=== PATIENT | male | born 1990 | race Caucasian/White ===

== ENCOUNTER 2022-04-14 00:48 | Emergency (ER) | payer MEDICAID, SELFPAY ==
--- NOTE | ~2022-04-14 | XR_ITS ---
EXAMINATION: XR CHEST CLINICAL INFORMATION: Chest pain COMPARISON: 04/20/2020 TECHNIQUE: 2 views of the chest were obtained. FINDINGS: Normal symmetric lung volumes. No parenchymal consolidation. No pleural effusion. No pneumothorax. Cardiomediastinal silhouette and pulmonary vascularity are within normal limits. No acute osseous abnormalities. XR/XR chest 2V IMPRESSION: No acute findings
--- NOTE | ~2022-04-14 | CT_ITS ---
EXAMINATION: CT ABDOMEN AND PELVIS WITH CONTRAST CLINICAL INFORMATION: Right upper quadrant and epigastric pain COMPARISON: None TECHNIQUE: Multidetector volumetric images were obtained from the superior aspect of the liver through the pubic symphysis following administration 98 mL of Omnipaque 350 intravenous contrast. Sagittal and coronal reformatted images were obtained on the technologist's workstation. Oral contrast: No This CT examination was performed using dose optimization techniques as appropriate, variously including the following: *Automated exposure control *Adjustment of mA and/or kV according to patient size (this includes techniques or standardized protocols for targeted exams where dose is matched to indication/reason for exam; i.e. extremities or head) *Use of iterative reconstruction technique DLP: 1427 mGy-cm FINDINGS: LUNG BASES: The visualized lung bases are unremarkable. LIVER, GALLBLADDER, AND BILIARY TREE: Liver normal in size, contour and morphology. Diffuse hepatic steatosis. No intra or extrahepatic biliary dilatation. Gallbladder unremarkable. PANCREAS: Unremarkable. SPLEEN: Unremarkable. ADRENAL GLANDS: Unremarkable. KIDNEYS AND URETERS: The kidneys are normal in size, shape, and attenuation. No hydronephrosis, hydroureter, or calculi seen. No perinephric stranding. BLADDER: Unremarkable. GASTROINTESTINAL TRACT: No bowel related abnormalities. Appendectomy. ABDOMINAL WALL: No significant hernia is appreciated. LYMPH NODES: Normal. VASCULAR: Unremarkable. PELVIC VISCERA: Unremarkable. OSSEOUS STRUCTURES: No acute or suspicious osseous abnormalities. CT/CT abdomen pelvis w IV con IMPRESSION: No acute findings. Diffuse hepatic steatosis. Previous appendectomy.
[2022-04-14 00:50] VITALS: BP 150/94; PULSE 100; RESP 18; TEMP 37.2; O2SAT 95; BMI 39.5
--- NOTE | 2022-04-14 00:50 | ECG_ITS ---
Test Reason : CP Blood Pressure : / mmHG Vent. Rate : 102 BPM Atrial Rate : 102 BPM P-R Int : 138 ms QRS Dur : 092 ms QT Int : 356 ms P-R-T Axes : 028 020 -10 degrees QTc Int : 463 ms Sinus tachycardia Cannot rule out Inferior infarct , age undetermined Abnormal ECG When compared with ECG of 19-APR-2020 23:40, QT has lengthened Referred By: Generic ED Physician Electronically Signed By:CATY OLSON
[2022-04-14 01:42] VITALS: PULSE 97
[2022-04-14 01:44] LABS: MANUAL DIFF FLAG NO
[2022-04-14 01:45] VITALS: BP 132/89; PULSE 99; RESP 20; O2SAT 95
[2022-04-14 01:45] LABS: Basophils Absolute Auto 0.1 X10*3/uL (0.0-0.2); Basophils Percent Auto 1.1 % (0-2); Eosinophils Absolute Auto 0.3 X10*3/uL (0.0-0.4); Eosinophils Percent Auto 4.2 % (0-4); Hematocrit 42.5 % (42.0-52.0); Hemoglobin 15.2 g/dl (14.0-18.0); Imm Gran Abs Auto 0.02 X10*3/uL (0.00-0.03); Imm Gran Pct Auto 0.3 % (0.0-0.4); Lymphocytes Absolute Auto 2.7 X10*3/uL (1.2-4.9); Mean Corpuscular HGB Conc 35.8 g/dl (31.0-36.0); Mean Corpuscular Hemoglobin 29.6 pg (27.0-33.0); Mean Corpuscular Volume 82.8 fL (80.0-98.0); Mean Platelet Volume 10.7 fL (9.4-12.4); Monocytes Absolute Auto 0.6 X10*3/uL (0.1-1.2); Monocytes Percent Auto 8.9 % (2-11); Neutrophils Absolute Auto 2.8 x10*3/uL (2.0-8.3); Neutrophils Percent Auto 43.5 % (45-73); Platelet Count 213 X10*3/uL (160-400); Red Blood Count 5.13 X10*6/uL (4.60-5.80); White Blood Count 6.4 X10*3/uL (4.8-10.8)
[2022-04-14 01:53] LABS: D Dimer High Sensitivity < 150 NG/ML
[2022-04-14 02:00] VITALS: PULSE 102; RESP 12; O2SAT 95
[2022-04-14 02:07] LABS: Troponin-I High Sensitivity < 3.5 ng/L (<3.5-35.0)
[2022-04-14 02:08] LABS: Alanine Aminotransferase 116 U/L (0-40); Albumin Level 4.4 g/dL (3.5-5.0); Alkaline Phosphatase 85 U/L (39-117); Anion Gap 18 (12-20); Aspartate Amino Transferase 69 U/L (5-37); Bilirubin Total 0.7 mg/dL (0.0-1.0); Blood Urea Nitrogen 16 mg/dL (9-16); Calcium 9.2 mg/dL (8.4-10.2); Carbon Dioxide 22 mmol/L (22-29); Chloride 101 mmol/L (96-108); Creatinine Clr Calc Pharmacy 154.8; Estimated Glomerular Filt Rate > 60; Glucose Random 230 mg/dL (60-115); Potassium 3.9 mmol/L (3.3-5.1); Sodium 137 mmol/L (135-145); Total Protein 7.8 g/dL (6.5-8.0)
--- NOTE | 2022-04-14 02:16 | ED.CHESTPAIN ---
HPI - Chest Pain General Chief Complaint: Chest Pain Stated Complaint: Chest pain, trouble breathing Time Seen by Provider: 04/14/22 01:18 Source: patient Mode of arrival: ambulatory History of Present Illness HPI narrative: 31-year-old male who presents with 2 weeks of intermittent difficult to describe, squeezing type epigastric discomfort and feeling like he wants to vomit but he can not, lasts for short periods of time while he is at rest. And then has progressively become more frequent until today when it has happened more frequently and for a longer duration. Is not been associated with fever but he states he has chills, nausea but cannot vomit, and also describes that it seems to be ?all over? and he points words his abdomen. Patient states that he was evaluated at [place], and as an aside he continues to describe this as chest pain however he is describing more his epigastric area. He states he has tried Pepto-Bismol. Related Data Previous Rx's Medication Instructions Recorded sertraline 50 mg tablet 75 mg PO DAILY 90 days #135 tabs 10/13/21 buspirone 10 mg tablet 10 mg PO DAILY 90 days #90 tabs 12/31/21 lisinopril 5 mg tablet 5 mg PO DAILY #90 tabs 01/04/22 amlodipine 10 mg tablet 10 mg PO DAILY #90 tabs 04/02/22 Allergies Allergy/AdvReac Type Severity Reaction Status Date / Time melatonin Allergy Unknown chest pain Verified 08/01/16 00:00 No Known Allergies Allergy Unverified 04/26/20 17:15 [No Known Allergies*] Review of Systems Review of Systems: Pertinent positives and negatives as stated in HPI 10 point review of systems is otherwise negative. [facility] Past Medical History Source: nursing notes reviewed Social History Social History Alcohol intake: never Patient Tobacco Use Status: Never used Tobacco Use of substances other than those prescribed or required for medical reasons: No Advance Directives: No Physical Exam Vital Signs: Vital Signs: Last Vital Signs Temp 98.9 F 04/14/22 00:50 Pulse 97 04/14/22 04:12 Resp 17 04/14/22 04:12 BP 140/92 H 04/14/22 04:12 Pulse Ox 95 04/14/22 04:12 O2 Del Method 04/14/22 04:12 BMI result Body Mass Index 39.5 VITAL SIGNS: Reviewed. GENERAL: Well developed, well nourished, in no acute distress. HEAD: Normocephalic/atraumatic EYES: PERRLA, EOMI EARS: Ext canals without abnormality OROPHARYNX: no oral lesions noted, posterior pharynx clear LUNGS: Normal breath sounds. No adventitious sounds or accessory muscle use. SpO2<95> CARDIOVASCULAR: Regular rate and rhythm without noted murmurs ABDOMEN: Soft, right upper quadrant pain on palpation, non-distended with bowel sounds. MUSCULOSKELETAL: No tenderness, deformities, or effusions noted on gross inspection. EXTREMITIES: No cyanosis, clubbing or edema. SKIN: Inspection of the skin reveals no rashes NEUROLOGIC: Alert and oriented x 4. Strength and sensation to light touch were grossly intact x 4. Course Course Course Narrative: 31-year-old male with history and clinical presentation suggestive of possible gastritis, GERD, and lower clinical suspicion for cholecystitis, pancreatitis or cardiopulmonary etiology. On review of all investigations there are no acute findings to better explain patient's presentation. All results were discussed with him bedside and he was discharged home in stable condition with presumptive diagnosis of diabetes with his hyperglycemia. But on review of all documentation he has qualified as diabetic since 2019. MDM - Chest Pain MDM Narrative Medical decision making narrative: 31-year-old male with history and clinical presentation suggestive of possible cholecystitis, pancreatitis and lower clinical suspicion for cardiopulmonary etiology as patient has already been evaluated at [facility] for this symptom. Lab Data Result diagrams: 04/14/22 01:39 04/14/22 01:39 Labs: Lab Results 04/14/22 04/14/22 04/14/22 Range/Units 01:39 01:39 01:40 WBC 6.4 (4.8-10.8) X10*3/uL RBC 5.13 (4.60-5.80) X10*6/uL Hgb 15.2 (14.0-18.0) g/dl Hct 42.5 (42.0-52.0) % MCV 82.8 (80.0-98.0) fL MCH 29.6 (27.0-33.0) pg MCHC 35.8 (31.0-36.0) g/dl RDW 12.0 (11.0-16.0) % Plt Count 213 (160-400) X10*3/uL MPV 10.7 (9.4-12.4) fL Immature Gran % (Auto) 0.3 (0.0-0.4) % Neut % (Auto) 43.5 L (45-73) % Lymph % (Auto) 42.0 H (20-40) % Lawrence % (Auto) 8.9 (2-11) % Eos % (Auto) 4.2 H (0-4) % Baso % (Auto) 1.1 (0-2) % Lymph # (Auto) 2.7 (1.2-4.9) X10*3/uL [place] # (Auto) 0.6 (0.1-1.2) X10*3/uL Eos # (Auto) 0.3 (0.0-0.4) X10*3/uL Baso # (Auto) 0.1 (0.0-0.2) X10*3/uL Abs Immat Gran (auto) 0.02 (0.00-0.03) X10*3/uL Absolute Neuts (auto) 2.8 (2.0-8.3) x10*3/uL Absolute Nucleated RBC 0.000 (0.0-0.012) X10*3/uL Nucleated RBC % (auto) 0.0 (0.0-0.2) /100WBC D-Dimer High Sensitivty NG/ML Sodium 137 (135-145) mmol/L Potassium 3.9 (3.3-5.1) mmol/L Chloride 101 (96-108) mmol/L Carbon Dioxide 22 (22-29) mmol/L Anion Gap 18 (12-20) BUN 16 (9-16) mg/dL Creatinine 1.01 (0.5-1.4) mg/dL Estim Creat Clear Calc 154.8 Estimated GFR > 60 Random Glucose 230 H (60-115) mg/dL Calcium 9.2 (8.4-10.2) mg/dL Total Bilirubin 0.7 (0.0-1.0) mg/dL AST 69 H (5-37) U/L ALT 116 H (0-40) U/L Alkaline Phosphatase 85 (39-117) U/L Troponin I High Sens < 3.5 (<3.5-35.0) ng/L Total Protein 7.8 (6.5-8.0) g/dL Albumin 4.4 (3.5-5.0) g/dL Lipase 35 (8-78) U/L COVID-19 (ARUN) (Negative) COVID-19 Clin Com 04/14/22 04/14/22 Range/Units 01:40 05:00 WBC (4.8-10.8) X10*3/uL RBC (4.60-5.80) X10*6/uL Hgb (14.0-18.0) g/dl Hct (42.0-52.0) % MCV (80.0-98.0) fL MCH (27.0-33.0) pg MCHC (31.0-36.0) g/dl RDW (11.0-16.0) % Plt Count (160-400) X10*3/uL MPV (9.4-12.4) fL Immature Gran % (Auto) (0.0-0.4) % Neut % (Auto) (45-73) % Lymph % (Auto) (20-40) % Lawrence % (Auto) (2-11) % Eos % (Auto) (0-4) % Baso % (Auto) (0-2) % Lymph # (Auto) (1.2-4.9) X10*3/uL Lawrence # (Auto) (0.1-1.2) X10*3/uL Eos # (Auto) (0.0-0.4) X10*3/uL Baso # (Auto) (0.0-0.2) X10*3/uL Abs Immat Gran (auto) (0.00-0.03) X10*3/uL Absolute Neuts (auto) (2.0-8.3) x10*3/uL Absolute Nucleated RBC (0.0-0.012) X10*3/uL Nucleated RBC % (auto) (0.0-0.2) /100WBC D-Dimer High Sensitivty < 150 NG/ML Sodium (135-145) mmol/L Potassium (3.3-5.1) mmol/L Chloride (96-108) mmol/L Carbon Dioxide (22-29) mmol/L Anion Gap (12-20) BUN (9-16) mg/dL Creatinine (0.5-1.4) mg/dL Estim Creat Clear Calc Estimated GFR Random Glucose (60-115) mg/dL Calcium (8.4-10.2) mg/dL Total Bilirubin (0.0-1.0) mg/dL AST (5-37) U/L ALT (0-40) U/L Alkaline Phosphatase (39-117) U/L Troponin I High Sens (<3.5-35.0) ng/L Total Protein (6.5-8.0) g/dL Albumin (3.5-5.0) g/dL Lipase (8-78) U/L COVID-19 (ARUN) Negative (Negative) COVID-19 Clin Com See Note Discharge Plan Discharge Clinical Impression: Hyperglycemia, Atypical chest pain, Nausea Patient Disposition: Home, Self-Care Instructions: Diabetic Hyperglycemia (ED), Chest Pain (ED), Diabetes and Nutrition (ED), Diabetes and Exercise (ED) Additional Instructions: 1. Resume all home medications. 2. Contact your primary care provider on Thursday to set up an appointment for re-evaluation and discussion regarding medication for your diabetes. Return to the ER for worsening symptoms. Prescriptions: No Action sertraline 50 mg tablet 75 mg PO DAILY 90 Days Qty: 135 1RF buspirone 10 mg tablet 10 mg PO DAILY 90 Days Qty: 90 0RF lisinopril 5 mg tablet 5 mg PO DAILY Qty: 90 1RF amlodipine 10 mg tablet 10 mg PO DAILY Qty: 90 0RF Referrals: Louis Avery, REPOSSESSOR- [Primary Care Provider] -
[2022-04-14] MEDS: 0.9 % Sodium Chloride 1,000 ML 999 ML IV (02:22)
[2022-04-14] MEDS: ondansetron HCL 4 MG/2 ML VIAL IVPUSH (02:22)
[2022-04-14 02:31] LABS: Lipase 35 U/L (8-78)
[2022-04-14] MEDS: iohexoL 350 MG/ML 100 ML INFUS..BTL IV (03:18)
[2022-04-14] MEDS: Ketorolac Tromethamine 30 MG/ML VIAL 15 MG IVPUSH (03:41)
[2022-04-14 04:12] VITALS: BP 140/92; PULSE 97; RESP 17; O2SAT 95
[2022-04-14] MEDS: Lidocaine HCl Viscous 2 % 15 ML SOLUTION 10 ML MUCOUS MEM (04:19)
[2022-04-14] MEDS: Magnesium Hydrox/Alum Hydrox 30 ML ORAL.SUSP PO (04:19)
[2022-04-14 05:19] LABS: COVID-19 Test Negative (Negative)
== END 2022-04-14 05:54 | disposition home or self-care (01) ==
PROVIDERS: Emergency Provider Student in an Organized Health Care Education/Training Program; PCP Nurse Practitioner Family
DX: E11.65 Type 2 diabetes mellitus with hyperglycemia (principal); R07.89 Other chest pain; R11.0 Nausea; R10.11 Right upper quadrant pain; Z20.822 Contact with and (suspected) exposure to COVID-19; Z79.899 Other long term (current) drug therapy
CPT/HCPCS: 36415; 71046; 74177; 80053; 83690; 84484; 85025; 85379; 87635; 93005; 96361; 96374; 96375; 99284; 99285; J1885; J2405; Q9967

== ENCOUNTER 2022-04-15 10:10 | Emergency (ER) | payer MEDICAID, SELFPAY ==
--- NOTE | 2022-04-15 10:16 | ED.GENADULT ---
HPI - General Adult General Chief complaint: General Medical Stated complaint: DIABETIC Time Seen by Provider: 04/15/22 10:16 Source: patient and EMS Mode of arrival: EMS Limitations: no limitations History of Present Illness HPI narrative: Patient is a 31 year old male presenting to the emergency department today with concern of ketones in his urine. Patient states that he was diagnosed with diabetes a few days ago and was told that if his ketones get too high, he should come to the ER. So he purchased a ketone ayala for his urine and it read high today, so he came to the ER. Patient denies any dizziness, lightheadedness, abdominal pain, nausea, vomiting, fever, chills, blurry vision, double vision, loss of vision, chest pain, difficulty breathing, shortness of breath, back pain, night sweats, pain with urination, increased urinary frequency, increased urinary urgency, blood in his urine or stool, syncope or a near syncopal episode, recent trauma or falls, bowel incontinence, bladder incontinence, bowel retention, bladder retention, or any other complaints at this time. Severity: mild Severity scale (1-10): 1 Relieving factors: none Exacerbating factors: none Associated symptoms: denies other symptoms Treatments prior to arrival: none Related Data Previous Rx's Medication Instructions Recorded sertraline 50 mg tablet 75 mg PO DAILY 90 days #135 tabs 10/13/21 buspirone 10 mg tablet 10 mg PO DAILY 90 days #90 tabs 12/31/21 lisinopril 5 mg tablet 5 mg PO DAILY #90 tabs 01/04/22 amlodipine 10 mg tablet 10 mg PO DAILY #90 tabs 04/02/22 Allergies Allergy/AdvReac Type Severity Reaction Status Date / Time No Known Allergies Allergy Unverified 04/26/20 17:15 [No Known Allergies*] Review of Systems Constitutional: Constitutional: Reports no additional constitutional complaints, Denies chills, Denies fever(s) and Denies night sweats Eyes: Eyes: Reports no additional eye complaints, Denies blurry vision, Denies change in vision, Denies diplopia, Denies eye discharge, Denies loss of vision and Denies eye pain ENT: Denies dizziness Cardiovascular: Cardiovascular: Reports no additional cardiovascular complaints, Denies chest pain, Denies lightheadedness, Denies Loss of Consciousness and Denies dyspnea Respiratory: Respiratory: Reports no additional respiratory complaints and Denies dyspnea Gastrointestinal: Gastrointestinal: Reports no additional gastrointestinal complaints, Denies abdominal pain, Denies melena, Denies hematochezia, Denies change in bowel habits and Denies change in stool character Genitourinary: Genitourinary: Reports no additional male genitourinary complaints, Denies hematuria, Denies oliguria, Denies difficulty urinating, Denies dysuria, Denies urinary frequency, Denies urinary hesitancy, Denies urinary incontinence and Denies urinary urgency Musculoskeletal: Musculoskeletal: Reports no additional musculoskeletal complaints, Denies numbness and Denies tingling Neurologic: Denies dizziness, Denies loss of vision, Denies numbness and Denies tingling Psychiatric: Psychiatric: Reports no additional psychiatric complaints Endocrine: Endocrine: Reports no additional endocrine complaints Hematologic/Lymphatic: Hematologic/Lymphatic: Reports no additional hematologic/lymphatic complaints Allergic/Immunologic: Allergic/Immunologic: Reports no additional allergic/immunologic complaints PMFSH Past Medical History Attestation statement: The following information was validated with the patient. Source: old records reviewed Social History Social History Alcohol intake: never Patient Tobacco Use Status: Never used Tobacco Use of substances other than those prescribed or required for medical reasons: No Advance Directives: No Advance Directives Information Provided: No Physical Exam ED Vital Signs: Vital Signs - 24 hr 04/15/22 10:24 Temperature 98.2 F Pulse Rate 99 Respiratory Rate 18 Blood Pressure 125/92 H Pulse Oximetry 94 Oxygen Delivery Method Room Air BMI result Body Mass Index 40.6 Const General: cooperative, no acute distress, alert and awake Nutritional Appearance: well nourished Orientation/consciousness: patient oriented x3 Limitations: no limitations [facility] Head: Yes normal to inspection and Yes atraumatic Ears: hearing grossly normal bilaterally and external ears normal General nose exam: Normal external nose present, no nasal discharge noted and no epistaxis Face and sinus: Yes normal facial exam, No abrasion and No laceration Mouth: Normal oral and palatal mucosa present, no drooling and no muffled voice Eyes General: appearance normal, both eyes and all related structures Periorbital: periorbital findings normal Eyelids: Yes eyelids normal Conjunctivae: conjunctivae normal Pupils: Equal, round and reactive pupils present EOM: EOMs intact bilaterally Neck Neck: Yes normal visual inspection, Yes full ROM and Yes no lymphadenopathy Chest Chest palpation & inspection: normal inspection of the chest Resp Effort & Inspection: normal respiratory effort and able to speak in complete sentences Auscultation: clear to auscultation bilaterally Cardio Rate: regular rate Rhythm: regular rhythm GI Inspection: Yes normal to inspection Palpation (GI): Soft to palpation, not firm, nontender and no guarding Neuro General: patient oriented x3 and moves all extremities Cranial nerves: Yes Equal, round and reactive pupils present Cognition (Neuro): normal cognition Motor exam (neuro): 5/5 motor strength present throughout Sensory Exam: Normal double simultaneous stimulation for sensation Coordination: [id number] test normal Extrem General: Yes normal to inspection, Yes full ROM and Yes capillary refill normal Psych Appearance: grossly normal Mental Status: mental status grossly normal Affect: normal affect Attitude: cooperative Thought process: Normal thought process present Thought content: Normal thought content present Insight: Good insight present (Psych) Medical Decision Making MDM Narrative Medical decision making narrative: Patient is a 31 year old male presenting to the emergency department today with concern about the amount of ketones in his urine. Patient's physical exam was unremarkable. Patient's blood work was unremarkable. I explained my physical exam findings as well as all test results to the patient. I answered all questions asked by the patient. I explained to the patient that dibateic ketoacidosis is what he should be concerned about and that involves his sugar being >400. I explained to the patient that the presence of ketones in his urine, in the absence of DKA symptoms, is unreliable in determining an acute diabetic crisis. I advised the patient to get an OTC glucometer and monitor his blood sugars at home to report to his PCP. I stressed the importance of the patient taking his medication as prescribed. I stressed the importance of the patient following up with his primary care provider. I stressed the importance of the patient returning to the emergency department immediately if his symptoms were to worsen or if he were to develop any dizziness, shortness of breath, difficulty breathing, chest pain, blurry vision, loss of vision, nausea, vomiting, abdominal pain, fever, chills, back pain, or any other complaints. Patient verbalized agreement and understanding with this treatment plan and discharge. Medical Records Medical records reviewed: Yes I reviewed the patient's medical records. Lab Data Lab results reviewed: Yes I reviewed the patient's lab results. Result diagrams: 04/15/22 10:47 04/15/22 10:47 Labs: Lab Results 04/15/22 04/15/22 04/15/22 Range/Units 10:47 10:47 10:48 WBC 5.4 (4.8-10.8) X10*3/uL RBC 5.19 (4.60-5.80) X10*6/uL Hgb 14.9 (14.0-18.0) g/dl Hct 43.2 (42.0-52.0) % MCV 83.2 (80.0-98.0) fL MCH 28.7 (27.0-33.0) pg MCHC 34.5 (31.0-36.0) g/dl RDW 12.0 (11.0-16.0) % Plt Count 197 (160-400) X10*3/uL MPV 10.2 (9.4-12.4) fL Immature Gran % (Auto) 0.4 (0.0-0.4) % Neut % (Auto) 52.5 (45-73) % Lymph % (Auto) 33.6 (20-40) % [place] % (Auto) 8.9 (2-11) % Eos % (Auto) 3.9 (0-4) % Baso % (Auto) 0.7 (0-2) % Lymph # (Auto) 1.8 (1.2-4.9) X10*3/uL [place] # (Auto) 0.5 (0.1-1.2) X10*3/uL Eos # (Auto) 0.2 (0.0-0.4) X10*3/uL Baso # (Auto) 0.0 (0.0-0.2) X10*3/uL Abs Immat Gran (auto) 0.02 (0.00-0.03) X10*3/uL Absolute Neuts (auto) 2.8 (2.0-8.3) x10*3/uL Absolute Nucleated RBC 0.000 (0.0-0.012) X10*3/uL Nucleated RBC % (auto) 0.0 (0.0-0.2) /100WBC VBG pH (7.32-7.43) VBG pCO2 mmHg VBG pO2 mmHg VBG HCO3 (22-26) mmol/L VBG O2 Saturation % VBG Base Excess mmol/L Sodium 138 (135-145) mmol/L Potassium 4.2 (3.3-5.1) mmol/L Chloride 104 (96-108) mmol/L Carbon Dioxide 23 (22-29) mmol/L Anion Gap 15 (12-20) BUN 15 (9-16) mg/dL Creatinine 0.91 (0.5-1.4) mg/dL Estim Creat Clear Calc 169.5 Estimated GFR > 60 Random Glucose 190 H (60-115) mg/dL Calcium 9.0 (8.4-10.2) mg/dL Magnesium 1.9 (1.6-2.6) mg/dL Total Bilirubin 0.9 (0.0-1.0) mg/dL AST 100 H (5-37) U/L ALT 128 H (0-40) U/L Alkaline Phosphatase 80 (39-117) U/L Ammonia 35 (13-55) umol/L Total Protein 7.0 (6.5-8.0) g/dL Albumin 4.2 (3.5-5.0) g/dL 04/15/22 Range/Units 10:51 WBC (4.8-10.8) X10*3/uL RBC (4.60-5.80) X10*6/uL Hgb (14.0-18.0) g/dl Hct (42.0-52.0) % MCV (80.0-98.0) fL MCH (27.0-33.0) pg MCHC (31.0-36.0) g/dl RDW (11.0-16.0) % Plt Count (160-400) X10*3/uL MPV (9.4-12.4) fL Immature Gran % (Auto) (0.0-0.4) % Neut % (Auto) (45-73) % Lymph % (Auto) (20-40) % [place] % (Auto) (2-11) % Eos % (Auto) (0-4) % Baso % (Auto) (0-2) % Lymph # (Auto) (1.2-4.9) X10*3/uL [place] # (Auto) (0.1-1.2) X10*3/uL Eos # (Auto) (0.0-0.4) X10*3/uL Baso # (Auto) (0.0-0.2) X10*3/uL Abs Immat Gran (auto) (0.00-0.03) X10*3/uL Absolute Neuts (auto) (2.0-8.3) x10*3/uL Absolute Nucleated RBC (0.0-0.012) X10*3/uL Nucleated RBC % (auto) (0.0-0.2) /100WBC VBG pH 7.39 (7.32-7.43) VBG pCO2 36 mmHg VBG pO2 63 mmHg VBG HCO3 22 (22-26) mmol/L VBG O2 Saturation 89.0 % VBG Base Excess -2.1 mmol/L Sodium (135-145) mmol/L Potassium (3.3-5.1) mmol/L Chloride (96-108) mmol/L Carbon Dioxide (22-29) mmol/L Anion Gap (12-20) BUN (9-16) mg/dL Creatinine (0.5-1.4) mg/dL Estim Creat Clear Calc Estimated GFR Random Glucose (60-115) mg/dL Calcium (8.4-10.2) mg/dL Magnesium (1.6-2.6) mg/dL Total Bilirubin (0.0-1.0) mg/dL AST (5-37) U/L ALT (0-40) U/L Alkaline Phosphatase (39-117) U/L Ammonia (13-55) umol/L Total Protein (6.5-8.0) g/dL Albumin (3.5-5.0) g/dL Discharge Plan Discharge Clinical Impression: Diabetes Patient Disposition: Home, Self-Care Instructions: Basic Carbohydrate Counting (DC), Meal Planning with the Plate Method (DC), Diabetes and Nutrition (ED), Diabetes and Exercise (ED), How to Check your Blood Sugar (ED) Additional Instructions: Follow up with your primary care provider. Return to the emergency department immediately if your symptoms worsen or if you develop any dizziness, shortness of breath, difficulty breathing, chest pain, blurry vision, loss of vision, nausea, vomiting, abdominal pain, fever, chills, back pain, or any other complaints. Prescriptions: No Action sertraline 50 mg tablet 75 mg PO DAILY 90 Days Qty: 135 1RF buspirone 10 mg tablet 10 mg PO DAILY 90 Days Qty: 90 0RF lisinopril 5 mg tablet 5 mg PO DAILY Qty: 90 1RF amlodipine 10 mg tablet 10 mg PO DAILY Qty: 90 0RF Referrals: Louis Avery FNP-BC [Primary Care Provider] - Print Language: [place]
[2022-04-15 10:20] VITALS: BP 152/93; PULSE 102; O2SAT 95
[2022-04-15 10:24] VITALS: BP 125/92; PULSE 99; RESP 18; TEMP 36.8; O2SAT 94; BMI 40.6
[2022-04-15 10:54] LABS: MANUAL DIFF FLAG NO
[2022-04-15 10:56] LABS: VBG Base Excess -2.1 mmol/L; VBG HCO3 22 mmol/L (22-26); VBG pCO2 36 mmHg; VBG pH 7.39 (7.32-7.43); VBG pO2 63 mmHg
[2022-04-15 10:57] LABS: Venous Blood Gas Refer to POC result
[2022-04-15 10:57] LABS: Basophils Percent Auto 0.7 % (0-2); Eosinophils Absolute Auto 0.2 X10*3/uL (0.0-0.4); Eosinophils Percent Auto 3.9 % (0-4); Hematocrit 43.2 % (42.0-52.0); Hemoglobin 14.9 g/dl (14.0-18.0); Imm Gran Abs Auto 0.02 X10*3/uL (0.00-0.03); Imm Gran Pct Auto 0.4 % (0.0-0.4); Lymphocytes Absolute Auto 1.8 X10*3/uL (1.2-4.9); Lymphocytes Percent Auto 33.6 % (20-40); Mean Corpuscular HGB Conc 34.5 g/dl (31.0-36.0); Mean Corpuscular Hemoglobin 28.7 pg (27.0-33.0); Mean Corpuscular Volume 83.2 fL (80.0-98.0); Mean Platelet Volume 10.2 fL (9.4-12.4); Monocytes Absolute Auto 0.5 X10*3/uL (0.1-1.2); Monocytes Percent Auto 8.9 % (2-11); Neutrophils Absolute Auto 2.8 x10*3/uL (2.0-8.3); Neutrophils Percent Auto 52.5 % (45-73); Platelet Count 197 X10*3/uL (160-400); Red Blood Count 5.19 X10*6/uL (4.60-5.80); White Blood Count 5.4 X10*3/uL (4.8-10.8)
[2022-04-15 11:02] LABS: Ammonia 35 umol/L (13-55)
[2022-04-15 11:22] LABS: Alanine Aminotransferase 128 U/L (0-40); Albumin Level 4.2 g/dL (3.5-5.0); Alkaline Phosphatase 80 U/L (39-117); Anion Gap 15 (12-20); Aspartate Amino Transferase 100 U/L (5-37); Bilirubin Total 0.9 mg/dL (0.0-1.0); Blood Urea Nitrogen 15 mg/dL (9-16); Carbon Dioxide 23 mmol/L (22-29); Chloride 104 mmol/L (96-108); Creatinine Clr Calc Pharmacy 169.5; Estimated Glomerular Filt Rate > 60; Glucose Random 190 mg/dL (60-115); Magnesium 1.9 mg/dL (1.6-2.6); Potassium 4.2 mmol/L (3.3-5.1); Sodium 138 mmol/L (135-145)
== END 2022-04-15 11:48 | disposition home or self-care (01) ==
PROVIDERS: Physician Assistant Medical; Emergency Provider Emergency Medicine; PCP Nurse Practitioner Family
DX: E11.10 Type 2 diabetes mellitus with ketoacidosis without coma (principal); Z79.899 Other long term (current) drug therapy
CPT/HCPCS: 36415; 80053; 82140; 82803; 83735; 85025; 99283; 99284

== ENCOUNTER 2022-08-29 14:17 | Outpatient (REF) | payer OTHER, SELFPAY ==
[2022-08-29 15:01] LABS: Influenza A PCR NEGATIVE (Negative); Influenza B PCR NEGATIVE (Negative); Resp Syncy Virus RNA Qual PCR NEGATIVE (Negative); SARS COV2 PCR INHOUSE NEGATIVE (Negative)
== END 2022-08-29 14:18 | disposition home or self-care (01) ==
LOC: HO.LNP 14:17
PROVIDERS: Visit Provider Physician Assistant
DX: Z20.822 Contact with and (suspected) exposure to COVID-19 (principal)
CPT/HCPCS: 0241U

== ENCOUNTER 2022-11-20 06:26 | Emergency (ER) | payer OTHER, SELFPAY ==
--- NOTE | ~2022-11-20 | CT_ITS ---
EXAMINATION: CT ABDOMEN AND PELVIS WITHOUT CONTRAST CLINICAL INFORMATION: Right flank pain COMPARISON: April 14, 2022 TECHNIQUE: Multidetector volumetric imaging was performed from the superior aspect of the liver through the pubic symphysis. Sagittal and coronal reformatted images were obtained on the technologist's workstation. This CT examination was performed using dose optimization techniques as appropriate, variously including the following: *Automated exposure control *Adjustment of mA and/or kV according to patient size (this includes techniques or standardized protocols for targeted exams where dose is matched to indication/reason for exam; i.e. extremities or head) *Use of iterative reconstruction technique DLP: 964 mGy-cm FINDINGS: LUNG BASES: The visualized lung bases are unremarkable. Heart normal size. No pleural or pericardial effusion. LIVER, GALLBLADDER, AND BILIARY TREE: There is hepatomegaly with vertical span of 22 cm. No focal lesion or intrahepatic bile duct dilatation is seen. The gallbladder is unremarkable with no evidence of radiopaque gallstones, gallbladder wall thickening, or obvious pericholecystic inflammatory changes. PANCREAS: Unremarkable. No abnormal mass or peripancreatic inflammatory change. SPLEEN: Enlarged measuring approximately 13 cm in vertical span. ADRENAL GLANDS: Unremarkable. KIDNEYS AND URETERS: The kidneys are normal in size, shape, and attenuation. No hydronephrosis, hydroureter, or right-sided calculi seen. No perinephric stranding. There is a 3 mm nonobstructing calculus within the lower pole of the left kidney. BLADDER: Unremarkable. GASTROINTESTINAL TRACT: No dilated loops of large or small bowel are seen. No free air or free fluid is noted. No pericolonic inflammatory change. Patient appears be status post appendectomy. ABDOMINAL WALL: No significant hernia is appreciated. LYMPH NODES: No lymphadenopathy appreciated. VASCULAR: Unremarkable. PELVIC VISCERA: Unremarkable. OSSEOUS STRUCTURES: No significant abnormality appreciated. CT/CT abdomen pelvis wo IV con IMPRESSION: Mild hepatosplenomegaly. No evidence of obstructive uropathy. 3 mm nonobstructing left lower pole calculus. Fleischner guidelines were followed.
--- NOTE | ~2022-11-20 | US_ITS ---
EXAMINATION: US SCROTUM CLINICAL INFORMATION: Right testicular pain. Rule out torsion.. COMPARISON: None available. TECHNIQUE: A sonogram of the scrotum was performed assessing contreras-scale appearance and color Doppler flow. Spectral Doppler analysis of the arterial and venous flow were performed in the testes bilaterally. FINDINGS: RIGHT: Right testicle measures 5.2 x 2.7 x 4.4 cm, volume 32 mL. No focal testicular parenchymal lesions are visualized. Spectral Doppler analysis of the arterial and venous flow is normal in the right testis. Right epididymal head is normal in size. There are 2 small right inguinal cysts measuring 0.3 x 0.3 x 0.4 cm and 0.2 x 0.2 x 0.3 cm. No right hydrocele or varicocele is seen. Right epididymal Doppler flow is normal. LEFT: Left testicle measures 5.2 x 2.7 x 3.8 cm, volume 28 mL. No focal testicular parenchymal lesions are visualized. Spectral Doppler analysis of the arterial and venous flow is normal in the left testis. Left epididymal head is normal in size. There is a left adrenal cyst measuring 0.3 x 0.2 x 0.4 cm. No left hydrocele or varicocele is seen. Left epididymal Doppler flow is normal. US/US scrotum IMPRESSION: 1. Bilateral epididymal cysts. 2. Both testes are normal with normal vascular flow.
--- NOTE | ~2022-11-20 | US_ITS ---
EXAMINATION: US SCROTUM CLINICAL INFORMATION: Right testicular pain. Rule out torsion.. COMPARISON: None available. TECHNIQUE: A sonogram of the scrotum was performed assessing contreras-scale appearance and color Doppler flow. Spectral Doppler analysis of the arterial and venous flow were performed in the testes bilaterally. FINDINGS: RIGHT: Right testicle measures 5.2 x 2.7 x 4.4 cm, volume 32 mL. No focal testicular parenchymal lesions are visualized. Spectral Doppler analysis of the arterial and venous flow is normal in the right testis. Right epididymal head is normal in size. There are 2 small right inguinal cysts measuring 0.3 x 0.3 x 0.4 cm and 0.2 x 0.2 x 0.3 cm. No right hydrocele or varicocele is seen. Right epididymal Doppler flow is normal. LEFT: Left testicle measures 5.2 x 2.7 x 3.8 cm, volume 28 mL. No focal testicular parenchymal lesions are visualized. Spectral Doppler analysis of the arterial and venous flow is normal in the left testis. Left epididymal head is normal in size. There is a left adrenal cyst measuring 0.3 x 0.2 x 0.4 cm. No left hydrocele or varicocele is seen. Left epididymal Doppler flow is normal. US/US scrotum doppler IMPRESSION: 1. Bilateral epididymal cysts. 2. Both testes are normal with normal vascular flow.
[2022-11-20 06:46] VITALS: BP 117/79; PULSE 76; RESP 14; TEMP 36.8; O2SAT 94; BMI 40.6
[2022-11-20 07:05] LABS: MANUAL DIFF FLAG NO
[2022-11-20 07:07] LABS: Basophils Absolute Auto 0.1 X10*3/uL (0.0-0.2); Eosinophils Absolute Auto 0.2 X10*3/uL (0.0-0.4); Eosinophils Percent Auto 4.1 % (0-4); Hematocrit 42.6 % (42.0-52.0); Imm Gran Abs Auto 0.02 X10*3/uL (0.00-0.03); Imm Gran Pct Auto 0.4 % (0.0-0.4); Lymphocytes Absolute Auto 1.8 X10*3/uL (1.2-4.9); Lymphocytes Percent Auto 37.6 % (20-40); Mean Corpuscular HGB Conc 35.2 g/dl (31.0-36.0); Mean Corpuscular Hemoglobin 29.5 pg (27.0-33.0); Mean Corpuscular Volume 83.7 fL (80.0-98.0); Mean Platelet Volume 10.5 fL (9.4-12.4); Monocytes Absolute Auto 0.5 X10*3/uL (0.1-1.2); Monocytes Percent Auto 10.6 % (2-11); Neutrophils Absolute Auto 2.3 x10*3/uL (2.0-8.3); Neutrophils Percent Auto 46.3 % (45-73); Platelet Count 159 X10*3/uL (160-400); Red Blood Count 5.09 X10*6/uL (4.60-5.80); Red Cell Distribution Width 12.8 % (11.0-16.0); White Blood Count 4.9 X10*3/uL (4.8-10.8)
[2022-11-20 07:14] VITALS: BP 124/66; PULSE 77; RESP 18; O2SAT 97
[2022-11-20 07:23] LABS: Alanine Aminotransferase 40 U/L (0-40); Albumin Level 4.2 g/dL (3.5-5.0); Alkaline Phosphatase 52 U/L (39-117); Anion Gap 12 (12-20); Aspartate Amino Transferase 62 U/L (5-37); Bilirubin Total 0.9 mg/dL (0.0-1.0); Blood Urea Nitrogen 16 mg/dL (9-16); Calcium 9.2 mg/dL (8.4-10.2); Carbon Dioxide 24 mmol/L (22-29); Chloride 109 mmol/L (96-108); Creatinine Clr Calc Pharmacy 198.5; Estimated Glomerular Filt Rate > 60; Glucose Random 114 mg/dL (60-115); Sodium 141 mmol/L (135-145); Total Protein 6.7 g/dL (6.5-8.0)
[2022-11-20 07:45] LABS: Appearance Urine Clear; Color Urine Yellow; Glucose Urine UA Negative (Negative); Leukocyte Esterase Urine Negative (Negative); Nitrite Urine Negative (Negative); PH 6.5 (5.0-9.0); Urine Blood Negative (Negative); Urine Ketones Negative (Negative); Urine Protein Negative (Neg-Trace)
--- NOTE | 2022-11-20 07:49 | ED_ITS ---
HPI - Male Genitourinary General Chief complaint: Urogenital-Male Stated complaint: uro-gen male Time Seen by Provider: 11/20/22 07:16 Source: patient Mode of arrival: ambulatory Limitations: no limitations History of Present Illness HPI Narrative: A 32-year-old male came in for evaluation of her right testicular pain, patient been complaining of intermittent right testicular pain for a year, came in today because the concern of increased intensity of the pain and radiating up to the right groin area and right lower back, no history of kidney stone, no history of blood in the urine. No fever, no chills. Patient never had sexual relationship, with no risk for STDs. Related Data Previous Rx's Medication Instructions Recorded alcohol swabs (Alcohol Pads) See Rx Instructions topical 04/17/22 .COMPLEX #100 ea FreeStyle Lite Meter #1 ea 04/18/22 (blood-glucose meter) lancets 28 gauge (FreeStyle #100 ea 04/18/22 Lancets) lisinopril 5 mg tablet 5 mg PO DAILY #90 tabs 07/29/22 albuterol sulfate 90 mcg/actuation 2 puff inhalation Q6H PRN 08/29/22 aerosol inhaler shortness of breath or wheezing #6.7 grams FreeStyle Lite Strips (blood sugar #100 ea 08/30/22 diagnostic) rosuvastatin 5 mg tablet (Crestor) 5 mg PO DAILY 90 days #90 tabs 09/03/22 amlodipine 10 mg tablet 10 mg PO DAILY #90 tabs 09/18/22 Allergies Allergy/AdvReac Type Severity Reaction Status Date / Time No Known Allergies Allergy Unverified 09/03/22 15:57 [No Known Allergies*] Review of Systems Review of Systems: All other systems are reviewed and are negative Constitutional: Reports as per HPI and Reports no additional constitutional complaints Eyes: Reports as per HPI and Reports no additional eye complaints Reports system reviewed and no additional complaints, except as documented Cardiovascular: Reports as per HPI and Reports no additional cardiovascular complaints Respiratory: Reports as per HPI and Reports no additional respiratory complaints Gastrointestinal: Reports as per HPI and Reports no additional gastrointestinal complaints Genitourinary: Reports no additional female genitourinary complaints Musculoskeletal: Reports no additional musculoskeletal complaints Skin/Breast: Reports system reviewed and no additional complaints, except as docu Psychiatric: Reports no additional psychiatric complaints Endocrine: Reports no additional endocrine complaints Hematologic/Lymphatic: Reports no additional hematologic/lymphatic complaints Allergic/Immunologic: Reports no additional allergic/immunologic complaints Reports system reviewed and no additional complaints, except as documented and Reports Abnormal speech present [facility] Past Medical History Medical History Hypertension Surgical History S/P appendectomy Social History Social History Housing: House Alcohol intake: never Patient Tobacco Use Status: Never used Tobacco Smoked in Last 30 Days: No e-Cigarette/Vaping Use: Never Used Second Hand Smoke Exposure: No Use of substances other than those prescribed or required for medical reasons: No Advance Directives: No Advance Directives Information Provided: No service: No Current occupational status: unemployed Cognitive needs: No Hearing needs: No Vision needs: No Physical Exam Vital Signs: Vital Signs: Last Vital Signs Temp 98.2 F 11/20/22 06:46 Pulse 75 11/20/22 10:17 Resp 14 11/20/22 10:17 BP 118/69 11/20/22 10:17 Pulse Ox 95 11/20/22 10:17 O2 Del Method Room Air 11/20/22 10:17 BMI result Body Mass Index 40.6 Vital signs have been reviewed as appeared to be correct. Blood pressure normal. Heart rate normal. Respiration rate normal. Temperature normal. Oxygen saturation normal. Appearance: Alert. Oriented X3. No acute distress. Head: Normal external exam. Normocephalic. Atraumatic. No Narayan signs noted. No raccoon eyes noted Eyes: PERRLA. EOMI. Conjunctiva and sclera normal. Eyelids normal. ENT: TM's Normal. Pharynx normal. Uvula midline. Moist mucous membranes. No trismus noted. No drooling noted. No muffled voice noted. Neck: Normal inspection. Neck supple. FROM. No adenopathy. Thyroid Normal. No meningeal signs. No neck mass noted. CVS: Normal heart rate and rhythm. Heart sound normal. No murmurs noted. Pulses normal throughout. Respiratory: No respiratory distress. Painless inspiration. Breath sounds normal. No wheezes/rales/rhonchi noted. Chest nontender. No accessory muscle usage noted or decreased air movement noted. Abdomen: Soft and nontender. Bowel sounds normal in all 4 quadrants. No distention noted. No organomegaly noted. No visible injury noted. exam: No testicular swelling or tenderness, cremasteric reflex is intact bilaterally. Back: No CVA tenderness. Full range of motion noted. Skin: Skin warm and dry. Normal skin color. Normal skin turgor. No rashes/lesions/lacerations noted. Extremities: No lower extremity edema. Extremities exhibit normal range of motion. Extremities nontender. Neuro: Oriented X 3. Cranial nerve exam: II-XII are grossly intact No motor deficit. No sensory deficit. Reflexes normal. Course Course Course Narrative: 32-year-old male presented with acute on chronic right scrotal pain, benign physical exam, patient declined risk for STD, CT of the abdomen and pelvis showing no acute pathology in particular no ureteric stone or obstructive uropathy, ultrasound showing low risk for torsion with bilateral small epididymal cysts. Medical Decision Making Differential Diagnosis Differential Diagnoses: The differential diagnosis associated with the presentation includes (UTI, kidney stone, epididymitis.) Admission/Observation Consideration of admission/observation: Escalation of care including admission/observation considered Lab Data MDM Lab Attestation statement: I reviewed the patient's lab results. 11/20/22 07:00 11/20/22 07:00 Labs: Lab Results 11/20/22 11/20/22 11/20/22 Range/Units 07:00 07:00 07:38 WBC 4.9 (4.8-10.8) X10*3/uL RBC 5.09 (4.60-5.80) X10*6/uL Hgb 15.0 (14.0-18.0) g/dl Hct 42.6 (42.0-52.0) % MCV 83.7 (80.0-98.0) fL MCH 29.5 (27.0-33.0) pg MCHC 35.2 (31.0-36.0) g/dl RDW 12.8 (11.0-16.0) % Plt Count 159 L (160-400) X10*3/uL MPV 10.5 (9.4-12.4) fL Immature Gran % (Auto) 0.4 (0.0-0.4) % Neut % (Auto) 46.3 (45-73) % Lymph % (Auto) 37.6 (20-40) % [place] % (Auto) 10.6 (2-11) % Eos % (Auto) 4.1 H (0-4) % Baso % (Auto) 1.0 (0-2) % Lymph # (Auto) 1.8 (1.2-4.9) X10*3/uL [place] # (Auto) 0.5 (0.1-1.2) X10*3/uL Eos # (Auto) 0.2 (0.0-0.4) X10*3/uL Baso # (Auto) 0.1 (0.0-0.2) X10*3/uL Abs Immat Gran (auto) 0.02 (0.00-0.03) X10*3/uL Absolute Neuts (auto) 2.3 (2.0-8.3) x10*3/uL Absolute Nucleated RBC 0.000 (0.0-0.012) X10*3/uL Nucleated RBC % (auto) 0.0 (0.0-0.2) /100WBC Sodium 141 (135-145) mmol/L Potassium 4.0 (3.3-5.1) mmol/L Chloride 109 H (96-108) mmol/L Carbon Dioxide 24 (22-29) mmol/L Anion Gap 12 (12-20) BUN 16 (9-16) mg/dL Creatinine 0.77 (0.5-1.4) mg/dL Estim Creat Clear Calc 198.5 Estimated GFR > 60 Random Glucose 114 (60-115) mg/dL Calcium 9.2 (8.4-10.2) mg/dL Total Bilirubin 0.9 (0.0-1.0) mg/dL AST 62 H (5-37) U/L ALT 40 (0-40) U/L Alkaline Phosphatase 52 (39-117) U/L Total Protein 6.7 (6.5-8.0) g/dL Albumin 4.2 (3.5-5.0) g/dL Urine Color Yellow Urine Appearance Clear Urine pH 6.5 (5.0-9.0) Ur Specific [place] 1.020 (1.005-1.025) Urine Protein Negative (Neg-Trace) mg/dL Urine Glucose (UA) Negative (Negative) mg/dL Urine Ketones Negative (Negative) mg/dL Urine Blood Negative (Negative) Urine Nitrite Negative (Negative) Ur Leukocyte Esterase Negative (Negative) Independent Interpretation I performed an independent interpretation of an: Ultrasound (Scrotal ultrasound: Bilateral epididymal small cysts with no acute pathology.) and CT Scan (Abdomen and pelvis: No acute intra-abdominal pathology.) Radiology Impression Discussion of test interpretation with radiology: I have reviewed the radiologist's reading. Discharge Plan Discharge Clinical Impression: Pain in scrotum Patient Disposition: Home, Self-Care Instructions: Testicle Pain (ED) Prescriptions: No Action alcohol swabs [Alcohol Pads] Pads, Medicated See Rx Instructions topical .COMPLEX Qty: 100 0RF Rx Instructions: use 1 pad to check blood sugar 2 times a day topically; lisinopril 5 mg tablet 5 mg PO DAILY Qty: 90 1RF (DME) FreeStyle Lite Strips Strip See Rx Instructions .Route Qty: 100 2RF Rx Instructions: BID testing amlodipine 10 mg tablet 10 mg PO DAILY Qty: 90 0RF (DME) lancets [FreeStyle Lancets] 28 gauge misc See Rx Instructions .Route Qty: 100 0RF Rx Instructions: BID testing (DME) blood-glucose meter [FreeStyle Lite Meter] Kit See Rx Instructions .Route Qty: 1 0RF Rx Instructions: As directed albuterol sulfate 90 mcg/actuation HFA aerosol inhaler 2 puff inhalation Q6H PRN (Reason: shortness of breath or wheezing) Qty: 6.7 0RF rosuvastatin [Crestor] 5 mg tablet 5 mg PO DAILY 90 Days Qty: 90 0RF Referrals: Toribio Laurent MD [Physician] -
--- NOTE | 2022-11-20 08:10 | PC.NURSE ---
pt to US
--- NOTE | 2022-11-20 09:06 | PC.NURSE ---
patient a&ox3, c/o rt back and groin pain 03/19, pt denies hematuria , ambulates independently-steady gait, pt aware we need a urine, vss, call [place] within reach, will continue to monitor.
[2022-11-20 10:17] VITALS: BP 118/69; PULSE 75; RESP 14; O2SAT 95
== END 2022-11-20 11:35 | disposition home or self-care (01) ==
PROVIDERS: Emergency Provider Emergency Medicine; PCP Nurse Practitioner Family
DX: N50.82 Scrotal pain (principal); R10.2 Pelvic and perineal pain; Z79.899 Other long term (current) drug therapy
CPT/HCPCS: 36415; 74176; 76870; 80053; 81003; 85025; 93975; 99284

== ENCOUNTER 2022-12-11 10:05 | Emergency (ER) | payer OTHER, SELFPAY ==
[2022-12-11 10:15] VITALS: BP 146/80; PULSE 83; RESP 16; TEMP 36.4; O2SAT 95; BMI 40.4
--- NOTE | 2022-12-11 10:18 | ED.MALEGU ---
HPI - Male Genitourinary General Chief complaint: Urogenital-Male Stated complaint: personal issues Time Seen by Provider: 12/11/22 10:17 Source: patient Mode of arrival: ambulatory Limitations: no limitations History of Present Illness HPI Narrative: Patient is a 32 year old assigned male at with a history of HTN, DM, and kidney stones presenting to the emergency department today with penile pain. Patient states that starting this morning he noticed penile pain. Patient states that it is right in the tip of his penis. Patient states that he was recently diagnosed with kidney stones and is concerned that he is feeling it pass. Patient denies any dizziness, lightheadedness, abdominal pain, nausea, vomiting, fever, chills, blurry vision, double vision, loss of vision, chest pain, difficulty breathing, shortness of breath, back pain, night sweats, pain with urination, increased urinary frequency, increased urinary urgency, blood in his urine or stool, syncope or a near syncopal episode, recent trauma or falls, bowel incontinence, bladder incontinence, bowel retention, bladder retention, or any other complaints at this time. Onset (ago): hour(s) Location: penis Severity: mild Severity scale (1-10): 2 Relieving factors: none Exacerbating factors: none Associated symptoms: Reports denies other symptoms Related Data Previous Rx's Medication Instructions Recorded alcohol swabs (Alcohol Pads) See Rx Instructions topical 04/17/22 .COMPLEX #100 ea FreeStyle Lite Meter #1 ea 04/18/22 (blood-glucose meter) lancets 28 gauge (FreeStyle #100 ea 04/18/22 Lancets) lisinopril 5 mg tablet 5 mg PO DAILY #90 tabs 07/29/22 albuterol sulfate 90 mcg/actuation 2 puff inhalation Q6H PRN 08/29/22 aerosol inhaler shortness of breath or wheezing #6.7 grams FreeStyle Lite Strips (blood sugar #100 ea 08/30/22 diagnostic) amlodipine 10 mg tablet 10 mg PO DAILY #90 tabs 09/18/22 rosuvastatin 5 mg tablet (Crestor) 5 mg PO DAILY 90 days #90 tabs 11/25/22 cephalexin 500 mg capsule 500 mg PO Q6H 7 days #28 caps 12/11/22 fluconazole 150 mg tablet 150 mg PO Q3D 2 doses #2 tabs 12/11/22 (Diflucan) tamsulosin 0.4 mg capsule 0.4 mg PO DAILY #7 caps 12/11/22 Allergies Allergy/AdvReac Type Severity Reaction Status Date / Time No Known Allergies Allergy Verified 12/11/22 10:15 [No Known Allergies*] Review of Systems Constitutional: Constitutional: Reports no additional constitutional complaints, Denies chills, Denies fever(s) and Denies night sweats Eyes: Eyes: Reports no additional eye complaints, Denies blurry vision, Denies change in vision, Denies diplopia, Denies eye discharge, Denies loss of vision and Denies eye pain ENT: Denies dizziness Cardiovascular: Cardiovascular: Reports no additional cardiovascular complaints, Denies chest pain, Denies lightheadedness, Denies Loss of Consciousness and Denies dyspnea Respiratory: Respiratory: Reports no additional respiratory complaints and Denies dyspnea Gastrointestinal: Gastrointestinal: Reports no additional gastrointestinal complaints, Denies abdominal pain, Denies melena, Denies hematochezia, Denies change in bowel habits and Denies change in stool character Genitourinary: Genitourinary: Reports no additional male genitourinary complaints, Denies hematuria, Denies oliguria, Denies difficulty urinating, Denies dysuria, Denies urinary frequency, Denies urinary hesitancy, Denies urinary incontinence and Denies urinary urgency Comments: penile pain Musculoskeletal: Musculoskeletal: Reports no additional musculoskeletal complaints, Denies numbness and Denies tingling Neurologic: Denies dizziness, Denies loss of vision, Denies numbness and Denies tingling Psychiatric: Psychiatric: Reports no additional psychiatric complaints Endocrine: Endocrine: Reports no additional endocrine complaints Hematologic/Lymphatic: Hematologic/Lymphatic: Reports no additional hematologic/lymphatic complaints Allergic/Immunologic: Allergic/Immunologic: Reports no additional allergic/immunologic complaints [facility] Past Medical History Attestation statement: The following information was validated with the patient. Source: old records reviewed and nursing notes reviewed Medical History Hypertension Surgical History S/P appendectomy Social History Social History Housing: House Alcohol intake: never Patient Tobacco Use Status: Never used Tobacco e-Cigarette/Vaping Use: Never Used Second Hand Smoke Exposure: No Advance Directives: No service: No Current occupational status: unemployed Cognitive needs: No Hearing needs: No Vision needs: No Physical Exam Vital Signs: Vital Signs: Last Vital Signs Temp 97.5 F 12/11/22 10:15 Pulse 83 12/11/22 10:15 Resp 16 12/11/22 10:15 BP 146/80 H 12/11/22 10:15 Pulse Ox 95 12/11/22 10:15 O2 Del Method Room Air 12/11/22 10:15 BMI result Body Mass Index 40.4 Const: General: cooperative, no acute distress, alert and awake Nutritional Appearance: well nourished Orientation/consciousness: patient oriented x3 Limitations: no limitations HEENT: Head: Yes normal to inspection and Yes atraumatic Ears: hearing grossly normal bilaterally and external ears normal General nose exam: Normal external nose present, no nasal discharge noted and no epistaxis Face and sinus: Yes normal facial exam, No abrasion and No laceration Mouth: Normal oral and palatal mucosa present, no drooling and no muffled voice Eyes: General: appearance normal, both eyes and all related structures Periorbital: periorbital findings normal Eyelids: Yes eyelids normal Conjunctivae: conjunctivae normal Pupils: Equal, round and reactive pupils present EOM: EOMs intact bilaterally Neck: Neck: Yes normal visual inspection, Yes full ROM and Yes no lymphadenopathy Chest: Chest palpation & inspection: normal inspection of the chest Resp: Effort & Inspection: normal respiratory effort and able to speak in complete sentences GI: Inspection: Yes normal to inspection : Male General Exam: Yes normal external exam Neuro: General: patient oriented x3 and moves all extremities Cranial nerves: Yes Equal, round and reactive pupils present Cognition (Neuro): normal cognition Motor exam (neuro): 5/5 motor strength present throughout Sensory Exam: Normal double simultaneous stimulation for sensation Coordination: [id number] test normal Extrem: General: Yes normal to inspection, Yes full ROM and Yes capillary refill normal Psych: Appearance: grossly normal Mental Status: mental status grossly normal Affect: normal affect Attitude: cooperative Thought process: Normal thought process present Thought content: Normal thought content present Insight: Good insight present (Psych) Medical Decision Making Medical Decision Making MDM Narrative: Patient is a 32 year old assigned male at with a history of DM, HTN, and kidney stones presenting to the emergency department today with internal penile pain. Patient's physical exam was unremarkable. No evidence of infection. However, given the patient's history of diabetes and overall clinical presentation, will cover for yeast and UTI. I explained my physical exam findings to the patient. I answered all questions asked by the patient. I stressed the importance of the patient taking his medication as prescribed. I stressed the importance of the patient following up with his primary care provider. I stressed the importance of the patient returning to the emergency department immediately if his symptoms were to worsen or if he were to develop any dizziness, shortness of breath, difficulty breathing, chest pain, blurry vision, loss of vision, nausea, vomiting, abdominal pain, fever, chills, back pain, or any other complaints. Patient verbalized agreement and understanding with this treatment plan and discharge. Differential Diagnosis Differential Diagnoses: The differential diagnosis associated with the presentation includes kidney stone, passing stone, yeast infection, UTI Chronic Conditions Patient?s care impacted by: Diabetes Discharge Plan Discharge Clinical Impression: Kidney stone Patient Disposition: Home, Self-Care Instructions: Kidney Stones (ED) Additional Instructions: Follow up with your primary care provider. Return to the emergency department immediately if your symptoms worsen or if you develop any dizziness, shortness of breath, difficulty breathing, chest pain, blurry vision, loss of vision, nausea, vomiting, abdominal pain, fever, chills, back pain, or any other complaints. Prescriptions: New tamsulosin 0.4 mg capsule 0.4 mg PO DAILY Qty: 7 0RF fluconazole [Diflucan] 150 mg tablet 150 mg PO Q3D Qty: 2 0RF cephalexin 500 mg capsule 500 mg PO Q6H 7 Days Qty: 28 0RF No Action alcohol swabs [Alcohol Pads] Pads, Medicated See Rx Instructions topical .COMPLEX Qty: 100 0RF Rx Instructions: use 1 pad to check blood sugar 2 times a day topically; lisinopril 5 mg tablet 5 mg PO DAILY Qty: 90 1RF (DME) FreeStyle Lite Strips Strip See Rx Instructions .Route Qty: 100 2RF Rx Instructions: BID testing amlodipine 10 mg tablet 10 mg PO DAILY Qty: 90 0RF rosuvastatin [Crestor] 5 mg tablet 5 mg PO DAILY 90 Days Qty: 90 1RF (DME) lancets [FreeStyle Lancets] 28 gauge misc See Rx Instructions .Route Qty: 100 0RF Rx Instructions: BID testing (DME) blood-glucose meter [FreeStyle Lite Meter] Kit See Rx Instructions .Route Qty: 1 0RF Rx Instructions: As directed albuterol sulfate 90 mcg/actuation HFA aerosol inhaler 2 puff inhalation Q6H PRN (Reason: shortness of breath or wheezing) Qty: 6.7 0RF Referrals: Louis Avery, [facility] [Primary Care Provider] - Stand Alone Forms: Work/School Release Interventions: ED Discharge Assessment Last Done: 12/11/22 10:50 Discharge Date/Time: 12/11/22 10:50 Print Language: Vincentian
== END 2022-12-11 10:50 | disposition home or self-care (01) ==
PROVIDERS: Emergency Provider Emergency Medicine; PCP Nurse Practitioner Family
DX: N20.0 Calculus of kidney (principal); I10 Essential (primary) hypertension; E11.9 Type 2 diabetes mellitus without complications; Z79.899 Other long term (current) drug therapy; Z79.02 Long term (current) use of antithrombotics/antiplatelets
CPT/HCPCS: 99282; 99283

== ENCOUNTER 2022-12-23 09:32 | Outpatient (REF) | payer OTHER, SELFPAY ==
[2022-12-23 11:12] LABS: MANUAL DIFF FLAG NO
[2022-12-23 11:26] LABS: Appearance Urine Clear; Color Urine Yellow; Glucose Urine UA Negative (Negative); Leukocyte Esterase Urine Trace (Negative); Nitrite Urine Negative (Negative); PH 7.5 (5.0-9.0); UMIC TRIGGER UACC YES; Urine Blood Negative (Negative); Urine Ketones Negative (Negative); Urine Protein Negative (Neg-Trace)
[2022-12-23 11:34] LABS: Bacteria Urine None Seen (None Seen); Hyaline Casts Urine 0-2 /LPF (0-2); RBC Urine 0-2 /HPF (0-2); Squamous Epithelial Cell Urine 0-2 /HPF (0-2); WBC Urine 0-5 /HPF (0-5)
[2022-12-23 11:38] LABS: Basophils Absolute Auto 0.1 X10*3/uL (0.0-0.2); Basophils Percent Auto 0.9 % (0-2); Eosinophils Absolute Auto 0.4 X10*3/uL (0.0-0.4); Hematocrit 45.2 % (42.0-52.0); Hemoglobin 15.7 g/dl (14.0-18.0); Imm Gran Abs Auto 0.01 X10*3/uL (0.00-0.03); Imm Gran Pct Auto 0.2 % (0.0-0.4); Lymphocytes Absolute Auto 2.2 X10*3/uL (1.2-4.9); Lymphocytes Percent Auto 40.2 % (20-40); Mean Corpuscular HGB Conc 34.7 g/dl (31.0-36.0); Mean Corpuscular Hemoglobin 29.2 pg (27.0-33.0); Mean Corpuscular Volume 84.2 fL (80.0-98.0); Mean Platelet Volume 11.3 fL (9.4-12.4); Monocytes Absolute Auto 0.6 X10*3/uL (0.1-1.2); Neutrophils Absolute Auto 2.3 x10*3/uL (2.0-8.3); Neutrophils Percent Auto 40.7 % (45-73); Platelet Count 185 X10*3/uL (160-400); Red Blood Count 5.37 X10*6/uL (4.60-5.80); Red Cell Distribution Width 12.3 % (11.0-16.0); White Blood Count 5.5 X10*3/uL (4.8-10.8)
[2022-12-23 11:46] LABS: Estimated Average Glucose 105 mg/dL; Hemoglobin A1c % 5.3 %
[2022-12-23 11:50] LABS: Alanine Aminotransferase 27 U/L (0-40); Albumin Level 4.2 g/dL (3.5-5.0); Alkaline Phosphatase 61 U/L (39-117); Anion Gap 10 (12-20); Aspartate Amino Transferase 20 U/L (5-37); Bilirubin Total 1.1 mg/dL (0.0-1.0); Blood Urea Nitrogen 13 mg/dL (9-16); Calcium 9.1 mg/dL (8.4-10.2); Carbon Dioxide 26 mmol/L (22-29); Chloride 106 mmol/L (96-108); Cholesterol 135 mg/dL; Estimated Glomerular Filt Rate > 60; Glucose Fasting 118 mg/dL (60-99); HDL Cholesterol 29 mg/dL; LDL Cholesterol Calculated 61 mg/dl; Potassium 4.2 mmol/L (3.3-5.1); Sodium 138 mmol/L (135-145); Total Protein 6.8 g/dL (6.5-8.0); Triglycerides 227 mg/dL
[2022-12-23 12:13] LABS: TSH reflex Free T4 1.52 uIU/mL (0.32-4.0)
[2022-12-23 12:20] LABS: Creatinine Urine 173.31 mg/dL; Microalbum/Creatinine Ratio Ur 3.4 ug/mg cr
== END 2022-12-23 09:33 | disposition home or self-care (01) ==
LOC: HO.HMGCLDS 09:32
PROVIDERS: PCP Nurse Practitioner Family; Visit Provider Nurse Practitioner Family
DX: Z00.00 Encounter for general adult medical examination without abnormal findings (principal); E11.9 Type 2 diabetes mellitus without complications; N50.3 Cyst of epididymis; N20.0 Calculus of kidney
CPT/HCPCS: 36415; 80053; 80061; 81001; 82043; 83036; 84443; 85025; 99202

== ENCOUNTER 2023-02-16 10:37 | Outpatient (AMB) | payer OTHER, SELFPAY ==
--- NOTE | 2023-02-16 11:40 | MHC.OFFWIV ---
Intake Vital Signs 02/16/23 11:48 BP 122/70 Blood Pressure Location Lt brachial Position Sitting Pulse 82 Pulse Source Pulse Oximeter Pulse Oximetry (%) 98 Oxygen Delivery Method Room Air Intake Visit Reasons: EP ramos on skin? [phone] Intake Note: patient here for ramos on sides of abdomen and back, they have been present for a couple months. Patient Tobacco Use Status: Never used Tobacco Allergies No Known Allergies [No Known Allergies*] Allergy (Verified 02/16/23 11:41) Do you need a note to return to daycare/school/sports/work: No HPI EP ramos on skin? [phone] HPI Details Patient pre exams with multiple lesions on his trunk flanks and stomach as well as his right elbow. Says they are occasionally itchy the 1 on his elbow is been present for years and was told at 1 point it may be psoriasis. Similar lesions have now appeared on his trunk they are red with a scaly cap over the past month. He also notes similar areas behind his ears and on his scalp. [facility] Medical History Hypertension Surgical History S/P appendectomy Social History Housing: House Alcohol intake: never Patient Tobacco Use Status: Never used Tobacco e-Cigarette/Vaping Use: Never Used Second Hand Smoke Exposure: No service: No Current occupational status: unemployed Cognitive needs: No Hearing needs: No Vision needs: No Review of Systems Const Reports as per HPI and Reports no additional complaints Skin/Breast Reports as per HPI and Denies lesions Physical Exam Vital Signs: Last Vital Signs Pulse 82 02/16/23 11:48 BP 122/70 02/16/23 11:48 Pulse Ox 98 02/16/23 11:48 Oxygen Delivery Method Room Air 02/16/23 11:48 Const General: cooperative, comfortable and no acute distress Orientation/consciousness: patient oriented x3 Resp Effort & Inspection: normal respiratory effort Auscultation: clear to auscultation bilaterally Cardio Rate: regular rate Rhythm: regular rhythm Heart sounds: S1 normal heart sound present and S2 normal heart sound present Skin Other: Trunk reveals scattered 1 cm areas of raised red plaque with silvery scale no bleeding or signs of secondary infection Neuro General: patient oriented x3 Extrem Other: Right posterior elbow reveals 4 cm x 2 cm red raised plaque was still very risky ill no bleeding or secondary infection Assessment & Plan Assessment & Plan (1) Psoriasis and similar disorder: Code(s): L40.9 - Psoriasis, unspecified Plan: Differentials include psoriasis nummular eczema her other type of dermatitis. Patient to trial topical betamethasone. Advised to use for up to 10 days if no change can discontinue otherwise if lesions are resolving used until resolved and then can reduce use. Will refer to Dermatology in the meantime. Return to clinic if symptoms worsen if any negative side effects from the cream occur discontinue use. Orders: Referrals Dermatology Referral L40.9 - Psoriasis, unspecified Medications: New betamethasone valerate 0.1% 1 appl topical BID PRN 45 grams 1RF rash Coding Level of Care Code Est Pt Level 3 (90923) Diagnoses Psoriasis and similar disorder L40.9
[2023-02-16 11:48] VITALS: BP 122/70; PULSE 82; O2SAT 98
== END 2023-02-16 12:31 | disposition home or self-care (01) ==
PROVIDERS: PCP Nurse Practitioner Family; Visit Provider Physician Assistant
DX: L40.9 Psoriasis, unspecified (principal)
CPT/HCPCS: 99213

== ENCOUNTER 2023-04-14 10:38 | Outpatient (AMB) | payer OTHER, SELFPAY ==
[2023-04-14 10:59] VITALS: BP 114/76; PULSE 73; O2SAT 96; BMI 41.0
--- NOTE | 2023-04-14 10:59 | MHC.PC.OV ---
Vital Signs 04/14/23 10:59 Height 6 ft Weight 302 lb 8 oz BMI 41.0 BP 114/76 Blood Pressure Location Rt brachial Position Sitting Pulse 73 Pulse Source Pulse Oximeter Pulse Oximetry (%) 96 Oxygen Delivery Method Room Air Intake Visit Reasons: 4 Month follow up Allergies No Known Allergies [No Known Allergies*] Allergy (Verified 04/14/23 11:01) Tobacco use date assessed: 04/14/23 Dental Screening Dental Screen Date: 04/14/23 Did you have a dental visit in the last 12 months?: Yes Did you have a dental problem in the last 6 months where you did not have access to dental care?: No Was dental information given to patient?: Patient has dentist HPI 4 Month follow up HPI Details Pt is a diabetic, on an LOCO and a statin. A1C in office today is 5.4. Microalbumin is up to date. Denies polyuria, polydipsia, and neuropathy. Pt denies any signs and symptoms of hypoglycemia and does know how to correct it. Pt reports that his blood sugar is usually is in the lower 100s. Let pt know he can get his pneumonia vaccine at his pharmacy. Eye exam is scheduled. [facility] Medical History Hypertension Surgical History S/P appendectomy Social History Housing: House Alcohol intake: never Patient Tobacco Use Status: Never used Tobacco e-Cigarette/Vaping Use: Never Used Second Hand Smoke Exposure: No service: No Current occupational status: unemployed Cognitive needs: No Hearing needs: No Vision needs: No Questionnaire Thrive Questionnaire Date Thrive assessed: 09/03/22 JOE-7 AMB Questionnaire JOE-7 Date JOE - 7 assessed: 09/03/22 Source: Developed by Drs. Star Parr, Zeynep Galarza, Yaakov Rai and colleagues, with an educational marii from [employer]. Review of Systems Const Reports as per HPI Physical exam (Primary Care) Vital Signs: Last Vital Signs Pulse 73 04/14/23 10:59 BP 114/76 04/14/23 10:59 Pulse Ox 96 04/14/23 10:59 Oxygen Delivery Method Room Air 04/14/23 10:59 BMI result Body Mass Index 41.0 Tobacco/Smoking Status: Tobacco use Status Tobacco use date assessed 04/14/23 04/14/23 11:02 Patient Tobacco Use Status Never used Tobacco 04/14/23 11:02 e-Cigarette/Vaping Use Never Used 04/14/23 11:02 Thrive Assessment: Date of Thrive Assessment Date Thrive assessed 09/03/22 04/14/23 11:02 Const General: cooperative Nutritional Appearance: obese morbidly obese Orientation/consciousness: patient oriented x3 Resp Effort & Inspection: normal respiratory effort Auscultation: clear to auscultation bilaterally Cardio Rate: regular rate Rhythm: regular rhythm Heart sounds: S1 normal heart sound present, S2 normal heart sound present and no murmurs Neuro General: patient oriented x3 Psych Appearance: grossly normal Mental Status: mental status grossly normal Speech and movement: Normal speech and movement present Affect: normal affect Attitude: cooperative Thought process: Normal thought process present Thought content: Normal thought content present Insight: Good insight present (Psych) Judgement: Good judgement present (Psych) Results AMB Hemoglobin A1c AMB Hemoglobin A1c 5.4 % Last Edit by Cordelia Gomes CMA on 04/14/23 11:34 Results Reviewed Results Reviewed: Laboratory Last Values Hgb A1c (Clinic) 5.4 % (4.0-6.0) 04/14/23 11:31 Assessment and Plan Assessment & Plan (1) Diabetes: Code(s): E11.9 - Type 2 diabetes mellitus without complications Plan The patient agreed to the use of a medical assistant dermatology for this encounter. Scribed for CLAIR Denise by Daphne Charles medical assistant dermatology, on 04/14/2023 at 11:15 EST. Orders: Orders AMB Hemoglobin A1c Today E11.9 - Type 2 diabetes mellitus without complications Coding Level of Care Code Est Pt Level 3 (48629) Diagnoses Diabetes E11.9
== END 2023-04-14 12:12 | disposition home or self-care (01) ==
PROVIDERS: Visit Provider Nurse Practitioner Family
DX: E11.9 Type 2 diabetes mellitus without complications (principal)
CPT/HCPCS: 83036; 99213

== ENCOUNTER 2023-04-24 10:32 | Outpatient (REF) | payer OTHER, SELFPAY ==
[2023-04-24 13:39] LABS: MANUAL DIFF FLAG NO
[2023-04-24 13:48] LABS: Basophils Absolute Auto 0.1 X10*3/uL (0.0-0.2); Basophils Percent Auto 0.9 % (0-2); Eosinophils Absolute Auto 0.2 X10*3/uL (0.0-0.4); Eosinophils Percent Auto 4.2 % (0-4); Hematocrit 46.6 % (42.0-52.0); Hemoglobin 15.7 g/dl (14.0-18.0); Imm Gran Abs Auto 0.01 X10*3/uL (0.00-0.03); Imm Gran Pct Auto 0.2 % (0.0-0.4); Lymphocytes Absolute Auto 2.3 X10*3/uL (1.2-4.9); Lymphocytes Percent Auto 40.8 % (20-40); Mean Corpuscular HGB Conc 33.7 g/dl (31.0-36.0); Mean Corpuscular Hemoglobin 28.8 pg (27.0-33.0); Mean Corpuscular Volume 85.3 fL (80.0-98.0); Mean Platelet Volume 10.9 fL (9.4-12.4); Monocytes Absolute Auto 0.5 X10*3/uL (0.1-1.2); Monocytes Percent Auto 9.3 % (2-11); Neutrophils Absolute Auto 2.6 x10*3/uL (2.0-8.3); Neutrophils Percent Auto 44.6 % (45-73); Platelet Count 182 X10*3/uL (160-400); Red Blood Count 5.46 X10*6/uL (4.60-5.80); Red Cell Distribution Width 12.6 % (11.0-16.0); White Blood Count 5.7 X10*3/uL (4.8-10.8)
[2023-04-24 14:45] LABS: TSH reflex Free T4 1.61 uIU/mL (0.32-4.0)
[2023-04-24 14:53] LABS: Anion Gap 11 (12-20)
[2023-04-24 14:58] LABS: Alanine Aminotransferase 35 U/L (0-40); Albumin Level 4.4 g/dL (3.5-5.0); Alkaline Phosphatase 61 U/L (39-117); Aspartate Amino Transferase 28 U/L (5-37); Bilirubin Total 0.8 mg/dL (0.0-1.0); Blood Urea Nitrogen 13 mg/dL (9-16); Calcium 9.5 mg/dL (8.4-10.2); Carbon Dioxide 26 mmol/L (22-29); Chloride 106 mmol/L (96-108); Cholesterol 133 mg/dL (<200); Estimated Glomerular Filt Rate > 60; Glucose Fasting 105 mg/dL (60-99); HDL Cholesterol 33 mg/dL (>40); LDL Cholesterol Calculated 54 mg/dL (<100); Potassium 4.2 mmol/L (3.3-5.1); Sodium 139 mmol/L (135-145); Total Protein 7.2 g/dL (6.5-8.0); Triglycerides 232 mg/dL (<150)
== END 2023-04-24 10:33 | disposition home or self-care (01) ==
LOC: HO.HMGCLDS 10:32
PROVIDERS: PCP Nurse Practitioner Family; Visit Provider Nurse Practitioner Family
DX: Z00.00 Encounter for general adult medical examination without abnormal findings (principal); E11.9 Type 2 diabetes mellitus without complications
CPT/HCPCS: 36415; 80053; 80061; 84443; 85025

== ENCOUNTER 2023-04-26 07:48 | Emergency (ER) | payer OTHER, SELFPAY ==
--- NOTE | ~2023-04-26 | CT_ITS ---
EXAMINATION: CT ABDOMEN AND PELVIS WITHOUT CONTRAST CLINICAL INFORMATION: Flank pain. History of renal colic. CT 11/20/2022. COMPARISON: None available. TECHNIQUE: Multidetector volumetric imaging was performed from the superior aspect of the liver through the pubic symphysis. Sagittal and coronal reformatted images were obtained on the technologist's workstation. This CT examination was performed using dose optimization techniques as appropriate, variously including the following: *Automated exposure control *Adjustment of mA and/or kV according to patient size (this includes techniques or standardized protocols for targeted exams where dose is matched to indication/reason for exam; i.e. extremities or head) *Use of iterative reconstruction technique DLP: 925 mGy-cm FINDINGS: LUNG BASES: The visualized lung bases are unremarkable. Normal heart size. No pericardial or pleural effusion. LIVER, GALLBLADDER, AND BILIARY TREE: Redemonstrated hepatomegaly, right lobe measuring 21.9 cm. No focal liver lesion seen. No intrahepatic biliary duct dilatation. CBD caliber is within normal limits. The gallbladder is unremarkable with no evidence of radiopaque gallstones, gallbladder wall thickening, or obvious pericholecystic inflammatory changes. PANCREAS: Unremarkable. No acute inflammatory changes. SPLEEN: Enlarged measuring 13.8 cm. ADRENAL GLANDS: Unremarkable. KIDNEYS AND URETERS: The kidneys are normal in size, shape, and attenuation. No hydronephrosis, hydroureter, or calculi seen. The previously seen left lower pole renal calculus is not clearly identified on today's study. No perinephric stranding. BLADDER: Unremarkable. No intraluminal calculi seen. GASTROINTESTINAL TRACT: Stomach is partially distended. No dilated small or large bowel loops seen. No pericolonic inflammatory changes seen. There is a 1.2 cm radiodense focus in the cecal lumen, of uncertain etiology, possibly intraluminal ingested pill. There appears to have been prior appendectomy. No free fluid. No free air. ABDOMINAL WALL: No significant hernia is appreciated. LYMPH NODES: No pathologically enlarged lymph nodes are seen. VASCULAR: Normal caliber aorta. PELVIC VISCERA: Unremarkable. OSSEOUS STRUCTURES: No significant abnormality seen. CT/CT abdomen pelvis wo IV con IMPRESSION: *No evidence of ureteral radiopaque calculi or findings to suggest hydroureteronephrosis. The previously noted nonobstructing left renal lower pole calculus is not clearly visualized on the current study. *Hepatosplenomegaly. *Additional findings and details, as above. Fleischner guidelines were followed.
[2023-04-26 07:52] VITALS: BP 139/77; PULSE 82; RESP 18; TEMP 36.8; O2SAT 95; BMI 40.8
[2023-04-26 08:25] LABS: Appearance Urine Clear; Color Urine Dark Yellow; Glucose Urine UA Negative (Negative); Leukocyte Esterase Urine Negative (Negative); Nitrite Urine Negative (Negative); Specific Gravity - Urine >= 1.030 (1.005-1.025); Urine Blood Negative (Negative); Urine Ketones Trace mg/dL (Negative); Urine Protein Trace mg/dL (Neg-Trace)
[2023-04-26 08:27] LABS: COVID-19 Test Negative (Negative); IDNOW Serial# 08D9AD1C
[2023-04-26 08:30] LABS: IDNOW Serial# BCCEAD1C; Influenza A Negative (Negative); Influenza B2 Negative (Negative)
--- NOTE | 2023-04-26 08:38 | ED.GENADULT ---
HPI - General Adult General Chief complaint: General Medical Stated complaint: nausea, fatigue, lower back pain Time Seen by Provider: 04/26/23 08:08 Source: patient Mode of arrival: ambulatory History of Present Illness HPI narrative: 32-year-old male presents with 1 week of nausea that is continue to worsen and has developed urinary symptoms with associated back pain and has a history of renal colic. Otherwise he denies any body aches/sore throat/cough/fever or chills. Related Data Home Medications Medication Instructions Recorded Confirmed cetirizine 10 mg tablet (Zyrtec) 20 mg PO DAILY PRN 12/23/22 Previous Rx's Medication Instructions Recorded alcohol swabs (Alcohol Pads) See Rx Instructions topical 04/17/22 .COMPLEX #100 ea FreeStyle Lite Meter #1 ea 04/18/22 (blood-glucose meter) lancets 28 gauge (FreeStyle #100 ea 04/18/22 Lancets) albuterol sulfate 90 mcg/actuation 2 puff inhalation Q6H PRN 08/29/22 aerosol inhaler shortness of breath or wheezing #6.7 grams FreeStyle Lite Strips (blood sugar #100 ea 08/30/22 diagnostic) rosuvastatin 5 mg tablet (Crestor) 5 mg PO DAILY 90 days #90 tabs 11/25/22 pyridoxine (vitamin B6) 100 mg 100 mg PO DAILY 90 days #90 tabs 12/23/22 tablet amlodipine 10 mg tablet 10 mg PO DAILY #90 tabs 12/26/22 lisinopril 5 mg tablet 5 mg PO DAILY #90 tabs 01/26/23 betamethasone valerate 0.1 % 1 appl topical BID PRN rash #45 02/16/23 topical cream grams Allergies Allergy/AdvReac Type Severity Reaction Status Date / Time No Known Allergies Allergy Verified 04/14/23 11:01 [No Known Allergies*] Review of Systems Review of Systems: Pertinent positives and negatives as stated in [facility] Past Medical History Source: nursing notes reviewed Medical History Hypertension Surgical History S/P appendectomy Social History Social History Housing: House Alcohol intake: never Patient Tobacco Use Status: Never used Tobacco Smoked in Last 30 Days: No e-Cigarette/Vaping Use: Never Used Second Hand Smoke Exposure: No Use of substances other than those prescribed or required for medical reasons: No Advance Directives: No Advance Directives Information Provided: No service: No Current occupational status: unemployed Cognitive needs: No Hearing needs: No Vision needs: No Physical Exam ED Vital Signs: Vital Signs - 24 hr 04/26/23 07:52 Temperature 98.3 F Pulse Rate 82 Respiratory Rate 18 Blood Pressure 139/77 Pulse Oximetry 95 Oxygen Delivery Method Room Air BMI result Body Mass Index 40.8 VITAL SIGNS: Reviewed. GENERAL: Elevated BMI, Well developed, well nourished, in no acute distress. HEAD: Normocephalic/atraumatic EYES: PERRLA, EOMI i EARS: Ext canals without abnormality, TMs non-bulging and non-erythematous NOSE: Nares patent bilateral OROPHARYNX: no oral lesions noted, posterior pharynx clear and non-erythematous without noted tonsillar enlargement/erythema/exudates NECK: Supple, no adenopathy LUNGS: Normal breath sounds. No adventitious sounds or accessory muscle use. SpO2<95> CARDIOVASCULAR: Regular rate and rhythm without noted murmurs ABDOMEN: Soft, non-tender, non-distended with bowel sounds. MUSCULOSKELETAL: No tenderness, deformities, or effusions noted on gross inspection. EXTREMITIES: No cyanosis, clubbing or edema. SKIN: Inspection of the skin reveals no rashes NEUROLOGIC: Alert and oriented x 4. Strength and sensation to light touch were grossly intact x 4. Medical Decision Making Medical Decision Making [facility] Narrative: 32-year-old male with history and clinical presentation, DDX: Viral syndrome, renal colic, UTI, derangement of glucose level. Reviewed all investigations and viral testing is negative for COVID-19 and influenza, urinalysis is negative for UTI/hematuria. Given patient's history and presenting symptoms will proceed with noncontrast CT scan. CT scan negative for evidence of hydronephrosis or calculus. Suspected the patient has back pain and mild nausea may be due to gastritis. All findings discussed with patient at bedside. Differential Diagnosis Differential Diagnoses: The differential diagnosis associated with the presentation includes Please see the discussion above Admission/Observation Consideration of admission/observation: Escalation of care including admission/observation considered Please see the discussion above Lab Data [facility] Lab Attestation statement: I reviewed the patient's lab results. Please see the discussion above Labs: Lab Results 04/26/23 04/26/23 Range/Units 08:10 08:41 POC Glucose 123 H (60-115) mg/dL Urine Color Dark Yellow Urine Appearance Clear Urine pH 6.0 (5.0-9.0) Ur Specific [place] >= 1.030 H (1.005-1.025) Urine Protein Trace (Neg-Trace) mg/dL Urine Glucose (UA) Negative (Negative) mg/dL Urine Ketones Trace (Negative) mg/dL Urine Blood Negative (Negative) Urine Nitrite Negative (Negative) Ur Leukocyte Esterase Negative (Negative) COVID-19 (ARUN) Negative (Negative) COVID-19 Clin Com See Note Influenza Type A (RAMY) Negative (Negative) Influenza Type B (RAMY) Negative (Negative) Influenza A & B Note See Note Radiology Impression Discussion of test interpretation with radiology: I have reviewed the radiologist's reading. Radiologist Impression: Please see the discussion above External Record Review External record reviewed: Outpatient record, Prior outpatient labs and Prior outpatient radiology Chronic Conditions Patient?s care impacted by: Diabetes Discharge Plan Discharge Clinical Impression: Back pain, Gastritis Patient Disposition: Home, Self-Care Instructions: Gastritis (ED), Diet for Stomach Ulcers and Gastritis (ED), Back Pain (ED) Additional Instructions: 1. Tylenol 1000 mg, orally, every 6 hours as needed for pain control. Do not exceed 4000 mg within 24 hours. 2. Ibuprofen 400 mg, orally with milk or food, every 6 hours as needed for pain control. 3. Lidocaine patch apply to area of maximal tenderness as directed on the outside packaging. Return to the ER for any worsening symptoms. Prescriptions: No Action alcohol swabs [Alcohol Pads] Pads, Medicated See Rx Instructions topical .COMPLEX Qty: 100 0RF Rx Instructions: use 1 pad to check blood sugar 2 times a day topically; (DME) FreeStyle Lite Strips Strip See Rx Instructions .Route Qty: 100 2RF Rx Instructions: BID testing rosuvastatin [Crestor] 5 mg tablet 5 mg PO DAILY 90 Days Qty: 90 1RF amlodipine 10 mg tablet 10 mg PO DAILY Qty: 90 1RF lisinopril 5 mg tablet 5 mg PO DAILY Qty: 90 1RF (DME) lancets [FreeStyle Lancets] 28 gauge misc See Rx Instructions .Route Qty: 100 0RF Rx Instructions: BID testing (DME) blood-glucose meter [FreeStyle Lite Meter] Kit See Rx Instructions .Route Qty: 1 0RF Rx Instructions: As directed albuterol sulfate 90 mcg/actuation HFA aerosol inhaler 2 puff inhalation Q6H PRN (Reason: shortness of breath or wheezing) Qty: 6.7 0RF cetirizine [Zyrtec] 10 mg tablet 20 mg PO DAILY PRN betamethasone valerate 0.1 % cream 1 appl topical BID PRN (Reason: rash) Qty: 45 1RF pyridoxine (vitamin B6) 100 mg tablet 100 mg PO DAILY 90 Days Qty: 90 2RF Referrals: Louis Avery, HOUSING DEVELOPMENT SPECIALIST-BC [Primary Care Provider] -
[2023-04-26 08:45] LABS: Glucose, Whole Blood 123 mg/dL (60-115)
[2023-04-26] MEDS: Ibuprofen 400 MG TABLET PO (12:27)
[2023-04-26] MEDS: Acetaminophen 325 MG TABLET 975 MG PO (12:27)
== END 2023-04-26 12:48 | disposition home or self-care (01) ==
PROVIDERS: Emergency Provider Student in an Organized Health Care Education/Training Program; PCP Nurse Practitioner Family
DX: K29.70 Gastritis, unspecified, without bleeding (principal); R11.2 Nausea with vomiting, unspecified; M54.50 Low back pain, unspecified; Z20.822 Contact with and (suspected) exposure to COVID-19; Z20.828 Contact with and (suspected) exposure to other viral communicable diseases; Z79.899 Other long term (current) drug therapy
CPT/HCPCS: 74176; 81003; 82947; 87502; 87635; 99284

== ENCOUNTER 2023-04-27 09:11 | Outpatient (AMB) | payer OTHER, SELFPAY ==
--- NOTE | 2023-04-27 09:42 | AM.OFFWIN_ITS ---
Intake Vital Signs 04/27/23 09:43 Height 6 ft Weight 300 lb 6 oz BMI 40.7 BP 122/76 Blood Pressure Location Lt brachial Position Sitting Pulse 81 Pulse Source Pulse Oximeter Temp 98.3 F Temp Source Oral Pulse Oximetry (%) 97 Oxygen Delivery Method Room Air Intake Visit Reasons: EST/fatigue and nausea Patient Tobacco Use Status: Never used Tobacco Allergies No Known Allergies [No Known Allergies*] Allergy (Verified 04/27/23 09:42) Medication List - Last Reconciled 04/27/23 by Jenn Chilel PA-C albuterol sulfate 90 mcg/actuation 2 puffs inhalation Q6H PRN alcohol swabs (Alcohol Pads) use 1 pad to check blood sugar 2 times a day topically; amlodipine 10 mg PO DAILY betamethasone valerate 0.1% 1 appl topical BID PRN cetirizine (Zyrtec) 20 mg PO DAILY PRN FreeStyle Lite Meter (blood-glucose meter) As directed NS FreeStyle Lite Strips (blood sugar diagnostic) BID testing NS lancets (FreeStyle Lancets) BID testing lisinopril 5 mg PO DAILY pyridoxine (vitamin B6) 100 mg PO DAILY 90 days rosuvastatin (Crestor) 5 mg PO DAILY 90 days Do you need a note to return to daycare/school/sports/work: No HPI HPI Comments History of Present Illness Details This is a 32 year old male with a past medical history of diet controlled diabetes, hypertension and hyperlipidemia presenting for evalaution of nausea and fatigue that have been intermittent since last April 19. The patient also reports chest pain that he has had one to two times daily that lasts for seconds - last episode was yesterday. The patient also reports burping daily for the past 3-4 days that is new; of note, the patient takes Omeprazole 20mg daily. Patient denies any episodes of hyperglycemia (last blood glucose was 2 days ago and was 97), shortness of breath, abdominal pain, vomiting, diarrhea, dysuria or urinary frequency. Patient was seen in the ED at [facility] last evening and had a normal CT image of the abdomen and pelvis. Patient has been taking Zofran without relief of his nausea. [facility] Medical History Hypertension Surgical History S/P appendectomy Social History Housing: House Alcohol intake: never Patient Tobacco Use Status: Never used Tobacco e-Cigarette/Vaping Use: Never Used Second Hand Smoke Exposure: No service: No Current occupational status: unemployed Cognitive needs: No Hearing needs: No Vision needs: No Review of Systems Const All systems reviewed & are unremarkable except as noted in HPI and below Reports as per HPI, Denies chills, Reports fatigue, Denies fever(s) and Denies malaise ENT Reports no additional complaints Card Reports chest pain, Reports chest pain at rest, Denies rapid heart rate, Denies irregular heart rhythm and Denies dyspnea on exertion Resp Reports as per HPI and Denies dyspnea on exertion GI Denies abdominal pain, Reports belching, Denies dyspepsia, Denies diarrhea, Reports nausea and Denies vomiting Reports no additional complaints, Denies dysuria and Denies urinary frequency Musc Reports no additional complaints Neuro Reports no additional complaints Psych Reports no additional complaints Endo Reports fatigue, Denies polydipsia and Denies polyuria Physical Exam Vital Signs: Last Vital Signs Temp 98.3 F 04/27/23 09:43 Pulse 81 04/27/23 09:43 BP 122/76 04/27/23 09:43 Pulse Ox 97 04/27/23 09:43 Oxygen Delivery Method Room Air 04/27/23 09:43 BMI result Body Mass Index 40.7 Const General: cooperative, healthy appearing, comfortable, no acute distress, well developed, alert and awake Nutritional Appearance: well nourished Orientation/consciousness: patient oriented x3 Limitations: no limitations HEENT Mouth: moist mucous membranes Eyes General: appearance normal, both eyes and all related structures Chest Chest palpation & inspection: normal inspection of the chest Resp Effort & Inspection: normal respiratory effort and able to speak in complete sentences Auscultation: clear to auscultation bilaterally Cardio Rate: regular rate Rhythm: regular rhythm GI Inspection: Yes normal to inspection Palpation (GI): Soft to palpation and Other GI palpation findings present (soft, non.tender, no epigastric or suprapubic tenderness) Auscultation: normal bowel sounds Skin General skin exam: no rashes or lesions noted Neuro General: patient oriented x3 Psych Appearance: grossly normal Mental Status: mental status grossly normal Speech and movement: Normal speech and movement present Affect: normal affect Attitude: cooperative Thought process: Normal thought process present Results Reviewed Results Reviewed: EKG 90 NSR; no ischemic changes Assessment & Plan Assessment & Plan Orders: Orders AMB EKG-In Office 04/27/23 R07.9 - Chest pain, unspecified Patient Instructions: Patient is seen and evaluated; ED visit including imaging from yesterday is also reviewed. EKG in the Walk.In reveals normal sinus rhythm with no ischemic changes. Patient is discharged home and instructed to increase his Omeprazole to 40mg once daily for two weeks and follow-up with his PCP if his symptoms persist. Coding Level of Care Code Est Pt Level 4 (86749) Time Spent (min) 35
[2023-04-27 09:43] VITALS: BP 122/76; PULSE 81; TEMP 36.8; O2SAT 97; BMI 40.7
== END 2023-04-27 10:28 | disposition home or self-care (01) ==
PROVIDERS: PCP Nurse Practitioner Family; Visit Provider Physician Assistant
DX: R11.0 Nausea (principal); R53.83 Other fatigue; R07.9 Chest pain, unspecified
CPT/HCPCS: 93000; 99214

== ENCOUNTER 2023-05-18 08:05 | Outpatient (AMB) | payer OTHER, SELFPAY ==
[2023-05-18 08:14] VITALS: BP 110/80; PULSE 88; O2SAT 97
--- NOTE | 2023-05-18 08:14 | MHC.OFFWIV ---
Intake Vital Signs 05/18/23 08:14 Weight 298 lb BP 110/80 Blood Pressure Location Rt brachial Position Sitting Pulse 88 Pulse Source Pulse Oximeter Pulse Oximetry (%) 97 Oxygen Delivery Method Room Air Intake Visit Reasons: EP Back pain/ nausea Intake Note: Patient here for lower back pain and nausea that has been present for about 1 month and worsening. Patient Tobacco Use Status: Never used Tobacco Allergies No Known Allergies [No Known Allergies*] Allergy (Verified 05/18/23 08:52) Medication List - Last Reconciled 05/18/23 by Akira Ramesh MD albuterol sulfate 90 mcg/actuation 2 puffs inhalation Q6H PRN amlodipine 10 mg PO DAILY cetirizine (Zyrtec) 20 mg PO DAILY PRN lisinopril 5 mg PO DAILY pyridoxine (vitamin B6) 100 mg PO DAILY 90 days rosuvastatin (Crestor) 5 mg PO DAILY 90 days Do you need a note to return to daycare/school/sports/work: No HPI EP Back pain/ nausea HPI Details 32-year-old male presents to the office for a sick visit. Patient has 2 complaints. He was seen here a few weeks ago for abdominal pain and diagnosed as GERD. He was started on omeprazole 40 mg once a day. Patient reports no significant improvement in his symptoms of abdominal pain. No nausea or vomiting. No change in bowel habits. Not eating any spicy foods or drinking carbonated drinks. Is also having lower back pain in the last 3 days. 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 Does not recall any fall or injury. Pain is in the lower park and worsening on bending forward. [facility] Medical History Hypertension Surgical History S/P appendectomy Social History Housing: House Alcohol intake: never Patient Tobacco Use Status: Never used Tobacco e-Cigarette/Vaping Use: Never Used Second Hand Smoke Exposure: No service: No Current occupational status: unemployed Cognitive needs: No Hearing needs: No Vision needs: No Physical Exam Vital Signs: Last Vital Signs Pulse 88 05/18/23 08:14 BP 110/80 05/18/23 08:14 Pulse Ox 97 05/18/23 08:14 Oxygen Delivery Method Room Air 05/18/23 08:14 Const Other: Extremely obese male. General: cooperative and healthy appearing Nutritional Appearance: well nourished Orientation/consciousness: patient oriented x3 Limitations: no limitations HEENT Head: Yes normal to inspection Eyes General: appearance normal, both eyes and all related structures Neck Neck: Yes normal visual inspection Chest Chest palpation & inspection: normal palpation of entire chest wall Resp Effort & Inspection: normal respiratory effort GI Inspection: Yes normal to inspection Palpation (GI): Soft to palpation Back/Spine/Pelvis Other: Lower back: No spinal tenderness or paraspinal spasm. Neuro General: patient oriented x3 Assessment & Plan Assessment & Plan (1) Abdominal pain: Code(s): R10.9 - Unspecified abdominal pain Plan: CT scan of the abdomen done a few weeks ago shows hepatic splenomegaly. Gallbladder was identified without any stones. Blood work is normal. I advised the patient to continue the omeprazole at same dosage. Mylanta to be added to the regimen. Note to the PCP will be sent regarding that the patient will benefit from a GI consult. Lower back pain could be of muscular etiology. Cyclobenzaprine has been added to the regimen. NSAIDs to be avoided. Coding Level of Care Code Est Pt Level 4 (45421) Diagnoses Abdominal pain R10.9
== END 2023-05-18 09:20 | disposition home or self-care (01) ==
PROVIDERS: PCP Nurse Practitioner Family; Visit Provider Internal Medicine
DX: R10.9 Unspecified abdominal pain (principal)
CPT/HCPCS: 99214

== ENCOUNTER 2023-05-21 09:52 | Outpatient (AMB) | payer OTHER, SELFPAY ==
--- NOTE | 2023-05-21 09:55 | AM.OFFWIN_ITS ---
Intake Vital Signs 05/21/23 09:57 Height 6 ft Weight 298 lb BMI 40.4 BP 120/70 Blood Pressure Location Rt brachial Position Sitting Pulse 82 Pulse Source Pulse Oximeter Temp 96.5 F L Temp Source Temporal Artery Scan Pulse Oximetry (%) 97 Oxygen Delivery Method Room Air Intake Visit Reasons: EST/acid reflux issues Intake Note: Pt is here c/o acid reflex. Patient Tobacco Use Status: Never used Tobacco Allergies No Known Allergies [No Known Allergies*] Allergy (Verified 05/21/23 09:55) Do you need a note to return to daycare/school/sports/work: No HPI EST/acid reflux issues HPI Details 32 year old male patient presents today with ongoing GI discomfort. He reports this has been going for many months. He describes daily reflux abdominal bloating, frequent belching. He denies any fever or chills. Denies any vomiting. Reports occasional diarrhea. He has been seen at the walk-in for this a couple of times, actually was seen in the emergency department last month for gastritis. CT scan at that time showed hepatomegaly, and enlarged stomach, however nothing else acute. He has been on Omeprazole daily and was recently switched to Pantoprazole 40mg daily however has not made the switch yet. He has tried Mylanta as well however continues to have symptoms. He reports ongoing mid epigastric discomfort, and this radiates into chest. He at times is fearful it is cardiac related. He denies any relation eating to his pain. He denies eating any spicy, fatty/greasy foods or carbonated beverages. He has referral placed for GI. PENDING SALE TO [facility] Medical History Hypertension Surgical History S/P appendectomy Social History Housing: House Alcohol intake: never Patient Tobacco Use Status: Never used Tobacco e-Cigarette/Vaping Use: Never Used Second Hand Smoke Exposure: No service: No Current occupational status: unemployed Cognitive needs: No Hearing needs: No Vision needs: No Review of Systems Const All systems reviewed & are unremarkable except as noted in HPI and below Physical Exam Vital Signs: Last Vital Signs Temp 96.5 F L 05/21/23 09:57 Pulse 82 05/21/23 09:57 BP 120/70 05/21/23 09:57 Pulse Ox 97 05/21/23 09:57 Oxygen Delivery Method Room Air 05/21/23 09:57 BMI result Body Mass Index 40.4 Const General: cooperative and no acute distress Nutritional Appearance: obese HEENT Head: Yes normal to inspection Neck Neck: Yes normal visual inspection, Yes no lymphadenopathy and Yes supple Resp Effort & Inspection: normal respiratory effort and able to speak in complete sentences Auscultation: clear to auscultation bilaterally Cardio Jugular venous distension: no JVD Palpation: normal PMI Rate: regular rate Rhythm: regular rhythm Heart sounds: S1 normal heart sound present and S2 normal heart sound present GI Other: No tenderness to palpation. No guarding. No rebound tenderness. Inspection: Yes normal to inspection and Yes obesity Palpation (GI): Soft to palpation and No hepatosplenomegaly present Auscultation: normal bowel sounds Skin General skin exam: no rashes or lesions noted Extrem General: Yes capillary refill normal and Yes no clubbing, cyanosis or edema Psych Appearance: grossly normal Mental Status: mental status grossly normal Speech and movement: Normal speech and movement present Office Procedures EKG [id number], Complete Assessment & Plan Assessment & Plan (1) Acid reflux: Code(s): K21.9 - Gastro-esophageal reflux disease without esophagitis Qualifiers: Esophagitis presence: esophagitis presence not specified Qualified Code(s): K21.9 - Gastro-esophageal reflux disease without esophagitis Plan: Patient has GI issues/reflux for many months. I was able to call the GI office, and get him a visit on 06/12 at 1:30. For further evaluation and workup. He has been seen for these issues previously by walk-in clinic and PCP. He was previously switched from omeprazole to pantoprazole, however has not started this new regimen. I encouraged to do this see if he experiences any reduction in symptoms. EKG in the office today showed normal sinus rhythm, 74 bpm. I discussed with patient that given the pressure in his abdomen/chest, cardiac involvement cannot be definitively ruled out with EKG alone. He verbalizes understanding of this, however does not wish to go to the emergency department for any further workup at this point. Patient would like to start new PPI regimen tomorrow, he can continue Mylanta p.r.n., and should try to eat a bland diet and advance this as tolerated. I encouraged him to go to the emergency department if his pain worsens, is unresolved, or if he develops any new symptoms. He verbalizes understanding and agrees to plan. Coding Level of Care Code Est Pt Level 3 (52606) Diagnoses Gastroesophageal reflux disease, unspecified whether esophagitis present K21.9 Esophagitis presence: esophagitis presence not specified CPT Codes EKG - CPT: 04405-[id number], Complete ([id number])
[2023-05-21 09:57] VITALS: BP 120/70; PULSE 82; TEMP 35.8; O2SAT 97; BMI 40.4
== END 2023-05-21 10:56 | disposition home or self-care (01) ==
PROVIDERS: PCP Nurse Practitioner Family; Visit Provider Nurse Practitioner Family
DX: K21.9 Gastro-esophageal reflux disease without esophagitis (principal)
CPT/HCPCS: 93000; 99213

== ENCOUNTER 2023-05-24 21:12 | Emergency (ER) | payer OTHER, SELFPAY ==
--- NOTE | 2023-05-24 07:29 | ECG_ITS ---
Test Reason : CP Blood Pressure : / mmHG Vent. Rate : 101 BPM Atrial Rate : 101 BPM P-R Int : 138 ms QRS Dur : 086 ms QT Int : 326 ms P-R-T Axes : 070 021 018 degrees QTc Int : 422 ms Sinus tachycardia Otherwise normal ECG When compared with ECG of 24-MAY-2023 21:16, No significant change was found Referred By: Herbie Bowen Electronically Signed By:MALICK MANLEY MD
--- NOTE | 2023-05-24 21:15 | ECG_ITS ---
Test Reason : CP Blood Pressure : / mmHG Vent. Rate : 102 BPM Atrial Rate : 102 BPM P-R Int : 132 ms QRS Dur : 088 ms QT Int : 324 ms P-R-T Axes : 054 011 007 degrees QTc Int : 422 ms Poor data quality, interpretation may be adversely affected Sinus tachycardia Otherwise normal ECG When compared with ECG of 14-APR-2022 00:54, T wave amplitude has increased in Anterolateral leads Referred By: Generic ED Physician Electronically Signed By:MALICK MANLEY MD
[2023-05-24 21:27] LABS: MANUAL DIFF FLAG NO
[2023-05-24 21:28] VITALS: BP 131/80; PULSE 109; RESP 20; TEMP 37.3; O2SAT 95; BMI 40.4
[2023-05-24 21:34] LABS: Basophils Absolute Auto 0.1 X10*3/uL (0.0-0.2); Basophils Percent Auto 0.7 % (0-2); Eosinophils Absolute Auto 0.2 X10*3/uL (0.0-0.4); Eosinophils Percent Auto 2.7 % (0-4); Hematocrit 45.7 % (42.0-52.0); Hemoglobin 16.3 g/dl (14.0-18.0); Imm Gran Abs Auto 0.03 X10*3/uL (0.00-0.03); Imm Gran Pct Auto 0.4 % (0.0-0.4); Lymphocytes Absolute Auto 2.9 X10*3/uL (1.2-4.9); Lymphocytes Percent Auto 38.5 % (20-40); Mean Corpuscular HGB Conc 35.7 g/dl (31.0-36.0); Mean Corpuscular Hemoglobin 29.3 pg (27.0-33.0); Mean Platelet Volume 10.4 fL (9.4-12.4); Monocytes Absolute Auto 0.6 X10*3/uL (0.1-1.2); Monocytes Percent Auto 8.6 % (2-11); Neutrophils Absolute Auto 3.6 x10*3/uL (2.0-8.3); Neutrophils Percent Auto 49.1 % (45-73); Platelet Count 207 X10*3/uL (160-400); Red Blood Count 5.57 X10*6/uL (4.60-5.80); Red Cell Distribution Width 12.2 % (11.0-16.0); White Blood Count 7.4 X10*3/uL (4.8-10.8)
[2023-05-24 21:46] LABS: Alanine Aminotransferase 33 U/L (0-40); Albumin Level 4.6 g/dL (3.5-5.0); Alkaline Phosphatase 67 U/L (39-117); Anion Gap 16 (12-20); Aspartate Amino Transferase 24 U/L (5-37); Bilirubin Total 0.6 mg/dL (0.0-1.0); Blood Urea Nitrogen 14 mg/dL (9-16); Calcium 9.7 mg/dL (8.4-10.2); Carbon Dioxide 21 mmol/L (22-29); Chloride 107 mmol/L (96-108); Creatinine Clr Calc Pharmacy 179.2; Estimated Glomerular Filt Rate > 60; Glucose Random 132 mg/dL (60-115); Potassium 4.3 mmol/L (3.3-5.1); Sodium 140 mmol/L (135-145); Total Protein 7.9 g/dL (6.5-8.0)
[2023-05-24 21:55] LABS: Troponin-I High Sensitivity < 2.7 ng/L (<3.5-35.0)
--- NOTE | 2023-05-25 00:32 | ED_ITS ---
HPI - Chest Pain General Chief Complaint: Chest Pain Stated Complaint: Chest pain Time Seen by Provider: 05/25/23 00:32 Source: patient Mode of arrival: ambulatory Limitations: no limitations History of Present Illness HPI narrative: 32-year-old male who presents emergency department for evaluation of chest pain. Patient states he has been experiencing chest pain on off for approximately 1 week. He states that the chest pain seems to come on at random it is not related to exertion. States the pain will last 2-3 minutes and then resolved. The pain is associated with shortness of breath and pain in his left neck. States that occasionally he will get pain in his left arm as well. He states that at 21:00 hours he developed chest pain which she describes as sharp pain located in the center of his chest. It lasted approximately 10-20 minutes. The chest pain was associated with shortness of breath and palpitation. He became concerned about the chest pain so came to the emergency department for evaluation He states that earlier in the day he was able to hike for mild without any chest discomfort. He has not noticed any pain or swelling in his lower extremities. He has not gone on any long trips. The patient states that he does have diabetes mellitus but he has modified his diet and he states that his last hemoglobin A1c was 5.4 and he is no longer taking antihyperglycemic medications. Related Data Home Medications Medication Instructions Recorded Confirmed cetirizine 10 mg tablet (Zyrtec) 20 mg PO DAILY PRN 12/23/22 05/18/23 Previous Rx's Medication Instructions Recorded albuterol sulfate 90 mcg/actuation 2 puff inhalation Q6H PRN 08/29/22 aerosol inhaler shortness of breath or wheezing #6.7 grams pyridoxine (vitamin B6) 100 mg 100 mg PO DAILY 90 days #90 tabs 12/23/22 tablet amlodipine 10 mg tablet 10 mg PO DAILY #90 tabs 12/26/22 lisinopril 5 mg tablet 5 mg PO DAILY #90 tabs 01/26/23 cyclobenzaprine 10 mg tablet 10 mg PO BEDTIME #14 tabs 05/18/23 pantoprazole 40 mg tablet,delayed 40 mg PO DAILY #30 tabs 05/18/23 release rosuvastatin 5 mg tablet (Crestor) 5 mg PO DAILY 90 days #90 tabs 05/20/23 Allergies Allergy/AdvReac Type Severity Reaction Status Date / Time No Known Allergies Allergy Verified 05/21/23 09:55 [No Known Allergies*] Review of Systems 2 Review of Systems: Yes all other systems are reviewed and are negative [facility] Past Medical History [facility] Narrative: Social history: He denies tobacco, alcohol and drug use. Medical History Hypertension Surgical History S/P appendectomy Social History Social History Housing: House Alcohol intake: never Patient Tobacco Use Status: Never used Tobacco Smoked in Last 30 Days: No e-Cigarette/Vaping Use: Never Used Second Hand Smoke Exposure: No Use of substances other than those prescribed or required for medical reasons: No Advance Directives: No Advance Directives Information Provided: Yes service: No Current occupational status: unemployed Cognitive needs: No Hearing needs: No Vision needs: No Physical Exam 2 Vital Signs: Vital Signs: Last Vital Signs Temp 98.1 F 05/25/23 00:34 Pulse 93 05/25/23 00:34 Resp 12 05/25/23 00:34 BP 118/78 05/25/23 00:34 Pulse Ox 96 05/25/23 00:34 O2 Del Method Room Air 05/25/23 00:34 BMI result Body Mass Index 40.4 Vital signs were normal Exam General: Awake, alert in no distress Head: Normocephalic, atraumatic EENT: PERRL, Lids normal, sclera normal, conjunctiva normal, nose normal , ears normal, throat without erythema or exudates Neck: Supple, no adenopathy, trachea midline and nontender Lung: breath sounds symmetric, no wheezing, rales or rhonchi Chest: symmetric movement, nontender Heart: regular rate and rhythm, normal S1, S2 no murmurs or rubs Abdomen: soft, non-tender, nondistended, normal bowel sounds Extremities: no deformities, moves all extremities symmetrically Neuro: Awake, alert, oriented, normal speech Psych: Pleasant, cooperative 32-year-old male with history of hypertension and diabetes who presents emergency department for evaluation of intermittent chest pain x1 week with an episode of chest pain this evening at 21:00 hours which lasted approximately 20 minute. Patient states that the pain is constant to be related to exertion and comes on at random. He is being treated for GERD with pantoprazole. Following evaluation was ordered: CBC, CMP, troponin, EKG 01:00 My interpretation patient's laboratory evaluation as follows: CBC is normal. CMP revealed elevated glucose of 132 otherwise normal. High sensitive troponin I was below detectable limits. Twelve EKG was unremarkable At this time, I think the patient's pain is atypical for coronary artery disease and is more likely related to musculoskeletal pain or gastroesophageal reflux disease and I did discuss this with him. He was advised to continue taking his pantoprazole as prescribed by his doctor and advised him to at extra-strength Gaviscon 10 mL 4 times a day as needed for pain. He was given printed and verbal instructions and discharged home. Medical Decision Making Lab Data 05/24/23 21:23 05/24/23 21:23 Labs: Lab Results 05/24/23 Range/Units 21: WBC 7.4 (4.8-10.8) X10*3/uL RBC 5.57 (4.60-5.80) X10*6/uL Hgb 16.3 (14.0-18.0) g/dl Hct 45.7 (42.0-52.0) % MCV 82.0 (80.0-98.0) fL MCH 29.3 (27.0-33.0) pg MCHC 35.7 (31.0-36.0) g/dl RDW 12.2 (11.0-16.0) % Plt Count 207 (160-400) X10*3/uL MPV 10.4 (9.4-12.4) fL Immature Gran % (Auto) 0.4 (0.0-0.4) % Neut % (Auto) 49.1 (45-73) % Lymph % (Auto) 38.5 (20-40) % [place] % (Auto) 8.6 (2-11) % Eos % (Auto) 2.7 (0-4) % Baso % (Auto) 0.7 (0-2) % Lymph # (Auto) 2.9 (1.2-4.9) X10*3/uL M[place] # (Auto) 0.6 (0.1-1.2) X10*3/uL Eos # (Auto) 0.2 (0.0-0.4) X10*3/uL Baso # (Auto) 0.1 (0.0-0.2) X10*3/uL Abs Immat Gran (auto) 0.03 (0.00-0.03) X10*3/uL Absolute Neuts (auto) 3.6 (2.0-8.3) x10*3/uL Absolute Nucleated RBC 0.000 (0.0-0.012) X10*3/uL Nucleated RBC % (auto) 0.0 (0.0-0.2) /100WBC Sodium 140 (135-145) mmol/L Potassium 4.3 (3.3-5.1) mmol/L Chloride 107 (96-108) mmol/L Carbon Dioxide 21 L (22-29) mmol/L Anion Gap 16 (12-20) BUN 14 (9-16) mg/dL Creatinine 0.85 (0.5-1.4) mg/dL Estim Creat Clear Calc 179.2 Estimated GFR > 60 Random Glucose 132 H (60-115) mg/dL Calcium 9.7 (8.4-10.2) mg/dL Total Bilirubin 0.6 (0.0-1.0) mg/dL AST 24 (5-37) U/L ALT 33 (0-40) U/L Alkaline Phosphatase 67 (39-117) U/L Troponin I High Sens < 2.7 (<3.5-35.0) ng/L Total Protein 7.9 (6.5-8.0) g/dL Albumin 4.6 (3.5-5.0) g/dL Independent Interpretation I performed an independent interpretation of an: EKG Interpretation: My independent interpretation the patient's 12 EKG done at 2116 is as follows: Sinus tachycardia with a rate of 101, normal OR, QRS and QTC interval, no ST segment elevation, no ST segment depression, inverted T-wave in lead 3, no PACs, no PVCs. Discharge Plan Discharge Clinical Impression: Chest pain Patient Disposition: Home, Self-Care Instructions: Chest Pain (ED) Additional Instructions: Your EKG was normal. Your blood work was normal as well pain Your high sensitivity troponin I (marker of heart damage) was below detectable limits. At this time, I do not think that the pain that your experiencing is caused by heart pain and is more likely to be caused by muscle pain or GERD. Continue taking the pantoprazole at prescribed by your doctor. Take extra-strength Gaviscon 10 mL (2 tsp) 4 times a day as needed for chest pain or abdominal pain. Follow-up with your doctor in 2 days. Please return to the emergency department if your symptoms get worse or if you develop any symptoms that are concerning to you. Prescriptions: No Action amlodipine 10 mg tablet 10 mg PO DAILY Qty: 90 1RF lisinopril 5 mg tablet 5 mg PO DAILY Qty: 90 1RF rosuvastatin [Crestor] 5 mg tablet 5 mg PO DAILY 90 Days Qty: 90 1RF albuterol sulfate 90 mcg/actuation HFA aerosol inhaler 2 puff inhalation Q6H PRN (Reason: shortness of breath or wheezing) Qty: 6.7 0RF cetirizine [Zyrtec] 10 mg tablet 20 mg PO DAILY PRN cyclobenzaprine 10 mg tablet 10 mg PO BEDTIME Qty: 14 0RF pantoprazole 40 mg tablet,delayed release (DR/EC) 40 mg PO DAILY Qty: 30 0RF pyridoxine (vitamin B6) 100 mg tablet 100 mg PO DAILY 90 Days Qty: 90 2RF
[2023-05-25 00:34] VITALS: BP 118/78; PULSE 93; RESP 12; TEMP 36.7; O2SAT 96
== END 2023-05-25 01:03 | disposition home or self-care (01) ==
PROVIDERS: Emergency Provider Emergency Medicine Emergency Medical Services; PCP Nurse Practitioner Family
DX: R07.89 Other chest pain (principal); E11.9 Type 2 diabetes mellitus without complications; Z79.899 Other long term (current) drug therapy
CPT/HCPCS: 36415; 80053; 84484; 85025; 93005; 99283; 99285

== ENCOUNTER 2023-06-06 11:34 | Emergency (ER) | payer OTHER, SELFPAY ==
--- NOTE | ~2023-06-06 | XR_ITS ---
EXAMINATION: XR CHEST CLINICAL INFORMATION: Chest pain COMPARISON: None available. TECHNIQUE: 2 views of the chest were obtained. FINDINGS: No significant abnormality is noted involving the heart, lungs, mediastinum, bony thorax or soft tissues. XR/XR chest 2V IMPRESSION: Unremarkable examination.
--- NOTE | 2023-06-06 11:35 | ECG_ITS ---
Test Reason : chest pain Blood Pressure : / mmHG Vent. Rate : 092 BPM Atrial Rate : 092 BPM P-R Int : 108 ms QRS Dur : 092 ms QT Int : 332 ms P-R-T Axes : 037 028 015 degrees QTc Int : 410 ms Sinus rhythm Normal ECG When compared with ECG of 24-MAY-2023 21:17, No significant change was found Referred By: Jessica Alcaraz Electronically Signed By:MALICK MANLEY MD
[2023-06-06 11:52] VITALS: BP 140/84; PULSE 102; RESP 20; TEMP 36.6; O2SAT 95; BMI 41.1
--- NOTE | 2023-06-06 11:54 | ED_ITS ---
HPI - Chest Pain General Chief Complaint: Chest Pain Stated Complaint: chest pain Time Seen by Provider: 06/06/23 12:06 Source: patient Mode of arrival: ambulatory History of Present Illness HPI narrative: 32-year-old male with history of hypertension and GERD presents with complaints of dyspnea on exertion and was recently seen here for chest pain which patient endorses today as well according to the triage note. In triage patient reports left chest pain radiating to left shoulder and left neck with shortness of breath with 2 episodes intermittently. Patient states that he went to go on a hike on this never had shortness of breath before or chest pain and experience this today he denies any associated dizziness/headache/diaphoresis/nausea. Related Data Home Medications Medication Instructions Recorded Confirmed cetirizine 10 mg tablet (Zyrtec) 20 mg PO DAILY PRN 12/23/22 05/18/23 Previous Rx's Medication Instructions Recorded albuterol sulfate 90 mcg/actuation 2 puff inhalation Q6H PRN 08/29/22 aerosol inhaler shortness of breath or wheezing #6.7 grams pyridoxine (vitamin B6) 100 mg 100 mg PO DAILY 90 days #90 tabs 12/23/22 tablet amlodipine 10 mg tablet 10 mg PO DAILY #90 tabs 12/26/22 lisinopril 5 mg tablet 5 mg PO DAILY #90 tabs 01/26/23 cyclobenzaprine 10 mg tablet 10 mg PO BEDTIME #14 tabs 05/18/23 pantoprazole 40 mg tablet,delayed 40 mg PO DAILY #30 tabs 05/18/23 release rosuvastatin 5 mg tablet (Crestor) 5 mg PO DAILY 90 days #90 tabs 05/20/23 Allergies Allergy/AdvReac Type Severity Reaction Status Date / Time No Known Allergies Allergy Verified 05/21/23 09:55 [No Known Allergies*] Review of Systems 2 Review of Systems: Pertinent positives and negatives as stated in HPI PMFSH Past Medical History Source: nursing notes reviewed Medical History Hypertension Surgical History S/P appendectomy Social History Social History Housing: House Alcohol intake: never Patient Tobacco Use Status: Never used Tobacco e-Cigarette/Vaping Use: Never Used Second Hand Smoke Exposure: No Advance Directives: No Advance Directives Information Provided: No service: No Current occupational status: unemployed Cognitive needs: No Hearing needs: No Vision needs: No Physical Exam 2 Vital Signs: Vital Signs: Last Vital Signs Temp 97.9 F 06/06/23 11:52 Pulse 102 H 06/06/23 11:52 Resp 20 06/06/23 11:52 BP 140/84 H 06/06/23 11:52 Pulse Ox 95 06/06/23 11:52 O2 Del Method Room Air 06/06/23 11:52 BMI result Body Mass Index 41.1 VITAL SIGNS: Reviewed. GENERAL: Elevated BMI, Well developed, well nourished, in no acute distress. HEAD: Normocephalic/atraumatic EYES: PERRLA, EOMI EARS: Ext canals without abnormality NOSE: Nares patent bilateral OROPHARYNX: no oral lesions noted, posterior pharynx clear NECK: Supple, no adenopathy LUNGS: Normal breath sounds. No adventitious sounds or accessory muscle use. SpO2<95> CARDIOVASCULAR: Regular rate and rhythm without noted murmurs ABDOMEN: Soft, non-tender, non-distended with bowel sounds. MUSCULOSKELETAL: No tenderness, deformities, or effusions noted on gross inspection. EXTREMITIES: No cyanosis, clubbing or edema. SKIN: Inspection of the skin reveals no rashes NEUROLOGIC: Alert and oriented x 4. Strength and sensation to light touch were grossly intact x 4. Course Course Course Narrative: This is an RME: Additional HPI, ROS, PE not included below will be deferred to primary provider. Patient is a 32 year old male with pmhx of HTN presenting with 2 days of intermittent left anterior chest pain radiating into the shoulder and neck. [place] at rest and while exercising described as tightness and squeezing. Also reports shortness of breath, and at rest experiencing palpitations and tachycardia with HR up to 110's reportedly. Plan: labs, EKG, CXR Medical Decision Making Medical Decision Making MDM Narrative: 32-year-old male with history and clinical presentation, DDX: Viral illness, musculoskeletal, less likely felt to be pneumonia or ACS or PE. There is no traumatic injury history Reviewed all investigations and hematologic indices are chronically stable and grossly within normal limits without leukocytosis or left shift, there is no knee me are thrombocytopenia. Coagulation studies are within normal limits. Chemistry indices are grossly within normal limits is there is no GEORGINA and no electrolyte or liver enzyme derangements and high sensitivity troponin is undetectable and BNP is undetectable. TSH from April is within normal range. Viral testing is negative for COVID-19 and influenza. Chest x-ray does not demonstrate an infiltrate and otherwise my interpretation is in agreement with radiology's impression. EKG without STEMI. D-dimer is undetectable and patient is otherwise discharged with her musculoskeletal pain. Differential Diagnosis Differential Diagnoses: The differential diagnosis associated with the presentation includes Please see the discussion above Admission/Observation Consideration of admission/observation: Escalation of care including admission/observation considered Please see the discussion above Lab Data MDM Lab Attestation statement: I reviewed the patient's lab results. Please see the discussion above 06/06/23 12:22 06/06/23 12:22 Labs: Lab Results 06/06/23 Range/Units 12:22 WBC 5.2 (4.8-10.8) X10*3/uL RBC 5.43 (4.60-5.80) X10*6/uL Hgb 15.7 (14.0-18.0) g/dl Hct 44.4 (42.0-52.0) % MCV 81.8 (80.0-98.0) fL MCH 28.9 (27.0-33.0) pg MCHC 35.4 (31.0-36.0) g/dl RDW 12.4 (11.0-16.0) % Plt Count 177 (160-400) X10*3/uL MPV 10.3 (9.4-12.4) fL Immature Gran % (Auto) 0.4 (0.0-0.4) % Neut % (Auto) 43.0 L (45-73) % Lymph % (Auto) 42.0 H (20-40) % Mayes % (Auto) 10.3 (2-11) % Eos % (Auto) 3.5 (0-4) % Baso % (Auto) 0.8 (0-2) % Lymph # (Auto) 2.2 (1.2-4.9) X10*3/uL Mayes # (Auto) 0.5 (0.1-1.2) X10*3/uL Eos # (Auto) 0.2 (0.0-0.4) X10*3/uL Baso # (Auto) 0.0 (0.0-0.2) X10*3/uL Abs Immat Gran (auto) 0.02 (0.00-0.03) X10*3/uL Absolute Neuts (auto) 2.2 (2.0-8.3) x10*3/uL Absolute Nucleated RBC 0.000 (0.0-0.012) X10*3/uL Nucleated RBC % (auto) 0.0 (0.0-0.2) /100WBC PT 12.2 (11.1-13.3) SEC INR 1.0 (0.9-1.1) D-Dimer High Sensitivty < 150 NG/ML Sodium 140 (135-145) mmol/L Potassium 4.2 (3.3-5.1) mmol/L Chloride 109 H (96-108) mmol/L Carbon Dioxide 22 (22-29) mmol/L Anion Gap 13 (12-20) BUN 12 (9-16) mg/dL Creatinine 0.81 (0.5-1.4) mg/dL Estim Creat Clear Calc 189.8 Estimated GFR > 60 Random Glucose 118 H (60-115) mg/dL Calcium 9.5 (8.4-10.2) mg/dL Total Bilirubin 0.6 (0.0-1.0) mg/dL AST 23 (5-37) U/L ALT 27 (0-40) U/L Alkaline Phosphatase 56 (39-117) U/L Troponin I High Sens < 2.7 (<3.5-35.0) ng/L B-Natriuretic Peptide < 10 (<100) pg/mL Total Protein 7.2 (6.5-8.0) g/dL Albumin 4.4 (3.5-5.0) g/dL COVID-19 (ARUN) Negative (Negative) COVID-19 Clin Com See Note Influenza Type A (RAMY) Negative (Negative) Influenza Type B (RAMY) Negative (Negative) Influenza A & B Note See Note Independent Interpretation I performed an independent interpretation of an: EKG Interpretation: Sinus rhythm, HR-92, no STEMI, MA/QRS/QTC is within normal limits. Radiology Impression Discussion of test interpretation with radiology: I have reviewed the radiologist's reading. Radiologist Impression: Please see the discussion above External Record Review External record reviewed: Outpatient record, Prior outpatient labs and Prior outpatient radiology Chronic Conditions Patient?s care impacted by: Hypertension Discharge Plan Discharge Clinical Impression: Atypical chest pain, Dyspnea, Musculoskeletal pain Patient Disposition: Home, Self-Care Instructions: Dyspnea (ED), Musculoskeletal Pain (ED), Noncardiac Chest Pain (ED) Additional Instructions: 1. Resume all home medications as prescribed. 2. Please follow-up with your primary care doctor for re-evaluation and further outpatient workup and management. Return to the ER for any worsening symptoms. Prescriptions: No Action amlodipine 10 mg tablet 10 mg PO DAILY Qty: 90 1RF lisinopril 5 mg tablet 5 mg PO DAILY Qty: 90 1RF rosuvastatin [Crestor] 5 mg tablet 5 mg PO DAILY 90 Days Qty: 90 1RF albuterol sulfate 90 mcg/actuation HFA aerosol inhaler 2 puff inhalation Q6H PRN (Reason: shortness of breath or wheezing) Qty: 6.7 0RF cetirizine [Zyrtec] 10 mg tablet 20 mg PO DAILY PRN cyclobenzaprine 10 mg tablet 10 mg PO BEDTIME Qty: 14 0RF pantoprazole 40 mg tablet,delayed release (DR/EC) 40 mg PO DAILY Qty: 30 0RF pyridoxine (vitamin B6) 100 mg tablet 100 mg PO DAILY 90 Days Qty: 90 2RF Referrals: Louis Avery, [facility] [Primary Care Provider] -
[2023-06-06 12:28] LABS: MANUAL DIFF FLAG NO
[2023-06-06 12:29] LABS: Basophils Percent Auto 0.8 % (0-2); Eosinophils Absolute Auto 0.2 X10*3/uL (0.0-0.4); Eosinophils Percent Auto 3.5 % (0-4); Hematocrit 44.4 % (42.0-52.0); Hemoglobin 15.7 g/dl (14.0-18.0); Imm Gran Abs Auto 0.02 X10*3/uL (0.00-0.03); Imm Gran Pct Auto 0.4 % (0.0-0.4); Lymphocytes Absolute Auto 2.2 X10*3/uL (1.2-4.9); Mean Corpuscular HGB Conc 35.4 g/dl (31.0-36.0); Mean Corpuscular Hemoglobin 28.9 pg (27.0-33.0); Mean Corpuscular Volume 81.8 fL (80.0-98.0); Mean Platelet Volume 10.3 fL (9.4-12.4); Monocytes Absolute Auto 0.5 X10*3/uL (0.1-1.2); Monocytes Percent Auto 10.3 % (2-11); Neutrophils Absolute Auto 2.2 x10*3/uL (2.0-8.3); Platelet Count 177 X10*3/uL (160-400); Red Blood Count 5.43 X10*6/uL (4.60-5.80); Red Cell Distribution Width 12.4 % (11.0-16.0); White Blood Count 5.2 X10*3/uL (4.8-10.8)
[2023-06-06 12:33] LABS: Prothrombin Time 12.2 SEC (11.1-13.3)
[2023-06-06 12:42] LABS: Alanine Aminotransferase 27 U/L (0-40); Albumin Level 4.4 g/dL (3.5-5.0); Alkaline Phosphatase 56 U/L (39-117); Anion Gap 13 (12-20); Aspartate Amino Transferase 23 U/L (5-37); Bilirubin Total 0.6 mg/dL (0.0-1.0); Blood Urea Nitrogen 12 mg/dL (9-16); Calcium 9.5 mg/dL (8.4-10.2); Carbon Dioxide 22 mmol/L (22-29); Chloride 109 mmol/L (96-108); Creatinine Clr Calc Pharmacy 189.8; Estimated Glomerular Filt Rate > 60; Glucose Random 118 mg/dL (60-115); Potassium 4.2 mmol/L (3.3-5.1); Sodium 140 mmol/L (135-145); Total Protein 7.2 g/dL (6.5-8.0)
[2023-06-06 12:48] LABS: B Type Natriuretic Peptide < 10 pg/mL (<100)
[2023-06-06 12:50] LABS: COVID-19 Test Negative (Negative); IDNOW Serial# 55D5AD1C
[2023-06-06 12:51] LABS: Troponin-I High Sensitivity < 2.7 ng/L (<3.5-35.0)
[2023-06-06 12:54] LABS: IDNOW Serial# 9DB6401D; Influenza A Negative (Negative); Influenza B2 Negative (Negative)
[2023-06-06 14:22] LABS: D Dimer High Sensitivity < 150 NG/ML
[2023-06-06 14:40] VITALS: BP 117/63; PULSE 88; RESP 20; TEMP 37.1; O2SAT 96
--- NOTE | 2023-06-06 14:42 | PC.NURSE ---
continues to rest comfortably in room, states pain comes and goes and now it's around 2/10. awaiting dispo from provider, offering no complaints. call saldivar within reach.
== END 2023-06-06 15:16 | disposition home or self-care (01) ==
PROVIDERS: Nurse Practitioner Family; Emergency Provider Student in an Organized Health Care Education/Training Program; PCP Nurse Practitioner Family
DX: R07.89 Other chest pain (principal); R06.02 Shortness of breath; M79.18 Myalgia, other site; E11.9 Type 2 diabetes mellitus without complications; I10 Essential (primary) hypertension; E66.9 Obesity, unspecified; Z68.41 Body mass index [BMI] 40.0-44.9, adult; Z79.899 Other long term (current) drug therapy; Z11.52 Encounter for screening for COVID-19
CPT/HCPCS: 71046; 80053; 83880; 84484; 85025; 85379; 85610; 87502; 87635; 93005; 99283; 99285

== ENCOUNTER 2023-06-12 13:16 | Outpatient (REF) | payer OTHER, SELFPAY ==
[2023-06-14 07:11] LABS: Campylobacter Not Detected (Not Detect.); E. coli EAEC Not Detected (Not Detect.); E. coli EPEC Not Detected (Not Detect.); E. coli ETEC Not Detected (Not Detect.); E. coli STEC Not Detected (Not Detect.); Plesiomonas shigelloides Not Detected (Not Detect.); Salmonella Not Detected (Not Detect.); Vibrio Not Detected (Not Detect.); Vibrio Cholerae Not Detected (Not Detect.); Yersinia enterocolitica Not Detected (Not Detect.)
[2023-06-14 07:12] LABS: Adenovirus F 40/41 Not Detected (Not Detect.); Astrovirus Not Detected (Not Detect.); Cryptosporidium Not Detected (Not Detect.); Cyclospora cayetanensis Not Detected (Not Detect.); Entamoeba histolytica Not Detected (Not Detect.); Giardia lamblia Not Detected (Not Detect.); Norovirus GI/GII Not Detected (Not Detect.); Rotavirus A Not Detected (Not Detect.); Sapovirus Not Detected (Not Detect.); Shigella sp./EIEC Not Detected (Not Detect.)
[2023-06-17 08:04] LABS: Transglutaminase Ab IgG 8.7 U/mL; Transglutaminase IgA 140.2 U/mL
== END 2023-06-12 13:17 | disposition home or self-care (01) ==
LOC: HO.LAB 13:16
PROVIDERS: PCP Nurse Practitioner Family; Visit Provider Nurse Practitioner
DX: K21.9 Gastro-esophageal reflux disease without esophagitis (principal); R19.7 Diarrhea, unspecified; R11.0 Nausea; R07.9 Chest pain, unspecified
CPT/HCPCS: 36415; 86003; 86364; 87507; 99202

== ENCOUNTER 2023-06-12 13:16 | Outpatient (AMB) | payer OTHER, SELFPAY ==
--- NOTE | 2023-06-12 13:28 | MHC.OFFVIS ---
Intake Vital Signs 06/12/23 13:30 Height 6 ft Weight 300 lb 11.368 oz BMI 40.8 BP 145/66 H Blood Pressure Location Lt brachial Position Sitting Pulse 91 Intake Visit Reasons: Abdominal pain Intake Note: Patient presents to in office visit today as a new patient for abdominal pain. CC: Patient c/o abdominal pain and chest pain with radiation to his arm sometimes. He went to ER and after cardiac work up he was told it was not from his heart. He also c/o abdominal grumbling, feeling cold coming up from his esophagus, lot of burping, a little bit of diarrhea . nausea, shortness of breath, and light headedness . Symptoms onset about a month and a half ago, very sudden per patient. He reports he has been on Omeprazole for GERD but was given pantoprazole and Mylanta when this symptoms started but symptoms did not improved. Patient states he would like a referral to see cardiology as well if possible. Accompanied by: Self / Same As Patient Allergies No Known Allergies [No Known Allergies*] Allergy (Verified 06/12/23 13:35) HPI Abdominal pain HPI Details 32-year-old male here for initial evaluation of abdominal pain. He is referred by Louis Avery of [facility] [place] primary care. PMX Asthma Hypertrophic cardiomyopathy Hypertension Diabetes Epididymal cyst * SURGICAL HISTORY Appendectomy * ALLERGIES: NKDA * [place] LABS: Laboratory Tests 04/24/23 06/06/23 06/06/23 10:37 12:22 12:22 WBC 5.2 Hgb 15.7 Hct 44.4 Plt Count 177 Estimated GFR > 60 Total Bilirubin 0.6 AST 23 ALT 27 Alkaline Phosphata se [address] ABD AND PELVIS 04/26/23 FINDINGS: LUNG BASES: The visualized lung bases are unremarkable. Normal heart size. No pericardial or pleural effusion. LIVER, GALLBLADDER, AND BILIARY TREE: Redemonstrated hepatomegaly, right lobe measuring 21.9 cm. No focal liver lesion seen. No intrahepatic biliary duct dilatation. CBD caliber is within normal limits. The gallbladder is unremarkable with no evidence of radiopaque gallstones, gallbladder wall thickening, or obvious pericholecystic inflammatory changes. PANCREAS: Unremarkable. No acute inflammatory changes. SPLEEN: Enlarged measuring 13.8 cm. ADRENAL GLANDS: Unremarkable. KIDNEYS AND URETERS: The kidneys are normal in size, shape, and attenuation. No hydronephrosis, hydroureter, or calculi seen. The previously seen left lower pole renal calculus is not clearly identified on today's study. No perinephric stranding. BLADDER: Unremarkable. No intraluminal calculi seen. GASTROINTESTINAL TRACT: Stomach is partially distended. No dilated small or large bowel loops seen. No pericolonic inflammatory changes seen. There is a 1.2 cm radiodense focus in the cecal lumen, of uncertain etiology, possibly intraluminal ingested pill. There appears to have been prior appendectomy. No free fluid. No free air. ABDOMINAL WALL: No significant hernia is appreciated. LYMPH NODES: No pathologically enlarged lymph nodes are seen. VASCULAR: Normal caliber aorta. PELVIC VISCERA: Unremarkable. OSSEOUS STRUCTURES: No significant abnormality seen. CT/CT abdomen pelvis wo IV con IMPRESSION: *No evidence of ureteral radiopaque calculi or findings to suggest hydroureteronephrosis. The previously noted nonobstructing left renal lower pole calculus is not clearly visualized on the current study. *Hepatosplenomegaly. *Additional findings and details, as above. TODAY'S VISIT He says he has been having CP, belly pain and shoulder pain. He was seen in the ER for CP and it seems cardiac was ruled out. This started about 6 weeks ago, he was hit with a wave of nausea and fatigue and it has not stopped. He has a lot of burping and acid brash with a bitter taste. He has taken omeprazole which was increased to 40mg then to pantoprazole but no change in the sx. The only new med was fish oil and he started this months prior to the sx. He started 5mg of crestor 5 mos ago. The sx occur every day, at times lasting for many hours at times 1/2 hour, 3-4 times a day. He can not seem to ID foods that trigger it. But at times is occurs w/o eating. He will have pain in the LUQ area to the epigastrum that is a pressure/stabbing pain. At times a big burp will calm it, sometimes not. He has borborygmus. His stools are looser but not severe diarrhea. His mother has GERD, no known GB disease. His mother had some sort of cancer that may have involved the bowels. 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 Is waiting for cardiology referral from PCP. I will try referring him. Apparently he has had some trouble getting in touch with the primary care office. Will get an H pylori stool test, a GI panel to exclude any infection to be thorough, a pancreatic elastase, a HIDA scan since the CT scan did not show any gallstones, a RAST allergen panel because of the diarrhea along with celiac workup, and a barium swallow for now. Will start him on some simethicone and try to get him twice a day pantoprazole, in the meantime will also give him 40 mg of Pepcid just in case we can not get twice a day PPI coverage. Return office visit in 5 weeks [facility] Medical History Hypertension Surgical History S/P appendectomy Family History Mother Cancer Social History Housing: House Alcohol intake: never Patient Tobacco Use Status: Never used Tobacco e-Cigarette/Vaping Use: Never Used Second Hand Smoke Exposure: No service: No Current occupational status: unemployed Cognitive needs: No Hearing needs: No Vision needs: No Review of Systems Const Denies fatigue, Denies fever(s), Denies night sweats, Denies poor appetite and Denies weight loss ENT Reports Normal hearing present, Denies dental pain, Denies dysphagia, Denies hearing loss, Denies mouth pain, Denies odynophagia, Denies throat swelling, Denies tongue swelling and Reports other (Dentition adequate) Card Reports chest pain and Reports dyspnea on exertion Resp Reports dyspnea on exertion GI Reports abdominal pain, Reports belching, Denies melena, Reports bloating, Denies hematochezia, Denies constipation, Denies GI cramping, Denies dysphagia, Denies excessive flatus, Denies early satiety, Reports heartburn, Denies diarrhea, Reports loose stools, Denies nausea, Denies odynophagia, Denies vomiting and Denies hematemesis Skin/Breast Denies pruritus, Denies lesions, Denies rash and Denies jaundice Neuro Reports Normal hearing present and Denies Abnormal speech present Endo Denies fatigue Aller/Immun Denies throat swelling and Denies tongue swelling Physical Exam Vital Signs: Last Vital Signs Pulse 91 06/12/23 13:30 BP 145/66 H 06/12/23 13:30 BMI result Body Mass Index 40.8 Const General: cooperative, no acute distress, well developed and well groomed Nutritional Appearance: well nourished and obese morbidly obese Orientation/consciousness: oriented to person, oriented to place and oriented to time Limitations: No language barrier HEENT Head: Yes normocephalic and Yes atraumatic Eyes General: appearance normal, both eyes and all related structures Pupils: Equal, round and reactive pupils present Neck Neck: Yes normal visual inspection and Yes no lymphadenopathy Thyroid: Thyroid normal Resp Effort & Inspection: normal respiratory effort and able to speak in complete sentences Auscultation: clear to auscultation bilaterally Cardio Rate: regular rate Rhythm: regular rhythm Heart sounds: Normal, physiologic split S2 sound present Peripheral pulses: radial pulses present and posterior tibial pulses present GI Inspection: No distended, Yes Abdominal panniculus present and Yes obesity Palpation (GI): Soft to palpation, nontender, no guarding, not rigid and No hepatosplenomegaly present Percussion: Yes normal to percussion Auscultation: normal bowel sounds Rectal Exam - Male: Yes deferred Skin General skin exam: no rashes or lesions noted, turgor normal, skin not dry, no jaundice, No spider nevi and no striae Rashes: no rashes Nails: normal Neuro General: oriented to person, oriented to place and oriented to time Cranial nerves: Yes Equal, round and reactive pupils present and Yes Normal hearing present Speech: No Abnormal speech present Extrem General: Yes normal to inspection, No clubbing, No cyanosis and No edema Psych Appearance: grossly normal and well kempt Mental Status: mental status grossly normal Speech and movement: Normal speech and movement present Affect: normal affect Attitude: cooperative Thought process: Normal thought process present and not confabulating Thought content: Normal thought content present Insight: Fair insight present (Psych) Judgement: Fair judgement present (Psych) Assessment & Plan Assessment & Plan (1) Gastroesophageal reflux disease: Code(s): K21.9 - Gastro-esophageal reflux disease without esophagitis Plan: He says he has been having CP, belly pain and shoulder pain. He was seen in the ER for CP and it seems cardiac was ruled out. This started about 6 weeks ago, he was hit with a wave of nausea and fatigue and it has not stopped. He has a lot of burping and acid brash with a bitter taste. He has taken omeprazole which was increased to 40mg then to pantoprazole but no change in the sx. The only new med was fish oil and he started this months prior to the sx. He started 5mg of crestor 5 mos ago. The sx occur every day, at times lasting for many hours at times 1/2 hour, 3-4 times a day. He can not seem to ID foods that trigger it. But at times is occurs w/o eating. He will have pain in the LUQ area to the epigastrum that is a pressure/stabbing pain. At times a big burp will calm it, sometimes not. He has borborygmus. His stools are looser but not severe diarrhea. His mother has GERD, no known GB disease. His mother had some sort of cancer that may have involved the bowels. 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 Is waiting for cardiology referral from PCP. I will try referring him. Apparently he has had some trouble getting in touch with the primary care office. Will get an H pylori stool test, a GI panel to exclude any infection to be thorough, a pancreatic elastase, a HIDA scan since the CT scan did not show any gallstones, a RAST allergen panel because of the diarrhea along with celiac workup, and a barium swallow for now. Will start him on some simethicone and try to get him twice a day pantoprazole, in the meantime will also give him 40 mg of Pepcid just in case we can not get twice a day PPI coverage. Return office visit in 5 weeks (2) Diarrhea: Code(s): R19.7 - Diarrhea, unspecified (3) Nausea: Code(s): R11.0 - Nausea (4) Chest pain: Code(s): R07.9 - Chest pain, unspecified Orders: Orders [place] barium swallow Today K21.9 - Gastro-esophageal reflux disease without esophagitis, R11.0 - Nausea, R19.7 - Diarrhea, unspecified GI Panel Today K21.9 - Gastro-esophageal reflux disease without esophagitis, R11.0 - Nausea, R19.7 - Diarrhea, unspecified Pancreatic Elastase-1 Today K21.9 - Gastro-esophageal reflux disease without esophagitis, R11.0 - Nausea, R19.7 - Diarrhea, unspecified NM hepatobiliary w pharm Today K21.9 - Gastro-esophageal reflux disease without esophagitis, R11.0 - Nausea, R19.7 - Diarrhea, unspecified Transglutaminase Ab IgG Today K21.9 - Gastro-esophageal reflux disease without esophagitis, R11.0 - Nausea, R19.7 - Diarrhea, unspecified H pylori Ag Stool Today K21.9 - Gastro-esophageal reflux disease without esophagitis, R11.0 - Nausea, R19.7 - Diarrhea, unspecified Transglutaminase IgA Today K21.9 - Gastro-esophageal reflux disease without esophagitis, R11.0 - Nausea, R19.7 - Diarrhea, unspecified Rast Allergen Today K21.9 - Gastro-esophageal reflux disease without esophagitis, R11.0 - Nausea, R19.7 - Diarrhea, unspecified Referrals Cardiology Referral R07.9 - Chest pain, unspecified Medications: New famotidine (Pepcid) 40 mg PO BEDTIME 30 tabs 6RF K21.9 - Gastro-esophageal reflux disease without esophagitis simethicone after meals 180 mg PO QID 30 days 120 caps 3RF Refilled pantoprazole 40 mg PO DAILY 30 tabs 6RF Coding Level of Care Code New Pt Level 3 (49915) Diagnoses Gastroesophageal reflux disease K21.9 Diarrhea R19.7 Nausea R11.0 Chest pain R07.9
[2023-06-12 13:30] VITALS: BP 145/66; PULSE 91; BMI 40.8
== END 2023-06-12 14:18 | disposition home or self-care (01) ==
PROVIDERS: PCP Nurse Practitioner Family; Visit Provider Nurse Practitioner
DX: K21.9 Gastro-esophageal reflux disease without esophagitis (principal); R19.7 Diarrhea, unspecified; R11.0 Nausea; R07.9 Chest pain, unspecified
CPT/HCPCS: 99203

== ENCOUNTER → 2023-06-26 07:44 | Outpatient (REF) | payer OTHER, SELFPAY ==
--- NOTE | ~2023-06-26 | NM_ITS ---
EXAMINATION: BILIARY TRACT IMAGING STUDY WITH CCK CLINICAL INFORMATION: Diarrhea, unspecified. Nausea. GERD without esophagitis. Abdominal pain. Diabetes.. COMPARISON: CT of the abdomen and pelvis done on 04/26/2023.. TECHNIQUE: Serial gamma scintillation camera images were obtained over the abdomen for a total observation period of 60 minutes following the intravenous administration of 5.0 mCi Tc-99m mebrofenin. FINDINGS: There is good concentration of activity in the liver by 5 minutes post injection. Biliary activity is visualized by 14 minutes. The gallbladder is well visualized by 30 minutes. Small bowel is well visualized by 30 minutes. At 60 minutes post radiopharmaceutical injection, a 30-minute infusion of 2.7 micrograms Sincalide was then begun and an additional 40 minutes of images were obtained. There is good emptying of the gallbladder. By the end of the study there is good clearance of activity from the liver and visualization of diffuse small bowel activity. The calculated gallbladder ejection fraction is 71% (normal gallbladder ejection fraction is greater than 35%). NM/NM hepatobiliary w pharm IMPRESSION: Visualization of the gallbladder is evidence of a patent cystic duct and strong evidence against the diagnosis of acute cholecystitis. The common bile duct is patent. Gallbladder emptying and ejection fraction are normal. Liver function appears normal.
== END ==
LOC: HO.NUCMED 07:44
PROVIDERS: PCP Nurse Practitioner Family; Visit Provider Nurse Practitioner
DX: R19.7 Diarrhea, unspecified (principal); R11.0 Nausea; K21.9 Gastro-esophageal reflux disease without esophagitis
CPT/HCPCS: 78227; A9537; J2805

== ENCOUNTER 2023-07-07 08:36 | Outpatient (AMB) | payer OTHER, SELFPAY ==
[2023-07-07 09:24] VITALS: BP 140/72; PULSE 87; TEMP 36.7; O2SAT 97; BMI 40.7
--- NOTE | 2023-07-07 09:24 | MHC.OFFWIV ---
Intake Vital Signs 07/07/23 09:24 Height 6 ft Weight 300 lb BMI 40.7 BP 140/72 H Blood Pressure Location Rt brachial Position Sitting Pulse 87 Pulse Source Pulse Oximeter Temp 98.0 F Temp Source Temporal Artery Scan Pulse Oximetry (%) 97 Intake Visit Reasons: EP RT Leg pain for a month Intake Note: pt is here for c/o right leg pain over month, denies injury Patient Tobacco Use Status: Never used Tobacco Allergies No Known Allergies [No Known Allergies*] Allergy (Verified 07/08/23 06:59) Medication List - Last Reconciled 07/08/23 by Akira Ramesh MD albuterol sulfate 90 mcg/actuation 2 puffs inhalation Q6H PRN amlodipine 10 mg PO DAILY famotidine (Pepcid) 40 mg PO BEDTIME lisinopril 5 mg PO DAILY multivitamin 1 tab PO DAILY omega-3 fatty acids-fish oil 360-1,200 mg (Fish Oil) 1 cap PO BID pantoprazole 40 mg PO DAILY pyridoxine (vitamin B6) 100 mg PO DAILY 90 days rosuvastatin (Crestor) 5 mg PO DAILY 90 days simethicone 180 mg PO QID 30 days Do you need a note to return to daycare/school/sports/work: Yes HPI EP RT Leg pain for a month HPI Details 32 yr old male presents to the office for a sick visit. Patient is reporting sx of right leg pain. Especially behind the calf. Sx present for the past few days. 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 [facility] Medical History Hypertension Surgical History S/P appendectomy Family History Mother Cancer Social History Housing: House Alcohol intake: never Patient Tobacco Use Status: Never used Tobacco e-Cigarette/Vaping Use: Never Used Second Hand Smoke Exposure: No service: No Current occupational status: unemployed Cognitive needs: No Hearing needs: No Vision needs: No Physical Exam Vital Signs: Last Vital Signs Temp 98.0 F 07/07/23 09:24 Pulse 87 07/07/23 09:24 BP 140/72 H 07/07/23 09:24 Pulse Ox 97 07/07/23 09:24 BMI result Body Mass Index 40.7 Const General: cooperative and healthy appearing Nutritional Appearance: well nourished Orientation/consciousness: patient oriented x3 Limitations: no limitations HEENT Head: Yes normal to inspection Eyes General: appearance normal, both eyes and all related structures Neck Neck: Yes normal visual inspection Chest Chest palpation & inspection: normal palpation of entire chest wall Resp Effort & Inspection: normal respiratory effort Neuro General: patient oriented x3 Extrem Other: Right and left lower ext: No visible swelling or bruising. All pulses are palpable. No edema. Assessment & Plan Assessment & Plan (1) Pain in right leg: Code(s): M79.604 - Pain in right leg Plan: Reassured that a clot is less likely. D dimer ordered. Will call with results Orders: Orders D Dimer High Sensitivity 07/07/23 M79.606 - Pain in leg, unspecified Coding Level of Care Code Est Pt Level 3 (99525) Diagnoses Pain in right leg M79.604
== END 2023-07-07 11:36 | disposition home or self-care (01) ==
PROVIDERS: PCP Nurse Practitioner Family; Visit Provider Internal Medicine
DX: M79.604 Pain in right leg (principal)
CPT/HCPCS: 99213

== ENCOUNTER 2023-07-07 09:58 | Outpatient (REF) | payer OTHER, SELFPAY ==
[2023-07-07 14:10] LABS: D Dimer High Sensitivity < 150 NG/ML
== END 2023-07-07 09:59 | disposition home or self-care (01) ==
LOC: HO.HMGCLDS 09:58
PROVIDERS: Internal Medicine; PCP Nurse Practitioner Family; Visit Provider Nurse Practitioner
DX: M79.606 Pain in leg, unspecified (principal)
CPT/HCPCS: 36415; 85379

== ENCOUNTER 2023-07-10 14:37 | Emergency (ER) | payer OTHER, SELFPAY ==
--- NOTE | ~2023-07-10 | XR_ITS ---
EXAMINATION: XR CHEST CLINICAL INFORMATION: Chest pain and shortness of breath. COMPARISON: Chest radiograph 06/06/2023. TECHNIQUE: 2 views of the chest were obtained. FINDINGS: No significant abnormality is noted involving the heart, lungs, mediastinum, bony thorax or soft tissues. XR/XR chest 2V IMPRESSION: Unremarkable examination.
--- NOTE | ~2023-07-10 | US_ITS ---
EXAMINATION: US VENOUS ULTRASOUND WITH DOPPLER LOWER EXTREMITY, BILATERAL CLINICAL INFORMATION: Calf pain COMPARISON: None available. TECHNIQUE: Ultrasound of the deep veins is performed from the hip to the calf with compression sonography and color and pulse Doppler assessment. Spectral analysis with color-flow imaging is performed. FINDINGS: RIGHT: There is normal venous compression and respiratory variation and augmented flow. The visualized common femoral vein, superficial femoral vein, profunda femoral vein, popliteal vein, and the trifurcation region shows no evidence of deep venous thrombosis. There is no significant popliteal fossa cyst. LEFT: There is normal venous compression and respiratory variation and augmented flow. The visualized common femoral vein, superficial femoral vein, profunda femoral vein, popliteal vein, and the trifurcation region shows no evidence of deep venous thrombosis. There is no significant popliteal fossa cyst. US/US venous duplex LE BI IMPRESSION: No DVT demonstrated in the bilateral lower extremity.
--- NOTE | 2023-07-10 14:46 | ECG_ITS ---
Test Reason : CP Blood Pressure : / mmHG Vent. Rate : 082 BPM Atrial Rate : 082 BPM P-R Int : 144 ms QRS Dur : 088 ms QT Int : 348 ms P-R-T Axes : 049 015 013 degrees QTc Int : 406 ms Normal sinus rhythm Normal ECG When compared with ECG of 06-JUN-2023 11:39, No significant change was found Referred By: Generic ED Physician Electronically Signed By:MANNY CHENG MD
[2023-07-10 14:55] VITALS: BP 137/72; PULSE 76; RESP 16; TEMP 36.5; O2SAT 97; BMI 39.5
--- NOTE | 2023-07-10 14:55 | ED_ITS ---
HPI - General Adult General Chief complaint: Chest Pain Stated complaint: Chest pain, shortness of breath History of Present Illness HPI narrative: Patient is a 32-year-old presents emergency department by referral from urgent care. He report Right calf pain x1 month, left calf pain began couple days ago coupled with shortness of breath and L anterior chest pain that is self resolving after a few moments. Has had similar CP and SOB in the past, but never with calf pain. Denies hx DVT/PE/malignancy. Related Data Home Medications Medication Instructions Recorded Confirmed multivitamin 1 tab PO DAILY 06/12/23 omega-3 fatty acids-fish oil 360 1 cap PO BID 06/12/23 mg-1,200 mg capsule (Fish Oil) Previous Rx's Medication Instructions Recorded albuterol sulfate 90 mcg/actuation 2 puff inhalation Q6H PRN 08/29/22 aerosol inhaler shortness of breath or wheezing #6.7 grams pyridoxine (vitamin B6) 100 mg 100 mg PO DAILY 90 days #90 tabs 12/23/22 tablet lisinopril 5 mg tablet 5 mg PO DAILY #90 tabs 01/26/23 rosuvastatin 5 mg tablet (Crestor) 5 mg PO DAILY 90 days #90 tabs 05/20/23 famotidine 40 mg tablet (Pepcid) 40 mg PO BEDTIME #30 tabs 06/12/23 pantoprazole 40 mg tablet,delayed 40 mg PO DAILY #30 tabs 06/12/23 release simethicone 180 mg capsule 180 mg PO QID 30 days #120 caps 06/12/23 amlodipine 10 mg tablet 10 mg PO DAILY #90 tabs 06/16/23 Allergies Allergy/AdvReac Type Severity Reaction Status Date / Time No Known Allergies Allergy Verified 07/08/23 06:59 [No Known Allergies*] Review of Systems 2 Review of Systems: Yes all other systems are reviewed and are negative [facility] Past Medical History Medical History Hypertension Surgical History S/P appendectomy Family History Family History Mother Cancer Social History Social History (Reviewed 06/12/23 @ 13:38 by PETER Cifuentes Housing: House Alcohol intake: never Patient Tobacco Use Status: Never used Tobacco e-Cigarette/Vaping Use: Never Used Second Hand Smoke Exposure: No Advance Directives: No Advance Directives Information Provided: No service: No Current occupational status: unemployed Cognitive needs: No Hearing needs: No Vision needs: No Physical Exam ED Vital Signs: Vital Signs - 24 hr 07/10/23 14:55 Temperature 97.7 F Pulse Rate 76 Respiratory Rate 16 Blood Pressure 137/72 Pulse Oximetry 97 Oxygen Delivery Method Room Air BMI result Body Mass Index 39.5 Appearance: Alert.?Oriented to person, place and time. No acute distress.?Normal affect. Eyes: Pupils equal, round and reactive to light.? ENT: Pharynx normal.?? Neck: Normal inspection.? Neck supple.?? CVS: Heart sounds normal. Normal heart rate and rhythm.? Pulses normal.?? Respiratory: No respiratory distress.? Lung sounds clear to auscultation bilaterally?? Abdomen: Soft and non-tender. Normoactive bowel sounds. No pulsatile mass.?? Skin: Skin warm and dry.? Normal skin color.? Normal skin turgor.?? Extremities: No lower extremity edema.? Bilateral calf tenderness upon palpation. 2+ DP/PT pulse bilaterally. Neuro: Moves all extremities spontaneously. Sensation intact bilaterally. CN II- XII intact. No focal neuro deficits. Ambulates with normal steady gait. Medical Decision Making Medical Decision Making MDM Narrative: Patient is a 32-year-old male presents emergency department for evaluation of chest pain and shortness of breath, ongoing for the past 2 months. Past 2 days with calf pain as per HPI. At the time examination he is well appearing. Nontoxic. Afebrile. No tachycardia, tachypnea, or hypoxia. Notable lower extremity swelling, erythema, warmth. Well negative, unlikely DVT or PE, out of precaution, duplex US obtained bilaterally which is negative. Chest x-ray is without acute cardiopulmonary process, no evidence of pulmonary congestion or consolidation/infiltrate. EKG revealing a normal sinus rhythm, ventricular rate of 82, QTC 406, no ST elevation, no ST depression, high sensitive troponin nondetectable, unlikely ACS. CBC and CMP are overall unremarkable. At this time feel that he is stable for discharge home outpatient follow-up with PCP. Reviewed worrisome signs and symptoms that would warrant re-evaluation emergency department. All questions answered. Differential Diagnosis Differential Diagnoses: The differential diagnosis associated with the presentation includes (As noted above) Admission/Observation Consideration of admission/observation: Escalation of care including admission/observation considered (See narrative above) Lab Data MDM Lab Attestation statement: I reviewed the patient's lab results. (See narrative above) 07/10/23 15:44 07/10/23 15:44 Labs: Lab Results 07/10/23 Range/Units 15:44 WBC 6.6 (4.8-10.8) X10*3/uL RBC 5.42 (4.60-5.80) X10*6/uL Hgb 15.8 (14.0-18.0) g/dl Hct 45.7 (42.0-52.0) % MCV 84.3 (80.0-98.0) fL MCH 29.2 (27.0-33.0) pg MCHC 34.6 (31.0-36.0) g/dl RDW 12.5 (11.0-16.0) % Plt Count 204 (160-400) X10*3/uL MPV 10.4 (9.4-12.4) fL Immature Gran % (Auto) 0.3 (0.0-0.4) % Neut % (Auto) 52.2 (45-73) % Lymph % (Auto) 34.6 (20-40) % Izard % (Auto) 9.0 (2-11) % Eos % (Auto) 3.0 (0-4) % Baso % (Auto) 0.9 (0-2) % Lymph # (Auto) 2.3 (1.2-4.9) X10*3/uL Izard # (Auto) 0.6 (0.1-1.2) X10*3/uL Eos # (Auto) 0.2 (0.0-0.4) X10*3/uL Baso # (Auto) 0.1 (0.0-0.2) X10*3/uL Abs Immat Gran (auto) 0.02 (0.00-0.03) X10*3/uL Absolute Neuts (auto) 3.5 (2.0-8.3) x10*3/uL Absolute Nucleated RBC 0.000 (0.0-0.012) X10*3/uL Nucleated RBC % (auto) 0.0 (0.0-0.2) /100WBC PT 12.5 (11.1-13.3) SEC INR 1.0 (0.9-1.1) Sodium 140 (135-145) mmol/L Potassium 4.1 (3.3-5.1) mmol/L Chloride 107 (96-108) mmol/L Carbon Dioxide 26 (22-29) mmol/L Anion Gap 11 L (12-20) BUN 16 (9-16) mg/dL Creatinine 0.91 (0.5-1.4) mg/dL Estim Creat Clear Calc 165.2 Estimated GFR > 60 Random Glucose 86 (60-115) mg/dL Calcium 9.6 (8.4-10.2) mg/dL Magnesium 2.2 (1.6-2.6) mg/dL Total Bilirubin 0.8 (0.0-1.0) mg/dL AST 21 (5-37) U/L ALT 26 (0-40) U/L Alkaline Phosphatase 56 (39-117) U/L Troponin I High Sens < 2.7 (<3.5-35.0) ng/L Total Protein 7.6 (6.5-8.0) g/dL Albumin 4.5 (3.5-5.0) g/dL Independent Interpretation I performed an independent interpretation of an: EKG (See narrative above), Plain X-Ray (I personally interpreted chest x-ray and agree with radiologist impression.) and Ultrasound Radiology Impression Discussion of test interpretation with radiology: I have reviewed the radiologist's reading. Radiologist Impression: US/US venous duplex LE BI IMPRESSION: No DVT demonstrated in the bilateral lower extremity XR/XR chest 2V IMPRESSION: Unremarkable examination. External Record Review External record reviewed: Outpatient record Prescription Management I considered prescription management with: Pain Medication (Acetaminophen/ibuprofen) Discharge Plan Discharge Clinical Impression: Chest pain, Myalgia Patient Disposition: Home, Self-Care Instructions: Noncardiac Chest Pain (ED) Additional Instructions: You can take ibuprofen 200 mg, 3 tablets (600mg) every 6-8 hours as needed for pain, in addition to Tylenol 500 mg, 2 tablets (1,000mg) every 4-6 hours as needed for pain, but not to exceed 3 doses daily (3,000mg).? Contact your primary care provider and arrange for a follow-up visit. Return back to emergency department any new or worsening symptoms or concerns. Prescriptions: No Action lisinopril 5 mg tablet 5 mg PO DAILY Qty: 90 1RF rosuvastatin [Crestor] 5 mg tablet 5 mg PO DAILY 90 Days Qty: 90 1RF amlodipine 10 mg tablet 10 mg PO DAILY Qty: 90 1RF albuterol sulfate 90 mcg/actuation HFA aerosol inhaler 2 puff inhalation Q6H PRN (Reason: shortness of breath or wheezing) Qty: 6.7 0RF pyridoxine (vitamin B6) 100 mg tablet 100 mg PO DAILY 90 Days Qty: 90 2RF multivitamin Tablet 1 tab PO DAILY omega-3 fatty acids-fish oil [Fish Oil] 360-1,200 mg capsule 1 cap PO BID simethicone 180 mg capsule 180 mg PO QID 30 Days Qty: 120 3RF Rx Instructions: after meals famotidine [Pepcid] 40 mg tablet 40 mg PO BEDTIME Qty: 30 6RF pantoprazole 40 mg tablet,delayed release (DR/EC) 40 mg PO DAILY Qty: 30 6RF Referrals: Louis Avery, RATE QUOTING OPERATOR-BC [Primary Care Provider] -
[2023-07-10 16:08] LABS: MANUAL DIFF FLAG NO
[2023-07-10 16:09] LABS: Basophils Absolute Auto 0.1 X10*3/uL (0.0-0.2); Basophils Percent Auto 0.9 % (0-2); Eosinophils Absolute Auto 0.2 X10*3/uL (0.0-0.4); Hematocrit 45.7 % (42.0-52.0); Hemoglobin 15.8 g/dl (14.0-18.0); Imm Gran Abs Auto 0.02 X10*3/uL (0.00-0.03); Imm Gran Pct Auto 0.3 % (0.0-0.4); Lymphocytes Absolute Auto 2.3 X10*3/uL (1.2-4.9); Lymphocytes Percent Auto 34.6 % (20-40); Mean Corpuscular HGB Conc 34.6 g/dl (31.0-36.0); Mean Corpuscular Hemoglobin 29.2 pg (27.0-33.0); Mean Corpuscular Volume 84.3 fL (80.0-98.0); Mean Platelet Volume 10.4 fL (9.4-12.4); Monocytes Absolute Auto 0.6 X10*3/uL (0.1-1.2); Neutrophils Absolute Auto 3.5 x10*3/uL (2.0-8.3); Neutrophils Percent Auto 52.2 % (45-73); Platelet Count 204 X10*3/uL (160-400); Red Blood Count 5.42 X10*6/uL (4.60-5.80); Red Cell Distribution Width 12.5 % (11.0-16.0); White Blood Count 6.6 X10*3/uL (4.8-10.8)
[2023-07-10 16:19] LABS: Prothrombin Time 12.5 SEC (11.1-13.3)
[2023-07-10 16:31] LABS: Alanine Aminotransferase 26 U/L (0-40); Albumin Level 4.5 g/dL (3.5-5.0); Alkaline Phosphatase 56 U/L (39-117); Anion Gap 11 (12-20); Aspartate Amino Transferase 21 U/L (5-37); Bilirubin Total 0.8 mg/dL (0.0-1.0); Blood Urea Nitrogen 16 mg/dL (9-16); Calcium 9.6 mg/dL (8.4-10.2); Carbon Dioxide 26 mmol/L (22-29); Chloride 107 mmol/L (96-108); Creatinine Clr Calc Pharmacy 165.2; Estimated Glomerular Filt Rate > 60; Glucose Random 86 mg/dL (60-115); Magnesium 2.2 mg/dL (1.6-2.6); Potassium 4.1 mmol/L (3.3-5.1); Sodium 140 mmol/L (135-145); Total Protein 7.6 g/dL (6.5-8.0); Troponin-I High Sensitivity < 2.7 ng/L (<3.5-35.0)
--- NOTE | 2023-07-10 20:41 | PC.NURSE ---
ANNELIESE Alvarado, reassess pt and discussed labs and result, reviewed discharge instruction with pt. pt verbalized understanding. no sign of distress at this time.
[2023-07-10 20:45] VITALS: BP 115/84; PULSE 79; RESP 20; TEMP 36.4; O2SAT 98
== END 2023-07-10 20:47 | disposition home or self-care (01) ==
PROVIDERS: Nurse Practitioner Family; Emergency Provider Emergency Medicine; PCP Nurse Practitioner Family
DX: R07.89 Other chest pain (principal); R06.02 Shortness of breath; M79.10 Myalgia, unspecified site; R60.0 Localized edema; Z79.899 Other long term (current) drug therapy
CPT/HCPCS: 36415; 71046; 80053; 83735; 84484; 85025; 85610; 93005; 93970; 99284; 99285

== ENCOUNTER → 2023-07-10 14:46 | Outpatient (BNV) | payer OTHER, SELFPAY | PROVIDERS: PCP Nurse Practitioner Family; Visit Provider Internal Medicine Cardiovascular Disease | DX: R07.9 Chest pain, unspecified (principal) | CPT/HCPCS: 93010 ==

== ENCOUNTER 2023-07-14 08:40 | Outpatient (AMB) | payer OTHER, SELFPAY ==
--- NOTE | 2023-07-14 08:43 | MHC.PC.OV ---
Vital Signs 07/14/23 08:46 Height 6 ft Weight 292 lb BMI 39.6 BP 120/90 H Blood Pressure Location Lt brachial Position Sitting Pulse 67 Pulse Source Pulse Oximeter Pulse Oximetry (%) 97 Oxygen Delivery Method Room Air Intake Visit Reasons: bilateral leg pain Allergies No Known Allergies [No Known Allergies*] Allergy (Verified 07/14/23 08:46) Tobacco use date assessed: 04/14/23 HPI bilateral leg pain HPI Details Pt was seen in the ER on 07/10 c/o bilat calf pain, shortness of breath, and left anterior chest pain. Bilat US was negative for DVT. Chest xr showed no acute cardiopulmonary process, no evidence of pulmonary congestion or consolidation/infiltrate. EKG showed NST, ventricular rate of 82, QTC 406, no St elevation or depression. High sensitivity troponin negstive. Pt reports ongoing pain to his bilat legs. He reports some soreness and some lightning flashes. He reports intermittent numbness as well. Will order labs. Will also order lumbar XR. Denies chest pain, shortness of breath, lower back pain and dizziness. [facility] Medical History Hypertension Surgical History S/P appendectomy Family History Mother Cancer Social History Housing: House Alcohol intake: never Patient Tobacco Use Status: Never used Tobacco e-Cigarette/Vaping Use: Never Used Second Hand Smoke Exposure: No service: No Current occupational status: unemployed Cognitive needs: No Hearing needs: No Vision needs: No Questionnaire Thrive Questionnaire Date Thrive assessed: 09/03/22 JOE-7 AMB Questionnaire JOE-7 Date JOE - 7 assessed: 09/03/22 Source: Developed by Drs. Star Parr, Zeynep Galarza, Yaakov Rai and colleagues, with an educational marii from [employer]. Review of Systems Const Reports as per HPI Physical exam (Primary Care) Vital Signs: Last Vital Signs Pulse 67 07/14/23 08:46 BP 120/90 H 07/14/23 08:46 Pulse Ox 97 07/14/23 08:46 Oxygen Delivery Method Room Air 07/14/23 08:46 BMI result Body Mass Index 39.6 Tobacco/Smoking Status: Tobacco use Status Tobacco use date assessed 04/14/23 07/14/23 08:44 Patient Tobacco Use Status Never used Tobacco 07/14/23 08:44 e-Cigarette/Vaping Use Never Used 07/14/23 08:44 Thrive Assessment: Date of Thrive Assessment Date Thrive assessed 09/03/22 07/14/23 08:44 Const General: cooperative Nutritional Appearance: obese Orientation/consciousness: patient oriented x3 Back/Spine/Pelvis Other: able to heel and toe walk, no pain to lower back with bilat knee to chest raises and BLE raises Neuro Other: + patellar reflexes bilat General: patient oriented x3 Cranial nerves: Yes CN's II-XII intact bilaterally Gait exam (Neuro): Normal gait present Motor exam (neuro): 5/5 motor strength present throughout Extrem Other: no pain with palpation of BLE. no ecchymosis/erythema noted Right lower extremity: no edema Left lower extremity: no edema Psych Appearance: grossly normal Mental Status: mental status grossly normal Speech and movement: Normal speech and movement present Affect: normal affect Attitude: cooperative Thought process: Normal thought process present Thought content: Normal thought content present Insight: Good insight present (Psych) Judgement: Good judgement present (Psych) Assessment and Plan Assessment & Plan (1) Bilateral leg pain: Code(s): M79.604 - Pain in right leg; M79.605 - Pain in left leg Plan: Labs and XR ordered Plan The patient agreed to the use of a medical operations supervisor for this encounter. Scribed for CLAIR Denise by Daphne Charles medical operations supervisor, on 07/14/2023 at 08:55 EST. Orders: Orders Comprehensive Met. Panel Today M79.604 - Pain in right leg, M79.605 - Pain in left leg TSH reflex Free T4 Today M79.604 - Pain in right leg, M79.605 - Pain in left leg Creatine Kinase Total Today M79.604 - Pain in right leg, M79.605 - Pain in left leg Erythrocyte Sedimentation Rate Today M79.604 - Pain in right leg, M79.605 - Pain in left leg Vitamin B12 and Folate Today M79.604 - Pain in right leg, M79.605 - Pain in left leg Complete Blood Count Auto Diff Today M79.604 - Pain in right leg, M79.605 - Pain in left leg C Reactive Protein Today M79.604 - Pain in right leg, M79.605 - Pain in left leg Vitamin B6 Today M79.604 - Pain in right leg, M79.605 - Pain in left leg Tick-borne Disease Molecular Today M79.604 - Pain in right leg, M79.605 - Pain in left leg XR lumbar spine 2-3V Today M79.604 - Pain in right leg, M79.605 - Pain in left leg Coding Level of Care Code Est Pt Level 3 (81596) Diagnoses Bilateral leg pain M79.604; M79.605
[2023-07-14 08:46] VITALS: BP 120/90; PULSE 67; O2SAT 97; BMI 39.6
== END 2023-07-14 09:09 | disposition home or self-care (01) ==
PROVIDERS: PCP Nurse Practitioner Family; Visit Provider Nurse Practitioner Family
DX: M79.604 Pain in right leg (principal); M79.605 Pain in left leg
CPT/HCPCS: 99213

== ENCOUNTER 2023-07-14 09:01 | Outpatient (REF) | payer OTHER, SELFPAY ==
--- NOTE | ~2023-07-14 | XR_ITS ---
EXAMINATION: XR LUMBOSACRAL SPINE CLINICAL INFORMATION: Right leg pain. COMPARISON: CT abdomen pelvis 04/26/2023. TECHNIQUE: 3 views of the lumbosacral spine. FINDINGS: There is a minimal scoliosis convex to the left. Some slight narrowing is present at L2-L3, similar to the prior CT scan. The vertebral bodies and posterior elements are normal. The disc spaces are otherwise preserved and the vertebral alignment is normal. Vertebral body heights are normal. The paraspinal soft tissues are normal. XR/XR lumbar spine 2-3V IMPRESSION: Minimal degenerative changes at L2-L3. No acute finding.
[2023-07-14 10:29] LABS: MANUAL DIFF FLAG NO
[2023-07-14 10:51] LABS: Eosinophils Absolute Auto 0.2 X10*3/uL (0.0-0.4); Eosinophils Percent Auto 5.7 % (0-4); Hematocrit 43.9 % (42.0-52.0); Hemoglobin 15.1 g/dl (14.0-18.0); Imm Gran Abs Auto 0.01 X10*3/uL (0.00-0.03); Imm Gran Pct Auto 0.2 % (0.0-0.4); Lymphocytes Absolute Auto 1.9 X10*3/uL (1.2-4.9); Lymphocytes Percent Auto 44.4 % (20-40); Mean Corpuscular HGB Conc 34.4 g/dl (31.0-36.0); Mean Corpuscular Hemoglobin 29.2 pg (27.0-33.0); Mean Corpuscular Volume 84.9 fL (80.0-98.0); Mean Platelet Volume 11.3 fL (9.4-12.4); Monocytes Absolute Auto 0.4 X10*3/uL (0.1-1.2); Monocytes Percent Auto 9.1 % (2-11); Neutrophils Absolute Auto 1.7 x10*3/uL (2.0-8.3); Neutrophils Percent Auto 39.6 % (45-73); Platelet Count 162 X10*3/uL (160-400); Red Blood Count 5.17 X10*6/uL (4.60-5.80); Red Cell Distribution Width 12.4 % (11.0-16.0); White Blood Count 4.2 X10*3/uL (4.8-10.8)
[2023-07-14 11:31] LABS: Alanine Aminotransferase 22 U/L (0-40); Albumin Level 4.3 g/dL (3.5-5.0); Alkaline Phosphatase 59 U/L (39-117); Anion Gap 10 (12-20); Aspartate Amino Transferase 20 U/L (5-37); Bilirubin Total 0.5 mg/dL (0.0-1.0); Blood Urea Nitrogen 13 mg/dL (9-16); C Reactive Protein < 0.10 mg/dL (< or = 0.50); Calcium 9.3 mg/dL (8.4-10.2); Carbon Dioxide 24 mmol/L (22-29); Chloride 109 mmol/L (96-108); Erythrocyte Sedimentation Rate 2 MM/HR (0-15); Estimated Glomerular Filt Rate > 60; Glucose Random 109 mg/dL (60-115); Potassium 4.1 mmol/L (3.3-5.1); Sodium 139 mmol/L (135-145); Total Protein 7.1 g/dL (6.5-8.0)
[2023-07-14 11:35] LABS: Folate 13.3 ng/mL (> or = 4.0); Vitamin B12 371 pg/mL (200-900)
[2023-07-16 23:13] LABS: A. Phagocytphilium DNA,RT-PCR NOT DETECTED (NOT DETECTED); Babesia Microti DNA, RT-PCR NOT DETECTED (NOT DETECTED); Borrelia Miyamotoi,DNA RT-PCR NOT DETECTED (NOT DETECTED); E.Chaffeensis DNA RT-PCR NOT DETECTED (NOT DETECTED); Lyme(Borrelia ssp)DNA RT-PCR NOT DETECTED (NOT DETECTED)
[2023-07-17 14:47] LABS: Vitamin B6 88.7 ng/mL (2.1-21.7)
== END 2023-07-14 09:02 | disposition home or self-care (01) ==
LOC: HO.HMGCX 09:01
PROVIDERS: PCP Nurse Practitioner Family; Visit Provider Nurse Practitioner Family
DX: M79.604 Pain in right leg (principal); M79.605 Pain in left leg
CPT/HCPCS: 36415; 72100; 80053; 82550; 82607; 82746; 84207; 84443; 85025; 85652; 86140; 87468; 87469; 87478; 87484; 87798

== ENCOUNTER 2023-07-14 10:44 | Outpatient (REF) | payer OTHER, SELFPAY ==
[2023-07-21 21:59] LABS: Pancreatic Elastase-1 >500 mcg/g
== END 2023-07-14 10:45 | disposition home or self-care (01) ==
LOC: HO.LNP 10:44
PROVIDERS: Visit Provider Nurse Practitioner
DX: R19.7 Diarrhea, unspecified (principal); K21.9 Gastro-esophageal reflux disease without esophagitis; R11.0 Nausea
CPT/HCPCS: 82656; 87338

== ENCOUNTER 2023-07-17 13:33 | Outpatient (AMB) | payer OTHER, SELFPAY ==
--- NOTE | 2023-07-17 13:46 | MHC.OFFVIS ---
Intake Vital Signs 07/17/23 13:47 Height 6 ft Weight 289 lb 10.998 oz BMI 39.3 BP 122/76 Blood Pressure Location Lt brachial Position Sitting Pulse 81 Intake Visit Reasons: 5 week follow up Intake Note: Patient presents to in office visit today in follow up of labs and Hepatobiliary scan. CC: Patient reports he started a gluten free diet a month ago after been told he had celiac disease but has not seen much improvement. Patient continues to c/o chest pain, SOB, and arm pain. He also continues to have abd pain, epigastric pain, gas, and nausea sometimes. Patient Support Associate Required: No Accompanied by: Self / Same As Patient Allergies No Known Allergies [No Known Allergies*] Allergy (Verified 07/17/23 13:51) HPI 5 week follow up HPI Details Assessment & Plan (1) Gastroesophageal reflux disease: Code(s): K21.9 - Gastro-esophageal reflux disease without esophagitis Plan: He says he has been having CP, belly pain and shoulder pain. He was seen in the ER for CP and it seems cardiac was ruled out. This started about 6 weeks ago, he was hit with a wave of nausea and fatigue and it has not stopped. He has a lot of burping and acid brash with a bitter taste. He has taken omeprazole which was increased to 40mg then to pantoprazole but no change in the sx. The only new med was fish oil and he started this months prior to the sx. He started 5mg of crestor 5 mos ago. The sx occur every day, at times lasting for many hours at times 1/2 hour, 3-4 times a day. He can not seem to ID foods that trigger it. But at times is occurs w/o eating. He will have pain in the LUQ area to the epigastrum that is a pressure/stabbing pain. At times a big burp will calm it, sometimes not. He has borborygmus. His stools are looser but not severe diarrhea. His mother has GERD, no known GB disease. His mother had some sort of cancer that may have involved the bowels. He is usually very active in [employer] but has not been able to do this as he has been more fatigued and with the pain. Is waiting for cardiology referral from PCP. I will try referring him. Apparently he has had some trouble getting in touch with the primary care office. Will get an H pylori stool test, a GI panel to exclude any infection to be thorough, a pancreatic elastase, a HIDA scan since the CT scan did not show any gallstones, a RAST allergen panel because of the diarrhea along with celiac workup, and a barium swallow for now. Will start him on some simethicone and try to get him twice a day pantoprazole, in the meantime will also give him 40 mg of Pepcid just in case we can not get twice a day PPI coverage. Return office visit in 5 weeks (2) Diarrhea: Code(s): R19.7 - Diarrhea, unspecified (3) Nausea: Code(s): R11.0 - Nausea (4) Chest pain: Code(s): R07.9 - Chest pain, unspecified Orders: Orders [place] barium swallow Today K21.9 - Gastro-eso phageal reflux dis ease without esoph agitis, R11.0 - Na usea, R19.7 - Diar lalito, unspecified GI Panel Today K21.9 - Gastro-eso phageal reflux dis ease without esoph agitis, R11.0 - Na usea, R19.7 - Diar lalito, unspecified Pancreatic Elastas e-1 Today K21.9 - Gastro-eso phageal reflux dis ease without esoph agitis, R11.0 - Na usea, R19.7 - Diar lalito, unspecified NM hepatobiliary w pharm Today K21.9 - Gastro-eso phageal reflux dis ease without esoph agitis, R11.0 - Na usea, R19.7 - Diar lalito, unspecified Transglutaminase A b IgG Today K21.9 - Gastro-eso phageal reflux dis ease without esoph agitis, R11.0 - Na usea, R19.7 - Diar lalito, unspecified H pylori Ag Stool Today K21.9 - Gastro-eso phageal reflux dis ease without esoph agitis, R11.0 - Na usea, R19.7 - Diar lalito, unspecified Transglutaminase I gA Today K21.9 - Gastro-eso phageal reflux dis ease without esoph agitis, R11.0 - Na usea, R19.7 - Diar lalito, unspecified Rast Allergen Today K21.9 - Gastro-eso phageal reflux dis ease without esoph agitis, R11.0 - Na usea, R19.7 - Diar lalito, unspecified Referrals Cardiology Referra l R07.9 - Chest pain , unspecified Medications: New famotidine (Pepcid ) 40 mg PO BEDTIME 30 tabs 6RF K21.9 - Gastro-eso phageal reflux dis ease without esoph agitis simethicone aft er meals 180 mg PO QID 30 days 120 caps 3RF Refilled pantoprazole 40 mg PO DAILY 30 tabs 6RF LALaboratory Tests 06/12/23 07/14/23 14:50 09:04 C-Reactive Protein < 0.10 TSH 1.80 Tiss Transglutamin IgG 8.7 Tiss Transglutamin IgA 140.2 H 06/13/23-[address]: Louis Amin [facility]- ORDERED: GI Panel Test Result Flag Refere nce Si te Campylobacter No t Detected Not Det ect. P. shigelloides Not Detected Not Detec t. S almonella Not De tected Not Detect. Vib cassandra Not Dete cted Not Detect. Vibri o Cholerae Not Detect ed Not Detect. Y. ente rocolit. Not Detected Not Detect. E. coli E AEC Not Detected N ot Detect. E. coli EPE C Not Detected Not Detect. E. coli ETEC Not Detected Not D etect. E. coli STEC No t Detected Not Det ect. E. coli O157 Not a pplicable Not Detec t. E. coli contai mireille the O157 anti gen are a subset o f Shiga-lik e toxin-producing E. coli (STEC). Shigella/EIEC Not D etected Not Detect . Cr yptosporidium Not Det ected Not Detect. Cycl ospora Not Detec vin Not Detect. E. his tolytica Not Detecte d Not Detect. Giardia lamblia Not Detected Not Detect. Adenovirus Not Detected No t Detect. Astrovirus Not Detected Not Detect. Norovirus N ot Detected Not De tect. Rotavirus A Not Detected Not Dete ct. Sapovirus Not D etected Not Detect . PANCREATIC ELASTASE IS PENDING BARIUM SWALLOW HIDA SCAN 06/26/23 IMPRESSION: Visualization of the gallbladder is evidence of a patent cystic duct and strong evidence against the diagnosis of acute cholecystitis. The common bile duct is patent. Gallbladder emptying and ejection fraction are normal. Liver function appears normal. CORRESPONDENCE On 06/17/23 @ 08:15 Roya Alva Wrote To Roya Alva Call patient informed him that he has celiac disease so that he can start avoiding gluten to feel better sooner. Briefly discussed what it meant but advised him to Google for better research. I think he should keep the rest of his appointments for now because sometimes again and more than 1 thing going on. He is agreeable to this. TODAY'S VISIT He has been avoiding gluten since I notified him 06/17 and his diarrhea has lessened but still has intermittent CP (not cardiac) despite famotidine and protonix. Nausea is a little bit better. So, we miriam wait and watch and the plan is to bring him back in 6 weeks and see how he is doing. It is possible we have more than 1 problem going on and the pancreatic a last taste is still pending. He also still has quite a lot of bloating in the upper stomach. The barium swallow is still pending and the HIDA scan was negative. Were going to order an EGD but that of course probably will not happen until October or so. This will just be to see if there is any damage from celiac disease. In 6 weeks We can consider a trial of digestive enzymes depending on how he is feeling after we give all of the inflammation a chance to calm down. He is quite agreeable to this. Return office visit 6 weekd [facility] Medical History Hypertension Surgical History S/P appendectomy Family History Mother Cancer Social History Housing: House Alcohol intake: never Patient Tobacco Use Status: Never used Tobacco e-Cigarette/Vaping Use: Never Used Second Hand Smoke Exposure: No service: No Current occupational status: unemployed Cognitive needs: No Hearing needs: No Vision needs: No Review of Systems Const Denies fatigue, Denies fever(s), Denies night sweats, Denies poor appetite and Denies weight loss ENT Reports Normal hearing present, Denies dental pain, Denies dysphagia, Denies hearing loss, Denies mouth pain, Denies odynophagia, Denies throat swelling, Denies tongue swelling and Reports other (Dentition adequate) Card Reports no additional complaints Resp Reports no additional complaints GI Reports abdominal pain, Denies melena, Reports bloating, Denies hematochezia, Denies constipation, Denies GI cramping, Denies dysphagia, Denies excessive flatus, Denies early satiety, Reports heartburn, Reports diarrhea, Denies nausea, Denies odynophagia, Denies vomiting and Denies hematemesis Skin/Breast Denies pruritus, Denies lesions, Denies rash and Denies jaundice Neuro Reports Normal hearing present and Denies Abnormal speech present Endo Denies fatigue Aller/Immun Denies throat swelling and Denies tongue swelling Physical Exam Vital Signs: Last Vital Signs Pulse 81 07/17/23 13:47 BP 122/76 07/17/23 13:47 BMI result Body Mass Index 39.3 Const General: cooperative, no acute distress, well developed and well groomed Nutritional Appearance: well nourished and obese Orientation/consciousness: oriented to person, oriented to place and oriented to time Limitations: No language barrier HEENT Head: Yes normocephalic and Yes atraumatic Eyes General: appearance normal, both eyes and all related structures Pupils: Equal, round and reactive pupils present Neck Neck: Yes normal visual inspection and Yes no lymphadenopathy Thyroid: Thyroid normal Resp Effort & Inspection: normal respiratory effort and able to speak in complete sentences Auscultation: clear to auscultation bilaterally Cardio Rate: regular rate Rhythm: regular rhythm Heart sounds: Normal, physiologic split S2 sound present Peripheral pulses: radial pulses present and posterior tibial pulses present GI Inspection: No distended, No Abdominal panniculus present and Yes obesity Palpation (GI): Soft to palpation, nontender, no guarding, not rigid and No hepatosplenomegaly present Percussion: Yes normal to percussion Auscultation: normal bowel sounds Rectal Exam - Male: Yes deferred Skin General skin exam: no rashes or lesions noted, turgor normal, skin not dry, no jaundice, No spider nevi and no striae Rashes: no rashes Nails: normal Neuro General: oriented to person, oriented to place and oriented to time Cranial nerves: Yes Equal, round and reactive pupils present and Yes Normal hearing present Speech: No Abnormal speech present Extrem General: Yes normal to inspection, No clubbing, No cyanosis and No edema Psych Appearance: grossly normal and well kempt Mental Status: mental status grossly normal Speech and movement: Normal speech and movement present Affect: normal affect Attitude: cooperative Thought process: Normal thought process present and not confabulating Thought content: Normal thought content present Insight: Limited insight present (Psych) Judgement: Limited judgement present (Psych) Assessment & Plan Assessment & Plan (1) Celiac disease: Code(s): K90.0 - Celiac disease (2) Gastroesophageal reflux disease: Code(s): K21.9 - Gastro-esophageal reflux disease without esophagitis (3) Diarrhea: Code(s): R19.7 - Diarrhea, unspecified (4) Abdominal pain: Code(s): R10.9 - Unspecified abdominal pain Plan He has been avoiding gluten since I notified him 06/17 and his diarrhea has lessened but still has intermittent CP (not cardiac) despite famotidine and protonix. Nausea is a little bit better. So, we miriam wait and watch and the plan is to bring him back in 6 weeks and see how he is doing. It is possible we have more than 1 problem going on and the pancreatic a last taste is still pending. He also still has quite a lot of bloating in the upper stomach. The barium swallow is still pending and the HIDA scan was negative. Were going to order an EGD but that of course probably will not happen until October or so. This will just be to see if there is any damage from celiac disease. In 6 weeks We can consider a trial of digestive enzymes depending on how he is feeling after we give all of the inflammation a chance to calm down. He is quite agreeable to this. Return office visit 6 weekd Orders: Orders Colonoscopy - GI Use Only Today K90.0 - Celiac disease, R10.9 - Unspecified abdominal pain, R19.7 - Diarrhea, unspecified Coding Level of Care Code Est Pt Level 3 (34425) Diagnoses Celiac disease K90.0 Gastroesophageal reflux disease K21.9 Diarrhea R19.7 Abdominal pain R10.9
[2023-07-17 13:47] VITALS: BP 122/76; PULSE 81; BMI 39.3
== END 2023-07-17 14:37 | disposition home or self-care (01) ==
PROVIDERS: PCP Nurse Practitioner Family; Visit Provider Nurse Practitioner
DX: K90.0 Celiac disease (principal); K21.9 Gastro-esophageal reflux disease without esophagitis; R19.7 Diarrhea, unspecified; R10.9 Unspecified abdominal pain
CPT/HCPCS: 99213

== ENCOUNTER → 2023-07-17 13:33 | Outpatient (BNVA) | payer OTHER, SELFPAY | PROVIDERS: PCP Nurse Practitioner Family; Visit Provider Nurse Practitioner | DX: K90.0 Celiac disease (principal); K21.9 Gastro-esophageal reflux disease without esophagitis; R19.7 Diarrhea, unspecified; R10.9 Unspecified abdominal pain | CPT/HCPCS: 99212 ==

== ENCOUNTER 2023-08-04 11:04 | Emergency (ER) | payer OTHER, SELFPAY ==
--- NOTE | ~2023-08-04 | XR_ITS ---
EXAMINATION: XR CHEST CLINICAL INFORMATION: Coughing, chest pain and SOB. COMPARISON: Chest 07/10/2023 TECHNIQUE: 2 views of the chest were obtained. FINDINGS: No significant abnormality is noted involving the heart, lungs, mediastinum, bony thorax or soft tissues. XR/XR chest 2V IMPRESSION: Unremarkable chest examination.
--- NOTE | 2023-08-04 11:06 | ECG_ITS ---
Test Reason : cp Blood Pressure : / mmHG Vent. Rate : 075 BPM Atrial Rate : 075 BPM P-R Int : 142 ms QRS Dur : 092 ms QT Int : 358 ms P-R-T Axes : 003 024 011 degrees QTc Int : 399 ms Normal sinus rhythm Normal ECG When compared with ECG of 10-JUL-2023 14:49, No significant change was found Referred By: Generic ED Physician Electronically Signed By:MAGDA SHEEHAN
[2023-08-04 11:16] VITALS: BP 121/76; PULSE 85; RESP 18; TEMP 36.8; O2SAT 97; BMI 39.4
--- NOTE | 2023-08-04 11:17 | ED_ITS ---
HPI - General Adult General Chief complaint: Dyspnea Stated complaint: chest pain Time Seen by Provider: 08/04/23 16:32 Source: patient Mode of arrival: ambulatory Limitations: no limitations History of Present Illness HPI narrative: Patient is a 32-year-old male who presents emergency department for evaluation of persistent chest pain and shortness of breath. He states he has been experiencing the symptoms for the past 3 months. Chest pain is predominantly to the left anterior chest, typically lasting a few minutes before self-resolving in associated shortness of breath during episodes of pain. He does endorse that he has been experiencing an a productive cough lately, cough and deep breathing to worsen his chest pain. He does report a history of asthma, symptoms have been unrelieved with albuterol inhaler. He states that he has contacted his primary care doctor regarding this as he has had multiple ED visits for the same, and he has an appointment scheduled with cardiology at the end of August. He reports over the past week or to his symptoms have been occurring more frequently, previously experiencing this 1-2 times a week now he is experiencing it multiple times throughout the day. He has a new job that he is starting and he states he is very anxious about feeling this way while at work. He denies dizziness, lightheadedness, headache vision changes, neck pain, abdominal pain, numbness or tingling of the extremities, lower extremity edema. Denies personal history of DVT/PE/malignancy. Related Data Home Medications Medication Instructions Recorded Confirmed multivitamin 1 tab PO DAILY 06/12/23 omega-3 fatty acids-fish oil 360 1 cap PO BID 06/12/23 mg-1,200 mg capsule (Fish Oil) Previous Rx's Medication Instructions Recorded albuterol sulfate 90 mcg/actuation 2 puff inhalation Q6H PRN 08/29/22 aerosol inhaler shortness of breath or wheezing #6.7 grams pyridoxine (vitamin B6) 100 mg 100 mg PO DAILY 90 days #90 tabs 12/23/22 tablet rosuvastatin 5 mg tablet (Crestor) 5 mg PO DAILY 90 days #90 tabs 05/20/23 famotidine 40 mg tablet (Pepcid) 40 mg PO BEDTIME #30 tabs 06/12/23 pantoprazole 40 mg tablet,delayed 40 mg PO DAILY #30 tabs 06/12/23 release simethicone 180 mg capsule 180 mg PO QID 30 days #120 caps 06/12/23 amlodipine 10 mg tablet 10 mg PO DAILY #90 tabs 06/16/23 lisinopril 5 mg tablet 5 mg PO DAILY #90 tabs 07/14/23 Allergies Allergy/AdvReac Type Severity Reaction Status Date / Time No Known Allergies Allergy Verified 08/04/23 11:16 [No Known Allergies*] Review of Systems 2 Review of Systems: Yes all other systems are reviewed and are negative [facility] Past Medical History Attestation statement: The following information was validated with the patient. Source: old records reviewed Medical History Hypertension Surgical History S/P appendectomy Family History Family History Mother Cancer Social History Social History Housing: House Alcohol intake: never Patient Tobacco Use Status: Never used Tobacco Smoked in Last 30 Days: No e-Cigarette/Vaping Use: Never Used Second Hand Smoke Exposure: No Use of substances other than those prescribed or required for medical reasons: No Advance Directives: No Advance Directives Information Provided: No service: No Current occupational status: unemployed Cognitive needs: No Hearing needs: No Vision needs: No Physical Exam ED Vital Signs: Vital Signs - 24 hr 08/04/23 11:16 08/04/23 16:34 Temperature 98.3 F Pulse Rate 85 72 Respiratory Rate 18 16 Blood Pressure 121/76 133/86 Pulse Oximetry 97 99 Oxygen Delivery Method Room Air Room Air BMI result Body Mass Index 39.4 Appearance: Alert.?Oriented to person, place and time. No acute distress.?Normal affect. Eyes: Pupils equal, round and reactive to light.? ENT: Pharynx normal.?? Neck: Normal inspection.? Neck supple.?? CVS: Heart sounds normal. Normal heart rate and rhythm.? Pulses normal.?? Respiratory: No respiratory distress.? Lung sounds clear to auscultation bilaterally?? Abdomen: Soft and non-tender. Normoactive bowel sounds. No pulsatile mass.?? Skin: Skin warm and dry.? Normal skin color.? .?? Extremities: No lower extremity edema.? No calf ttp? Neuro: Moves all extremities spontaneously. Sensation intact bilaterally. No focal neuro deficits. Ambulates with normal steady gait. Course Course Course Narrative: RME:?32 yo male w/ hx of asthma presents w/ sob x months, worsening x2 wks. assoc dry cough, chest pain on L side worse with deep breathing. no recent travel or long car rides. 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 no fever/chills, n/v Plan: labs, ekg, trop, cxr Full HPI, ROS and PE to be performed by the primary ED provider. Medical Decision Making Medical Decision Making [facility] Narrative: Patient is a 32-year-old male past medical history of hypertension, GERD, asthma presenting to emergency department for evaluation of increasing frequency of persistent chest pain and shortness of breath as per HPI. At the time my examination he is overall well-appearing, nontoxic, afebrile. Speaking clear full sentences. No tachypnea hypoxia or tachycardia. No evidence of DVT upon examination. No risk factors for DVT/ Pe, PERC negative, unlikely PE and D- dimer is normal. High sensitive troponin is negative, EKG revealing normal sinus rhythm with ventricular rate of 75, no ST elevation, no ST depression, no T-wave inversion, not consistent with ischemia, unlikely ACS given duration of symptoms and negative troponin. Viral testing is negative. Chest x-ray is without acute pathology. Pain is reproducible to cough and deep inspiration, most consistent with pleuritic/musculoskeletal type pain. Advised outpatient follow-up with Cardiology as scheduled, in addition advised he may follow up with his primary care provider, and they may consider additional testing in the interim, he inquired about Holter monitoring, I did advise him that he could speak with his primary care provider to determine whether they will order a Holter monitor before he sees Cardiology. We discussed worrisome signs and symptoms that would warrant re-evaluation in the emergency department. All questions answered. Stable for discharge. Differential Diagnosis Differential Diagnoses: The differential diagnosis associated with the presentation includes (Costochondritis, musculoskeletal pain, viral illness, pneumonia, ACS, PE) Admission/Observation Consideration of admission/observation: Escalation of care including admission/observation considered ( see narrative above) Lab Data [facility] Lab Attestation statement: I reviewed the patient's lab results. CBC is overall unremarkable. CMP overall unremarkable. High sensitive troponin negative. D-dimer within normal limits. Viral testing negative. 08/04/23 11:38 08/04/23 11:38 Labs: Lab Results 08/04/23 Range/Units 11:38 WBC 5.2 (4.8-10.8) X10*3/uL RBC 5.22 (4.60-5.80) X10*6/uL Hgb 15.2 (14.0-18.0) g/dl Hct 43.0 (42.0-52.0) % MCV 82.4 (80.0-98.0) fL MCH 29.1 (27.0-33.0) pg MCHC 35.3 (31.0-36.0) g/dl RDW 12.5 (11.0-16.0) % Plt Count 173 (160-400) X10*3/uL MPV 10.7 (9.4-12.4) fL Immature Gran % (Auto) 0.2 (0.0-0.4) % Neut % (Auto) 49.3 (45-73) % Lymph % (Auto) 35.8 (20-40) % [place] % (Auto) 9.3 (2-11) % Eos % (Auto) 4.6 H (0-4) % Baso % (Auto) 0.8 (0-2) % Lymph # (Auto) 1.9 (1.2-4.9) X10*3/uL [place] # (Auto) 0.5 (0.1-1.2) X10*3/uL Eos # (Auto) 0.2 (0.0-0.4) X10*3/uL Baso # (Auto) 0.0 (0.0-0.2) X10*3/uL Abs Immat Gran (auto) 0.01 (0.00-0.03) X10*3/uL Absolute Neuts (auto) 2.6 (2.0-8.3) x10*3/uL Absolute Nucleated RBC 0.000 (0.0-0.012) X10*3/uL Nucleated RBC % (auto) 0.0 (0.0-0.2) /100WBC PT 13.0 (11.1-13.3) SEC INR 1.1 (0.9-1.1) D-Dimer High Sensitivty < 150 NG/ML Sodium 140 (135-145) mmol/L Potassium 4.0 (3.3-5.1) mmol/L Chloride 108 (96-108) mmol/L Carbon Dioxide 23 (22-29) mmol/L Anion Gap 13 (12-20) BUN 17 H (9-16) mg/dL Creatinine 0.83 (0.5-1.4) mg/dL Estim Creat Clear Calc 181.0 Estimated GFR > 60 Random Glucose 108 (60-115) mg/dL Calcium 9.4 (8.4-10.2) mg/dL Magnesium 2.1 (1.6-2.6) mg/dL Troponin I High Sens < 2.7 (<3.5-35.0) ng/L Lipase 28 (8-78) U/L Influenza Type A (PCR) NEGATIVE (Negative) Influenza Type B (PCR) NEGATIVE (Negative) RSV RNA Qual (PCR) NEGATIVE (Negative) SARS-CoV-2 RNA (RT-PCR) NEGATIVE (Negative) Independent Interpretation I performed an independent interpretation of an: EKG (See narrative above) and Plain X-Ray (I personally interpreted chest x-ray and agree with radiologist impression.) Radiology Impression Discussion of test interpretation with radiology: I have reviewed the radiologist's reading. Radiologist Impression: XR/XR chest 2V IMPRESSION: Unremarkable chest examination External Record Review External record reviewed: Outpatient record Prescription Management I considered prescription management with: Pain Medication (Acetaminophen/ibuprofen) Discharge Plan Discharge Clinical Impression: Chest pain Instructions: Noncardiac Chest Pain (ED), Chest Wall Pain (ED) Additional Instructions: Continue taking all of your medications as prescribed. Follow-up with your primary care provider/Cardiology for re-evaluation and further outpatient workup/management. You may return back to the emergency department with any new or worsening symptoms or concerns. Prescriptions: No Action rosuvastatin [Crestor] 5 mg tablet 5 mg PO DAILY 90 Days Qty: 90 1RF amlodipine 10 mg tablet 10 mg PO DAILY Qty: 90 1RF lisinopril 5 mg tablet 5 mg PO DAILY Qty: 90 1RF albuterol sulfate 90 mcg/actuation HFA aerosol inhaler 2 puff inhalation Q6H PRN (Reason: shortness of breath or wheezing) Qty: 6.7 0RF pyridoxine (vitamin B6) 100 mg tablet 100 mg PO DAILY 90 Days Qty: 90 2RF multivitamin Tablet 1 tab PO DAILY omega-3 fatty acids-fish oil [Fish Oil] 360-1,200 mg capsule 1 cap PO BID simethicone 180 mg capsule 180 mg PO QID 30 Days Qty: 120 3RF Rx Instructions: after meals famotidine [Pepcid] 40 mg tablet 40 mg PO BEDTIME Qty: 30 6RF pantoprazole 40 mg tablet,delayed release (DR/EC) 40 mg PO DAILY Qty: 30 6RF Referrals: Louis Avery, WEB DESIGN INSTRUCTOR-BC [Primary Care Provider] -
[2023-08-04 11:43] LABS: MANUAL DIFF FLAG NO
[2023-08-04 11:44] LABS: Basophils Percent Auto 0.8 % (0-2); Eosinophils Absolute Auto 0.2 X10*3/uL (0.0-0.4); Eosinophils Percent Auto 4.6 % (0-4); Hemoglobin 15.2 g/dl (14.0-18.0); Imm Gran Abs Auto 0.01 X10*3/uL (0.00-0.03); Imm Gran Pct Auto 0.2 % (0.0-0.4); Lymphocytes Absolute Auto 1.9 X10*3/uL (1.2-4.9); Lymphocytes Percent Auto 35.8 % (20-40); Mean Corpuscular HGB Conc 35.3 g/dl (31.0-36.0); Mean Corpuscular Hemoglobin 29.1 pg (27.0-33.0); Mean Corpuscular Volume 82.4 fL (80.0-98.0); Mean Platelet Volume 10.7 fL (9.4-12.4); Monocytes Absolute Auto 0.5 X10*3/uL (0.1-1.2); Monocytes Percent Auto 9.3 % (2-11); Neutrophils Absolute Auto 2.6 x10*3/uL (2.0-8.3); Neutrophils Percent Auto 49.3 % (45-73); Platelet Count 173 X10*3/uL (160-400); Red Blood Count 5.22 X10*6/uL (4.60-5.80); Red Cell Distribution Width 12.5 % (11.0-16.0); White Blood Count 5.2 X10*3/uL (4.8-10.8)
[2023-08-04 11:51] LABS: INTERNATIONAL NORM RATIO 1.1 (0.9-1.1)
[2023-08-04 11:59] LABS: Anion Gap 13 (12-20); Blood Urea Nitrogen 17 mg/dL (9-16); Calcium 9.4 mg/dL (8.4-10.2); Carbon Dioxide 23 mmol/L (22-29); Chloride 108 mmol/L (96-108); Estimated Glomerular Filt Rate > 60; Glucose Random 108 mg/dL (60-115); Lipase 28 U/L (8-78); Magnesium 2.1 mg/dL (1.6-2.6); Sodium 140 mmol/L (135-145)
[2023-08-04 12:16] LABS: Troponin-I High Sensitivity < 2.7 ng/L (<3.5-35.0)
[2023-08-04 12:50] LABS: Influenza A PCR NEGATIVE (Negative); Influenza B PCR NEGATIVE (Negative); Resp Syncy Virus RNA Qual PCR NEGATIVE (Negative); SARS COV2 PCR INHOUSE NEGATIVE (Negative)
[2023-08-04 16:34] VITALS: BP 133/86; PULSE 72; RESP 16; O2SAT 99
[2023-08-04 17:15] LABS: D Dimer High Sensitivity < 150 NG/ML
== END 2023-08-04 17:56 | disposition home or self-care (01) ==
PROVIDERS: Nurse Practitioner Family; Physician Assistant Medical; Emergency Provider Emergency Medicine; PCP Nurse Practitioner Family
DX: R07.89 Other chest pain (principal); R06.02 Shortness of breath; Z20.822 Contact with and (suspected) exposure to COVID-19; Z20.828 Contact with and (suspected) exposure to other viral communicable diseases; Z79.899 Other long term (current) drug therapy
CPT/HCPCS: 0241U; 36415; 71046; 80048; 83690; 83735; 84484; 85025; 85379; 85610; 93005; 99283; 99284

== ENCOUNTER → 2023-08-04 11:06 | Outpatient (BNV) | payer OTHER, SELFPAY | PROVIDERS: Emergency Provider Emergency Medicine; PCP Nurse Practitioner Family; Visit Provider Internal Medicine | DX: R07.9 Chest pain, unspecified (principal) | CPT/HCPCS: 93010 ==

== ENCOUNTER 2023-08-05 10:19 | Outpatient (REF) | payer OTHER, SELFPAY ==
--- NOTE | ~2023-08-05 | US_ITS ---
EXAMINATION: US RETROPERITONEAL LIMITED (RENAL ONLY) CLINICAL INFORMATION: Calculus of kidney. COMPARISON: CT abdomen and pelvis without contrast 04/26/2023. Ultrasound abdomen complete 06/28/2013. TECHNIQUE: Real-time imaging of the kidneys. Limited visualization due to bowel gas. FINDINGS: RIGHT KIDNEY: 12.2 x 6.3 x 6.8 cm (SAG x AP x TRV). No hydronephrosis. No renal calculi. Renal cortical thickness is normal. Limited visualization. LEFT KIDNEY: 11.6 x 5.9 x 6.0 cm (SAG x AP x TRV). No hydronephrosis. No renal calculi. Renal cortical thickness is normal. Limited visualization. US/US renal BI IMPRESSION: No hydronephrosis. No renal calculi. Limited visualization. CT scan should be considered for better visualization based on the clinical assessment.
== END 2023-08-05 10:20 | disposition home or self-care (01) ==
LOC: HO.HMGCX 10:19
PROVIDERS: PCP Nurse Practitioner Family; Visit Provider Nurse Practitioner Family
DX: N20.0 Calculus of kidney (principal)
CPT/HCPCS: 76775

== ENCOUNTER 2023-08-05 10:34 | Outpatient (AMB) | payer OTHER, SELFPAY ==
--- NOTE | 2023-08-05 11:45 | MHC.OFFWIV ---
Intake Vital Signs 08/05/23 12:05 Height 6 ft Weight 289 lb BMI 39.2 BP 118/68 Blood Pressure Location Lt brachial Position Sitting Pulse 66 Pulse Source Pulse Oximeter Temp 97.5 F Temp Source Temporal Artery Scan Pulse Oximetry (%) 98 Oxygen Delivery Method Room Air Intake Visit Reasons: EP shortness breath congestion [id number] Intake Note: pt is here today for shortness breath congestion started 2 weeks ago Patient Tobacco Use Status: Never used Tobacco Allergies No Known Allergies [No Known Allergies*] Allergy (Verified 08/05/23 12:25) Medication List - Last Reconciled 08/05/23 by Merly Bar, CIGARETTE INSPECTOR- albuterol sulfate 90 mcg/actuation 2 puffs inhalation Q6H PRN amlodipine 10 mg PO DAILY famotidine (Pepcid) 40 mg PO BEDTIME lisinopril 5 mg PO DAILY multivitamin 1 tab PO DAILY omega-3 fatty acids-fish oil 360-1,200 mg (Fish Oil) 1 cap PO BID pantoprazole 40 mg PO DAILY pyridoxine (vitamin B6) 100 mg PO DAILY 90 days rosuvastatin (Crestor) 5 mg PO DAILY 90 days simethicone 180 mg PO QID 30 days Do you need a note to return to daycare/school/sports/work: No HPI HPI Comments History of Present Illness Details here today w chronic complaints of intermittent breathlessness and left rib cage pain that has been present for > 1 year he has been using his rescue inhaler w/o relief and has started to use his dad's advair also w/o relief sx can last for 30min up to 5-6 hours and can occur at rest and with exertion he has no bloody sputum, does not smoke/vape no second hand smoke exposure reports work up done extensive chart review he went to 2 different EDs on 08/04/23 for the same complaints. this was reviewed and negative workup he has had > 10 EKG in the last year all WNL and several ED eval and tx since 2021 for this. When i asked him about this he admits to seeking care for this issue and is aware it is something chronic that needs w/u with his PCP [facility] Medical History Hypertension Surgical History S/P appendectomy Family History Mother Cancer Social History Housing: House Alcohol intake: never Patient Tobacco Use Status: Never used Tobacco e-Cigarette/Vaping Use: Never Used Second Hand Smoke Exposure: No service: No Current occupational status: unemployed Cognitive needs: No Hearing needs: No Vision needs: No Review of Systems Const All systems reviewed & are unremarkable except as noted in HPI and below Physical Exam Vital Signs: Last Vital Signs Temp 97.5 F 08/05/23 12:05 Pulse 66 08/05/23 12:05 BP 118/68 08/05/23 12:05 Pulse Ox 98 08/05/23 12:05 Oxygen Delivery Method Room Air 08/05/23 12:05 BMI result Body Mass Index 39.2 Const Other: awake alert NAD LS CTAB, occassional dry cough noted during exam. No tachypnea, no retractions or use of accessory muscles + costochondral pain w palp, left anterior ribs under left breast - reproducible pain RRR Skin PWD Assessment & Plan Assessment & Plan (1) Asthma: Code(s): J45.909 - Unspecified asthma, uncomplicated Qualifiers: Asthma severity: mild Asthma persistence: intermittent Asthma complication type: uncomplicated Qualified Code(s): J45.20 - Mild intermittent asthma, uncomplicated Plan: . (2) Costochondral chest pain: Code(s): R07.89 - Other chest pain Plan: . Patient Instructions: chart reviewed pcp consulted- he is seeing him 08/13/23 and will fu with him - he was made aware of this there is no new treatments needed at this time he can and should cont his inhaler as directed and no more Coding Level of Care Code Est Pt Level 4 (77357) Diagnoses Mild intermittent asthma without complication J45.20 Asthma severity: mild Asthma persistence: intermittent Asthma complication type: uncomplicated Costochondral chest pain R07.89 Time Spent (min) 40
[2023-08-05 12:05] VITALS: BP 118/68; PULSE 66; TEMP 36.4; O2SAT 98; BMI 39.2
== END 2023-08-05 13:46 | disposition home or self-care (01) ==
PROVIDERS: PCP Nurse Practitioner Family; Visit Provider Nurse Practitioner Family
DX: J45.20 Mild intermittent asthma, uncomplicated (principal); R07.89 Other chest pain
CPT/HCPCS: 99214

== ENCOUNTER 2023-08-13 10:04 | Outpatient (AMB) | payer OTHER, SELFPAY ==
--- NOTE | 2023-08-13 10:31 | MHC.PC.OV ---
Vital Signs 08/13/23 10:33 Height 6 ft Weight 289 lb BMI 39.2 BP 120/84 Blood Pressure Location Lt brachial Position Sitting Pulse 73 Pulse Source Pulse Oximeter Pulse Oximetry (%) 98 Oxygen Delivery Method Room Air Intake Visit Reasons: 4 month follow up Intake Note: Patient here for diabetes follow up. Allergies No Known Allergies [No Known Allergies*] Allergy (Verified 08/13/23 10:34) Medication List - Last Reconciled 08/13/23 by DOMINIQUE Acosta- albuterol sulfate 90 mcg/actuation 2 puffs inhalation Q6H PRN amlodipine 10 mg PO DAILY lisinopril 5 mg PO DAILY multivitamin 1 tab PO DAILY omega-3 fatty acids-fish oil 360-1,200 mg (Fish Oil) 1 cap PO BID pantoprazole 40 mg PO DAILY rosuvastatin (Crestor) 5 mg PO DAILY 90 days simethicone 180 mg PO QID 30 days Tobacco use date assessed: 08/13/23 Dental Screening Dental Screen Date: 08/13/23 Did you have a dental visit in the last 12 months?: Yes Did you have a dental problem in the last 6 months where you did not have access to dental care?: No Was dental information given to patient?: Patient has dentist HPI 4 month follow up HPI Details Pt was seen in the ER on 08/04 c/o chest pain and shortness of breath. D-dimer was negative. Troponin was negative. EKG showed normal sinus rhythm with ventricular rate of 75, no ST elevation, no ST depression, no T-wave inversion. Viral testing was negative. Chest XR was negative. Pt reports ongoing chest pain and shortness of breath. He will be following up with cardiology on 08/28. ? anxiety component, though pt reports that his anxiety is a result of his symptoms. He does appear anxious. He has tried buspirone and sertraline in the past. Will send short duration of lorazepam. Educated pt on risk of addiction, this is not a long-term med. Pt understands that they can not drive while taking this med, share this med, and to only take as prescribed. He will call me with how he is feeling next week. Pt is a diabetic, on an LOCO and a statin. A1C in office today is 5.5. Microalbumin is up to date. Denies polyuria, polydipsia, and neuropathy. Pt denies any signs and symptoms of hypoglycemia and does know how to correct it. [facility] Medical History Hypertension Surgical History S/P appendectomy Family History Mother Cancer Social History Housing: House Alcohol intake: never Patient Tobacco Use Status: Never used Tobacco e-Cigarette/Vaping Use: Never Used Second Hand Smoke Exposure: No service: No Current occupational status: unemployed Cognitive needs: No Hearing needs: No Vision needs: No Questionnaire PHQ-9 Over the last 2 weeks, how often have you been bothered by any of the following problems? 82156 - PHQ-9 Billing: Patient declined-do not bill Source: Developed by Drs. Star Parr, Zeynep Galarza, Yaakov Rai and colleagues, with an educational marii from [employer]. Thrive Questionnaire Date Thrive assessed: 09/03/22 AUDIT C Alcohol Use Questionnaire (AUDIT-C) 1. How often do you have a drink containing alcohol?: Never 3. How often do you have six or more drinks on one occasion?: Never Total Score: 0 Score Reviewed/Action Taken: No JOE-7 AMB Questionnaire JOE-7 Date JOE - 7 assessed: 08/13/23 Source: Developed by Drs. Star Parr, Zeynep Galarza, Yaakov Rai and colleagues, with an educational marii from [employer]. JOE-7 Assessment Billing JOE-7 Assessment Tool: pt declined-do not bill Review of Systems Const Reports as per HPI, Denies chills and Denies fever(s) Physical exam (Primary Care) Vital Signs: Last Vital Signs Pulse 73 08/13/23 10:33 BP 120/84 08/13/23 10:33 Pulse Ox 98 08/13/23 10:33 Oxygen Delivery Method Room Air 08/13/23 10:33 BMI result Body Mass Index 39.2 Tobacco/Smoking Status: Tobacco use Status Tobacco use date assessed 08/13/23 08/13/23 10:36 Patient Tobacco Use Status Never used Tobacco 08/13/23 10:33 e-Cigarette/Vaping Use Never Used 08/13/23 10:33 Thrive Assessment: Date of Thrive Assessment Date Thrive assessed 09/03/22 08/13/23 10:33 Const General: cooperative Nutritional Appearance: obese Orientation/consciousness: patient oriented x3 Resp Effort & Inspection: normal respiratory effort Auscultation: rhonchi Cardio Rate: regular rate Rhythm: regular rhythm Heart sounds: S1 normal heart sound present and S2 normal heart sound present Neuro General: patient oriented x3 Psych Appearance: grossly normal Mental Status: mental status grossly normal Speech and movement: Normal speech and movement present Affect: Anxious affect present Attitude: cooperative Thought process: Normal thought process present Thought content: Normal thought content present Insight: Good insight present (Psych) Judgement: Good judgement present (Psych) Results AMB Hemoglobin A1c AMB Hemoglobin A1c 5.5 % Last Edit by HIRAM Jimenez on 08/13/23 10:51 Results Reviewed Results Reviewed: Laboratory Last Values Hgb A1c (Clinic) 5.5 % (4.0-6.0) 08/13/23 10:50 Assessment and Plan Assessment & Plan (1) SOB (shortness of breath): Code(s): R06.02 - Shortness of breath (2) Anxiety: Code(s): F41.9 - Anxiety disorder, unspecified Plan: starting anxiety medication, he will contact me next week with how medication is working Plan The patient agreed to the use of a regional medical director for this encounter. Scribed for CLAIR Denise by Daphne Charles regional medical director, on 08/13/2023 at 10:45 EST. Orders: Orders AMB Hemoglobin A1c Today E11.9 - Type 2 diabetes mellitus without complications Medications: New lorazepam 0.5 mg PO BID 7 days PRN 14 tabs 0RF anxiety Coding Level of Care Code Est Pt Level 3 (60298) Diagnoses SOB (shortness of breath) R06.02 Anxiety F41.9
[2023-08-13 10:33] VITALS: BP 120/84; PULSE 73; O2SAT 98; BMI 39.2
== END 2023-08-13 11:59 | disposition home or self-care (01) ==
PROVIDERS: PCP Nurse Practitioner Family; Visit Provider Nurse Practitioner Family
DX: E11.9 Type 2 diabetes mellitus without complications (principal); R06.02 Shortness of breath; F41.9 Anxiety disorder, unspecified
CPT/HCPCS: 83036; 99213

== ENCOUNTER 2023-08-17 13:36 | Outpatient (AMB) | payer OTHER, SELFPAY ==
--- NOTE | 2023-08-17 13:41 | MHC.OFFVIS ---
Intake Intake Visit Reasons: discuss US results Intake Note: Patient is present for initial visit ER follow up bi epididymal cysts Urology Medications: none Blood Thinner: none Supervisor Transferring And Boxing Required: No Accompanied by: Self / Same As Patient Allergies No Known Allergies [No Known Allergies*] Allergy (Verified 08/17/23 14:25) Medication List - Last Reconciled 08/17/23 by CLAIR Esquivel albuterol sulfate 90 mcg/actuation 2 puffs inhalation Q6H PRN amlodipine 10 mg PO DAILY lisinopril 5 mg PO DAILY lorazepam 0.5 mg PO BID PRN 7 days multivitamin 1 tab PO DAILY omega-3 fatty acids-fish oil 360-1,200 mg (Fish Oil) 1 cap PO BID pantoprazole 40 mg PO DAILY rosuvastatin (Crestor) 5 mg PO DAILY 90 days simethicone 180 mg PO QID 30 days HPI HPI Comments History of Present Illness Details Jarrod is a pleasant 32-year-old male patient of Dr. Garner. He has a PMH of HTN and diabetes. He presents to the office today for follow-up of his nephrolithiasis and history of intermittent right testicular pain. Recent renal imaging results reviewed with the patient today. No hydronephrosis or renal calculi noted bilaterally. When asked he reports to be doing and feeling well. He reports having followed-up with his PCP approximately a month ago for bilateral leg pain he had been experiencing at which time labs were drawn and he was noted to have elevated B6 levels at which time his vitamin B6 was discontinued. He otherwise denies any bothersome urinary issues or concerns. He denies urinary urgency, urinary frequency, incontinence, nocturia, hematuria, dysuria, foul smelling urine, changes to urinary stream, flank pain, fever, and or chills. He is happy with his current voiding parameters. In office urinalysis results reviewed with the patient today. Discussed at length potential causes of nephrolithiasis. When asked patient reports to be drinking plenty of water daily. [facility] Medical History (Updated 08/17/23 @ 14:23 by CLAIR Esquivel) Kidney stone Hypertension Surgical History S/P appendectomy Family History Mother Cancer Social History Housing: House Alcohol intake: never Patient Tobacco Use Status: Never used Tobacco e-Cigarette/Vaping Use: Never Used Second Hand Smoke Exposure: No service: No Current occupational status: unemployed Cognitive needs: No Hearing needs: No Vision needs: No Review of Systems Const Reports as per HPI Eyes Reports no additional complaints ENT Reports no additional complaints Card Reports as per HPI Resp Reports no additional complaints GI Reports no additional complaints Reports as per HPI Musc Reports no additional complaints Neuro Reports no additional complaints Psych Reports no additional complaints Endo Reports as per HPI Physical Exam Const General: cooperative, healthy appearing, comfortable, no acute distress, well developed, alert and awake Nutritional Appearance: average body habitus and overweight Orientation/consciousness: patient oriented x3 Limitations: no limitations HEENT Head: Yes normal to inspection, Yes normocephalic and Yes atraumatic Ears: hearing grossly normal bilaterally Eyes General: appearance normal, both eyes and all related structures Neck Neck: Yes normal visual inspection and Yes trachea midline Chest Chest palpation & inspection: normal inspection of the chest Resp Effort & Inspection: normal respiratory effort and able to speak in complete sentences Cardio Rate: regular rate GI Inspection: Yes normal to inspection General: Yes no CVA tenderness Back/Spine/Pelvis Back: no CVA tenderness Skin General skin exam: no rashes or lesions noted Neuro General: patient oriented x3 Extrem General: Yes normal to inspection Psych Appearance: grossly normal and well kempt Mental Status: mental status grossly normal Speech and movement: Normal speech and movement present and Clear speech present Affect: normal affect Attitude: cooperative Thought process: Normal thought process present Thought content: Normal thought content present Insight: Good insight present (Psych) Judgement: Good judgement present (Psych) Results AMB Urinalysis, Automated UA Leukoctes 0 Gregg/uL Last Edit by Lupe Guevara on 08/17/23 13:57 UA Nitrite Negative Last Edit by Lupe Guevara on 08/17/23 13:57 UA Urobilinogen 0.2 mg/dL Last Edit by Lupe Guevara on 08/17/23 13:57 UA Protein 0 mg/dL Last Edit by Lupe Guevara on 08/17/23 13:57 UA pH 7.0 Last Edit by Lupe Guevara on 08/17/23 13:57 UA Blood 0 Bassem/uL Last Edit by Lupe Guevara on 08/17/23 13:57 UA Specific Geddes 1.015 Last Edit by Lupe Guevara on 08/17/23 13:57 UA Ketone Negative Last Edit by Lupe Guevara on 08/17/23 13:57 UA Bilirubin 0 mg/dL Last Edit by Lupe Guevara on 08/17/23 13:57 UA Glucose 0 mg/dL Last Edit by Lupe Guevara on 08/17/23 13:57 Results Reviewed Results Reviewed: Laboratory Last Values Urine pH (Auto) 7.0 08/17/23 13:55 Specific Geddes (Auto) 1.015 08/17/23 13:55 Urine Protein (Auto) 0 mg/dL 08/17/23 13:55 Glucose (UA)(Auto) 0 mg/dL 08/17/23 13:55 Urine Ketones (Auto) Negative 08/17/23 13:55 Urine Blood (Auto) 0 Bassem/uL 08/17/23 13:55 Urine Nitrite (Auto) Negative 08/17/23 13:55 Urine Bilirubin (Auto) 0 mg/dL 08/17/23 13:55 Urine Urobilinogen (Auto) 0.2 mg/dL 08/17/23 13:55 Leukocyte Esterase (Auto) 0 Gregg/uL 08/17/23 13:55 Date of Service: 08/05/23 EXAMINATION: US RETROPERITONEAL LIMITED (RENAL ONLY) FINDINGS: RIGHT KIDNEY: 12.2 x 6.3 x 6.8 cm (SAG x AP x TRV). No hydronephrosis. No renal calculi. Renal cortical thickness is normal. Limited visualization. LEFT KIDNEY: 11.6 x 5.9 x 6.0 cm (SAG x AP x TRV). No hydronephrosis. No renal calculi. Renal cortical thickness is normal. Limited visualization. IMPRESSION: No hydronephrosis. No renal calculi. Limited visualization. CT scan should be considered for better visualization based on the clinical assessment. Assessment & Plan Assessment & Plan (1) Kidney stone: Code(s): N20.0 - Calculus of kidney Plan In office urinalysis results reviewed with the patient today; as noted above. Recent renal imaging results reviewed with the patient today; as noted above. Patient has since stopped vitamin B6 due to increased vitamin B6 lab values Educated, encouraged, and stressed the importance of drinking plenty of water daily. Discussed at length potential causes of nephrolithiasis. Patient denies any bothersome urinary issues. Patient reports be happy with current voiding parameters. Will obtain renal ultrasound in 1 year. Follow-up in 1 year with imaging to be completed prior; or sooner with any issues, concerns, and or questions Orders: Orders US renal BI 364 Days N20.0 - Calculus of kidney AMB Urinalysis Automated Today Z13.9 - Encounter for screening, unspecified Patient Instructions: The patient had an opportunity to ask questions regarding the treatment plan. All questions were answered. Physical exam, labs, and imaging were discussed and reviewed in detail. As well as risks, benefits, and discussion of treatment choices. No major barriers to understanding were identified. The patient expressed understanding and agreement with the above treatment plan. The patient was made aware they should contact our office by phone for worsening of their current condition, the appearance of new symptoms, or with any questions or concerns. Compliance is encouraged with any medications and follow up testing that is ordered. It is a privilege to be allowed the opportunity to participate in? your urological care.? Again, if you have any questions or concerns If you have any questions or concerns please do not hesitate to contact me. The office is [phone]. This note is constructed using voice recognition software. While every effort has been made to ensure accuracy template clerk errors may have been included. Yours sincerely, CLAIR Esquivel Coding Level of Care Code Est Pt Level 3 (96040) Diagnoses Kidney stone N20.0
== END 2023-08-17 14:23 | disposition home or self-care (01) ==
PROVIDERS: PCP Nurse Practitioner Family; Visit Provider Nurse Practitioner Family
DX: N20.0 Calculus of kidney (principal); Z13.9 Encounter for screening, unspecified
CPT/HCPCS: 99213

== ENCOUNTER → 2023-08-17 13:36 | Outpatient (BNVA) | payer OTHER, SELFPAY | PROVIDERS: PCP Nurse Practitioner Family; Visit Provider Nurse Practitioner Family | DX: N20.0 Calculus of kidney (principal) | CPT/HCPCS: 81003; 99212 ==

== ENCOUNTER 2023-08-26 13:15 | Outpatient (AMB) | payer OTHER, SELFPAY ==
[2023-08-26 13:27] VITALS: BP 110/54; PULSE 84; BMI 39.6
--- NOTE | 2023-08-26 13:27 | MHC.OFFVIS ---
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 Parking Lot Signaler Required: No Accompanied by: Self / Same As Patient Allergies No Known Allergies [No Known Allergies*] Allergy (Verified 08/17/23 14:25) Medication List - Last Reconciled 08/26/23 by Wiliam Holliday MD albuterol sulfate 90 mcg/actuation 2 puffs inhalation Q6H PRN amlodipine 10 mg PO DAILY lisinopril 5 mg PO DAILY lorazepam 0.5 mg PO BID PRN 7 days multivitamin 1 tab PO DAILY omega-3 fatty acids-fish oil 360-1,200 mg (Fish Oil) 1 cap PO BID pantoprazole 40 mg PO DAILY rosuvastatin (Crestor) 5 mg PO DAILY 90 days simethicone 180 mg PO QID 30 days HPI HPI Comments History of Present Illness Details [age] gentleman here for chest discomfort shortness of breath. Has background history of hypertension has been hypertensive for last 10 years. He has been on medication with good blood pressure control. He was also told at that time that he may have hypertrophic cardiomyopathy but has not followed up with anyone. He also had diabetes which was managed with the exercise and weight loss and last hemoglobin A1c was 5.4. He is on Crestor and fish oil currently for elevated cholesterol. He has been experiencing shortness of breath and chest tightness for 2 months. He said he was doing 8 miles hikes before that and did not have any issues. Now he is getting out of breath with activities he went inside his house. He has some anxiety and also has been on as-needed lorazepam. No history of asthma reported by him although he has an albuterol inhaler as needed in his med list. He is saying that he gets left-sided chest tightness and sometimes sharp sensation in the chest going into the left arm. He also gets out of breath when he gets these symptoms. [facility] Medical History (Updated 08/17/23 @ 14:23 by CLAIR Esquivel) Kidney stone Hypertension Surgical History S/P appendectomy Family History Mother Cancer Social History Housing: House Alcohol intake: never Patient Tobacco Use Status: Never used Tobacco e-Cigarette/Vaping Use: Never Used Second Hand Smoke Exposure: No service: No Current occupational status: unemployed Cognitive needs: No Hearing needs: No Vision needs: No Review of Systems Const Reports chills, Reports fatigue, Reports fever(s), Reports frequent falls, Reports weakness, Reports weight gain and Reports weight loss ENT Reports dizziness Card Reports chest pain, Reports leg edema, Reports lightheadedness, Reports palpitations, Reports dyspnea, Reports dyspnea on exertion and Reports orthopnea Resp Reports cough, Reports dyspnea and Reports dyspnea on exertion GI Reports bloating and Reports change in bowel habits Musc Reports muscle weakness, Reports numbness and Reports tingling Neuro Reports dizziness, Reports frequent falls, Reports numbness, Reports tingling and Reports weakness Endo Reports fatigue and Reports palpitations Physical Exam Vital Signs: Last Vital Signs Pulse 84 08/26/23 13:27 BP 110/54 L 08/26/23 13:27 BMI result Body Mass Index 39.6 GENERAL APPEARANCE: in no acute distress, pleasant. NECK: no carotid bruit, no jugular venous distention. SKIN: no suspicious lesions, warm and dry. HEART: no murmurs, regular rate and rhythm. LUNGS: clear to auscultation bilaterally. ABDOMEN: soft, nontender. EXTREMITIES: no edema. PERIPHERAL PULSES: equal. NEUROLOGIC: No gross deficits, AAO X 3 Office Procedures EKG Details: Sinus rhythm 84 beats per minute, normal ECG, QTC 397 milliseconds. [id number], Complete Assessment & Plan Assessment & Plan (1) SOB (shortness of breath): Code(s): R06.02 - Shortness of breath (2) Chest pain: Code(s): R07.9 - Chest pain, unspecified (3) Hypertension: Code(s): I10 - Essential (primary) hypertension Plan Pleasant 32 year gentleman who is here for 1st office visit. He has been experiencing chest discomfort shortness of breath. He also has hypertension for approximately 10 years and he has been taking amlodipine and lisinopril. Blood pressure control appears to be good. I will arrange an echocardiogram to reassess the left ventricular hypertrophy as he was previously labeled as potential hypertrophic cardiomyopathy. I will arrange an exercise stress test for him. His EKG is normal and I do not see any left ventricular hypertrophy or any changes of hypertrophic cardiomyopathy on the EKG. We will check a fasting lipid panel. Follow-up in 3 months. Thank you for allowing me to participate in the care of your patient. Please feel free to contact me if you have any questions. Orders: Orders CA stress test Today R07.9 - Chest pain, unspecified Lipid Panel Today E11.9 - Type 2 diabetes mellitus without complications CA echo transthoracic complete Today R06.02 - Shortness of breath Coding Level of Care Code New Pt Level 4 (27606) Diagnoses SOB (shortness of breath) R06.02 Chest pain R07.9 Hypertension I10 CPT Codes EKG - CPT: 71924-[id number], Complete ([id number])
== END 2023-08-26 13:57 | disposition home or self-care (01) ==
PROVIDERS: PCP Nurse Practitioner Family; Visit Provider Internal Medicine Cardiovascular Disease
DX: R06.02 Shortness of breath (principal); R07.9 Chest pain, unspecified; I10 Essential (primary) hypertension
CPT/HCPCS: 93010; 99204

== ENCOUNTER → 2023-08-26 13:15 | Outpatient (BNVA) | payer OTHER, SELFPAY | PROVIDERS: PCP Nurse Practitioner Family; Visit Provider Internal Medicine Cardiovascular Disease | DX: R06.02 Shortness of breath (principal); R07.9 Chest pain, unspecified; I10 Essential (primary) hypertension | CPT/HCPCS: 93005; 99202 ==

== ENCOUNTER 2023-08-28 12:47 | Outpatient (AMB) | payer OTHER, SELFPAY ==
--- NOTE | 2023-08-28 12:53 | A.OFFVIS_ITS ---
Intake Vital Signs 08/28/23 12:55 Height 6 ft Weight 292 lb BMI 39.6 BP 134/75 Blood Pressure Location Lt brachial Position Sitting Pulse 84 Intake Visit Reasons: 6 week follow up Intake Note: Jarrod presents in the office as a 6 week follow up. CC: He states that he is a little better but still a little bloated and some burps but not too bad. Allergies No Known Allergies [No Known Allergies*] Allergy (Verified 08/28/23 12:55) HPI 6 week follow up HPI Details Assessment & Plan (1) Celiac disease: Code(s): K90.0 - Celiac disease (2) Gastroesophageal reflux disease: Code(s): K21.9 - Gastro-esophageal reflux disease without esophagitis (3) Diarrhea: Code(s): R19.7 - Diarrhea, unspecified (4) Abdominal pain: Code(s): R10.9 - Unspecified abdominal pain Plan He has been avoiding gluten since I notified him 06/17 and his diarrhea has lessened but still has intermittent CP (not cardiac) despite famotidine and protonix. Nausea is a little bit better. So, we miriam wait and watch and the plan is to bring him back in 6 weeks and see how he is doing. It is possible we have more than 1 problem going on and the pancreatic a last taste is still pending. He also still has quite a lot of bloating in the upper stomach. The barium swallow is still pending and the HIDA scan was negative. Were going to order an EGD but that of course probably will not happen until October or so. This will just be to see if there is any damage from celiac disease. In 6 weeks We can consider a trial of digestive enzymes depending on how he is feeling after we give all of the inflammation a chance to calm down. He is quite agreeable to this. Return office visit 6 weekd Orders: Orders Colonoscopy - GI U se Only Today K90.0 - Celiac dis ease, R10.9 - Unsp ecified abdominal pain, R19.7 - Diar lalito, unspecified LABS: Laboratory Tests 06/12/23 14:50 Tiss Transglutamin IgG 8.7 Tiss Transglutamin IgA 140.2 H BARIUM SWALLOW SCHEDULED FOR 09/03/2023 COLONOSCOPY Not yet scheduled BIOPSY TODAY'S VISIT No more diarrhea, gas and bloating improved but not gone. Had one diet indescretion with a cookie no immediate problems. Had been gluten free. Although he was resistant to this idea at 1st he is now understanding that it is very important to his overall health and to controlling his symptoms. Having stress test and echocardiogram early this month, severe heart disease not suspected per cardiology. Still I think it will be best to wait until after these results to get back together and discuss whether we want to go forward with the upper endoscopy. He understands and is agreeable to this. I had accidentally put this in his a colonoscopy when in fact it needs to be an upper endoscopy to biopsy for long-term celiac damage. Initially I think I was thinking it would be diagnostic for diarrhea but since this has ceased by avoiding gluten and we have had confirmatory blood studies I do not think this is important at this time. ROV after 09/17 then will know cardiac status, and I sent scheduling note for EGD today. [facility] Medical History Kidney stone Hypertension Surgical History S/P appendectomy Family History Mother Cancer Social History Housing: House Alcohol intake: never Patient Tobacco Use Status: Never used Tobacco e-Cigarette/Vaping Use: Never Used Second Hand Smoke Exposure: No service: No Current occupational status: unemployed Cognitive needs: No Hearing needs: No Vision needs: No Review of Systems Const Denies fatigue, Denies fever(s), Denies night sweats, Denies poor appetite and Denies weight loss ENT Reports Normal hearing present, Denies dental pain, Denies dysphagia, Denies hearing loss, Denies mouth pain, Denies odynophagia, Denies throat swelling, Denies tongue swelling and Reports other (Dentition adequate) Card Reports no additional complaints Resp Reports no additional complaints GI Denies abdominal pain, Denies melena, Reports bloating, Denies hematochezia, Denies constipation, Denies GI cramping, Denies dysphagia, Denies excessive flatus, Denies early satiety, Denies heartburn, Denies diarrhea, Denies nausea, Denies odynophagia, Denies vomiting and Denies hematemesis Skin/Breast Denies pruritus, Denies lesions, Denies rash and Denies jaundice Neuro Reports Normal hearing present and Denies Abnormal speech present Endo Denies fatigue Aller/Immun Denies throat swelling and Denies tongue swelling Physical Exam Vital Signs: Last Vital Signs Pulse 84 08/28/23 12:55 BP 134/75 08/28/23 12:55 BMI result Body Mass Index 39.6 Const General: cooperative, no acute distress, well developed and well groomed Nutritional Appearance: well nourished and obese Orientation/consciousness: oriented to person, oriented to place and oriented to time Limitations: No language barrier HEENT Head: Yes normocephalic and Yes atraumatic Eyes General: appearance normal, both eyes and all related structures Pupils: Equal, round and reactive pupils present Neck Neck: Yes normal visual inspection and Yes no lymphadenopathy Thyroid: Thyroid normal Resp Effort & Inspection: normal respiratory effort and able to speak in complete sentences Auscultation: clear to auscultation bilaterally Cardio Rate: regular rate Rhythm: regular rhythm Heart sounds: Normal, physiologic split S2 sound present Peripheral pulses: radial pulses present and posterior tibial pulses present GI Inspection: No distended, Yes Abdominal panniculus present and Yes obesity Palpation (GI): Soft to palpation, nontender, no guarding, not rigid and No hepatosplenomegaly present Percussion: Yes normal to percussion Auscultation: normal bowel sounds Rectal Exam - Male: Yes deferred Skin General skin exam: no rashes or lesions noted, turgor normal, skin not dry, no jaundice, No spider nevi and no striae Rashes: no rashes Nails: normal Neuro General: oriented to person, oriented to place and oriented to time Cranial nerves: Yes Equal, round and reactive pupils present and Yes Normal hearing present Speech: No Abnormal speech present Extrem General: Yes normal to inspection, No clubbing, No cyanosis and No edema Psych Appearance: grossly normal and well kempt Mental Status: mental status grossly normal Speech and movement: Normal speech and movement present Affect: normal affect Attitude: cooperative Thought process: Normal thought process present and not confabulating Thought content: Normal thought content present Insight: Fair insight present (Psych) Judgement: Fair judgement present (Psych) Assessment & Plan Assessment & Plan (1) Gastroesophageal reflux disease: Code(s): K21.9 - Gastro-esophageal reflux disease without esophagitis (2) Celiac disease: Code(s): K90.0 - Celiac disease (3) Abdominal pain: Code(s): R10.9 - Unspecified abdominal pain Plan BARIUM SWALLOW SCHEDULED FOR 09/03/2023 COLONOSCOPY Not yet scheduled BIOPSY TODAY'S VISIT No more diarrhea, gas and bloating improved but not gone. Had one diet indescretion with a cookie no immediate problems. Had been gluten free. Although he was resistant to this idea at 1st he is now understanding that it is very important to his overall health and to controlling his symptoms. Having stress test and echocardiogram early this month, severe heart disease not suspected per cardiology. Still I think it will be best to wait until after these results to get back together and discuss whether we want to go forward with the upper endoscopy. He understands and is agreeable to this. I had accidentally put this in his a colonoscopy when in fact it needs to be an upper endoscopy to biopsy for long-term celiac damage. Initially I think I was thinking it would be diagnostic for diarrhea but since this has ceased by avoiding gluten and we have had confirmatory blood studies I do not think this is important at this time. ROV after 09/17 then will know cardiac status, and I sent scheduling note for EGD today. Orders: Orders EGD with Forrest - GI Use Only Today K21.9 - Gastro-esophageal reflux disease without esophagitis, K90.0 - Celiac disease, R10.9 - Unspecified abdominal pain Coding Level of Care Code Est Pt Level 3 (97851) Diagnoses Gastroesophageal reflux disease K21.9 Celiac disease K90.0 Abdominal pain R10.9
[2023-08-28 12:55] VITALS: BP 134/75; PULSE 84; BMI 39.6
== END 2023-08-28 13:32 | disposition home or self-care (01) ==
PROVIDERS: PCP Nurse Practitioner Family; Visit Provider Nurse Practitioner
DX: K21.9 Gastro-esophageal reflux disease without esophagitis (principal); K90.0 Celiac disease; R10.9 Unspecified abdominal pain
CPT/HCPCS: 99213

== ENCOUNTER → 2023-08-28 12:47 | Outpatient (BNVA) | payer OTHER, SELFPAY | PROVIDERS: PCP Nurse Practitioner Family; Visit Provider Nurse Practitioner | DX: K21.9 Gastro-esophageal reflux disease without esophagitis (principal); K90.0 Celiac disease; R10.9 Unspecified abdominal pain | CPT/HCPCS: 99212 ==

== ENCOUNTER 2023-09-08 07:03 | Outpatient (AMB) | payer OTHER, SELFPAY ==
--- NOTE | 2023-09-08 07:07 | A.OFFPC_ITS ---
Intake Visit Reasons: Followup anxiety Allergies No Known Allergies [No Known Allergies*] Allergy (Verified 08/28/23 12:55) Medication List - [facility] albuter[facility] sulfate 90 mcg/actuation 2 puffs inhalation Q6H PRN amlodipine 10 mg PO DAILY citalopram 20 mg PO DAILY clonazepam 1 mg PO DAILY PRN 30 days lisinopril 5 mg PO DAILY multivitamin 1 tab PO DAILY omega-3 fatty acids-fish oil 360-1,200 mg (Fish Oil) 1 cap PO BID pantoprazole 40 mg PO DAILY rosuvastatin (Crestor) 5 mg PO DAILY 90 days simethicone 180 mg PO QID 30 days Tobacco use date assessed: 08/13/23 HPI Followup anxiety HPI Details Anxiety: Pt reports a recent episode of racing thoughts, chest pressure, and arm numbness. He has an upcoming holter and stress test, though most related to anxiety. Pt reports that lorazepam has not been helping. Will stop this and start clonazepam for acute attacks. Pt has tried sertraline in the past as well which eventually stopped working. Will start citalopram 20mg. Denies any SI and HI. He will keep me posted with his current condition and symptoms via portal [facility] Medical History Kidney stone Hypertension Surgical History S/P appendectomy Family History Mother Cancer Social History Housing: House Alcohol intake: never Patient Tobacco Use Status: Never used Tobacco e-Cigarette/Vaping Use: Never Used Second Hand Smoke Exposure: No service: No Current occupational status: unemployed Cognitive needs: No Hearing needs: No Vision needs: No Questionnaire Thrive Questionnaire Date Thrive assessed: 09/03/22 JOE-7 AMB Questionnaire JOE-7 Date JOE - 7 assessed: 08/13/23 Source: Developed by Drs. Star Parr, Zeynep Galarza, Yaakov Rai and colleagues, with an educational marii from [employer]. Review of Systems Const Reports as per HPI Physical exam (Primary Care) Tobacco/Smoking Status: Tobacco use Status Tobacco use date assessed 08/13/23 09/08/23 07:09 Patient Tobacco Use Status Never used Tobacco 09/08/23 07:09 e-Cigarette/Vaping Use Never Used 09/08/23 07:09 Thrive Assessment: Date of Thrive Assessment Date Thrive assessed 09/03/22 09/08/23 07:09 Const General: cooperative Orientation/consciousness: patient oriented x3 Neuro General: patient oriented x3 Psych Appearance: grossly normal Mental Status: mental status grossly normal Speech and movement: Clear speech present Affect: normal affect Attitude: cooperative Thought process: Normal thought process present Thought content: Normal thought content present Insight: Good insight present (Psych) Judgement: Good judgement present (Psych) Telehealth Telehealth Location of provider rendering services: practice address Location of patient: address on file Patient Identification confirmed using: Name, : Yes Telehealth method: video Patient verbally consented to treatment: Yes Patient verbally consented to billing insurance company: Yes Patient informed of any privacy concerns related to visit: Yes Minutes spent on Phone/Video with Pt.: 10 Assessment and Plan Assessment & Plan (1) Anxiety: Code(s): F41.9 - Anxiety disorder, unspecified Plan: stop lorazepam, try clonazepam. Will start citalopram 20mg tabs today (2) Palpitations: Code(s): R00.2 - Palpitations Plan: cardiac work up being performed Plan The patient agreed to the use of a medical receptionist assistant for this encounter. Scribed for CLAIR Denise by jo Cade scribe, on 09/08/2023 at 07:10 EST. Medications: New clonazepam 1 mg PO DAILY PRN 30 tabs 0RF anxiety attacks 30 days citalopram 20 mg PO DAILY 90 tabs 0RF Discontinued lorazepam Discontinued Reason: Doctor's Order 0.5 mg PO BID 7 days PRN 14 tabs 0RF anxiety Coding Level of Care Code Tele Est Pt Level 3 (58635) Diagnoses Anxiety F41.9 Palpitations R00.2
== END 2023-09-08 07:40 | disposition home or self-care (01) ==
LOC: HO.HMGC 07:04
PROVIDERS: PCP Nurse Practitioner Family; Visit Provider Nurse Practitioner Family
DX: F41.9 Anxiety disorder, unspecified (principal); R00.2 Palpitations
CPT/HCPCS: 99213

== ENCOUNTER 2023-09-15 16:11 | Outpatient (REF) | payer OTHER, SELFPAY ==
[2023-09-15 16:21] LABS: MANUAL DIFF FLAG NO
[2023-09-15 17:09] LABS: Basophils Percent Auto 0.6 % (0-2); Eosinophils Absolute Auto 0.1 X10*3/uL (0.0-0.4); Eosinophils Percent Auto 1.8 % (0-4); Hemoglobin 15.4 g/dl (14.0-18.0); Imm Gran Abs Auto 0.02 X10*3/uL (0.00-0.03); Imm Gran Pct Auto 0.3 % (0.0-0.4); Lymphocytes Absolute Auto 2.5 X10*3/uL (1.2-4.9); Lymphocytes Percent Auto 36.7 % (20-40); Mean Corpuscular Hemoglobin 28.7 pg (27.0-33.0); Mean Corpuscular Volume 82.1 fL (80.0-98.0); Mean Platelet Volume 10.7 fL (9.4-12.4); Monocytes Absolute Auto 0.6 X10*3/uL (0.1-1.2); Monocytes Percent Auto 8.5 % (2-11); Neutrophils Absolute Auto 3.5 x10*3/uL (2.0-8.3); Neutrophils Percent Auto 52.1 % (45-73); Platelet Count 219 X10*3/uL (160-400); Red Blood Count 5.36 X10*6/uL (4.60-5.80); Red Cell Distribution Width 12.1 % (11.0-16.0); White Blood Count 6.7 X10*3/uL (4.8-10.8)
[2023-09-15 17:36] LABS: Alanine Aminotransferase 20 U/L (0-40); Albumin Level 4.5 g/dL (3.5-5.0); Alkaline Phosphatase 59 U/L (39-117); Anion Gap 14 (12-20); Aspartate Amino Transferase 22 U/L (5-37); Bilirubin Total 0.6 mg/dL (0.0-1.0); Blood Urea Nitrogen 14 mg/dL (9-16); Calcium 9.4 mg/dL (8.4-10.2); Carbon Dioxide 27 mmol/L (22-29); Chloride 104 mmol/L (96-108); Estimated Glomerular Filt Rate > 60; Glucose Random 87 mg/dL (60-115); Sodium 141 mmol/L (135-145); Total Protein 7.4 g/dL (6.5-8.0)
[2023-09-15 17:54] LABS: TSH reflex Free T4 2.47 uIU/mL (0.32-4.0)
== END 2023-09-15 16:12 | disposition home or self-care (01) ==
LOC: HO.LAB 16:11
PROVIDERS: Nurse Practitioner; PCP Nurse Practitioner Family; Visit Provider Internal Medicine Cardiovascular Disease
DX: R53.83 Other fatigue (principal)
CPT/HCPCS: 36415; 80053; 84443; 85025

== ENCOUNTER → 2023-09-17 08:47 | Outpatient (REF) | payer OTHER, SELFPAY ==
--- NOTE | 2023-09-17 08:52 | HM_ITS ---
Conclusion: 1. Patient was monitored for total period of 2 days and 21 hours 2. Baseline was normal sinus rhythm with average heart of 81 beats per minute 3. No significant arrhythmias or pauses noted 4. No patient reported symptoms MTDD
--- NOTE | 2023-09-17 08:52 | CA_ITS ---
Transthoracic Echocardiogram Patient (Last, First, Middle): Jarrod Albert D Gender: Male Date of : 1990 Age: 32 Procedure Date: 09/17/2023 Procedure Type: Transthoracic Echocardiogram Location: OP Height: 182.88 cm Weight: 131.09 kg BSA: 2.49 m2 Heart Rate: 70 bpm BP: 118 / 62 mmHg Assembler Equipment: SB Referring MD: Wiliam Holliday MD Store Receiving Specialist: Wiliam Holliday MD Symptoms: R06.02 - Shortness of breath Study Quality: Adequate w contrast ECG Rhythm: Sinus Conclusions: - The left ventricular systolic function is normal. The calculated ejection fraction is 62% by biplane method. - No obvious valvular pathology seen on this study. Findings Procedure Information Contrast agent, definity, is being given per protocol without apparent complications. The quality of the study was technically difficult. The study quality is limited by patients body habitus. Left Ventricle Normal left ventricular cavity size. There is normal left ventricular wall thickness. The left ventricular systolic function is normal. The calculated ejection fraction is 62% by biplane method. There is no evidence of regional wall motion abnormalities. Diastolic function is normal for age. Right Ventricle Normal right ventricular cavity size and systolic function. Atria Both atria are normal in size. Aortic Valve The aortic valve structure and function is likely normal. There is no aortic valve stenosis. There is no aortic valve regurgitation. Mitral Valve The mitral valve appears normal. There is no mitral valve regurgitation. There is no mitral valve stenosis. Pulmonic Valve The pulmonic valve is likely normal. Tricuspid Valve There is no tricuspid valve regurgitation. Tricuspid regurgitation envelope is inadequate for calculation of right ventricular systolic pressure. Great Vessels The asc aorta is normal in size. Venous The inferior vena cava is normal in size and collapses greater than 50% with inspiration. Pericardium/Pleural There is no evidence of pericardial effusion. Prior Study Comparison No significant change compared to prior study dated: 01/07/2018. Recommendations, Care & Conclusions No obvious valvular pathology seen on this study. Measurements 2D Linear Measurements IVSd: 0.92 0.6-0.9/0.6-1.0 cm LVIDd: 5.41 3.9-5.3/4.2-5.9 cm LVIDd Index: 2.17 2.4-3.2/2.2-3.1 cm/m2 LVIDs: 3.83 2.0-3.6 cm LA Diam: 4.10 2.7-3.8/3.0-4.0 cm LAIDs Index: 1.65 1.5-2.3 cm/m2 LVOT Diam: 2.40 3.0+(-)1.3 cm 2D Systolic Function EF 4C: 63.00 >55% EF 2C: 60.20 >55% EF BiP: 61.90 >55% Mitral Valve MV Pk E: 0.94 MV PK A: 0.61 MV Decel Time: 153.00 E/A: 1.50 E'Lateral: 11.60 E'Medial: 7.83 E/E' Med: 12.00 E/E' Lat: 8.10 PHT: 45.00 MVA PHT: 4.89 Decel [place]: 6.14 Aortic Valve AoV Pk [place]: 1.09 AoV Pk Grad: 5.00 LISA: 4.23 LVOT LVOT Pk [place]: 1.04 LVOT Mn [place]: 0.71 LVOT VTI: 0.19 LVOT Pk Grad: 4.00 LVOT Mn Grad: 2.00 LVOT Diam: 2.40 LVOT Area: 4.52 Diastolic Function MV Pk E: 0.94 MV Pk A: 0.61 E/A: 1.50 E'Medial: 7.83 E/E' Med: 12.00 E' Laterial: 11.60 E/E' Lat: 8.10 Right Ventricle TAPSE (mm): 19.30 TVS' Zion: 13.20 Tricuspid Valve RA Press: 3.00 Great Vessels Aorta Sinus of Valsalva: 3.50 2.0-3.5 cm Ao Asc: 3.30 2.1-3.4 cm Pulmonary Valve PV Pk Zion: 0.78 Peak PV Grad: 2.00 Updated in Other Vendor System with Status of Final Lc Haas MD electronically signed on 09/19/2023 10:36:15 AM with status of Final
--- NOTE | 2023-09-17 08:52 | CA_ITS ---
Acquisition Time: 2023-09-17 09:36:53 Total Exercise Time: 00:08:49 Test Indications: cp, sob Medications: see h Protocol: NAVI Max HR: 169 BPM 89% of Pred: 189 BPM Max BP: 200/058 mmHG Max Work Load: 10.1 METS Exercise stress test exercise 8 min 49 sec of Navi protocol achieving 89%, with mild to moderate SOB, no chest discomfort, without arrhythmias, Max BP 200/58, without EKG chnages. Test reviewed with Dr. Haas, Referred By: Wiliam Holliday Overread By: Elena Whitaker
== END ==
LOC: HO.CARD 08:47
PROVIDERS: PCP Nurse Practitioner Family; Visit Provider Nurse Practitioner Family
DX: R07.9 Chest pain, unspecified (principal); R00.2 Palpitations; R06.02 Shortness of breath
CPT/HCPCS: 93017; 93242; 93306; Q9957

== ENCOUNTER → 2023-09-17 08:52 | Outpatient (BNV) | payer OTHER, SELFPAY | PROVIDERS: PCP Nurse Practitioner Family; Visit Provider Nurse Practitioner | DX: R00.2 Palpitations (principal) | CPT/HCPCS: 93016; 93018; 93244; 93306 ==

== ENCOUNTER 2023-09-26 08:04 | Outpatient (REF) | payer OTHER, SELFPAY ==
[2023-09-26 09:32] LABS: Cholesterol 120 mg/dL (<200); HDL Cholesterol 29 mg/dL (>40); LDL Cholesterol Calculated 63 mg/dL (<100); Triglycerides 141 mg/dL (<150)
== END 2023-09-26 08:05 | disposition home or self-care (01) ==
LOC: HO.LAB 08:04
PROVIDERS: PCP Nurse Practitioner Family; Visit Provider Internal Medicine Cardiovascular Disease
DX: E11.9 Type 2 diabetes mellitus without complications (principal)
CPT/HCPCS: 36415; 80061

== ENCOUNTER 2023-10-12 06:08 | Emergency (ER) | payer OTHER, SELFPAY ==
--- NOTE | ~2023-10-12 | CT_ITS ---
EXAMINATION: CT ABDOMEN AND PELVIS WITH CONTRAST CLINICAL INFORMATION: Left upper quadrant pain. Diarrhea. COMPARISON: 04/26/2023 TECHNIQUE: Multidetector volumetric images were obtained from the superior aspect of the liver through the pubic symphysis following administration 85 mL of Omnipaque 350 intravenous contrast. Sagittal and coronal reformatted images were obtained on the technologist's workstation. Oral contrast: No This CT examination was performed using dose optimization techniques as appropriate, variously including the following: *Automated exposure control *Adjustment of mA and/or kV according to patient size (this includes techniques or standardized protocols for targeted exams where dose is matched to indication/reason for exam; i.e. extremities or head) *Use of iterative reconstruction technique DLP: 807 mGy-cm FINDINGS: LUNG BASES: The visualized lung bases are unremarkable. LIVER, GALLBLADDER, AND BILIARY TREE: The liver is enlarged. No focal hepatic lesion or biliary ductal dilatation is present. The gallbladder is unremarkable with no evidence of radiopaque gallstones, gallbladder wall thickening, or obvious pericholecystic inflammatory changes. PANCREAS: No ductal dilatation. SPLEEN: Mild splenic enlargement. ADRENAL GLANDS: No adrenal mass. KIDNEYS AND URETERS: The kidneys are symmetric in size and enhancement. No hydronephrosis or perinephric stranding. BLADDER: Unremarkable. GASTROINTESTINAL TRACT: Small and large bowel loops are of normal caliber. The appendix is surgically absent. No small bowel obstruction. ABDOMINAL WALL: No significant hernia is appreciated. LYMPH NODES: No bulky lymphadenopathy. VASCULAR: Normal caliber abdominal aorta. PELVIC VISCERA: Unremarkable. OSSEOUS STRUCTURES: No destructive bone lesions. CT/CT abdomen pelvis w IV con IMPRESSION: No acute abnormality in the abdomen or pelvis. Stable hepatosplenomegaly.
[2023-10-12 06:12] VITALS: BP 105/75; PULSE 119; RESP 20; TEMP 36.6; BMI 39.2
[2023-10-12 07:32] LABS: Hematocrit 42.8 % (42.0-52.0); Hemoglobin 14.9 g/dl (14.0-18.0); Mean Corpuscular HGB Conc 34.8 g/dl (31.0-36.0); Mean Corpuscular Hemoglobin 29.3 pg (27.0-33.0); Mean Corpuscular Volume 84.3 fL (80.0-98.0); Mean Platelet Volume 10.5 fL (9.4-12.4); Platelet Count 156 X10*3/uL (160-400); Red Blood Count 5.08 X10*6/uL (4.60-5.80); Red Cell Distribution Width 12.3 % (11.0-16.0); White Blood Count 4.8 X10*3/uL (4.8-10.8)
[2023-10-12 07:45] LABS: Anion Gap 10 (12-20); Blood Urea Nitrogen 16 mg/dL (9-16); Calcium 9.1 mg/dL (8.4-10.2); Carbon Dioxide 26 mmol/L (22-29); Chloride 109 mmol/L (96-108); Creatinine Clr Calc Pharmacy 178.8; Estimated Glomerular Filt Rate > 60; Glucose Random 112 mg/dL (60-115); Lipase 29 U/L (8-78); Potassium 4.2 mmol/L (3.3-5.1); Sodium 141 mmol/L (135-145)
--- NOTE | 2023-10-12 07:53 | ED.ABDPAIN ---
HPI - Abdominal Pain General Chief Complaint: Abdominal Pain Stated Complaint: abdominal pain Time Seen by Provider: 10/12/23 07:39 Source: patient and old records reviewed Mode of arrival: ambulatory Limitations: no limitations History of Present Illness HPI narrative: 33 yo male with PMH of celiac disease compliant with diet, GERD on pepcid and pantoprazole, prior appendectomy here with c/o LUQ and L flank pain with nausea and diarrhea starting Thursday. He denies food exposures. He has never had pain like this before. He has not been on antibiotics. He does not drink ETOH. MD elicited complaint: abdominal pain and flank pain Onset (ago): day(s) (started this Thursday) Pain Consistency: constant Location: LUQ and L flank Severity: moderate Quality: stabbing Radiation: epigastric Migration to: LUQ, RUQ and epigastric Exacerbating factors: eating and movement Relieving factors: nothing Associated symptoms: nausea and diarrhea Related Data Home Medications Medication Instructions Recorded Confirmed multivitamin 1 tab PO DAILY 06/12/23 09/08/23 omega-3 fatty acids-fish oil 360 1 cap PO BID 06/12/23 09/08/23 mg-1,200 mg capsule (Fish Oil) Previous Rx's Medication Instructions Recorded albuterol sulfate 90 mcg/actuation 2 puff inhalation Q6H PRN 08/29/22 aerosol inhaler shortness of breath or wheezing #6.7 grams rosuvastatin 5 mg tablet (Crestor) 5 mg PO DAILY 90 days #90 tabs 05/20/23 pantoprazole 40 mg tablet,delayed 40 mg PO DAILY #30 tabs 06/12/23 release simethicone 180 mg capsule 180 mg PO QID 30 days #120 caps 06/12/23 amlodipine 10 mg tablet 10 mg PO DAILY #90 tabs 06/16/23 lisinopril 5 mg tablet 5 mg PO DAILY #90 tabs 07/14/23 citalopram 20 mg tablet 20 mg PO DAILY #90 tabs 09/08/23 clonazepam 1 mg tablet 1 mg PO DAILY PRN anxiety attacks 09/08/23 30 days #30 tabs morphine 15 mg immediate release 15 mg PO Q6H PRN pain #10 tabs 10/12/23 tablet ondansetron 4 mg disintegrating 4 mg PO Q8H PRN nausea and 10/12/23 tablet vomiting #20 tabs Allergies Allergy/AdvReac Type Severity Reaction Status Date / Time No Known Allergies Allergy Verified 10/12/23 06:12 [No Known Allergies*] Review of Systems Review of Systems Constitutional : No Weight loss, No Fever, No Chills ENT/Mouth : No sore throat, No Rhinorrhea Eyes: No Swelling, No Redness Cardiovascular : No Chest Pain, No SOB, NoEdema Respiratory : No Cough, No Sputum, No Wheezing Gastrointestinal : Positive Nausea, no Vomiting, positive Diarrhea, positive abdominal Pain, No Hematochezia, No Melena Genitourinary : No Dysuria, No Urinary Frequency, No Hematuria, No Urgency Musculoskeletal : No joint pain, No Myalgias, No Joint Swelling Skin : No Skin Lesions, No rash Neuro : No Weakness, No Numbness, No Dizziness, No Headache Psych : No Anxiety/Panic, No Depression Heme/Lymph: No Bruising, No Lymphadenopathy Endocrine : No Polyuria, No Polydipsia All other systems reviewed and are negative. [facility] Past Medical History Attestation statement: The following information was validated with the patient. Source: old records reviewed Medical History Kidney stone Hypertension Surgical History S/P appendectomy Family History Family History Mother Cancer Social History Social History Housing: House Alcohol intake: never Patient Tobacco Use Status: Never used Tobacco Smoked in Last 30 Days: No e-Cigarette/Vaping Use: Never Used Second Hand Smoke Exposure: No Use of substances other than those prescribed or required for medical reasons: No Advance Directives: No Advance Directives Information Provided: No service: No Current occupational status: unemployed Cognitive needs: No Hearing needs: No Vision needs: No Physical Exam ED Vital Signs: Vital Signs - 24 hr 10/12/23 06:12 Temperature 97.8 F Pulse Rate 119 H Respiratory Rate 20 Blood Pressure 105/75 Oxygen Delivery Method Room Air BMI result Body Mass Index 39.2 Appearance: Alert. Oriented X3. No acute distress. Eyes: Pupils equal, round and reactive to light. ENT: Pharynx normal. Neck: Normal inspection. Neck supple. CVS: Normal heart rate and rhythm. Pulses normal. Respiratory: No respiratory distress. Breath sounds normal. Abdomen: Soft and moderate ttp in epigastric and LUQ area no rebound Skin: Skin warm and dry. Normal skin color. Normal skin turgor. Extremities: No lower extremity edema. No calf ttp Neuro: Oriented X 3. No motor deficit. No sensory deficit. Course Course Course Narrative: feels better with IV morphine able to tolerate PO Medical Decision Making Medical Decision Making [facility] Narrative: 33 yo male with PMH of celiac disease diet compliant, prior appendectomy here with c/o LUQ and L flank pain now radiating across abdomen with nausea and diarrhea starting Thursday at this time will need labs, IV morphine for pain, CT scan for pancreatitis, diverticulitis, renal colic, colitis. Differential Diagnosis Differential Diagnoses: The differential diagnosis associated with the presentation includes gastritis, pancreatitis, renal colic, colitis, diverticulitis Admission/Observation Consideration of admission/observation: Escalation of care including admission/observation considered 4 days of symptoms without sig lab derangement and no acute findings on CT scan stable for DC Lab Data [facility] Lab Attestation statement: I reviewed the patient's lab results. 10/12/23 07:23 10/12/23 07:23 Labs: Lab Results 10/12/23 10/12/23 Range/Units 07:23 08:56 WBC 4.8 (4.8-10.8) X10*3/uL RBC 5.08 (4.60-5.80) X10*6/uL Hgb 14.9 (14.0-18.0) g/dl Hct 42.8 (42.0-52.0) % MCV 84.3 (80.0-98.0) fL MCH 29.3 (27.0-33.0) pg MCHC 34.8 (31.0-36.0) g/dl RDW 12.3 (11.0-16.0) % Plt Count 156 L D (160-400) X10*3/uL MPV 10.5 (9.4-12.4) fL Absolute Nucleated RBC 0.000 (0.0-0.012) X10*3/uL Nucleated RBC % (auto) 0.0 (0.0-0.2) /100WBC Sodium 141 (135-145) mmol/L Potassium 4.2 (3.3-5.1) mmol/L Chloride 109 H (96-108) mmol/L Carbon Dioxide 26 (22-29) mmol/L Anion Gap 10 L (12-20) BUN 16 (9-16) mg/dL Creatinine 0.83 (0.5-1.4) mg/dL Estim Creat Clear Calc 178.8 Estimated GFR > 60 Random Glucose 112 (60-115) mg/dL Calcium 9.1 (8.4-10.2) mg/dL Total Bilirubin 0.6 (0.0-1.0) mg/dL Direct Bilirubin 0.2 (0.0-0.5) mg/dL AST 18 (5-37) U/L ALT 22 (0-40) U/L Alkaline Phosphatase 56 (39-117) U/L Total Protein 6.8 (6.5-8.0) g/dL Albumin 4.2 (3.5-5.0) g/dL Lipase 29 (8-78) U/L Urine Color Yellow Urine Appearance Clear Urine pH 7.5 (5.0-9.0) Ur Specific [place] >= 1.030 H (1.005-1.025) Urine Protein Negative (Neg-Trace) mg/dL Urine Glucose (UA) Negative (Negative) mg/dL Urine Ketones Negative (Negative) mg/dL Urine Blood Negative (Negative) Urine Nitrite Negative (Negative) Ur Leukocyte Esterase Negative (Negative) COVID-19 (ARUN) Negative (Negative) COVID-19 Clin Com See Note Independent Interpretation I performed an independent interpretation of an: CT Scan (no acute findings) Radiology Impression Discussion of test interpretation with radiology: I have reviewed the radiologist's reading. External Record Review External record reviewed: Inpatient record Prescription Management I considered prescription management with: Other Medications Administered Discontinued Medications Generic Name Dose Route Start Last Admin Trade Name Freq PRN Reason Stop Dose Admin Famotidine 20 mg 10/12/23 07:42 10/12/23 08:13 Famotidine/Pf 20 Mg/2 Ml Vial IVPUSH 10/12/23 07:43 20 mg ONCE ONE Administration Sodium Chloride 1,000 mls @ 999 mls/hr 10/12/23 07:45 10/12/23 08:33 Ns IV 10/12/23 08:45 999 mls/hr .Q1H1M MARY BETH Infusion Iohexol 100 ml 10/12/23 08:31 10/12/23 08:32 Iohexol 350 Mg/Ml 100 Ml Infus..Btl IV 10/12/23 08:32 85 ml ONCE ONE Administration Morphine Sulfate 4 mg 10/12/23 07:42 10/12/23 08:16 Morphine Sulfate 4 Mg/Ml Cartridge IVPUSH 10/12/23 07:43 4 mg ONCE ONE Administration Protocol Ondansetron HCl 4 mg 10/12/23 07:42 10/12/23 08:12 Ondansetron Hcl 4 Mg/2 Ml Vial IVPUSH 10/12/23 07:43 4 mg ONCE ONE Administration Critical Care Time Critical Care Time Critical Care Time: Yes Total Critical Care Time: 35 Attestation: IV morphine given with improvement in pain I attest to this time spent taking care of the patient Discharge Plan Discharge Clinical Impression: Gastritis Qualifiers: Gastritis type: unspecified gastritis Chronicity: acute Gastritis bleeding: without bleeding Qualified Code(s): K29.00 - Acute gastritis without bleeding Patient Disposition: Home, Self-Care Instructions: Gastritis (ED) Additional Instructions: your labs for your kidney liver pancreas were normal your platelets were slightly low but this has happened before your doctor can monitor this in a week your CT scan shows no acute findings - chronic enlarged liver at this time continue your pantoprazole and famotidine eat a clear liquid diet and advance diet slowly over 24 hours return for worsening pain, fevers, inability to eat or drink, black or blood stools or any other concerns. Prescriptions: New morphine 15 mg tablet 15 mg PO Q6H PRN (Reason: pain) Qty: 10 0RF Rx Instructions: partial fill okay; Partial Fill upon patient request. ondansetron 4 mg tablet,disintegrating 4 mg PO Q8H PRN (Reason: nausea and vomiting) Qty: 20 0RF No Action rosuvastatin [Crestor] 5 mg tablet 5 mg PO DAILY 90 Days Qty: 90 1RF amlodipine 10 mg tablet 10 mg PO DAILY Qty: 90 1RF lisinopril 5 mg tablet 5 mg PO DAILY Qty: 90 1RF albuterol sulfate 90 mcg/actuation HFA aerosol inhaler 2 puff inhalation Q6H PRN (Reason: shortness of breath or wheezing) Qty: 6.7 0RF clonazepam 1 mg tablet 1 mg PO DAILY PRN (Reason: anxiety attacks) 30 Days Qty: 30 0RF citalopram 20 mg tablet 20 mg PO DAILY Qty: 90 0RF multivitamin Tablet 1 tab PO DAILY omega-3 fatty acids-fish oil [Fish Oil] 360-1,200 mg capsule 1 cap PO BID simethicone 180 mg capsule 180 mg PO QID 30 Days Qty: 120 3RF Rx Instructions: after meals pantoprazole 40 mg tablet,delayed release (DR/EC) 40 mg PO DAILY Qty: 30 6RF Stand Alone Forms: Work/School Release
[2023-10-12 07:54] LABS: COVID-19 Test Negative (Negative); IDNOW Serial# 08D9AD1C
[2023-10-12] MEDS: 0.9 % Sodium Chloride 1,000 ML 999 ML IV (08:08)
[2023-10-12 08:10] LABS: Alanine Aminotransferase 22 U/L (0-40); Albumin Level 4.2 g/dL (3.5-5.0); Alkaline Phosphatase 56 U/L (39-117); Aspartate Amino Transferase 18 U/L (5-37); Bilirubin Direct 0.2 mg/dL (0.0-0.5); Bilirubin Total 0.6 mg/dL (0.0-1.0); Total Protein 6.8 g/dL (6.5-8.0)
[2023-10-12] MEDS: ondansetron HCL 4 MG/2 ML VIAL IVPUSH (08:12)
[2023-10-12] MEDS: Famotidine/PF 20 MG/2 ML VIAL IVPUSH (08:13)
[2023-10-12] MEDS: Morphine Sulfate 4 MG/ML CARTRIDGE IVPUSH (08:16)
[2023-10-12] MEDS: iohexoL 350 MG/ML 100 ML INFUS..BTL IV (08:32)
--- NOTE | 2023-10-12 09:07 | PC.NURSE ---
20G IV placed to LAC fluids hung and pt medicated per oct. pt to CT scan. pt a&o x4, calm, and cooperative. plan of care ongoing.
[2023-10-12 09:11] LABS: Appearance Urine Clear; Color Urine Yellow; Glucose Urine UA Negative (Negative); Leukocyte Esterase Urine Negative (Negative); Nitrite Urine Negative (Negative); PH 7.5 (5.0-9.0); Specific Gravity - Urine >= 1.030 (1.005-1.025); Urine Blood Negative (Negative); Urine Ketones Negative (Negative); Urine Protein Negative (Neg-Trace)
[2023-10-12] MEDS: Magnesium Hydrox/Alum Hydrox 30 ML ORAL.SUSP 15 ML PO (09:56)
[2023-10-12] MEDS: Lidocaine HCl Viscous 2 % 15 ML SOLUTION MUCOUS MEM (09:56)
[2023-10-12 09:58] VITALS: BP 118/74; PULSE 67; RESP 16; O2SAT 99
== END 2023-10-12 10:08 | disposition home or self-care (01) ==
PROVIDERS: Emergency Provider Emergency Medicine
DX: K29.00 Acute gastritis without bleeding (principal); K90.0 Celiac disease; K21.9 Gastro-esophageal reflux disease without esophagitis; I10 Essential (primary) hypertension; Z79.899 Other long term (current) drug therapy; Z11.52 Encounter for screening for COVID-19
CPT/HCPCS: 36415; 74177; 80048; 80076; 81003; 83690; 85027; 87635; 96361; 96374; 96375; 99284; J2270; J2405; Q9967

== ENCOUNTER 2023-10-13 08:27 | Outpatient (AMB) | payer OTHER, SELFPAY ==
[2023-10-13 09:28] VITALS: BP 120/90; PULSE 85; TEMP 36.3; O2SAT 97; BMI 38.5
--- NOTE | 2023-10-13 09:28 | AM.OFFWIN_ITS ---
Intake Vital Signs 10/13/23 09:28 Height 6 ft Weight 284 lb BMI 38.5 BP 120/90 H Blood Pressure Location Lt brachial Position Sitting Pulse 85 Pulse Source Pulse Oximeter Temp 97.3 F Temp Source Temporal Artery Scan Pulse Oximetry (%) 97 Oxygen Delivery Method Room Air Intake Visit Reasons: EP cough body rash Intake Note: pt is here today for cough body rash started 2 months Patient Tobacco Use Status: Never used Tobacco Allergies No Known Allergies [No Known Allergies*] Allergy (Verified 10/13/23 10:05) Medication List - Last Reconciled 10/13/23 by Akira Ramesh MD albuterol sulfate 90 mcg/actuation 2 puffs inhalation Q6H PRN amlodipine 10 mg PO DAILY citalopram 20 mg PO DAILY clobetasol 0.05% 1 appl topical BID 2 weeks lisinopril 5 mg PO DAILY morphine 15 mg PO Q6H PRN multivitamin 1 tab PO DAILY omega-3 fatty acids-fish oil 360-1,200 mg (Fish Oil) 1 cap PO BID ondansetron 4 mg PO Q8H PRN pantoprazole 40 mg PO DAILY rosuvastatin (Crestor) 5 mg PO DAILY 90 days Do you need a note to return to daycare/school/sports/work: No HPI EP cough body rash HPI Details 33-year-old male presents to the office for a sick visit. Patient has a diagnosis of psoriasis and recently the number of plaques on his body have been increasing. He is also having a lesion on the scalp which is very itchy. The itchy scalp is the reason why he is here. He is requesting temporary treatment till he sees the overlocker. [facility] Medical History Kidney stone Hypertension Surgical History S/P appendectomy Family History Mother Cancer Social History Housing: House Alcohol intake: never Patient Tobacco Use Status: Never used Tobacco e-Cigarette/Vaping Use: Never Used Second Hand Smoke Exposure: No service: No Current occupational status: unemployed Cognitive needs: No Hearing needs: No Vision needs: No Physical Exam Vital Signs: Last Vital Signs Temp 97.3 F 10/13/23 09:28 Pulse 85 10/13/23 09:28 BP 120/90 H 10/13/23 09:28 Pulse Ox 97 10/13/23 09:28 Oxygen Delivery Method Room Air 10/13/23 09:28 BMI result Body Mass Index 38.5 Skin Other: Extensive psoriatic lesions over his trunk, abdominal wall and elbow. Each lesion is discrete with thickened skin and scales. Scalp: Patches of thickened rash with overlying scales. Assessment & Plan Assessment & Plan (1) Psoriasis: Code(s): L40.9 - Psoriasis, unspecified Plan: Clobetasol shampoo ordered. Patient would definitely benefit with systemic therapy for psoriasis. He would need a dermatology appointment. A note to his primary care provider will be sent. Medications: New clobetasol 0.05% 1 appl topical BID 2 weeks 50 mL 0RF Coding Level of Care Code Est Pt Level 3 (10527) Diagnoses Psoriasis L40.9
== END 2023-10-13 11:45 | disposition home or self-care (01) ==
PROVIDERS: Visit Provider Internal Medicine
DX: L40.9 Psoriasis, unspecified (principal)
CPT/HCPCS: 99213

== ENCOUNTER 2023-10-27 14:33 | Outpatient (REF) | payer OTHER, SELFPAY ==
--- NOTE | ~2023-10-27 | XR_ITS ---
EXAMINATION: XR CHEST CLINICAL INFORMATION: Shortness of breath. COMPARISON: 08/04/2023. TECHNIQUE: 2 views of the chest were obtained. FINDINGS: There is no gross pneumothorax. Heart size is normal. No pleural effusion. No new focal consolidation to suggest pneumonia. Mild degenerative changes in the thoracic spine. XR/XR chest 2V IMPRESSION: No evidence of pneumonia.
== END 2023-10-27 14:34 | disposition home or self-care (01) ==
LOC: HO.XRAY 14:33
PROVIDERS: PCP Nurse Practitioner Family; Visit Provider Nurse Practitioner
DX: R06.02 Shortness of breath (principal)
CPT/HCPCS: 71046; 99212

== ENCOUNTER 2023-10-27 14:33 | Outpatient (AMB) | payer OTHER, SELFPAY ==
--- NOTE | 2023-10-27 14:35 | MHC.OFFVIS ---
Intake Vital Signs 10/27/23 14:41 10/27/23 14:50 Height 6 ft Weight 286 lb 9.615 oz 176 lb 12.972 oz BMI 38.9 BP 126/69 Blood Pressure Location Rt brachial Position Sitting Pulse 94 Intake Visit Reasons: 1 month follow up Intake Note: Jarrod presents in the office today in 1 month follow up of abdominal pain. CC: He states that he was seen in the ER on 10/11 with c/o LUQ and L flank pain with nausea and diarrhea for about 3 days. He was told that it was gastritis. Patient states that he was consuming gluten inadvertently and believes this caused his symptoms. He is now doing better but continues having bilateral upper abdominal pain, mild nausea and gas. He was constipated last week but states he is now having normal BMs. 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 Had one diet indescretion with a cookie no immediate problems. Had been gluten free. Although he was resistant to this idea at 1st he is now understanding that it is very important to his overall health and to controlling his symptoms. Having stress test and echocardiogram early this month, severe heart disease not suspected per cardiology. Still I think it will be best to wait until after these results to get back together and discuss whether we want to go forward with the upper endoscopy. He understands and is agreeable to this. I had accidentally put this in his a colonoscopy when in fact it needs to be an upper endoscopy to biopsy for long-term celiac damage. Initially I think I was thinking it would be diagnostic for diarrhea but since this has ceased by avoiding gluten and we have had confirmatory blood studies I do not think this is important at this time. ROV after 09/17 then will know cardiac status, and I sent scheduling note for EGD today. Orders: Orders EGD with Forrest - G I Use Only Today K21.9 - Gastro-eso phageal reflux dis ease without esoph agitis, K90.0 - Ce liac disease, R10. 9 - Unspecified ab dominal pain : BARIUM SWALLOW SCHEDULED FOR 08/28/2023 COLONOSCOPY Scheduled for 11/25/2023 BIOPSY CORRESPONDENCE On 10/13/23 @ 14:34 NidaNovember Wrote To Nida I will send sucralfate thats about all that can be done for gastritis. On 10/13/23 @ 11:46 Jo Ann Dick Wrote To Nida patient seen in our ED yest. patients notes in chart. patient called and left message informing us ED visit and that he was dx with Gastritis. patient states what he was given for pain is not touching it and he doesn't know what to do. TODAY'S VISIT He was in [place] with the family and he started loomis ving pain in the LUQ and he presented to the ER and was told he had gastritis. BUT he accidentally ingested some gluten a few times and this is the likely reason. He has been having more shortness of breath and when he lays flat at night he has a gurgling sensation in his chest. At times he will cough up some phlegm. Has an albuterol inhaler which helps but he was fearful to use it every day because ?steroids are not good. ? I educate him that albuterol is not a steroid inhaler so he can use it without that concern. However it has a little bit worrying that he has an inhaler without an official diagnosis so I think referring him to pulmonology would be prudent. I will also get a chest x-ray just to see if there is any subclinical pneumonia etc.. The endoscopy scheduled in November he already has an appointment set up with me on December 10. I will send him out to get time for that appointment and to see about getting the barium swallow rescheduled which he was unaware had been set up in August. [facility] Medical History Kidney stone Hypertension Surgical History S/P appendectomy Family History Mother Cancer Social History Housing: House Alcohol intake: never Patient Tobacco Use Status: Never used Tobacco e-Cigarette/Vaping Use: Never Used Second Hand Smoke Exposure: No service: No Current occupational status: unemployed Cognitive needs: No Hearing needs: No Vision needs: No Review of Systems Const Denies fatigue, Denies fever(s), Denies night sweats, Denies poor appetite and Denies weight loss ENT Reports Normal hearing present, Denies dental pain, Denies dysphagia, Denies hearing loss, Denies mouth pain, Denies odynophagia, Denies throat swelling, Denies tongue swelling and Reports other (Dentition adequate) Card Reports no additional complaints and Reports dyspnea on exertion Resp Reports cough and Reports dyspnea on exertion GI Details: Reports abdominal pain, Denies melena, Denies bloating, Denies hematochezia, Denies constipation, Denies GI cramping, Denies dysphagia, Denies excessive flatus, Denies early satiety, Denies heartburn, Denies diarrhea, Denies nausea, Denies odynophagia, Denies vomiting and Denies hematemesis Skin/Breast Denies pruritus, Denies lesions, Denies rash and Denies jaundice Neuro Reports Normal hearing present and Denies Abnormal speech present Endo Denies fatigue Aller/Immun Denies throat swelling and Denies tongue swelling Physical Exam Vital Signs: Last Vital Signs Pulse 94 10/27/23 14:41 BP 126/69 10/27/23 14:41 BMI result Body Mass Index 38.9 Const General: cooperative, no acute distress, well developed and well groomed Nutritional Appearance: well nourished and obese Orientation/consciousness: oriented to person, oriented to place and oriented to time Limitations: No language barrier HEENT Head: Yes normocephalic and Yes atraumatic Eyes General: appearance normal, both eyes and all related structures Pupils: Equal, round and reactive pupils present Neck Neck: Yes normal visual inspection and Yes no lymphadenopathy Thyroid: Thyroid normal Resp Effort & Inspection: normal respiratory effort and able to speak in complete sentences Auscultation: clear to auscultation bilaterally Cardio Rate: regular rate Rhythm: regular rhythm Heart sounds: Normal, physiologic split S2 sound present Peripheral pulses: radial pulses present and posterior tibial pulses present GI Inspection: No distended, No Abdominal panniculus present and Yes obesity Palpation (GI): Soft to palpation, nontender, no guarding, not rigid and No hepatosplenomegaly present Percussion: Yes normal to percussion Auscultation: normal bowel sounds Rectal Exam - Male: Yes deferred Skin General skin exam: no rashes or lesions noted, turgor normal, skin not dry, no jaundice, No spider nevi and no striae Rashes: no rashes Nails: normal Neuro General: oriented to person, oriented to place and oriented to time Cranial nerves: Yes Equal, round and reactive pupils present and Yes Normal hearing present Speech: No Abnormal speech present Extrem General: Yes normal to inspection, No clubbing, No cyanosis and No edema Psych Appearance: grossly normal and well kempt Mental Status: mental status grossly normal Speech and movement: Normal speech and movement present Affect: normal affect Attitude: cooperative Thought process: Normal thought process present and not confabulating Thought content: Normal thought content present Insight: Fair insight present (Psych) Judgement: Fair judgement present (Psych) Assessment & Plan Assessment & Plan (1) Gastroesophageal reflux disease: Code(s): K21.9 - Gastro-esophageal reflux disease without esophagitis (2) Celiac disease: Code(s): K90.0 - Celiac disease (3) Asthma: Comment: ? he has increased congestion and SOB and uses and albuterol inhaler with no official dx Code(s): J45.909 - Unspecified asthma, uncomplicated Qualifiers: Asthma complication type: uncomplicated Asthma persistence: intermittent Asthma severity: mild Qualified Code(s): J45.20 - Mild intermittent asthma, uncomplicated (4) SOB (shortness of breath): Code(s): R06.02 - Shortness of breath Plan He was in [place] with the family and he started loomis ving pain in the LUQ and he presented to the ER and was told he had gastritis. BUT he accidentally ingested some gluten a few times and this is the likely reason. HE DID FIND THE CARAFATE SOOTHING AND HELPFUL IN HIS RECOVERY. He has been having more shortness of breath and when he lays flat at night he has a gurgling sensation in his chest. At times he will cough up some phlegm. Has an albuterol inhaler which helps but he was fearful to use it every day because ?steroids are not good. ? I educate him that albuterol is not a steroid inhaler so he can use it without that concern. However it has a little bit worrying that he has an inhaler without an official diagnosis so I think referring him to pulmonology would be prudent. I will also get a chest x-ray just to see if there is any subclinical pneumonia etc.. The endoscopy scheduled in November he already has an appointment set up with me on December 10. I will send him out to get time for that appointment and to see about getting the barium swallow rescheduled which he was unaware had been set up in August. Orders: Orders XR chest 2V Today R06.02 - Shortness of breath Referrals Pulmonary Medicine Referral J45.909 - Unspecified asthma, uncomplicated, R06.02 - Shortness of breath Medications: Refilled pantoprazole 40 mg PO DAILY 30 tabs 6RF sucralfate (Carafate) 10 mL PO BID 400 mL 1RF Coding Level of Care Code Est Pt Level 4 (49990) Diagnoses Gastroesophageal reflux disease K21.9 Celiac disease K90.0 Mild intermittent asthma without complication J45.20 Asthma complication type: uncomplicated Asthma persistence: intermittent Asthma severity: mild SOB (shortness of breath) R06.02
[2023-10-27 14:41] VITALS: BP 126/69; PULSE 94; BMI 38.9
== END 2023-10-27 16:19 | disposition home or self-care (01) ==
PROVIDERS: PCP Nurse Practitioner Family; Visit Provider Nurse Practitioner
DX: K21.9 Gastro-esophageal reflux disease without esophagitis (principal); K90.0 Celiac disease; J45.20 Mild intermittent asthma, uncomplicated; R06.02 Shortness of breath
CPT/HCPCS: 99214

== ENCOUNTER 2023-11-18 13:24 | Outpatient (REF) | payer OTHER, SELFPAY ==
[2023-11-18 14:12] LABS: MANUAL DIFF FLAG NO
[2023-11-18 14:31] LABS: Basophils Percent Auto 0.5 % (0-2); Eosinophils Absolute Auto 0.1 X10*3/uL (0.0-0.4); Eosinophils Percent Auto 2.4 % (0-4); Hematocrit 42.1 % (42.0-52.0); Imm Gran Abs Auto 0.01 X10*3/uL (0.00-0.03); Imm Gran Pct Auto 0.2 % (0.0-0.4); Lymphocytes Absolute Auto 2.2 X10*3/uL (1.2-4.9); Lymphocytes Percent Auto 37.8 % (20-40); Mean Corpuscular HGB Conc 35.6 g/dl (31.0-36.0); Mean Corpuscular Hemoglobin 29.6 pg (27.0-33.0); Mean Corpuscular Volume 83.2 fL (80.0-98.0); Mean Platelet Volume 10.3 fL (9.4-12.4); Monocytes Absolute Auto 0.5 X10*3/uL (0.1-1.2); Monocytes Percent Auto 7.9 % (2-11); Neutrophils Percent Auto 51.2 % (45-73); Platelet Count 179 X10*3/uL (160-400); Red Blood Count 5.06 X10*6/uL (4.60-5.80); Red Cell Distribution Width 12.3 % (11.0-16.0); White Blood Count 5.9 X10*3/uL (4.8-10.8)
[2023-11-19 13:48] LABS: Class Alternaria alternata 0; Class Aspergillus fumigatus 0; Class Bermuda Grass 2; Class Birch 4; Class Cat Dander 4; Class Cladosporium herbarum 0; Class Cockroach 1; Class Common Ragweed 3; Class Cottonwood 2; Class Derm. pterony 4; Class Dermatophagoides farinae 4; Class Dog Dander 3; Class Elm 2; Class Maple Box Elder 2; Class Mountain Cedar 1; Class Mouse Urine Protein 1; Class Mugwort 1; Class Oak 3; Class Penicillium crysogenum 0; Class Rough Pigweed 1; Class Sheep Sorrel 1; Class Sycamore 1; Class Timothy Grass 2; Class Walnut Tree 2; Class White Ash 2; Class White Mulberry 0/1; E072-IgE Mouse Urine 0.49 kU/L; G002 IgE Bermuda Grass 0.92 kU/L; G006 - IgE Timothy Grass 1.66 kU/L; Immunoglobulin E 362 kU/L (<OR=114); M001 IgE Penicillium chrysogen <0.10 kU/L; M002 - IgE Cladosporium herbar <0.10 kU/L; M003 - IgE Aspergillus fumigat <0.10 kU/L; M006 - IgE Alternaria alternat <0.10 kU/L; T001 IgE Maple/Box Elder 2.43 kU/L; T006 - IgE Cedar, Mountain 0.45 kU/L; T007 - IgE Oak, White 8.77 kU/L; T008 IgE Elm, American 1.13 kU/L; T010 - IgE Walnut 1.44 kU/L; T011 - IgE Maple Leaf Sycamore 0.67 kU/L; T014 - IgE Cottonwood 1.24 kU/L; T015 - IgE Ash, White 0.82 kU/L; T070 - IgE White Mulberry 0.23 kU/L; W006 - IgE Mugwort 0.58 kU/L; W014 IgE Pigweed, Common 0.37 kU/L
[2023-11-19 14:37] LABS: IgA 435 mg/dL (47-310); IgG 771 mg/dL (600-1640); IgM 35 mg/dL (50-300)
[2023-11-23 14:43] LABS: Immunoglobulin G Subclass 1 332 mg/dL (382-929); Immunoglobulin G Subclass 2 322 mg/dL (241-700); Immunoglobulin G Subclass 3 39 mg/dL (22-178); Immunoglobulin G Subclass 4 20.5 mg/dL (4-86); Immunoglobulin G Total 675 mg/dL (600-1640)
== END 2023-11-18 13:25 | disposition home or self-care (01) ==
LOC: HO.LAB 13:24
PROVIDERS: PCP Nurse Practitioner Family; Visit Provider Internal Medicine Pulmonary Disease
DX: R06.02 Shortness of breath (principal); J45.20 Mild intermittent asthma, uncomplicated; Z91.09 Other allergy status, other than to drugs and biological substances
CPT/HCPCS: 36415; 82784; 82785; 85025; 86003; 99202

== ENCOUNTER 2023-11-18 13:24 | Outpatient (AMB) | payer OTHER, SELFPAY ==
[2023-11-18 13:36] VITALS: BP 104/62; PULSE 84; O2SAT 97; BMI 39.0
--- NOTE | 2023-11-18 13:36 | MHC.OFFVIS ---
Intake Vital Signs 11/18/23 13:36 Height 6 ft Weight 287 lb 11.252 oz BMI 39.0 BP 104/62 Blood Pressure Location Rt brachial Position Sitting Pulse 84 Pulse Source Doppler Pulse Oximetry (%) 97 Oxygen Delivery Method Room Air Intake Visit Reasons: Shortness of breath Allergies No Known Allergies [No Known Allergies*] Allergy (Verified 11/18/23 13:39) HPI Shortness of breath HPI Details 33-year-old gentleman, nonsmoker, with underlying history of psoriasis, celiac disease, diabetes mellitus now referred for evaluation of episodes of dyspnea on exertion, nonproductive cough, and chest tightness at night. Patient has been tried on empiric albuterol MDI with no significant response. He does also complain of multiple environmental allergies. Patient states that he has been checked for sleep apnea several years prior and now sleep apnea was noted. Patient also had recent normal cardiac workup. Patient denies family history of lung disease. [facility] Medical History Kidney stone Hypertension Surgical History S/P appendectomy Family History Mother Cancer Social History Housing: House Alcohol intake: never Patient Tobacco Use Status: Never used Tobacco e-Cigarette/Vaping Use: Never Used Second Hand Smoke Exposure: No service: No Current occupational status: unemployed Cognitive needs: No Hearing needs: No Vision needs: No Review of Systems Const Denies daytime sleepiness, Denies excessive sweating, Denies fatigue, Denies fever(s), Denies lethargy, Denies malaise, Denies night sweats, Denies snoring and Denies weight loss Eyes Denies blurry vision and Denies itchy eyes ENT Denies nasal congestion, Denies post nasal drip, Denies sinus pain, Denies sinus pressure and Denies other ( Thrush) Card Denies chest pain, Denies pedal edema, Denies dyspnea, Reports dyspnea on exertion, Denies orthopnea and Denies paroxysmal nocturnal dyspnea Resp Denies cough, Denies hemoptysis, Denies excessive phlegm production, Denies dyspnea, Reports dyspnea on exertion, Denies snoring and Denies wheezing GI Denies abdominal pain and Denies heartburn Musc Denies myalgias, Denies arthralgias and Denies joint swelling Skin/Breast Reports rash (Psoriatic plaques) Neuro Denies memory loss and Denies seizure-like activity Psych Denies abnormal sleep pattern, Denies anxiety and Denies memory loss Endo Denies excessive sweating, Denies fatigue and Denies heat intolerance Pedro Luis/Lymph Denies easy bruising Aller/Immun Denies itchy eyes, Denies seasonal rhinorrhea and Denies wheezing Physical Exam Vital Signs: Last Vital Signs Pulse 84 11/18/23 13:36 BP 104/62 11/18/23 13:36 Pulse Ox 97 11/18/23 13:36 Oxygen Delivery Method Room Air 11/18/23 13:36 BMI result Body Mass Index 39.0 Const General: no acute distress and alert Nutritional Appearance: obese Orientation/consciousness: Other orientation findings ( oriented) HEENT Head: Yes atraumatic Eyes General: appearance normal, both eyes and all related structures Sclerae: sclerae normal EOM: EOMs intact bilaterally Neck Neck: Yes supple Lymphatic: no lymphadenopathy noted Resp Effort & Inspection: normal respiratory effort and no use of accessory muscles Auscultation: clear to auscultation bilaterally Cardio Rate: regular rate Rhythm: regular rhythm Heart sounds: no gallops, no murmurs and no rubs Skin General skin exam: other ( warm, psoriatic plaques) Extrem General: No clubbing, No cyanosis and No edema Assessment & Plan Assessment & Plan (1) SOB (shortness of breath): Code(s): R06.02 - Shortness of breath Plan: Unclear etiology, likely multifactorial. Will obtain pulmonary function test for further evaluation. (2) Environmental allergies: Code(s): Z91.09 - Other allergy status, other than to drugs and biological substances Plan: Will obtain myoglobin levels, RAST, and CBC for further evaluation. (3) Asthma: Code(s): J45.909 - Unspecified asthma, uncomplicated Qualifiers: Asthma severity: mild Asthma persistence: intermittent Asthma complication type: uncomplicated Qualified Code(s): J45.20 - Mild intermittent asthma, uncomplicated Plan: Will start on empiric Breo and await results of pulmonary function testing. Orders: Orders PFT pulmonary function test Today J45.20 - Mild intermittent asthma, uncomplicated Resp Allergy Profile Region I Today J45.20 - Mild intermittent asthma, uncomplicated Complete Blood Count Auto Diff Today J45.20 - Mild intermittent asthma, uncomplicated Immunoglobulins,IgG IgA IgM Today J45.20 - Mild intermittent asthma, uncomplicated Immunoglobulin G Subclasses Today J45.20 - Mild intermittent asthma, uncomplicated Medications: New fluticasone furoate-vilanterol 200-25 mcg/dose (Breo Ellipta) 1 inh inhalation DAILY 1 ea 6RF 30 days J45.20 - Mild intermittent asthma, uncomplicated Coding Level of Care Code New Pt Level 4 (93999) Diagnoses SOB (shortness of breath) R06.02 Environmental allergies Z91.09 Mild intermittent asthma without complication J45.20 Asthma severity: mild Asthma persistence: intermittent Asthma complication type: uncomplicated
== END 2023-11-18 13:58 | disposition home or self-care (01) ==
PROVIDERS: PCP Nurse Practitioner Family; Visit Provider Internal Medicine Pulmonary Disease
DX: R06.02 Shortness of breath (principal); Z91.09 Other allergy status, other than to drugs and biological substances; J45.20 Mild intermittent asthma, uncomplicated
CPT/HCPCS: 99204

== ENCOUNTER 2023-12-02 08:36 | Outpatient (REF) | payer OTHER, SELFPAY ==
[2023-12-02 10:25] LABS: MANUAL DIFF FLAG NO
[2023-12-02 10:38] LABS: Basophils Percent Auto 0.6 % (0-2); Eosinophils Absolute Auto 0.1 X10*3/uL (0.0-0.4); Eosinophils Percent Auto 2.1 % (0-4); Hemoglobin 14.7 g/dl (14.0-18.0); Imm Gran Abs Auto 0.01 X10*3/uL (0.00-0.03); Imm Gran Pct Auto 0.2 % (0.0-0.4); Lymphocytes Absolute Auto 1.6 X10*3/uL (1.2-4.9); Lymphocytes Percent Auto 33.9 % (20-40); Mean Corpuscular Hemoglobin 29.6 pg (27.0-33.0); Mean Corpuscular Volume 84.5 fL (80.0-98.0); Mean Platelet Volume 10.7 fL (9.4-12.4); Monocytes Absolute Auto 0.4 X10*3/uL (0.1-1.2); Neutrophils Absolute Auto 2.6 x10*3/uL (2.0-8.3); Neutrophils Percent Auto 54.2 % (45-73); Platelet Count 177 X10*3/uL (160-400); Red Blood Count 4.97 X10*6/uL (4.60-5.80); Red Cell Distribution Width 12.5 % (11.0-16.0); White Blood Count 4.8 X10*3/uL (4.8-10.8)
[2023-12-02 10:59] LABS: Alanine Aminotransferase 18 U/L (0-40); Albumin Level 4.3 g/dL (3.5-5.0); Alkaline Phosphatase 55 U/L (39-117); Anion Gap 11 (12-20); Aspartate Amino Transferase 19 U/L (5-37); Bilirubin Direct 0.3 mg/dL (0.0-0.5); Bilirubin Total 0.9 mg/dL (0.0-1.0); Blood Urea Nitrogen 15 mg/dL (9-16); Calcium 9.3 mg/dL (8.4-10.2); Carbon Dioxide 23 mmol/L (22-29); Chloride 107 mmol/L (96-108); Estimated Glomerular Filt Rate > 60; Glucose Random 98 mg/dL (60-115); Potassium 3.9 mmol/L (3.3-5.1); Sodium 137 mmol/L (135-145); Total Protein 7.2 g/dL (6.5-8.0)
[2023-12-02 11:17] LABS: HBS Num1 16.74 mIU/mL (0-7.99); HBc Num1 0.13 S/CO (0.00-0.79); HBsAGNum1 0.36 S/CO (0.00-0.99); Hepatitis B Core Antibody Nonreactive (Nonreactive); Hepatitis B Surface Antigen Negative (Negative); ~Hepatitis B Surface Antibody REACTIVE (Nonreactive); ~Hepatitis C Antibody Nonreactive (Nonreactive)
[2023-12-05 09:59] LABS: TS Negative Control Passed; TS Panel A 0; TS Panel B 0; TS Positive Control Passed; TSpotTB Negative (Negative)
== END 2023-12-02 08:37 | disposition home or self-care (01) ==
LOC: HO.HMGCLDS 08:36
PROVIDERS: PCP Nurse Practitioner Family; Visit Provider Physician Assistant Medical
DX: Z11.1 Encounter for screening for respiratory tuberculosis (principal); L40.0 Psoriasis vulgaris
CPT/HCPCS: 36415; 80048; 80076; 85025; 86481; 86704; 86706; 86803; 87340

== ENCOUNTER 2023-12-02 10:01 | Outpatient (AMB) | payer OTHER, SELFPAY ==
[2023-12-02 10:09] VITALS: BP 140/80; PULSE 73; BMI 37.9
--- NOTE | 2023-12-02 10:09 | MHC.OFFVIS ---
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 Accompanied by: Self / Same As Patient Allergies No Known Allergies [No Known Allergies*] Allergy (Verified 11/18/23 13:39) Medication List - Last Reconciled 12/02/23 by Wiliam Holliday MD albuterol sulfate 90 mcg/actuation 2 puffs inhalation Q6H PRN amlodipine 10 mg PO DAILY clobetasol 0.05% 1 appl topical BID 2 weeks famotidine 40 mg PO DAILY fluticasone furoate-vilanterol 200-25 mcg/dose (Breo Ellipta) 1 inh inhalation DAILY 30 days lisinopril 5 mg PO DAILY lorazepam 0.5 mg PO BID PRN morphine 15 mg PO Q6H PRN multivitamin 1 tab PO DAILY omega-3 fatty acids-fish oil 360-1,200 mg (Fish Oil) 1 cap PO BID ondansetron 4 mg PO Q8H PRN pantoprazole 40 mg PO DAILY rosuvastatin (Crestor) 5 mg PO DAILY 90 days sucralfate (Carafate) 10 mL PO BID HPI Comments Details: 33-year-old gentleman here for chest discomfort and shortness of breath. Has background history of hypertension has been hypertensive for last 10 years. He has been on medication with good blood pressure control. He was also told at that time that he may have hypertrophic cardiomyopathy but has not followed up with anyone. He also had diabetes which was managed with the exercise and weight loss and last hemoglobin A1c was 5.4. He is on Crestor and fish oil currently for elevated cholesterol. He has been experiencing shortness of breath and chest tightness for 2 months. He said he was doing 8 miles hikes before that and did not have any issues. Now he is getting out of breath with activities he went inside his house. He has some anxiety and also has been on as-needed lorazepam. No history of asthma reported by him although he has an albuterol inhaler as needed in his med list. He is saying that he gets left-sided chest tightness and sometimes sharp sensation in the chest going into the left arm. He also gets out of breath when he gets these symptoms. 12/02/2023: He returns for follow-up. He had echocardiography done which was essentially normal. He was able to exercise to 10.1 metabolic equivalents and had maximum blood pressure of 200/58. No chest discomfort but had [id number] dyspnea. No ischemic EKG changes were noted. On follow-up he is complaining of chest pains off and on which is a pressure-like feeling on the left side of the chest along with some indigestion like feeling. He does have known history of reflux and has been using pantoprazole and famotidine and follows with GI. His blood pressure is elevated. He also has mild asthma diagnosed and has been following with pulmonology. He is saying he snores at night sometimes and has daytime sleepiness/fatigue. He had a sleep study many years ago. He is denying history of anxiety. [facility] Medical History (Updated 11/20/23 @ 13:51 by Luciana Charlton RN) Palpitations Diabetes Asthma Anxiety Kidney stone Hypertension Surgical History S/P appendectomy Family History Mother Cancer Social History Housing: House Alcohol intake: never Patient Tobacco Use Status: Never used Tobacco e-Cigarette/Vaping Use: Never Used Second Hand Smoke Exposure: No service: No Current occupational status: unemployed Cognitive needs: No Hearing needs: No Vision needs: No Review of Systems Const Denies chills, Reports fatigue, Denies fever(s), Denies frequent falls, Denies weakness, Denies weight gain and Denies weight loss ENT Denies dizziness Card Reports chest pain, Denies leg edema, Reports lightheadedness, Reports palpitations, Reports dyspnea and Reports dyspnea on exertion Resp Denies cough, Reports dyspnea and Reports dyspnea on exertion GI Denies hematochezia Musc Denies abnormal gait, Denies muscle weakness, Denies numbness, Denies radiating pain into limb and Denies tingling Neuro Denies abnormal gait, Denies dizziness, Denies frequent falls, Denies numbness, Denies tingling and Denies weakness Endo Reports fatigue and Reports palpitations Physical Exam Vital Signs: Last Vital Signs Pulse 73 12/02/23 10:09 BP 140/80 H 12/02/23 10:09 BMI result Body Mass Index 37.9 GENERAL APPEARANCE: in no acute distress, pleasant. NECK: no carotid bruit, no jugular venous distention. SKIN: no suspicious lesions, warm and dry. HEART: no murmurs, regular rate and rhythm. LUNGS: clear to auscultation bilaterally. ABDOMEN: soft, nontender. EXTREMITIES: no edema. PERIPHERAL PULSES: equal. NEUROLOGIC: No gross deficits, AAO X 3 Office Procedures EKG Details: Sinus rhythm 73 beats per minute, normal axis, nonspecific T-wave changes, QTC 396 milliseconds. [id number], Complete Assessment & Plan Assessment & Plan (1) SOB (shortness of breath): Code(s): R06.02 - Shortness of breath Category: Medical (2) Chest pain: Code(s): R07.9 - Chest pain, unspecified Category: Medical (3) Hypertension: Code(s): I10 - Essential (primary) hypertension Category: Medical Plan [age] year gentleman who is here for follow-up. He has few complaints on follow-up. Chest pain is noncardiac in origin. Stress test did not show any ischemic EKG changes and he did not develop any chest discomfort. He did have hypertensive response to exercise. I have advised him to increase the lisinopril to 10 mg daily. Will continue the amlodipine 10 mg as before. I think his chest discomfort is likely due to underlying acid reflux. He is following with GI. Other possibility can be exercise induced asthma and he is seeing pulmonology. Currently have reassured him that there is alternative explanation for his symptoms. We will see him back in couple of months to follow-up on the blood pressure. I have advised him that he should get a sleep study. He will discuss this with this with his PCP. Thank you for allowing me to participate in the care of your patient. Please feel free to contact me if you have any questions. Medications: New miscellaneous medical supply (Blood Pressure Cuff) As directed 1 ea 0RF I10 - Essential (primary) hypertension lisinopril 10 mg PO DAILY 90 tabs 3RF I10 - Essential (primary) hypertension Discontinued lisinopril Discontinued Reason: None 5 mg PO DAILY 90 tabs 1RF I10 - Essential (primary) hypertension Coding Level of Care Code Est Pt Level 5 (54270) Diagnoses SOB (shortness of breath) R06.02 Chest pain R07.9 Hypertension I10 CPT Codes EKG - CPT: 30789-[id number], Complete ([id number])
== END 2023-12-02 10:51 | disposition home or self-care (01) ==
PROVIDERS: PCP Nurse Practitioner Family; Visit Provider Internal Medicine Cardiovascular Disease
DX: R06.02 Shortness of breath (principal); R07.9 Chest pain, unspecified; I10 Essential (primary) hypertension
CPT/HCPCS: 93010; 99214

== ENCOUNTER 2023-12-02 13:48 | Outpatient (REF) | payer OTHER, SELFPAY ==
--- NOTE | 2023-12-02 14:00 | PFT_ITS ---
Indication: Dyspnea Spirometry [FEV1 to FVC 82%; FEV1 4.89 L; FVC 5.98 L. no significant response to the bronchodilators noted. Maximum voluntary ventilation 87% predicted] Lung Volumes [Total lung capacity 96% predicted] Diffusion Capacity [DLCO 109% predicted] Comparisons [None] Interpretation [No obstructive nor restrictive ventilatory defects identified. No significant response to bronchodilators noted. Normal maximum voluntary ventilation. Lung volumes are normal. Diffusing capacity also within normal limits. Clinical correlation warranted.] MTDD
[2023-12-04 09:07] VITALS: PULSE 86; RESP 16; O2SAT 98
== END 2023-12-02 13:49 | disposition home or self-care (01) ==
LOC: HO.RESP 13:48
PROVIDERS: PCP Nurse Practitioner Family; Visit Provider Internal Medicine Pulmonary Disease
DX: J45.20 Mild intermittent asthma, uncomplicated (principal); R20.0 Anesthesia of skin; M79.604 Pain in right leg; M79.605 Pain in left leg
CPT/HCPCS: 93005; 94010; 94640; 94727; 94729; 95886; 95910; 99212

== ENCOUNTER → 2023-12-02 15:00 | Outpatient (BNV) | payer OTHER, SELFPAY | PROVIDERS: PCP Nurse Practitioner Family; Visit Provider Physical Medicine & Rehabilitation | DX: M79.604 Pain in right leg (principal); M79.605 Pain in left leg; G57.91 Unspecified mononeuropathy of right lower limb | CPT/HCPCS: 95886; 95910 ==

== ENCOUNTER 2023-12-16 13:25 | Outpatient (AMB) | payer OTHER, SELFPAY ==
[2023-12-16 13:31] VITALS: BP 130/72; PULSE 78; O2SAT 96; BMI 36.2
--- NOTE | 2023-12-16 13:31 | MHC.OFFVIS ---
Vital Signs 12/16/23 13:31 Height 6 ft Weight 266 lb 12.149 oz BMI 36.2 BP 130/72 Blood Pressure Location Rt brachial Position Sitting Pulse 78 Pulse Source Doppler Pulse Oximetry (%) 96 Oxygen Delivery Method Room Air Intake Visit Reasons: Shortness of breath Allergies No Known Allergies [No Known Allergies*] Allergy (Verified 11/18/23 13:39) HPI HPI Shortness of breath: Details: 33-year-old gentleman, nonsmoker, with underlying history of psoriasis, celiac disease, diabetes mellitus now referred for evaluation of episodes of dyspnea on exertion, nonproductive cough, and chest tightness at night. Patient has been tried on empiric albuterol MDI with no significant response. He does also complain of multiple environmental allergies. Patient states that he has been checked for sleep apnea several years prior and no sleep apnea was noted. Patient also had recent normal cardiac workup. Patient denies family history of lung disease. After the last office visit patient was tried on Breo with some, but insufficient appointment to his symptoms. He has completed his pulmonary function test and immunologic testing. He denies any recent exacerbations. [facility] Medical History (Updated 12/16/23 @ 14:23 by Curly Zamora MD) Palpitations Diabetes Asthma Anxiety Kidney stone Hypertension Surgical History S/P appendectomy Family History Mother Cancer Social History Housing: House Alcohol intake: never Patient Tobacco Use Status: Never used Tobacco e-Cigarette/Vaping Use: Never Used Second Hand Smoke Exposure: No service: No Current occupational status: unemployed Cognitive needs: No Hearing needs: No Vision needs: No Review of Systems Const Denies daytime sleepiness, Denies excessive sweating, Denies fatigue, Denies fever(s), Denies lethargy, Denies malaise, Denies night sweats, Denies snoring and Denies weight loss Eyes Denies blurry vision and Denies itchy eyes ENT Denies nasal congestion, Denies post nasal drip, Denies sinus pain, Denies sinus pressure and Denies other ( Thrush) Card Denies chest pain, Denies pedal edema, Reports dyspnea, Reports orthopnea and Denies paroxysmal nocturnal dyspnea Resp Denies cough, Denies hemoptysis, Denies excessive phlegm production, Reports dyspnea, Denies snoring and Denies wheezing GI Denies abdominal pain and Denies heartburn Musc Denies myalgias, Denies arthralgias and Denies joint swelling Skin/Breast Denies rash Neuro Denies memory loss and Denies seizure-like activity Psych Denies abnormal sleep pattern, Denies anxiety and Denies memory loss Endo Denies excessive sweating, Denies fatigue and Denies heat intolerance Pedro Luis/Lymph Denies easy bruising Aller/Immun Denies itchy eyes, Denies seasonal rhinorrhea and Denies wheezing Physical Exam Vital Signs: Last Vital Signs Pulse 78 12/16/23 13:31 BP 130/72 12/16/23 13:31 Pulse Ox 96 12/16/23 13:31 Oxygen Delivery Method Room Air 12/16/23 13:31 BMI result Body Mass Index 36.2 Const General: no acute distress and alert Nutritional Appearance: obese Orientation/consciousness: Other orientation findings ( oriented) HEENT Head: Yes atraumatic Eyes General: appearance normal, both eyes and all related structures Sclerae: sclerae normal EOM: EOMs intact bilaterally Neck Neck: Yes supple Lymphatic: no lymphadenopathy noted Resp Effort & Inspection: normal respiratory effort and no use of accessory muscles Auscultation: clear to auscultation bilaterally Cardio Rate: regular rate Rhythm: regular rhythm Heart sounds: no gallops, no murmurs and no rubs Skin General skin exam: other ( warm) Extrem General: No clubbing, No cyanosis and No edema Assessment & Plan Assessment & Plan (1) Severe persistent asthma: Code(s): J45.50 - Severe persistent asthma, uncomplicated Category: Medical Plan: Suboptimally controlled on Breo and albuterol MDI. Expect to improve on Xolair. (2) Environmental allergies: Code(s): Z91.09 - Other allergy status, other than to drugs and biological substances Category: Medical Plan: Results for immunologic testing reviewed, has significant allergic component. Expect to improve on Xolair. Coding Level of Care Code Est Pt Level 4 (96295) Diagnoses Severe persistent asthma J45.50 Environmental allergies Z91.09
== END 2023-12-16 13:50 | disposition home or self-care (01) ==
PROVIDERS: PCP Nurse Practitioner Family; Visit Provider Internal Medicine Pulmonary Disease
DX: J45.50 Severe persistent asthma, uncomplicated (principal); Z91.09 Other allergy status, other than to drugs and biological substances
CPT/HCPCS: 99214

== ENCOUNTER → 2023-12-16 13:25 | Outpatient (BNVA) | payer OTHER, SELFPAY | PROVIDERS: PCP Nurse Practitioner Family; Visit Provider Internal Medicine Pulmonary Disease | DX: J45.50 Severe persistent asthma, uncomplicated (principal); Z91.09 Other allergy status, other than to drugs and biological substances | CPT/HCPCS: 99212 ==

== ENCOUNTER 2023-12-21 12:35 | Outpatient (AMB) | payer OTHER, SELFPAY ==
--- NOTE | 2023-12-21 13:13 | A.OFFPC_ITS ---
Vital Signs 12/21/23 13:18 BP 122/80 Blood Pressure Location Rt brachial Position Sitting Pulse 76 Pulse Source Pulse Oximeter Pulse Oximetry (%) 98 Oxygen Delivery Method Room Air Intake Visit Reasons: 4 Month follow up Intake Note: Patient here for anxiety f/u Allergies No Known Allergies [No Known Allergies*] Allergy (Verified 12/21/23 14:47) Medication List - Last Reconciled 12/21/23 by CLAIR Acosta albuterol sulfate 90 mcg/actuation 2 puffs inhalation Q6H PRN amlodipine 10 mg PO DAILY cetirizine 20 mg PO DAILY PRN clobetasol 0.05% 1 appl topical BID 2 weeks famotidine 40 mg PO BEDTIME fluticasone furoate-vilanterol 200-25 mcg/dose (Breo Ellipta) 1 inh inhalation DAILY 30 days lisinopril 10 mg PO DAILY lorazepam 0.5 mg PO BID PRN miscellaneous medical supply (Blood Pressure Cuff) As directed multivitamin 1 tab PO DAILY omega-3 fatty acids-fish oil 360-1,200 mg (Fish Oil) 1 cap PO BID omeprazole 40 mg PO DAILY ondansetron 4 mg PO Q8H PRN rosuvastatin (Crestor) 5 mg PO DAILY 90 days sucralfate (Carafate) 10 mL PO BID Tobacco use date assessed: 08/13/23 Dental Screening Dental Screen Date: 08/13/23 HPI 4 Month follow up HPI Details Pt is a diabetic, on an LOCO and a statin. A1C in office today is 5.0. Due for microalbumin. Denies polyuria, polydipsia, and neuropathy. Pt denies any signs and symptoms of hypoglycemia and does know how to correct it. Pt reports that his blood sugar has been in the 70s-90s. Pt recently started a carnivore diet. Pt will schedule his own eye exam. [facility] Medical History Palpitations Diabetes Asthma Anxiety Kidney stone Hypertension Surgical History S/P appendectomy Family History Mother Cancer Social History Housing: House Alcohol intake: never Patient Tobacco Use Status: Never used Tobacco e-Cigarette/Vaping Use: Never Used Second Hand Smoke Exposure: No service: No Current occupational status: unemployed Cognitive needs: No Hearing needs: No Vision needs: No Questionnaire Thrive Questionnaire Date Thrive assessed: 09/03/22 JOE-7 AMB Questionnaire JOE-7 Date JOE - 7 assessed: 08/13/23 Source: Developed by Drs. Star Parr, Zeynep Galarza, Yaakov Rai and colleagues, with an educational marii from [employer]. Review of Systems Const Reports as per HPI Physical exam (Primary Care) Vital Signs: Last Vital Signs Pulse 76 12/21/23 13:18 BP 122/80 12/21/23 13:18 Pulse Ox 98 12/21/23 13:18 Oxygen Delivery Method Room Air 12/21/23 13:18 Tobacco/Smoking Status: Tobacco use Status Tobacco use date assessed 08/13/23 12/21/23 13:14 Patient Tobacco Use Status Never used Tobacco 12/21/23 13:14 e-Cigarette/Vaping Use Never Used 12/21/23 13:14 Thrive Assessment: Date of Thrive Assessment Date Thrive assessed 09/03/22 12/21/23 13:14 Const General: cooperative Orientation/consciousness: patient oriented x3 Resp Effort & Inspection: normal respiratory effort Auscultation: clear to auscultation bilaterally Cardio Rate: regular rate Rhythm: regular rhythm Heart sounds: S1 normal heart sound present and S2 normal heart sound present Neuro General: patient oriented x3 Extrem Other: bilat feet: + sensation with use of monofilament, feet intact Psych Appearance: grossly normal Mental Status: mental status grossly normal Speech and movement: Normal speech and movement present Affect: normal affect Attitude: cooperative Thought process: Normal thought process present Thought content: Normal thought content present Insight: Good insight present (Psych) Judgement: Good judgement present (Psych) Results AMB Hemoglobin A1c AMB Hemoglobin A1c 5.0 % Last Edit by HIRAM Jimenez on 12/21/23 13 :39 Results Reviewed Results Reviewed: Laboratory Last Values Hgb A1c (Clinic) 5.0 % (4.0-6.0) 12/21/23 13:37 Assessment and Plan Assessment & Plan (1) Diabetes: Code(s): E11.9 - Type 2 diabetes mellitus without complications Plan The patient agreed to the use of a caregivers non medical for this encounter. Scribed for CLAIR Denise by Daphne Charles caregivers non medical, on 12/21/2023 at 13:40 EST. Orders: Orders Comprehensive [place]. Panel Fast Today E11.9 - Type 2 diabetes mellitus without complications Microalbumin, Random (w Creat) Today E11.9 - Type 2 diabetes mellitus without complications AMB Hemoglobin A1c Today Z13.9 - Encounter for screening, unspecified Complete Blood Count Auto Diff Today E11.9 - Type 2 diabetes mellitus without complications TSH reflex Free T4 Today E11.9 - Type 2 diabetes mellitus without complications UA CC w/rflx Micro + Cult Today E11.9 - Type 2 diabetes mellitus without complications Lipid Panel Today E11.9 - Type 2 diabetes mellitus without complications Coding Level of Care Code Est Pt Level 3 (55345) Diagnoses Diabetes E11.9
[2023-12-21 13:18] VITALS: BP 122/80; PULSE 76; O2SAT 98
== END 2023-12-21 13:48 | disposition home or self-care (01) ==
PROVIDERS: PCP Nurse Practitioner Family; Visit Provider Nurse Practitioner Family
DX: E11.9 Type 2 diabetes mellitus without complications (principal)
CPT/HCPCS: 83036; 99213

== ENCOUNTER 2024-01-11 07:39 | Outpatient (REF) | payer OTHER, SELFPAY ==
[2024-01-11 07:49] LABS: MANUAL DIFF FLAG NO
[2024-01-11 08:39] LABS: Basophils Percent Auto 0.8 % (0-2); Eosinophils Absolute Auto 0.2 X10*3/uL (0.0-0.4); Eosinophils Percent Auto 4.9 % (0-4); Hematocrit 43.6 % (42.0-52.0); Hemoglobin 14.8 g/dl (14.0-18.0); Imm Gran Abs Auto 0.01 X10*3/uL (0.00-0.03); Imm Gran Pct Auto 0.2 % (0.0-0.4); Lymphocytes Absolute Auto 1.6 X10*3/uL (1.2-4.9); Lymphocytes Percent Auto 33.3 % (20-40); Mean Corpuscular HGB Conc 33.9 g/dl (31.0-36.0); Mean Corpuscular Hemoglobin 29.1 pg (27.0-33.0); Mean Corpuscular Volume 85.8 fL (80.0-98.0); Mean Platelet Volume 11.1 fL (9.4-12.4); Monocytes Absolute Auto 0.6 X10*3/uL (0.1-1.2); Monocytes Percent Auto 11.8 % (2-11); Neutrophils Absolute Auto 2.3 x10*3/uL (2.0-8.3); Platelet Count 160 X10*3/uL (160-400); Red Blood Count 5.08 X10*6/uL (4.60-5.80); Red Cell Distribution Width 12.7 % (11.0-16.0); White Blood Count 4.7 X10*3/uL (4.8-10.8)
[2024-01-11 08:43] LABS: Appearance Urine Clear; Color Urine Yellow; Glucose Urine UA Negative (Negative); Leukocyte Esterase Urine Negative (Negative); Nitrite Urine Negative (Negative); PH 6.5 (5.0-9.0); Specific Gravity - Urine 1.025 (1.005-1.025); Urine Blood Negative (Negative); Urine Ketones Trace mg/dL (Negative); Urine Protein Negative (Neg-Trace)
[2024-01-11 09:38] LABS: Alanine Aminotransferase 19 U/L (0-40); Albumin Level 4.3 g/dL (3.5-5.0); Alkaline Phosphatase 65 U/L (39-117); Anion Gap 15 (12-20); Aspartate Amino Transferase 17 U/L (5-37); Bilirubin Total 0.6 mg/dL (0.0-1.0); Blood Urea Nitrogen 18 mg/dL (9-16); Calcium 9.4 mg/dL (8.4-10.2); Carbon Dioxide 23 mmol/L (22-29); Chloride 108 mmol/L (96-108); Cholesterol 121 mg/dL (<200); Estimated Glomerular Filt Rate > 60; Glucose Fasting 102 mg/dL (60-99); HDL Cholesterol 30 mg/dL (>40); LDL Cholesterol Calculated 73 mg/dL (<100); Potassium 3.9 mmol/L (3.3-5.1); Sodium 142 mmol/L (135-145); Total Protein 6.8 g/dL (6.5-8.0); Triglycerides 93 mg/dL (<150)
[2024-01-11 09:45] LABS: Creatinine Urine 204.39 mg/dL; Microalbum/Creatinine Ratio Ur 5.3 ug/mg cr (<30)
[2024-01-11 09:56] LABS: TSH reflex Free T4 1.79 uIU/mL (0.32-4.0)
== END 2024-01-11 07:40 | disposition home or self-care (01) ==
LOC: HO.LAB 07:39
PROVIDERS: PCP Nurse Practitioner Family; Visit Provider Nurse Practitioner Family
DX: E11.9 Type 2 diabetes mellitus without complications (principal)
CPT/HCPCS: 36415; 80053; 80061; 81003; 82043; 82570; 84443; 85025

== ENCOUNTER 2024-01-13 06:39 | Emergency (ER) | payer OTHER, SELFPAY ==
[2024-01-13 06:59] VITALS: BP 107/64; BP 150/90; PULSE 79; PULSE 80; RESP 18; TEMP 36.9; O2SAT 94; O2SAT 96; BMI 35.0
--- NOTE | 2024-01-13 07:03 | ED_ITS ---
HPI - Abdominal Pain General Chief Complaint: Abdominal Pain Stated Complaint: ABD PAIN PER EMS Time Seen by Provider: 01/13/24 07:02 Source: patient, EMS, RN notes reviewed and old records reviewed Mode of arrival: EMS Limitations: no limitations History of Present Illness ED Provider: Gaye Morejon PA-C HPI narrative: 33 yo male with PMH of celiac disease compliant with diet, GERD on pepcid and pantoprazole, prior appendectomy here with c/o intermittent severe upper abdominal pain that has been happening on/off for the last 6 months. Patient states he had severe bouts dull and sharp pain in his left upper quadrant that radiates to his right flank. The pain makes him dizzy and double over in pain. He reports intermittent nausea with this. He also has chronic intermittent diarrhea. He states over the last 2 months he has lost about 45 lb. He is now on the carnivore diet. He has not eaten any gluten. He follows with GI here and was also get an endoscopy in November however it was rescheduled. Reports difficulty scheduling appointments due to his work demands. MD elicited complaint: abdominal pain Pertinent past history: other (Celiac) Onset (ago): month(s) Pain Consistency: intermittent Quality: aching Radiation: LUQ Migration to: RUQ Exacerbating factors: nothing Relieving factors: nothing Context: history of similar episodes Associated symptoms: nausea Related Data Home Medications ?Medication ?Instructions ?Recorded ?Confirmed multivitamin 1 tab PO DAILY 06/12/23 12/21/23 omega-3 fatty acids-fish oil 360 1 cap PO BID 06/12/23 12/21/23 mg-1,200 mg capsule (Fish Oil) lorazepam 0.5 mg tablet 0.5 mg PO BID PRN anxiety 11/20/23 12/21/23 cetirizine 10 mg capsule 20 mg PO DAILY PRN 12/21/23 12/21/23 omeprazole 40 mg capsule,delayed 40 mg PO DAILY 12/21/23 12/21/23 release Previous Rx's ?Medication ?Instructions ?Recorded albuterol sulfate 90 mcg/actuation 2 puff inhalation Q6H PRN 08/29/22 aerosol inhaler shortness of breath or wheezing #6.7 grams ondansetron 4 mg disintegrating 4 mg PO Q8H PRN nausea and 10/12/23 tablet vomiting #20 tabs clobetasol 0.05 % scalp solution 1 appl topical BID 2 weeks #50 mL 10/13/23 sucralfate 100 mg/mL oral 10 ml PO BID #400 mL 10/27/23 suspension (Carafate) fluticasone furoate 200 1 inh inhalation DAILY 30 days #1 11/18/23 mcg-vilanterol 25 mcg/dose ea inhalation powder (Breo Ellipta) rosuvastatin 5 mg tablet (Crestor) 5 mg PO DAILY 90 days #90 tabs 11/19/23 amlodipine 10 mg tablet 10 mg PO DAILY #90 tabs 11/29/23 lisinopril 10 mg tablet 10 mg PO DAILY #90 tabs 12/02/23 miscellaneous medical supply #1 ea 12/02/23 (Blood Pressure Cuff) famotidine 40 mg tablet 40 mg PO BEDTIME #90 tabs 12/07/23 dicyclomine 10 mg capsule 10 mg PO TID PRN abdominal pain 01/13/24 #20 caps Allergies Allergy/AdvReac Type Severity Reaction Status Date / Time No Known Allergies Allergy Verified 01/13/24 07:05 [No Known Allergies*] Review of Systems Review of Systems Yes all other systems are reviewed and are negative [facility] Past Medical History Attestation statement: The following information was validated with the patient. Source: old records reviewed Medical History Palpitations Diabetes Asthma Anxiety Kidney stone Hypertension Surgical History S/P appendectomy Family History Family History Mother Cancer Social History Social History Housing: House Alcohol intake: never Patient Tobacco Use Status: Never used Tobacco e-Cigarette/Vaping Use: Never Used Second Hand Smoke Exposure: No service: No Current occupational status: unemployed Cognitive needs: No Hearing needs: No Vision needs: No Physical Exam ED Vital Signs: Vital Signs - 24 hr 01/13/24 06:59 01/13/24 08:08 01/13/24 10:03 Temperature 98.5 F 98.6 F 98.6 F Pulse Rate 80 78 68 Respiratory Rate 18 16 19 Blood Pressure 107/64 112/63 117/77 Pulse Oximetry 96 97 97 Oxygen Delivery Method Room Air Room Air Room Air BMI result Body Mass Index 35.0 Appearance: Alert. Oriented X3. No acute distress. Head: normocephalic, atraumatic. Eyes: Pupils equal, round and reactive to light. ENT: Pharynx normal. No tonsillar swelling or exudate. Neck: Normal inspection. Neck supple. CVS: Normal heart rate and rhythm. Pulses normal. Respiratory: No respiratory distress. Breath sounds normal. Abdomen: Obese, Soft w/ LUQ tenderness, no guarding, no rebound, normal active +BS x4 Skin: Skin warm and dry. Normal skin color. Normal skin turgor. No rashes. Extremities: No lower extremity edema. No joint swelling. Neuro/psych: Oriented X 3. No motor deficit. No sensory deficit. CN II-XII intact. Normal speech and cognition. Medical Decision Making Medical Decision Making [facility] Narrative: 33 yo male with PMH of celiac disease compliant with diet, GERD on pepcid and pantoprazole, prior appendectomy here with c/o intermittent LUQ abd pains for the last several months, worse today. Patient's pain is a 4/10 currently. He has a soft abdomen with mild left upper quadrant tenderness without any rebound or guarding. His bowel sounds are normal. Low clinical suspicion for any sort of obstruction or perforation. His symptoms are chronic in nature. He just had a CT scan done in October that was unremarkable. He was supposed to have an endoscopy and barium swallow but there were scheduling conflicts. While in the ER patient given GI cocktail and bentyl. his pain was waxing and waning but not severe. No indication for repeat CT scan now given chronicity and reassuing abd exam Stable for d/c home with GI follow up Differential Diagnosis Differential Diagnoses: The differential diagnosis associated with the presentation includes gastritis, Celiac disease, GERD, malabsorption, inflammatory bowel disease, irritable bowel disease Lab Data [facility] Lab Attestation statement: I reviewed the patient's lab results. Normal LFTs, normal electrolytes, mild thrombocytopenia and neutropenia 01/13/24 08:03 01/13/24 08:03 Labs: Lab Results 01/13/24 01/13/24 Range/Units 07:48 08:03 WBC 4.5 L (4.8-10.8) X10*3/uL RBC 5.11 (4.60-5.80) X10*6/uL Hgb 15.0 (14.0-18.0) g/dl Hct 43.3 (42.0-52.0) % MCV 84.7 (80.0-98.0) fL MCH 29.4 (27.0-33.0) pg MCHC 34.6 (31.0-36.0) g/dl RDW 12.8 (11.0-16.0) % Plt Count 149 L (160-400) X10*3/uL MPV 10.4 (9.4-12.4) fL Immature Gran % (Auto) 0.2 (0.0-0.4) % Neut % (Auto) 55.2 (45-73) % Lymph % (Auto) 31.3 (20-40) % Allen % (Auto) 10.2 (2-11) % Eos % (Auto) 2.7 (0-4) % Baso % (Auto) 0.4 (0-2) % Lymph # (Auto) 1.4 (1.2-4.9) X10*3/uL Allen # (Auto) 0.5 (0.1-1.2) X10*3/uL Eos # (Auto) 0.1 (0.0-0.4) X10*3/uL Baso # (Auto) 0.0 (0.0-0.2) X10*3/uL Abs Immat Gran (auto) 0.01 (0.00-0.03) X10*3/uL Absolute Neuts (auto) 2.5 (2.0-8.3) x10*3/uL Absolute Nucleated RBC 0.000 (0.0-0.012) X10*3/uL Nucleated RBC % (auto) 0.0 (0.0-0.2) /100WBC Sodium 141 (135-145) mmol/L Potassium 3.9 (3.3-5.1) mmol/L Chloride 109 H (96-108) mmol/L Carbon Dioxide 24 (22-29) mmol/L Anion Gap 12 (12-20) BUN 20 H (9-16) mg/dL Creatinine 0.82 (0.5-1.4) mg/dL Estim Creat Clear Calc 170.9 Estimated GFR > 60 Random Glucose 99 (60-115) mg/dL Calcium 9.4 (8.4-10.2) mg/dL Magnesium 1.9 (1.6-2.6) mg/dL Total Bilirubin 0.7 (0.0-1.0) mg/dL Direct Bilirubin 0.2 (0.0-0.5) mg/dL AST 17 (5-37) U/L ALT 17 (0-40) U/L Alkaline Phosphatase 65 (39-117) U/L Total Protein 7.0 (6.5-8.0) g/dL Albumin 4.2 (3.5-5.0) g/dL Lipase 32 (8-78) U/L Urine Color Yellow Urine Appearance Clear Urine pH 6.0 (5.0-9.0) Ur Specific [place] >= 1.030 H (1.005-1.025) Urine Protein Negative (Neg-Trace) mg/dL Urine Glucose (UA) Negative (Negative) mg/dL Urine Ketones 80 (Negative) mg/dL Urine Blood Negative (Negative) Urine Nitrite Negative (Negative) Ur Leukocyte Esterase Negative (Negative) Independent Historian Clinical information obtained from an independent historian. History obtained from or confirmed by: EMS External Record Review External record reviewed: Outpatient record, Prior outpatient labs and Prior outpatient radiology Tests considered The following testing was considered but not selected: CT scan of the abdomen was considered however recent CT was reviewed and no clinical indication today Prescription Management I considered prescription management with: Pain Medication Chronic Conditions Patient?s care impacted by: Other (Celiac disease) Social Determinants Patient?s care significantly limited by Social Determinants of Health including: Other Social Determinant of Health (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 work 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) Medications Administered Discontinued Medications Generic Name Dose Route Start Last Admin Trade Name Freq PRN Reason Stop Dose Admin Al Hydroxide/Mg Hydroxide 30 ml 01/13/24 07:34 01/13/24 07:50 Magnesium Hydrox/Alum Hydrox 30 Ml Oral.Susp PO 01/13/24 07:35 30 ml ONCE ONE Administration Belladonna Alkaloids/Phenobarbital 10 ml 01/13/24 07:34 01/13/24 07:50 Phenobarb/Hyoscy/Atropine/Scop 10 Ml Elixir PO 01/13/24 07:35 10 ml ONCE ONE Administration Dicyclomine HCl 10 mg 01/13/24 09:25 01/13/24 09:36 Dicyclomine Hcl 10 Mg Capsule PO 01/13/24 09:26 10 mg ONCE ONE Administration Lidocaine HCl 15 ml 01/13/24 07:34 01/13/24 07:50 Lidocaine Hcl Viscous 2 % 15 Ml Solution MUCOUS MEM 01/13/24 07:35 15 ml ONCE ONE Administration Critical Care Time Critical Care Time Critical Care Time: No Discharge Plan Discharge Clinical Impression: Chronic abdominal pain Patient Disposition: Home, Self-Care Instructions: Chronic Abdominal Pain (ED) Additional Instructions: Your lab workup today was unremarkable. Your urine test did not show any evidence of infection. Take the prescribed medication as directed as needed for abdominal pain. 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 Recommend keeping a food diary to see if there any food association with your bouts of pain. If you develop new or worsening symptoms call 911 or come back to the ER for further evaluation. Prescriptions: New dicyclomine 10 mg capsule 10 mg PO TID PRN (Reason: abdominal pain) Qty: 20 0RF No Action rosuvastatin [Crestor] 5 mg tablet 5 mg PO DAILY 90 Days Qty: 90 1RF amlodipine 10 mg tablet 10 mg PO DAILY Qty: 90 1RF famotidine 40 mg tablet 40 mg PO BEDTIME Qty: 90 2RF lorazepam 0.5 mg tablet 0.5 mg PO BID PRN (Reason: anxiety) ondansetron 4 mg tablet,disintegrating 4 mg PO Q8H PRN (Reason: nausea and vomiting) Qty: 20 0RF albuterol sulfate 90 mcg/actuation HFA aerosol inhaler 2 puff inhalation Q6H PRN (Reason: shortness of breath or wheezing) Qty: 6.7 0RF clobetasol 0.05 % solution 1 appl topical BID 14 Days Qty: 50 0RF omeprazole 40 mg capsule,delayed release(DR/EC) 40 mg PO DAILY cetirizine 10 mg capsule 20 mg PO DAILY PRN Rx Instructions: 1 tab am, 1 tab pm sucralfate [Carafate] 100 mg/mL suspension 10 ml PO BID Qty: 400 1RF multivitamin Tablet 1 tab PO DAILY omega-3 fatty acids-fish oil [Fish Oil] 360-1,200 mg capsule 1 cap PO BID lisinopril 10 mg tablet 10 mg PO DAILY Qty: 90 3RF (DME) Blood Pressure Cuff Misc See Rx Instructions .Route Qty: 1 0RF Rx Instructions: As directed fluticasone furoate-vilanterol [Breo Ellipta] 200-25 mcg/dose blister with device 1 inh inhalation DAILY 30 Days Qty: 1 6RF Referrals: [facility] [place] Gastroenterology Services [Provider Group] Stand Alone Forms: Work/School Release Interventions: ED Discharge Assessment Last Done: 01/13/24 10:03 Discharge Date/Time: 01/13/24 10:04 Print Language: Welsh
[2024-01-13] MEDS: Magnesium Hydrox/Alum Hydrox 30 ML ORAL.SUSP PO (07:50)
[2024-01-13] MEDS: PHENobarb/Hyoscy/Atropine/Scop 10 ML ELIXIR PO (07:50)
[2024-01-13] MEDS: Lidocaine HCl Viscous 2 % 15 ML SOLUTION MUCOUS MEM (07:50)
[2024-01-13 07:57] LABS: Appearance Urine Clear; Color Urine Yellow; Glucose Urine UA Negative (Negative); Leukocyte Esterase Urine Negative (Negative); Nitrite Urine Negative (Negative); Specific Gravity - Urine >= 1.030 (1.005-1.025); Urine Blood Negative (Negative); Urine Ketones 80 mg/dL (Negative); Urine Protein Negative (Neg-Trace)
[2024-01-13 08:08] VITALS: BP 112/63; PULSE 78; RESP 16; TEMP 37; O2SAT 97
[2024-01-13 08:08] LABS: MANUAL DIFF FLAG NO
[2024-01-13 08:11] LABS: Basophils Percent Auto 0.4 % (0-2); Eosinophils Absolute Auto 0.1 X10*3/uL (0.0-0.4); Eosinophils Percent Auto 2.7 % (0-4); Hematocrit 43.3 % (42.0-52.0); Imm Gran Abs Auto 0.01 X10*3/uL (0.00-0.03); Imm Gran Pct Auto 0.2 % (0.0-0.4); Lymphocytes Absolute Auto 1.4 X10*3/uL (1.2-4.9); Lymphocytes Percent Auto 31.3 % (20-40); Mean Corpuscular HGB Conc 34.6 g/dl (31.0-36.0); Mean Corpuscular Hemoglobin 29.4 pg (27.0-33.0); Mean Corpuscular Volume 84.7 fL (80.0-98.0); Mean Platelet Volume 10.4 fL (9.4-12.4); Monocytes Absolute Auto 0.5 X10*3/uL (0.1-1.2); Monocytes Percent Auto 10.2 % (2-11); Neutrophils Absolute Auto 2.5 x10*3/uL (2.0-8.3); Neutrophils Percent Auto 55.2 % (45-73); Platelet Count 149 X10*3/uL (160-400); Red Blood Count 5.11 X10*6/uL (4.60-5.80); Red Cell Distribution Width 12.8 % (11.0-16.0); White Blood Count 4.5 X10*3/uL (4.8-10.8)
[2024-01-13 08:28] LABS: Alanine Aminotransferase 17 U/L (0-40); Albumin Level 4.2 g/dL (3.5-5.0); Alkaline Phosphatase 65 U/L (39-117); Anion Gap 12 (12-20); Aspartate Amino Transferase 17 U/L (5-37); Bilirubin Direct 0.2 mg/dL (0.0-0.5); Bilirubin Total 0.7 mg/dL (0.0-1.0); Blood Urea Nitrogen 20 mg/dL (9-16); Calcium 9.4 mg/dL (8.4-10.2); Carbon Dioxide 24 mmol/L (22-29); Chloride 109 mmol/L (96-108); Creatinine Clr Calc Pharmacy 170.9; Estimated Glomerular Filt Rate > 60; Glucose Random 99 mg/dL (60-115); Lipase 32 U/L (8-78); Magnesium 1.9 mg/dL (1.6-2.6); Potassium 3.9 mmol/L (3.3-5.1); Sodium 141 mmol/L (135-145)
[2024-01-13] MEDS: Dicyclomine HCl 10 MG CAPSULE PO (09:36)
[2024-01-13 10:03] VITALS: BP 117/77; PULSE 68; RESP 19; TEMP 37; O2SAT 97
== END 2024-01-13 10:04 | disposition home or self-care (01) ==
PROVIDERS: Physician Assistant; Emergency Provider Emergency Medicine; PCP Nurse Practitioner Family
DX: G89.29 Other chronic pain (principal); R10.12 Left upper quadrant pain; E11.9 Type 2 diabetes mellitus without complications; I10 Essential (primary) hypertension; Z79.899 Other long term (current) drug therapy
CPT/HCPCS: 36415; 80048; 80076; 81003; 83690; 83735; 85025; 99284

== ENCOUNTER 2024-01-15 09:06 | Day surgery (SDC) | payer OTHER, SELFPAY ==
[2023-11-20 13:42] VITALS: BMI 39.1
--- NOTE | 2024-01-13 14:58 | P.CONAN_ITS ---
Documented by User: Aurora Perales NP 01/13/24 15:03 HPI - Anesthesia Eval Consult details Narrative: 33yo M for Upper Endoscopy [facility] 01/13/24 with abdominal pain. No acute findings. Follows with [facility] cardiology for chest pain. W/U complete and non-cardiac origin. Rec'd to f/u with GI, pulmo, and sleep study [facility] Active Problems Active Problems: All Active Problems Chronic abdominal pain (Acute) Severe persistent asthma (Acute) Environmental allergies (Acute) Psoriasis (Acute) Fatigue (Acute) Palpitations (Acute) Anxiety (Acute) SOB (shortness of breath) (Acute) Costochondral chest pain (Acute) Celiac disease (Acute) Bilateral leg numbness (Acute) Bilateral leg pain (Acute) Gastroesophageal reflux disease (Acute) Diarrhea (Acute) Hypertrophic cardiomyopathy (Acute) Asthma (Acute) Abdominal pain (Acute) Chest pain (Acute) Epididymal cyst (Acute) Physical exam (Acute) Diabetes (Acute) Hypertension (Acute) Past Medical History Medical History Palpitations Diabetes Asthma Anxiety Kidney stone Hypertension Family History Family History Mother Cancer Surgical History Surgical History S/P appendectomy Social History Social History Housing: House Alcohol intake: never Patient Tobacco Use Status: Never used Tobacco e-Cigarette/Vaping Use: Never Used Second Hand Smoke Exposure: No Are you DNR?: No Advance Directives: No Advance Directives Information Provided: Yes Nutrition Risks: No Nutritional Risk service: No Current occupational status: unemployed Cognitive needs: No Hearing needs: No Vision needs: No Meds Allergies Allergy/AdvReac Type Severity Reaction Status Date / Time No Known Allergies Allergy Verified 01/15/24 10:20 [No Known Allergies*] Home Medications ?Medication ?Instructions ?Recorded ?Confirmed ?Last Taken ?Type multivitamin 1 tab PO DAILY 06/12/23 12/21/23 Unknown History omega-3 fatty acids-fish oil 360 1 cap PO BID 06/12/23 12/21/23 Unknown History mg-1,200 mg capsule (Fish Oil) lorazepam 0.5 mg tablet 0.5 mg PO BID PRN anxiety 11/20/23 12/21/23 Unknown History cetirizine 10 mg capsule 20 mg PO DAILY PRN 12/21/23 12/21/23 Unknown History omeprazole 40 mg capsule,delayed 40 mg PO DAILY 12/21/23 12/21/23 Unknown History release pantoprazole 40 mg tablet,delayed 40 mg PO DAILY 01/15/24 01/15/24 01/15/24 Hi story release Exam Height,Weight and Vital Signs: Height 6 ft Weight 130.635 kg Pertinent Lab Results Pertinent Lab Results: Laboratory Tests 01/13/24 08:03 WBC 4.5 L Hgb 15.0 Hct 43.3 Plt Count 149 L Sodium 141 Potassium 3.9 Chloride 109 H Carbon Dioxide 24 BUN 20 H Creatinine 0.82 Narrative Narrative: EKG 11/2023 Sinus rhythm 73 beats per minute, normal axis, nonspecific T-wave changes, QTC 396 milliseconds 09/2023 Exercise stress test exercise 8 min 49 sec of Himanshu protocol achieving 89%, with mild to moderate SOB, no chest discomfort, without arrhythmias, Max BP 200/58, without EKG chnages. Test reviewed with Dr. Haas, ECHO 09/2023 Conclusions: - The left ventricular systolic function is normal. The calculated ejection fraction is 62% by biplane method. - No obvious valvular pathology seen on this study. Assessment and Plan Assessment Anesthesia Assessment: Chart Reviewed Documented by User: Quita Cano MD 01/15/24 11:40 [facility] Past Medical History Medical History Palpitations Diabetes Asthma Anxiety Kidney stone Hypertension Family History Family History Mother Cancer Surgical History Surgical History S/P appendectomy History of Problems with Anesthesia: No Social History Social History Housing: House Alcohol intake: never Patient Tobacco Use Status: Never used Tobacco e-Cigarette/Vaping Use: Never Used Second Hand Smoke Exposure: No Are you DNR?: No Advance Directives: No Advance Directives Information Provided: Yes Nutrition Risks: No Nutritional Risk service: No Current occupational status: unemployed Cognitive needs: No Hearing needs: No Vision needs: No Meds Allergies Allergy/AdvReac Type Severity Reaction Status Date / Time No Known Allergies Allergy Verified 01/15/24 10:20 [No Known Allergies*] Home Medications ?Medication ?Instructions ?Recorded ?Confirmed ?Last Taken ?Type multivitamin 1 tab PO DAILY 06/12/23 12/21/23 Unknown History omega-3 fatty acids-fish oil 360 1 cap PO BID 06/12/23 12/21/23 Unknown History mg-1,200 mg capsule (Fish Oil) lorazepam 0.5 mg tablet 0.5 mg PO BID PRN anxiety 11/20/23 12/21/23 Unknown History cetirizine 10 mg capsule 20 mg PO DAILY PRN 12/21/23 12/21/23 Unknown History omeprazole 40 mg capsule,delayed 40 mg PO DAILY 12/21/23 12/21/23 Unknown History release pantoprazole 40 mg tablet,delayed 40 mg PO DAILY 01/15/24 01/15/24 01/15/24 History release Exam Airway Mallampati Class: III TM Dist: >3cm Neck ROM: Full Loose/Missing/Broken Teeth: No Heart: RRR Lungs: CTA Assessment and Plan Assessment Anesthesia Assessment: Anesthesia Plan Discussed Final Anesthetic Review History of Problems with Anesthesia: No NPO: Yes ASA Class: II Final Preanesthetic Review: Meds/Allgs Chart Reviewed, Consent Obtained/Reviewed and Anes Risks/Benef Reviewed Patient Risk: Low Procedure Risk: Intermediate Anesthetic Plan Anesthetic Plan: MAC: Disposition: Standard PACU
[2024-01-15 10:46] VITALS: BMI 35.1
[2024-01-15] MEDS: Lactated Ringers 1,000 ML 100 ML IVCONT (10:49)
[2024-01-15 10:56] VITALS: BP 129/74; PULSE 77; RESP 18; TEMP 36.8; O2SAT 98
--- NOTE | 2024-01-15 11:33 | MHC.SHP ---
Pre-Procedural Eval Section A - 24 Hr Update-Section A only Date of Service: 01/15/24 The patient is an INPATIENT: No The patient has been examined within 24 hours of the surgical procedure. The History & Physical has been completed within 30 days and I have reviewed it.: No Section B - Complete if H&P > 30 days Chief Complaint: FU celiac disease, abdominal pain Relevant Family History (Specify if Yes): No Relevant Social History: None Present Medications: see Short Stay Collaborative assessment Medical History: Significant History (Kidney stone Hypertension) History of Previous Operations: Relevant previous surgery/procedure and date(s) (History of appendectomy) Allergies: Allergies Allergy/AdvReac Type Severity Reaction Status Date / Time No Known Allergies Allergy Verified 01/15/24 10:20 [No Known Allergies*] Review of Systems Sugical H&P ROS: Negative: Constitution, Cardiovascular, Respiratory and Gastrointestinal Exam Surgical H&P Exam: Normal: Heart, Normal: Lungs, Normal: Extremities and Normal: Abdomen Plan Diagnosis/Plan: Unchanged I have reviewed the history and physical and performed a pertinent physical examination on my patient. No changes have occurred unless specified. Time Spent With Patient Time: Total time managing care of this patient today ____ minutes.
[2024-01-15 12:42] VITALS: BP 124/79; PULSE 74; RESP 12; TEMP 36.3; O2SAT 94
--- NOTE | 2024-01-15 12:46 | W.PM.OPN ---
Operative Note Operative Note Date of Service: 01/15/24 Narrative: FLEXIBLE TRANSORAL UPPER GASTROINTESTINAL ENDOSCOPY WITH BIOPSIES AND SNARE POLYPECTOMY OF GASTRIC POLYP Pre-op diagnosis: Fu of celiac disease, Epigastric pain, Post-op diagnosis: Celiac disease, Gastritis, multiple gastric polyps Endoscopist:Elvia Collins MD Anesthesia:?MAC UPPER ENDOSCOPY Consent: Indications for the procedure and potential complications of bleeding, perforation, reaction to medications and missed diagnosis were discussed with the patient and informed consent was obtained. Instrument: Olympus GIF H 190 mid size upper endoscope Monitoring: Vital signs and clinical assessment, continuous EKG monitoring, Pulse oximetry, Carbon Dioxide monitoring and blood pressure monitoring were done throughout the procedure. Procedure: The patient was placed in the left lateral decubitis position and pre-procedure medications were administered and a bite block was placed. The endoscope was inserted into the mouth and advanced under direct vision to the third part of duodenum. A careful inspection was made as the upper endoscope was withdrawn including a retroflexed examination of the proximal stomach; Findings and interventions are described below. Findings: Larynx: Normal Esophagus: GE junction at 40 cms. Minimal focal esophagitis at GE junction Stomach: Multiple 5 to 10 mm benign appearing polyps in the gastric body - one polyp was removed with a cold bx. A 12-15 mm adenomatous appearing polyp/nodule in the antrum/prepyloric area. Polyp was removed with a hot snare and retrieved with a Blanco net. Polypectomy site was closed with 1 hemoclip. Moderate diffuse gastric erythema - biopsies were obtained from the antrum. Grade 2 flap valve on retroflexed examination of the cardia. Duodenum: Normal bulb and descending duodenum. Biopsies were obtained from 3rd part of the duodenum to follow up on celiac sprue Intervention: Biopsies as noted above Impression and Post Procedure Diagnosis: Endoscopy Findings: ESOPHAGUS: Minimal focal esophagitis at GE junction STOMACH: Multiple 5 to 10 mm benign appearing polyps in the gastric body - one polyp was removed with a cold bx. A 12-15 mm adenomatous appearing polyp/nodule in the antrum/prepyloric area - removed with a hot snare DUODENUM: Biopsies were obtained from 3rd part of the duodenum to follow up on celiac sprue Plan: Pt advised to schedule a FU appointment with Roya Alva NP (Pt stated he prefers to schedule an appt on a Thursday and November Is off that day) He may elect to schedule with a different provider. Above findings were reviewed with the patient and relevant handouts were given and the discharge area. BIOPSIES SHOWED: A. Small bowel, biopsy: Small bowel mucosa with preserved villi and no specific change; no evidence of celiac disease. B. Gastric antrum, polyp: Gastric antral mucosa with foveolar hyperplasia, intestinal metaplasia, and chronic gastritis with mild activity and focal erosion; negative for H pylori and dysplasia. C. Gastric antrum, biopsy: Gastric antral mucosa with minimal chronic inactive gastritis; negative for H pylori, intestinal metaplasia and dysplasia. D. Gastric body, polyp: Fundic gland polyp with focal minimal chronic inactive inflammation; negative for H pylori, intestinal metaplasia and dysplasia.
[2024-01-15 12:57] VITALS: BP 135/76; PULSE 78; RESP 16; O2SAT 96
[2024-01-15 13:12] VITALS: BP 144/98; PULSE 66; RESP 18; TEMP 36.6; O2SAT 98
== END 2024-01-15 14:00 | disposition home or self-care (01) ==
PROVIDERS: Visit Provider Internal Medicine Gastroenterology
PROC: 0DJ08ZZ Inspection of Upper Intestinal Tract, Via Natural or Artificial Opening Endoscopic (ICD-10-PCS; CPT 43235; principal; 2024-01-15 12:00)
DX: R10.13 Epigastric pain (principal); K90.0 Celiac disease; K29.70 Gastritis, unspecified, without bleeding; K31.7 Polyp of stomach and duodenum; K21.9 Gastro-esophageal reflux disease without esophagitis; I10 Essential (primary) hypertension; J45.20 Mild intermittent asthma, uncomplicated
CPT/HCPCS: 43251; 43239; 88305; 88313; 88342; J2704

== ENCOUNTER → 2024-01-15 09:06 | Outpatient (BNV) | payer OTHER, SELFPAY | PROVIDERS: Visit Provider Internal Medicine Gastroenterology | DX: K90.0 Celiac disease (principal); K29.70 Gastritis, unspecified, without bleeding; K31.7 Polyp of stomach and duodenum | CPT/HCPCS: 43239; 43251 ==

== ENCOUNTER 2024-02-29 13:10 | Outpatient (AMB) | payer OTHER, SELFPAY ==
[2024-02-29 13:13] VITALS: BP 127/76; PULSE 86; O2SAT 97; BMI 33.3
--- NOTE | 2024-02-29 13:13 | MHC.OFFVIS ---
Vital Signs 02/29/24 13:13 Height 6 ft Weight 245 lb 13.047 oz BMI 33.3 BP 127/76 Blood Pressure Location Rt brachial Position Sitting Pulse 86 Pulse Source Doppler Pulse Oximetry (%) 97 Oxygen Delivery Method Room Air Intake Visit Reasons: Shortness of breath Allergies No Known Allergies [No Known Allergies*] Allergy (Verified 01/15/24 10:20) HPI HPI Shortness of breath: Details: 33-year-old gentleman, nonsmoker, with underlying history of psoriasis, celiac disease, diabetes mellitus now referred for evaluation of episodes of dyspnea on exertion, nonproductive cough, and chest tightness at night. Patient has been tried on empiric albuterol MDI with no significant response. He does also complain of multiple environmental allergies. Patient states that he has been checked for sleep apnea several years prior and no sleep apnea was noted. Patient also had recent normal cardiac workup. Patient denies family history of lung disease. After the last office visit patient was started on Xolair with significant improvement in his symptoms. He also continues on Breo and albuterol MDI. He denies recent acute exacerbations. [facility] Medical History Palpitations Diabetes Asthma Anxiety Kidney stone Hypertension Surgical History S/P appendectomy Family History Mother Cancer Social History Housing: House Alcohol intake: never Patient Tobacco Use Status: Never used Tobacco e-Cigarette/Vaping Use: Never Used Second Hand Smoke Exposure: No service: No Current occupational status: unemployed Cognitive needs: No Hearing needs: No Vision needs: No Review of Systems Const Denies daytime sleepiness, Denies excessive sweating, Denies fatigue, Denies fever(s), Denies lethargy, Denies malaise, Denies night sweats, Denies snoring and Denies weight loss Eyes Denies blurry vision and Denies itchy eyes ENT Denies nasal congestion, Denies post nasal drip, Denies sinus pain, Denies sinus pressure and Denies other ( Thrush) Card Denies chest pain, Denies pedal edema, Denies dyspnea, Denies orthopnea and Denies paroxysmal nocturnal dyspnea Resp Denies cough, Denies hemoptysis, Denies excessive phlegm production, Denies dyspnea, Denies snoring and Denies wheezing GI Denies abdominal pain and Denies heartburn Musc Denies myalgias, Denies arthralgias and Denies joint swelling Skin/Breast Denies rash Neuro Denies memory loss and Denies seizure-like activity Psych Denies abnormal sleep pattern, Denies anxiety and Denies memory loss Endo Denies excessive sweating, Denies fatigue and Denies heat intolerance Pedro Luis/Lymph Denies easy bruising Aller/Immun Denies itchy eyes, Denies seasonal rhinorrhea and Denies wheezing Physical Exam Vital Signs: Last Vital Signs Pulse 86 02/29/24 13:13 BP 127/76 02/29/24 13:13 Pulse Ox 97 02/29/24 13:13 Oxygen Delivery Method Room Air 02/29/24 13:13 BMI result Body Mass Index 33.3 Const General: no acute distress and alert Nutritional Appearance: not obese Orientation/consciousness: Other orientation findings ( oriented) HEENT Head: Yes atraumatic Eyes General: appearance normal, both eyes and all related structures Sclerae: sclerae normal EOM: EOMs intact bilaterally Neck Neck: Yes supple Lymphatic: no lymphadenopathy noted Resp Effort & Inspection: normal respiratory effort and no use of accessory muscles Auscultation: clear to auscultation bilaterally Cardio Rate: regular rate Rhythm: regular rhythm Heart sounds: no gallops, no murmurs and no rubs Skin General skin exam: other ( warm) Extrem General: No clubbing, No cyanosis and No edema Assessment & Plan Assessment & Plan (1) Severe persistent asthma: Code(s): J45.50 - Severe persistent asthma, uncomplicated Category: Medical Plan: Significantly improved control on Xolair. Continue current regimen of Xolair, Breo, and albuterol MDI. (2) Environmental allergies: Code(s): Z91.09 - Other allergy status, other than to drugs and biological substances Category: Medical Plan: Well controlled on Xolair. Continue current regimen. Coding Level of Care Code Est Pt Level 4 (40721) Diagnoses Severe persistent asthma J45.50 Environmental allergies Z91.09
== END 2024-02-29 13:36 | disposition home or self-care (01) ==
PROVIDERS: PCP Nurse Practitioner Family; Visit Provider Internal Medicine Pulmonary Disease
DX: J45.50 Severe persistent asthma, uncomplicated (principal); Z91.09 Other allergy status, other than to drugs and biological substances
CPT/HCPCS: 99214

== ENCOUNTER → 2024-02-29 13:10 | Outpatient (BNVA) | payer OTHER, SELFPAY | PROVIDERS: PCP Nurse Practitioner Family; Visit Provider Internal Medicine Pulmonary Disease | DX: J45.50 Severe persistent asthma, uncomplicated (principal); Z91.09 Other allergy status, other than to drugs and biological substances | CPT/HCPCS: 99212 ==

== ENCOUNTER 2024-03-14 09:06 | Emergency (ER) | payer OTHER, SELFPAY ==
[2024-03-14 09:14] VITALS: BP 116/57; PULSE 87; RESP 16; TEMP 37; O2SAT 97; BMI 33.2
--- NOTE | 2024-03-14 09:21 | ED.BACK ---
HPI - Back Pain/Injury General Chief Complaint: Back Pain/Injury Stated Complaint: back inj @ work Time Seen by Provider: 03/14/24 09:21 Source: patient Mode of arrival: ambulatory Limitations: no limitations History of Present Illness ED Provider: Saad Morejon PA-C HPI Narrative: 33 yo male with history of celiac disease, asthma, psoriasis, anxiety, GERD, hypertrophic cardiomyopathy, diabetes, HTN who presents to the ER for evaluation of right-sided low back pain that started yesterday. He states the pain is worse in the morning. It is located in his right lower back and does not radiate. It is aching and throbbing in nature. He does not know of any specific injury but he does do a lot of heavy lifting and twisting as an employee [employer]. The pain started yesterday when he was walking around and it has gotten worse. He took 600 mg ibuprofen yesterday with no improvement. Pain is worse when he sits or stands, improved with lying down. He denies any radiation of the pain, no numbness, weakness, tingling in the lower extremity. No bowel or bladder issues. No fever or chills. No IVDA history. MD elicited complaint: back pain Pertinent past history: prior back pain Onset (ago): day(s) (1) Timing: progressively worsening Severity: severe Similar Symptoms Previously: Yes Quality: aching and spasming Location: right lower back Radiation: none Exacerbating factors: movement Relieving factors: supine Context: while lifting and turning/twisting Associated symptoms: denies other symptoms Treatments prior to arrival: NSAIDS Work related injury: Yes Related Data Home Medications ?Medication ?Instructions ?Recorded ?Confirmed multivitamin 1 tab PO DAILY 06/12/23 12/21/23 omega-3 fatty acids-fish oil 360 1 cap PO BID 06/12/23 12/21/23 mg-1,200 mg capsule (Fish Oil) lorazepam 0.5 mg tablet 0.5 mg PO BID PRN anxiety 11/20/23 12/21/23 cetirizine 10 mg capsule 20 mg PO DAILY PRN 12/21/23 12/21/23 omeprazole 40 mg capsule,delayed 40 mg PO DAILY 12/21/23 12/21/23 release pantoprazole 40 mg tablet,delayed 40 mg PO DAILY 01/15/24 01/15/24 release Previous Rx's ?Medication ?Instructions ?Recorded albuterol sulfate 90 mcg/actuation 2 puff inhalation Q6H PRN 08/29/22 aerosol inhaler shortness of breath or wheezing #6.7 grams ondansetron 4 mg disintegrating 4 mg PO Q8H PRN nausea and 10/12/23 tablet vomiting #20 tabs clobetasol 0.05 % scalp solution 1 appl topical BID 2 weeks #50 mL 10/13/23 sucralfate 100 mg/mL oral 10 ml PO BID #400 mL 10/27/23 suspension (Carafate) fluticasone furoate 200 1 inh inhalation DAILY 30 days #1 11/18/23 mcg-vilanterol 25 mcg/dose ea inhalation powder (Breo Ellipta) rosuvastatin 5 mg tablet (Crestor) 5 mg PO DAILY 90 days #90 tabs 11/19/23 amlodipine 10 mg tablet 10 mg PO DAILY #90 tabs 11/29/23 lisinopril 10 mg tablet 10 mg PO DAILY #90 tabs 12/02/23 miscellaneous medical supply #1 ea 12/02/23 (Blood Pressure Cuff) famotidine 40 mg tablet 40 mg PO BEDTIME #90 tabs 12/07/23 dicyclomine 10 mg capsule 10 mg PO TID PRN abdominal pain 01/13/24 #20 caps cyclobenzaprine 10 mg tablet 10 mg PO TID PRN muscle spasm #10 03/14/24 tabs lidocaine 5 % topical patch 1 patch topical DAILY #15 ea 03/14/24 naproxen 500 mg tablet 500 mg PO BID PRN pain #20 tabs 03/14/24 Allergies Allergy/AdvReac Type Severity Reaction Status Date / Time No Known Allergies Allergy Verified 03/14/24 09:17 [No Known Allergies*] Review of Systems Review of Systems: Yes all other systems are reviewed and are negative [facility] Past Medical History Medical History Palpitations Diabetes Asthma Anxiety Kidney stone Hypertension Surgical History S/P appendectomy Family History Family History Mother Cancer Social History Social History Housing: House Alcohol intake: never Patient Tobacco Use Status: Never used Tobacco e-Cigarette/Vaping Use: Never Used Second Hand Smoke Exposure: No Advance Directives: No Advance Directives Information Provided: No service: No Current occupational status: unemployed Cognitive needs: No Hearing needs: No Vision needs: No Physical Exam Vital Signs: Vital Signs: Last Vital Signs Temp 98.6 F 03/14/24 09:57 Pulse 87 03/14/24 09:57 Resp 18 03/14/24 09:57 BP 116/57 L 03/14/24 09:57 Pulse Ox 97 03/14/24 09:57 O2 Del Method Room Air 03/14/24 09:57 BMI result Body Mass Index 33.2 Appearance: Alert. Oriented X3. No acute distress. HEENT: Normal external inspection Neck: Normal inspection. Respiratory: No respiratory distress. Abdomen: Soft and nontender. +BS x4 Back: normal inspection. Soft tissue tenderness of the right paraspinous muscles with palpable spasm. No midline tenderness. Limited range of motion of the spine due to pain. Negative straight leg raise test. Skin: Skin warm and dry. Normal skin color. Normal skin turgor. No rashes. Extremities: No lower extremity edema. No joint swelling. Neuro/psych: Oriented X 3. No motor deficit. No sensory deficit. CN II-XII intact. Normal speech and cognition. Slow but steady gait Medications Administered Discontinued Medications Generic Name Dose Route Start Last Admin Trade Name Freq PRN Reason Stop Dose Admin Acetaminophen 975 mg 03/14/24 09:44 03/14/24 09:52 Acetaminophen 325 Mg Tablet PO 03/14/24 09:45 975 mg ONCE ONE Administration Ketorolac Tromethamine 30 mg 03/14/24 09:44 03/14/24 09:52 Ketorolac Tromethamine 30 Mg/Ml Vial IM 03/14/24 09:45 30 mg ONCE ONE Administration Lidocaine 1 patch 03/14/24 09:44 03/14/24 09:52 Lidocaine 4 % Patch Adh..Patch TRANSDERMA 03/14/24 09:45 1 patch ONCE ONE Administration Protocol Medical Decision Making Medical Decision Making MDM Narrative: 33-year-old male presents to the ER for evaluation of right lower back pain that started yesterday. He works at [employer] and does a lot of lifting and twisting. Denies any history of trauma. Exam and clinical presentation are most consistent with lumbar strain and muscular pain. No red flag symptoms of low back pain. No emergent need for imaging today. He is comfortable when lying down and has most pain with movement. He was given IM Toradol, Tylenol, Salonpas in the ER. Stable for discharge home with muscle relaxers and above treatment. All questions were answered, stable for discharge Differential Diagnosis Differential Diagnoses: The differential diagnosis associated with the presentation includes Inflammatory disorders, malignancy, trauma, nerve root compression, radiculopathy, plexopathy, degenerative disc disease, disc herniation, spinal stenosis, sacroiliac joint dysfunction, facet joint injury, and less likely infection?like abscess or diskitis External Record Review External record reviewed: Outpatient record, Prior outpatient labs and Prior outpatient radiology Tests considered The following testing was considered but not selected: Considered lumbar x-ray however no emergent need today Prescription Management I considered prescription management with: Pain Medication Chronic Conditions Patient?s care impacted by: Diabetes and Hypertension Critical Care Time Critical Care Time Critical Care Time: No Discharge Plan Discharge Clinical Impression: Strain of lumbar region Qualifiers: Encounter type: initial encounter Qualified Code(s): S39.012A - Strain of muscle, fascia and tendon of lower back, initial encounter Patient Disposition: Home, Self-Care Instructions: Low Back Strain (ED), Lower Back Exercises (ED) Additional Instructions: Your pain is most likely due to muscle strain and spasm. No bending, lifting or twisting. Use ice several times per day for 20 minutes at a time for the next 48 hours and then change to heat. Take medications as prescribed to help with pain and discomfort. Follow up with your Primary Care Doctor this week. If your pain worsens, if you develop new numbness, tingling, weakness, loss of function or incontinence call 911 or come back to the ER right away for evaluation. Prescriptions: New cyclobenzaprine 10 mg tablet 10 mg PO TID PRN (Reason: muscle spasm) Qty: 10 0RF lidocaine 5 % adhesive patch,medicated 1 patch topical DAILY Qty: 15 0RF Rx Instructions: leave on most painful area for up to 12 hrs naproxen 500 mg tablet 500 mg PO BID PRN (Reason: pain) Qty: 20 0RF No Action rosuvastatin [Crestor] 5 mg tablet 5 mg PO DAILY 90 Days Qty: 90 1RF amlodipine 10 mg tablet 10 mg PO DAILY Qty: 90 1RF famotidine 40 mg tablet 40 mg PO BEDTIME Qty: 90 2RF lorazepam 0.5 mg tablet 0.5 mg PO BID PRN (Reason: anxiety) pantoprazole 40 mg tablet,delayed release (DR/EC) 40 mg PO DAILY dicyclomine 10 mg capsule 10 mg PO TID PRN (Reason: abdominal pain) Qty: 20 0RF ondansetron 4 mg tablet,disintegrating 4 mg PO Q8H PRN (Reason: nausea and vomiting) Qty: 20 0RF albuterol sulfate 90 mcg/actuation HFA aerosol inhaler 2 puff inhalation Q6H PRN (Reason: shortness of breath or wheezing) Qty: 6.7 0RF clobetasol 0.05 % solution 1 appl topical BID 14 Days Qty: 50 0RF omeprazole 40 mg capsule,delayed release(DR/EC) 40 mg PO DAILY cetirizine 10 mg capsule 20 mg PO DAILY PRN Rx Instructions: 1 tab am, 1 tab pm sucralfate [Carafate] 100 mg/mL suspension 10 ml PO BID Qty: 400 1RF multivitamin Tablet 1 tab PO DAILY omega-3 fatty acids-fish oil [Fish Oil] 360-1,200 mg capsule 1 cap PO BID lisinopril 10 mg tablet 10 mg PO DAILY Qty: 90 3RF (DME) Blood Pressure Cuff Misc See Rx Instructions .Route Qty: 1 0RF Rx Instructions: As directed fluticasone furoate-vilanterol [Breo Ellipta] 200-25 mcg/dose blister with device 1 inh inhalation DAILY 30 Days Qty: 1 6RF Referrals: Louis Avery, [facility] [Primary Care Provider] - Stand Alone Forms: Work/School Release Interventions: ED Discharge Assessment Last Done: 03/14/24 09:57 Discharge Date/Time: 03/14/24 09:58 Print Language: Japanese
[2024-03-14] MEDS: Acetaminophen 325 MG TABLET 975 MG PO (09:52)
[2024-03-14] MEDS: Ketorolac Tromethamine 30 MG/ML VIAL IM (09:52)
[2024-03-14] MEDS: Lidocaine 4 % Patch ADH..PATCH 1 PATCH TRANSDERMA (09:52)
[2024-03-14 09:57] VITALS: BP 116/57; PULSE 87; RESP 18; TEMP 37; O2SAT 97
== END 2024-03-14 09:58 | disposition home or self-care (01) ==
PROVIDERS: Emergency Provider Emergency Medicine; PCP Nurse Practitioner Family
DX: S39.012A Strain of muscle, fascia and tendon of lower back, initial encounter (principal); X50.0XXA Overexertion from strenuous movement or load, initial encounter; X50.3XXA Overexertion from repetitive movements, initial encounter; Y93.9 Activity, unspecified; Y92.89 Other specified places as the place of occurrence of the external cause; Y99.0 Civilian activity done for income or pay
CPT/HCPCS: 96372; 99283; 99284; J1885

== ENCOUNTER 2024-03-17 08:06 | Outpatient (AMB) | payer OTHER, SELFPAY ==
--- NOTE | 2024-03-17 08:06 | AM.OFFWIN_ITS ---
Intake Vital Signs 03/17/24 08:08 Height 6 ft Weight 247 lb BMI 33.5 BP 106/74 Blood Pressure Location Lt brachial Position Sitting Pulse 98 Pulse Source Pulse Oximeter Temp 98.3 F Temp Source Oral Pulse Oximetry (%) 98 Oxygen Delivery Method Room Air Intake Visit Reasons: EP Throughout Back at work Intake Note: pt c/o back pain. Seen at [facility] ED Thursday Patient Tobacco Use Status: Never used Tobacco Allergies No Known Allergies [No Known Allergies*] Allergy (Verified 03/17/24 08:07) Do you need a note to return to daycare/school/sports/work: Yes HPI EP Throughout Back at work HPI Details This note is constructed using voice recognition software. While every effort has been made to ensure accuracy, outside dealer sales representative errors may have been included. The patient is a 33 year old male who presents to the clinic today with back pain. He was evaluated in the emergency room, and provided a letter to remain out of work through the remainder of this week, however his employer requests that he be re-evaluated for earlier returned to work. 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 His pain is in the lumbar region, radiates out to the right. No numbness or tingling in the legs, no loss of control of bladder or bowel. The emergency room prescribed lidocaine patches, naproxen, and cyclobenzaprine, which he is using with limited relief. [facility] Medical History Palpitations Diabetes Asthma Anxiety Kidney stone Hypertension Surgical History S/P appendectomy Family History Mother Cancer Social History Housing: House Alcohol intake: never Patient Tobacco Use Status: Never used Tobacco e-Cigarette/Vaping Use: Never Used Second Hand Smoke Exposure: No service: No Current occupational status: unemployed Cognitive needs: No Hearing needs: No Vision needs: No Review of Systems Const All systems reviewed & are unremarkable except as noted in HPI and below Physical Exam Vital Signs: Last Vital Signs Temp 98.3 F 03/17/24 08:08 Pulse 98 03/17/24 08:08 BP 106/74 03/17/24 08:08 Pulse Ox 98 03/17/24 08:08 Oxygen Delivery Method Room Air 03/17/24 08:08 BMI result Body Mass Index 33.5 Const General: cooperative, healthy appearing, comfortable, no acute distress and alert Orientation/consciousness: patient oriented x3 Limitations: no limitations General: Yes no CVA tenderness Back/Spine/Pelvis Other: Slightly diminished right lateral rotation, normal flexion of spine. Positive SLR on the right, negative well SLR. Strength 5/5 bilateral lower extremities, intact distal neurovascular exam. Tender to palpation right lumbar region, no sciatic notch tenderness. Back: no CVA tenderness Thoracic/Lumbar Spine: thoracic and lumbar spine normal to inspection Skin General skin exam: no rashes or lesions noted, elasticity normal and turgor normal Neuro General: patient oriented x3 Extrem General: Yes normal to inspection, Yes full ROM, Yes capillary refill normal and Yes normal exam except as noted Psych Appearance: grossly normal Mental Status: mental status grossly normal Speech and movement: Normal speech and movement present Affect: normal affect Assessment & Plan Assessment & Plan (1) Strain of lumbar region: Code(s): S39.012A - Strain of muscle, fascia and tendon of lower back, initial encounter Qualifiers: Encounter type: subsequent encounter Qualified Code(s): S39.012D - Strain of muscle, fascia and tendon of lower back, subsequent encounter Plan: Emergency room note reviewed. Advised continued use of lidocaine, cyclobenzaprine, and NSAIDs as prescribed by emergency room. Advised patient to follow up with primary care provider for additional restrictions to work, letter provided to remain out of work until Thursday. Advised patient to consider starting a home exercise program. Plan See above for full details and plan. Coding Level of Care Code Est Pt Level 4 (66697) Diagnoses Strain of lumbar region, subsequent encounter S39.012D Encounter type: subsequent encounter
[2024-03-17 08:08] VITALS: BP 106/74; PULSE 98; TEMP 36.8; O2SAT 98; BMI 33.5
== END 2024-03-17 08:46 | disposition home or self-care (01) ==
PROVIDERS: PCP Nurse Practitioner Family; Visit Provider Registered Nurse
DX: S39.012A Strain of muscle, fascia and tendon of lower back, initial encounter (principal); Z04.2 Encounter for examination and observation following work accident
CPT/HCPCS: 99214

== ENCOUNTER → 2024-08-15 02:54 | Outpatient (BNV) | payer SELFPAY | PROVIDERS: Emergency Provider Internal Medicine; PCP Nurse Practitioner Family; Visit Provider Internal Medicine | DX: R00.0 Tachycardia, unspecified (principal) | CPT/HCPCS: 93010 ==

== ENCOUNTER → 2024-08-15 02:55 | Outpatient (BNV) | payer SELFPAY | PROVIDERS: Emergency Provider Internal Medicine; PCP Nurse Practitioner Family; Visit Provider Radiology Diagnostic Radiology | DX: R06.02 Shortness of breath (principal) | CPT/HCPCS: 71045 ==

== ENCOUNTER 2025-01-27 12:05 | Outpatient (AMB) | payer OTHER, SELFPAY ==
--- NOTE | 2025-01-27 12:11 | MHC.OFFVIS ---
Vital Signs 01/27/25 12:12 Height 6 ft Weight 273 lb 5.971 oz BMI 37.1 BP 120/67 Blood Pressure Location Lt brachial Position Sitting Pulse 90 Intake Visit Reasons: Follow up Intake Note: Jarrod presents in the office as a follow up. CC: states that he is not having any concerns - he had some questions regarding celiac because labs said yes and EGD said no evidence. Quality Control Associate Required: No Allergies No Known Allergies (No Known Allergies*) Allergy (Verified 01/27/25 12:12) HPI HPI Follow up: Details: Assessment & Plan (1) Gastroesophageal reflux disease: Code(s): K21.9 - Gastro-esophageal reflux disease without esophagitis (2) Celiac disease: Code(s): K90.0 - Celiac disease (3) Asthma: Comment: ? he has increased congestion and SOB and uses and albuterol inhaler with no official dx Code(s): J45.909 - Unspecified asthma, uncomplicated Qualifiers: Asthma complication type: uncomplicated Asthma persistence: intermittent Asthma severity: mild Qualified Code(s): J45.20 - Mild intermittent asthma, uncomplicated (4) SOB (shortness of breath): Code(s): R06.02 - Shortness of breath Plan He was in [place] with the family and he started loomis ving pain in the [place] and he presented to the ER and was told he had gastritis. BUT he accidentally ingested some gluten a few times and this is the likely reason. HE DID FIND THE CARAFATE SOOTHING AND HELPFUL IN HIS RECOVERY. He has been having more shortness of breath and when he lays flat at night he has a gurgling sensation in his chest. At times he will cough up some phlegm. Has an albuterol inhaler which helps but he was fearful to use it every day because ?steroids are not good. ? I educate him that albuterol is not a steroid inhaler so he can use it without that concern. However it has a little bit worrying that he has an inhaler without an official diagnosis so I think referring him to pulmonology would be prudent. I will also get a chest x-ray just to see if there is any subclinical pneumonia etc.. The endoscopy scheduled in November he already has an appointment set up with me on December 10. I will send him out to get time for that appointment and to see about getting the barium swallow rescheduled which he was unaware had been set up in August. Orders: Orders XR chest 2V Today R06.02 - Shortness of breath Referrals Pulmonary Medicine Referral J45.909 - Unspecified asthma, uncomplicated, R06.02 - Shortness of breath Medications: Refilled pantoprazole 40 mg PO DAILY 30 tabs 6RF sucralfate (Carafate) 10 mL PO BID 400 mL 1RF 8 CXR 10/2023 FINDINGS: There is no gross pneumothorax. Heart size is normal. No pleural effusion. No new focal consolidation to suggest pneumonia. Mild degenerative changes in the thoracic spine. XR/XR chest 2V IMPRESSION: No evidence of pneumonia. EGD 01/15/2024 Findings: Larynx: Normal Esophagus: GE junction at 40 cms. Minimal focal esophagitis at GE junction Stomach: Multiple 5 to 10 mm benign appearing polyps in the gastric body - one polyp was removed with a cold bx. A 12-15 mm adenomatous appearing polyp/nodule in the antrum/prepyloric area. Polyp was removed with a hot snare and retrieved with a Blanco net. Polypectomy site was closed with 1 hemoclip. Moderate diffuse gastric erythema - biopsies were obtained from the antrum. Grade 2 flap valve on retroflexed examination of the cardia. Duodenum: Normal bulb and descending duodenum. Biopsies were obtained from 3rd part of the duodenum to follow up on celiac sprue Intervention: Biopsies as noted above Impression and Post Procedure Diagnosis: Endoscopy Findings: ESOPHAGUS: Minimal focal esophagitis at GE junction STOMACH: Multiple 5 to 10 mm benign appearing polyps in the gastric body - one polyp was removed with a cold bx. A 12-15 mm adenomatous appearing polyp/nodule in the antrum/prepyloric area - removed with a hot snare DUODENUM: Biopsies were obtained from 3rd part of the duodenum to follow up on celiac sprue Plan: Pt advised to schedule a FU appointment with Roya Alva NP (Pt stated he prefers to schedule an appt on a Thursday and November Is off that day) He may elect to schedule with a different provider. Above findings were reviewed with the patient and relevant handouts were given and the discharge area. BIOPSIES SHOWED: A. Small bowel, biopsy: Small bowel mucosa with preserved villi and no specific change; no evidence of celiac disease. B. Gastric antrum, polyp: Gastric antral mucosa with foveolar hyperplasia, intestinal metaplasia, and chronic gastritis with mild activity and focal erosion; negative for H pylori and dysplasia. C. Gastric antrum, biopsy: Gastric antral mucosa with minimal chronic inactive gastritis; negative for H pylori, intestinal metaplasia and dysplasia. D. Gastric body, polyp: Fundic gland polyp with focal minimal chronic inactive inflammation; negative for H pylori, intestinal metaplasia and dysplasi BARIUM SWALLOW The appears never obtained TODAYS VISIT He questions his celiac diagnosis when comparing the blood work versus the gastric biopsy. I tell him that sometimes we can see this when the celiac allergy has not manifested long enough for there to be damage her eosinophilic infiltration of the stomach lining. He would like to clarify this so I advised him to do a gluten loading challenge and then we will repeat the tissue transglutaminase. I told him also the best judges how his body reacts. So he does not large gluten challenge any has severe diarrhea and problems we know that this is celiac disease. This is the ultimate test when we have indefinite findings in our diagnostics. Return office visit in 6 weeks [facility] Medical History Palpitations Diabetes Asthma Anxiety Kidney stone Hypertension Surgical History (Updated 01/27/25 @ 12:13 by LEEANNE Jade) History of esophagogastroduodenoscopy (EGD) S/P appendectomy Family History Mother Cancer Social History Housing: House Alcohol intake: never Patient Tobacco Use Status: Never used Tobacco e-Cigarette/Vaping Use: Never Used Second Hand Smoke Exposure: No service: No Current occupational status: unemployed Cognitive needs: No Hearing needs: No Vision needs: No Review of Systems Const Denies fatigue, Denies fever(s), Denies night sweats, Denies poor appetite and Denies weight loss ENT Reports Normal hearing present, Denies dental pain, Denies dysphagia, Denies hearing loss, Denies mouth pain, Denies odynophagia, Denies throat swelling, Denies tongue swelling and Reports other (Dentition adequate) Card Reports no additional complaints Resp Reports no additional complaints GI Details: Denies abdominal pain, Denies melena, Denies bloating, Denies hematochezia, Denies constipation, Denies GI cramping, Denies dysphagia, Denies excessive flatus, Denies early satiety, Denies heartburn, Reports diarrhea, Denies nausea, Denies odynophagia, Denies vomiting and Denies hematemesis Skin/Breast Denies pruritus, Denies lesions, Denies rash and Denies jaundice Neuro Reports Normal hearing present and Denies Abnormal speech present Endo Denies fatigue Aller/Immun Denies throat swelling and Denies tongue swelling Physical Exam Vital Signs: Last Vital Signs Pulse 90 01/27/25 12:12 BP 120/67 01/27/25 12:12 BMI result Body Mass Index 37.1 Const General: cooperative, no acute distress, well developed and well groomed Nutritional Appearance: well nourished and obese Orientation/consciousness: oriented to person, oriented to place and oriented to time Limitations: No language barrier HEENT Head: Yes normocephalic and Yes atraumatic Eyes General: appearance normal, both eyes and all related structures Pupils: Equal, round and reactive pupils present Neck Neck: Yes normal visual inspection and Yes no lymphadenopathy Thyroid: Thyroid normal Resp Effort & Inspection: normal respiratory effort and able to speak in complete sentences Auscultation: clear to auscultation bilaterally Cardio Rate: regular rate Rhythm: regular rhythm Heart sounds: Normal, physiologic split S2 sound present Peripheral pulses: radial pulses present and posterior tibial pulses present GI Inspection: No distended, No Abdominal panniculus present and Yes obesity Palpation (GI): Soft to palpation, nontender, no guarding, not rigid and No hepatosplenomegaly present Percussion: Yes normal to percussion Auscultation: normal bowel sounds Rectal Exam - Male: Yes deferred Skin General skin exam: no rashes or lesions noted, turgor normal, skin not dry, no jaundice, No spider nevi and no striae Rashes: no rashes Nails: normal Neuro General: oriented to person, oriented to place and oriented to time Cranial nerves: Yes Equal, round and reactive pupils present and Yes Normal hearing present Speech: No Abnormal speech present Extrem General: Yes normal to inspection, No clubbing, No cyanosis and No edema Psych Appearance: grossly normal and well kempt Mental Status: mental status grossly normal Speech and movement: Normal speech and movement present Affect: normal affect Attitude: cooperative Thought process: Normal thought process present and not confabulating Thought content: Normal thought content present Insight: Good insight present (Psych) Judgement: Good judgement present (Psych) Results Reviewed Results Reviewed: CXR 10/2023 FINDINGS: There is no gross pneumothorax. Heart size is normal. No pleural effusion. No new focal consolidation to suggest pneumonia. Mild degenerative changes in the thoracic spine. XR/XR chest 2V IMPRESSION: No evidence of pneumonia. EGD 01/15/2024 Findings: Larynx: Normal Esophagus: GE junction at 40 cms. Minimal focal esophagitis at GE junction Stomach: Multiple 5 to 10 mm benign appearing polyps in the gastric body - one polyp was removed with a cold bx. A 12-15 mm adenomatous appearing polyp/nodule in the antrum/prepyloric area. Polyp was removed with a hot snare and retrieved with a Blanco net. Polypectomy site was closed with 1 hemoclip. Moderate diffuse gastric erythema - biopsies were obtained from the antrum. Grade 2 flap valve on retroflexed examination of the cardia. Duodenum: Normal bulb and descending duodenum. Biopsies were obtained from 3rd part of the duodenum to follow up on celiac sprue Intervention: Biopsies as noted above Impression and Post Procedure Diagnosis: Endoscopy Findings: ESOPHAGUS: Minimal focal esophagitis at GE junction STOMACH: Multiple 5 to 10 mm benign appearing polyps in the gastric body - one polyp was removed with a cold bx. A 12-15 mm adenomatous appearing polyp/nodule in the antrum/prepyloric area - removed with a hot snare DUODENUM: Biopsies were obtained from 3rd part of the duodenum to follow up on celiac sprue Plan: Pt advised to schedule a FU appointment with Roya Alva NP (Pt stated he prefers to schedule an appt on a Thursday and November Is off that day) He may elect to schedule with a different provider. Above findings were reviewed with the patient and relevant handouts were given and the discharge area. BIOPSIES SHOWED: A. Small bowel, biopsy: Small bowel mucosa with preserved villi and no specific change; no evidence of celiac disease. B. Gastric antrum, polyp: Gastric antral mucosa with foveolar hyperplasia, intestinal metaplasia, and chronic gastritis with mild activity and focal erosion; negative for H pylori and dysplasia. C. Gastric antrum, biopsy: Gastric antral mucosa with minimal chronic inactive gastritis; negative for H pylori, intestinal metaplasia and dysplasia. D. Gastric body, polyp: Fundic gland polyp with focal minimal chronic inactive inflammation; negative for H pylori, intestinal metaplasia and dysplasi Assessment & Plan Assessment & Plan (1) Celiac disease: Code(s): K90.0 - Celiac disease Category: Medical Plan He questions his celiac diagnosis when comparing the blood work versus the gastric biopsy. I tell him that sometimes we can see this when the celiac allergy has not manifested long enough for there to be damage her eosinophilic infiltration of the stomach lining. He would like to clarify this so I advised him to do a gluten loading challenge and then we will repeat the tissue transglutaminase. I told him also the best judges how his body reacts. So he does not large gluten challenge any has severe diarrhea and problems we know that this is celiac disease. This is the ultimate test when we have indefinite findings in our diagnostics. Return office visit in 6 weeks Orders: Orders Transglutaminase IgA 01/28/25 K90.0 - Celiac disease Transglutaminase Ab IgG 01/28/25 K90.0 - Celiac disease Coding Level of Care Code Est Pt Level 3 (59599) Diagnoses Celiac disease K90.0
[2025-01-27 12:12] VITALS: BP 120/67; PULSE 90; BMI 37.1
--- OUTSIDE RECORDS SUMMARY | 2025-01-27 12:14 | XMS_ITS | Encounter Summary ---
Author Organization [facility] Address [address] [place] [address] Phone Care Team Providers Care Life Skills Coach Name Role Phone Otis Mustafa MD Primary Care Provider Jose hughes Encounter Details Date Type Department Care Team (Late st Contact Info) Description 03/26/2017 Conversion Encounter [facility] - [address] [address] Social History Tobacco Use Types Packs/Day Years Used Date Smoking Tobacco: Never Assessed Sex and Gender Information Value Date Recorded Sex Assigned at Not on file Legal Sex Male 4:32 PM EDT Gender Identity Not on file Sexual Orientation Not on file documented as of this encounter Plan of Treatment Not on file documented as of this encounter Visit Diagnoses Not on filedocumented in this encounter Care Teams Life Skills Coach Relationship Specialty Start Date End Date Otis Mustafa MD PCP - General 03/20/17 11/26/22 documented as of this encounter
== END 2025-01-27 12:42 | disposition home or self-care (01) ==
LOC: HO.HGI 12:06
PROVIDERS: PCP Nurse Practitioner Family; Visit Provider Nurse Practitioner
DX: K90.0 Celiac disease (principal)
CPT/HCPCS: 99213

== ENCOUNTER → 2025-01-27 12:05 | Outpatient (BNVA) | payer OTHER, SELFPAY | PROVIDERS: PCP Nurse Practitioner Family; Visit Provider Nurse Practitioner | DX: K90.0 Celiac disease (principal); J45.20 Mild intermittent asthma, uncomplicated | CPT/HCPCS: 99212 ==

== ENCOUNTER 2025-01-28 07:41 | Outpatient (REF) | payer OTHER, SELFPAY ==
--- OUTSIDE RECORDS SUMMARY | 2025-01-28 07:44 | XMS_ITS | Encounter Summary ---
Author Organization [facility] Address [address] [place] [address] Phone Care Team Providers Care Solution Architect Name Role Phone Otis Mustafa MD Primary Care Provider Jose hughes Encounter Details Date Type Department Care Team (Late st Contact Info) Description 03/26/2017 Conversion Encounter [facility] - [address] [address] Social History Tobacco Use Types Packs/Day Years [...] on filedocumented in this encounter Care Teams Solution Architect Relationship Specialty Start Date End Date Otis Mustafa MD PCP - General 03/20/17 11/26/22 documented as of this encounter
[2025-01-31 22:54] LABS: Transglutaminase Ab IgG <1.0 U/mL; Transglutaminase IgA 2.3 U/mL
== END 2025-01-28 07:42 | disposition home or self-care (01) ==
LOC: HO.LAB 07:41
PROVIDERS: PCP Nurse Practitioner Family; Visit Provider Nurse Practitioner
DX: K90.0 Celiac disease (principal)
CPT/HCPCS: 36415; 86364

== ENCOUNTER 2025-03-13 19:59 | Emergency (ER) | payer OTHER, SELFPAY ==
--- NOTE | ~2025-03-13 | XR_ITS ---
CLINICAL HISTORY: SOB Chest X-ray, 2 Views COMPARISON: CR - XR CHEST 1V - 08/15/24 02:52 EST FINDINGS: No consolidation. No pleural effusion. No pneumothorax. No cardiomegaly. No acute fracture. IMPRESSION: No acute findings. This document has been electronically signed by: Kam Lemus MD on 03/13/2025 21:37:07
--- NOTE | 2025-03-13 20:10 | ECG_ITS ---
Test Reason : CHEST PAIN, HYPERTENSION, PALPATATIONS Blood Pressure : */* mmHG Vent. Rate : 83 BPM Atrial Rate : 83 BPM P-R Int : 140 ms QRS Dur : 94 ms QT Int : 354 ms P-R-T Axes : 15 18 1 degrees QTcB Int : 415 ms Normal sinus rhythm Normal ECG When compared with ECG of 15-Aug-2024 02:54, No significant change was found Referred By: Malinda Ford Electronically Signed By: MAGDA SHEEHAN
[2025-03-13 20:32] VITALS: BP 131/77; PULSE 102; RESP 16; TEMP 36.6; O2SAT 95; BMI 36.8
--- NOTE | 2025-03-13 20:33 | ED.GENADULT ---
HPI - General Adult General Chief complaint: Dyspnea Stated complaint: heart palpitation & blood sugar spikes, minor CP Time Seen by Provider: 03/14/25 00:24 Source: patient Mode of arrival: ambulatory Limitations: no limitations History of Present Illness ED Provider: Dr. Alberta Roberto HPI narrative: 34-year-old male with a history of hypertension, anxiety, [id number] diabetes presenting with hypertension, shortness of breath and chest pain ongoing for the last several days. Admits that he was seen by his primary care doctor and personal protection specialist about 6 months ago and was told to buy a blood pressure machine? keep an eye on it?. States that he had an office visit recently with his primary care doctor and was told that his blood pressures were slightly elevated (140/90) states that he then became curious as to ?what would make his blood pressures go up? so he started taking his blood pressure while he was actively moving around the house. Admits that he began to see numbers in the diastolic readings that were greater than 100 which made him nervous. He comes to the emergency department tonight with a occasional twinges in his left side of his chest, palpitations and anxiety around having elevated blood pressures. Denies associated fevers, cough or cold-type symptoms, abdominal pain, nausea or vomiting, bowel changes or urinary complaints. Does admit to recent attempts at weight loss and has lost about 35 lb using the ?carnivore diet?. No history of thyroid dysfunction. He has not take medications for diabetes. Related Data Home Medications ?Medication ?Instructions ?Recorded ?Confirmed multivitamin 1 tab PO DAILY 06/12/23 12/21/23 omega-3 fatty acids-fish oil 360 1 cap PO BID 06/12/23 12/21/23 mg-1,200 mg capsule (Fish Oil) lorazepam 0.5 mg tablet 0.5 mg PO BID PRN anxiety 11/20/23 12/21/23 cetirizine 10 mg capsule 20 mg PO DAILY PRN 12/21/23 12/21/23 Previous Rx's ?Medication ?Instructions ?Recorded albuterol sulfate 90 mcg/actuation 2 puff inhalation Q6H PRN 08/29/22 aerosol inhaler shortness of breath or wheezing #6.7 grams clobetasol 0.05 % scalp solution 1 appl topical BID 2 weeks #50 mL 10/13/23 sucralfate 100 mg/mL oral 10 ml PO BID #400 mL 10/27/23 suspension (Carafate) miscellaneous medical supply #1 ea 12/02/23 (Blood Pressure Cuff) famotidine 40 mg tablet 40 mg PO BEDTIME #90 tabs 12/07/23 cyclobenzaprine 10 mg tablet 10 mg PO TID PRN muscle spasm #10 03/14/24 tabs lidocaine 5 % topical patch 1 patch topical DAILY #15 ea 03/14/24 naproxen 500 mg tablet 500 mg PO BID PRN pain #20 tabs 03/14/24 pantoprazole 40 mg tablet,delayed 40 mg PO DAILY #90 tabs 06/06/24 release fluticasone 232 mcg-salmeterol 14 1 inh inhalation BID #1 ea 07/19/24 mcg/actuation breath activated powdr (AirDuo RespiClick) ibuprofen 600 mg tablet 600 mg PO Q6H PRN fever or pain 08/15/24 #30 tabs ondansetron 4 mg disintegrating 4 mg PO Q6-8H PRN nausea and 08/15/24 tablet vomiting #10 tabs rosuvastatin 5 mg tablet 5 mg PO DAILY 90 days #90 tabs 09/16/24 lisinopril 10 mg tablet 10 mg PO DAILY #90 tabs 11/30/24 amlodipine 10 mg tablet 10 mg PO DAILY #90 tabs 12/29/24 Allergies Allergy/AdvReac Type Severity Reaction Status Date / Time No Known Allergies (No Known Allergy Verified 03/13/25 20:38 Allergies*) Review of Systems Review of Systems: as per HPI, full review of systems performed and negative but for the above mentioned pertinent positives and negatives. [facility] Past Medical History Attestation statement: The following information was validated with the patient. [facility] Narrative: Hypertension, diabetes, anxiety, psoriasis Medical History Palpitations Diabetes Asthma Anxiety Kidney stone Hypertension Surgical History History of esophagogastroduodenoscopy (EGD) S/P appendectomy Family History Family History Mother Cancer Social History Social History (Reviewed 03/14/25 @ 02:47 by HALEY Newsome Housing: House Alcohol intake: never Patient Tobacco Use Status: Never used Tobacco Smoked in Last 30 Days: No e-Cigarette/Vaping Use: Never Used Second Hand Smoke Exposure: No Use of substances other than those prescribed or required for medical reasons: No Advance Directives: No Advance Directives Information Provided: No Do you have a plan to hurt others: No Plan service: No Current occupational status: unemployed Cognitive needs: No Hearing needs: No Vision needs: No Physical Exam ED Exam Exam: GENERAL: Well-Appearing, conversant, no acute distress. SKIN: Normal skin color for ethnicity, warm, dry, no rashes noted. HEENT: Normocephalic, atraumatic, no stridor, posterior oropharynx nonerythematous, dentition intact, EOMI, dry mucous membranes. NECK: Soft, supple, full ROM, midline structures nontender, no step-offs, no deformities, no lymphadenopathy. CHEST: Heart regular rate and rhythm, no murmurs, symmetric chest rise and fall. PULMONARY: Clear to auscultation bilaterally, no labored breathing, no wheezes/rhales/rhonchi. ABDOMINAL: Soft, nondistended, nontender, positive bowel sounds in all quadrants. : Deferred. MUSCULOSKELETAL: Normal tone, full range of motion, no deformities, no peripheral edema. NEURO: Alert and oriented x3, CN II through XII intact, equal strength and sensation bilateral upper and lower extremities, no focal neurologic deficits. PSYCHIATRIC: Anxious affect, fluid speech, good eye contact and appropriate demeanor. Vital Signs: Vital Signs - 24 hr 03/13/25 20:32 03/14/25 00:50 03/14/25 01:49 Temperature 97.9 F 98.8 F 98.1 F Pulse Rate 102 H 86 71 Respiratory Rate 16 16 16 Blood Pressure 131/77 127/75 127/78 Pulse Oximetry 95 97 98 Oxygen Delivery Method Room Air Room Air Room Air BMI result Body Mass Index 36.8 Course Course Course Narrative: RME performed by Malinda Ford PA-C. Patient is a 34 year old assigned male at presenting to the emergency department with increased shortness of breath and palpitations. Detailed physical exam and review of systems are deferred to the primary therapist. EKG, labs, imaging, and swabs ordered. Patient placed back in the waiting room pending room availability and results. Medical Decision Making Medical Decision Making [facility] Narrative: Patient presenting with chief complaint of high blood pressures today. Differential diagnosis includes hypertensive urgency, hypertensive emergency, essential hypertension, uncontrolled hypertension, ACS, aortic dissection when accompanied with pain or neurologic dysfunction, renal insufficiency or injury, electrolyte abnormality, among many others. Patient's clinical picture is very reassuring. We had an extensive discussion regarding blood pressure management and measuring. I see no evidence of ACS, end-organ damage or acute pathology requiring further intervention here in the emergency department. I discussed this with him at length. Encouraged him to take his blood pressure once a day and record it. Using shared decision making, plan for discharge home to follow-up with primary care and/or specialist. Patient understands and agrees with plan for discharge. Discharged home in stable condition. Differential Diagnosis Differential Diagnoses: The differential diagnosis associated with the presentation includes (As above) Admission/Observation Consideration of admission/observation: Escalation of care including admission/observation considered Lab Data [facility] Lab Attestation statement: I reviewed the patient's lab results. 03/13/25 20:53 03/13/25 20:53 Labs: Lab Results 03/13/25 Range/Units 20:53 WBC 6.4 (4.8-10.8) X10*3/uL RBC 5.27 (4.60-5.80) X10*6/uL Hgb 15.8 (14.0-18.0) g/dl Hct 43.0 (42.0-52.0) % MCV 81.6 (80.0-98.0) fL MCH 30.0 (27.0-33.0) pg MCHC 36.7 H (31.0-36.0) g/dl RDW 12.6 (11.0-16.0) % Plt Count 205 D (160-400) X10*3/uL MPV 10.0 (9.4-12.4) fL Immature Gran % (Auto) 0.2 (0.0-0.4) % Neut % (Auto) 57.2 (45-73) % Lymph % (Auto) 32.1 (20-40) % [place] % (Auto) 8.4 (2-11) % Eos % (Auto) 1.6 (0-4) % Baso % (Auto) 0.5 (0-2) % Lymph # (Auto) 2.1 (1.2-4.9) X10*3/uL [place] # (Auto) 0.5 (0.1-1.2) X10*3/uL Eos # (Auto) 0.1 (0.0-0.4) X10*3/uL Baso # (Auto) 0.0 (0.0-0.2) X10*3/uL Abs Immat Gran (auto) 0.01 (0.00-0.03) X10*3/uL Absolute Neuts (auto) 3.7 (2.0-8.3) x10*3/uL Absolute Nucleated RBC 0.000 (0.0-0.012) X10*3/uL Nucleated RBC % (auto) 0.0 (0.0-0.2) /100WBC Sodium 142 (135-145) mmol/L Potassium 4.1 (3.3-5.1) mmol/L Chloride 111 H (96-108) mmol/L Carbon Dioxide 19 L (22-29) mmol/L Anion Gap 16 (12-20) BUN 21 H (9-16) mg/dL Creatinine 0.84 (0.5-1.4) mg/dL Estim Creat Clear Calc 169.4 Estimated GFR > 60 Random Glucose 85 (60-115) mg/dL Calcium 9.3 (8.4-10.2) mg/dL Magnesium 2.0 (1.6-2.6) mg/dL Total Bilirubin 0.6 (0.0-1.0) mg/dL AST 25 (5-37) U/L ALT 23 (0-40) U/L Alkaline Phosphatase 54 (39-117) U/L Troponin I High Sens < 2.7 (<3.5-35.0) ng/L B-Natriuretic Peptide < 10 (<100) pg/mL Total Protein 7.8 (6.5-8.0) g/dL Albumin 4.8 (3.5-5.0) g/dL Influenza Type A (PCR) NEGATIVE (Negative) Influenza Type B (PCR) NEGATIVE (Negative) RSV RNA Qual (PCR) NEGATIVE (Negative) SARS-CoV-2 RNA (RT-PCR) NEGATIVE (Negative) Independent Interpretation I performed an independent interpretation of an: EKG Interpretation: My independent interpretation of the ECG reveals normal sinus rhythm with rate of 83, normal axis, normal intervals, no ST elevations or depressions to suggest ischemic changes, relatively unchanged from previous on 08/15/2024. Radiology Impression Discussion of test interpretation with radiology: I have reviewed the radiologist's reading. Radiologist Impression: Chest X-ray, 2 Views COMPARISON: CR - XR CHEST 1V - 08/15/24 02:52 EST FINDINGS: No consolidation. No pleural effusion. No pneumothorax. No cardiomegaly. No acute fracture. IMPRESSION: No acute findings. This document has been electronically signed by: Kam Lemus MD on 03/13/2025 21:37:07 Discharge Plan Discharge Clinical Impression: Essential hypertension, Acute chest pain Patient Disposition: Home, Self-Care Instructions: How to Take a Blood Pressure Reading (ED) Additional Instructions: CHECK YOUR BLOOD PRESSURES ONCE A DAY 1ST THING IN THE MORNING BEFORE GETTING UP AND DOING ANYTHING AT ALL. MAKE SURE YOUR FEET ARE ON THE FLOOR WHEN YOU CHECK YOUR BLOOD PRESSURE IN THE EAR IN A COMFORTABLE POSITION. FOLLOW-UP WITH YOUR LUNG SPLITTER REGARDING BLOOD PRESSURE MEDICATIONS. RETURN TO THE EMERGENCY DEPARTMENT WITH ANY NEW OR WORSENING SYMPTOMS INCLUDING: WORSENING CHEST PAIN, DIFFICULTY BREATHING, FEVERS GREATER THAN 100?, ANY NEW SYMPTOM THAT CONCERNS YOU. CALL 911 WITH ANY MEDICAL EMERGENCY. Prescriptions: No Action famotidine 40 mg tablet 40 mg PO BEDTIME Qty: 90 2RF pantoprazole 40 mg tablet,delayed release (DR/EC) 40 mg PO DAILY Qty: 90 2RF fluticasone propion-salmeterol [AirDuo RespiClick] 232-14 mcg/actuation aerosol powdr breath activated 1 inh inhalation BID Qty: 1 6RF rosuvastatin 5 mg tablet 5 mg PO DAILY 90 Days Qty: 90 1RF lisinopril 10 mg tablet 10 mg PO DAILY Qty: 90 3RF amlodipine 10 mg tablet 10 mg PO DAILY Qty: 90 1RF lorazepam 0.5 mg tablet 0.5 mg PO BID PRN (Reason: anxiety) ibuprofen 600 mg tablet 600 mg PO Q6H PRN (Reason: fever or pain) Qty: 30 0RF ondansetron 4 mg tablet,disintegrating 4 mg PO Q6-8H PRN (Reason: nausea and vomiting) Qty: 10 0RF cyclobenzaprine 10 mg tablet 10 mg PO TID PRN (Reason: muscle spasm) Qty: 10 0RF lidocaine 5 % adhesive patch,medicated 1 patch topical DAILY Qty: 15 0RF Rx Instructions: leave on most painful area for up to 12 hrs naproxen 500 mg tablet 500 mg PO BID PRN (Reason: pain) Qty: 20 0RF albuterol sulfate 90 mcg/actuation HFA aerosol inhaler 2 puff inhalation Q6H PRN (Reason: shortness of breath or wheezing) Qty: 6.7 0RF clobetasol 0.05 % solution 1 appl topical BID 14 Days Qty: 50 0RF cetirizine 10 mg capsule 20 mg PO DAILY PRN Rx Instructions: 1 tab am, 1 tab pm sucralfate [Carafate] 100 mg/mL suspension 10 ml PO BID Qty: 400 1RF multivitamin Tablet 1 tab PO DAILY omega-3 fatty acids-fish oil [Fish Oil] 360-1,200 mg capsule 1 cap PO BID (DME) Blood Pressure Cuff Misc See Rx Instructions .Route Qty: 1 0RF Rx Instructions: As directed Stand Alone Forms: Work/School Release Interventions: ED Discharge Assessment Last Done: 03/14/25 01:49 Discharge Date/Time: 03/14/25 01:50 Print Language: Chinese
--- OUTSIDE RECORDS SUMMARY | 2025-03-13 20:54 | XMS_ITS | Clinical Summary ---
Author Organization [facility] Address [address] [place] [address] Care Team Providers Care Nuclear Worker Technician Name Role Phone Unavailable Primary Care Provider Unavailabl e Social History Tobacco Use Types Packs/Day Years Used Date Smoking Tobacco: Never Assessed Sex and Gender Information Value Date Recorded Sex Assigned at Not on file Legal Sex Male 8:52 PM EST Gender Identity Not on file Sexual Orientation Not on file Plan of Treatment Health Maintenance Due Date Last Done Comments DTaP,Tdap,and Td Vaccines (1 - Tdap) 2010 Hepatitis B Vaccines (1 of 3 - 19+ 3-dose series) 2010 HIV Screening 09/04/2023 Hepatitis C Screening 09/04/2023 Social Influencers of Health Screening 09/04/2023 COVID-19 Vaccine (1 - 2023-2 5 season) 2024 Depression Screening 08/10/2024 Influenza Vaccine (#1) 2025 HIB Vaccines Aged Out No longer eligi ble based on patient's age to complete this topic HPV Vaccines Aged Out No longer eligi ble based on patient's age to complete this topic Hepatitis A Vaccines Aged Out No long er eligible based on patient's age to complete this topic IPV Vaccines Aged Out No longer eligi ble based on patient's age to complete this topic MMR Vaccines Aged Out No longer eligi ble based on patient's age to complete this topic Meningococcal ACWY Vaccine Aged Out N o longer eligible based on patient's age to complete this topic Meningococcal B Vaccine Aged Out No l onger eligible based on patient's age to complete this topic Pneumococcal Vaccine: Pediat rics (0 to 5 Years) and At-Risk Patients (6 to 49 Years) Aged Out No longer eligible b ased on patient's age to complete this topic RSV Immunization Patients Un ciara 20 months Aged Out No longer eligible b ased on patient's age to complete this topic Varicella Vaccines Aged Out No longer eligible based on patient's age to complete this topic
[2025-03-13 20:57] LABS: MANUAL DIFF FLAG NO
[2025-03-13 20:58] LABS: Hematocrit 43.0 % (42.0-52.0); Hemoglobin 15.8 g/dl (14.0-18.0); Imm Gran Abs Auto 0.01 X10*3/uL (0.00-0.03); Imm Gran Pct Auto 0.2 % (0.0-0.4); Lymphocytes Absolute Auto 2.1 X10*3/uL (1.2-4.9); Mean Corpuscular HGB Conc 36.7 g/dl (31.0-36.0); Mean Corpuscular Hemoglobin 30.0 pg (27.0-33.0); Mean Corpuscular Volume 81.6 fL (80.0-98.0); NRBC Abs Auto 0.000 X10*3/uL (0.0-0.012); NRBC Pct Auto 0.0 /100WBC (0.0-0.2); Platelet Count 205 X10*3/uL (160-400); Red Blood Count 5.27 X10*6/uL (4.60-5.80); White Blood Count 6.4 X10*3/uL (4.8-10.8)
[2025-03-13 21:12] LABS: Alanine Aminotransferase 23 U/L (0-40); Albumin Level 4.8 g/dL (3.5-5.0); Alkaline Phosphatase 54 U/L (39-117); Anion Gap 16 (12-20); Aspartate Amino Transferase 25 U/L (5-37); Blood Urea Nitrogen 21 mg/dL (9-16); Calcium 9.3 mg/dL (8.4-10.2); Carbon Dioxide 19 mmol/L (22-29); Chloride 111 mmol/L (96-108); Creatinine Clr Calc Pharmacy 169.4; Estimated Glomerular Filt Rate > 60; Magnesium 2.0 mg/dL (1.6-2.6); Potassium 4.1 mmol/L (3.3-5.1); Sodium 142 mmol/L (135-145); Total Protein 7.8 g/dL (6.5-8.0)
[2025-03-13 21:17] LABS: B Type Natriuretic Peptide < 10 pg/mL (<100)
[2025-03-13 21:21] LABS: Troponin-I High Sensitivity < 2.7 ng/L (<3.5-35.0)
[2025-03-13 21:34] LABS: Resp Syncy Virus RNA Qual PCR NEGATIVE (Negative); SARS COV2 PCR INHOUSE NEGATIVE (Negative)
[2025-03-14 00:50] VITALS: BP 127/75; PULSE 86; RESP 16; TEMP 37.1; O2SAT 97
[2025-03-14 01:49] VITALS: BP 127/78; PULSE 71; RESP 16; TEMP 36.7; O2SAT 98
== END 2025-03-14 01:50 | disposition home or self-care (01) ==
PROVIDERS: Physician Assistant Medical; Emergency Provider Emergency Medicine; PCP Nurse Practitioner Family
DX: R06.02 Shortness of breath (principal); R07.9 Chest pain, unspecified; I10 Essential (primary) hypertension; F41.9 Anxiety disorder, unspecified; E11.9 Type 2 diabetes mellitus without complications
CPT/HCPCS: 36415; 71046; 80053; 83735; 83880; 84484; 85025; 87637; 93005; 99283; 99284

== ENCOUNTER → 2025-03-13 20:10 | Outpatient (BNV) | payer OTHER, SELFPAY | PROVIDERS: Emergency Provider Emergency Medicine; PCP Nurse Practitioner Family; Visit Provider Internal Medicine | DX: I10 Essential (primary) hypertension (principal); R07.9 Chest pain, unspecified; R00.2 Palpitations | CPT/HCPCS: 93010 ==

== ENCOUNTER → 2025-03-13 20:33 | Outpatient (BNV) | payer OTHER, SELFPAY | PROVIDERS: PCP Nurse Practitioner Family; Visit Provider Radiology Diagnostic Radiology | DX: R06.02 Shortness of breath (principal) | CPT/HCPCS: 71046 ==

== ENCOUNTER 2025-03-17 08:03 | Outpatient (AMB) | payer OTHER, SELFPAY ==
--- OUTSIDE RECORDS SUMMARY | 2025-03-17 08:07 | XMS_ITS | Encounter Summary ---
Author Organization [facility] Address [address] [place] [address] Phone Care Team Providers Care Glass Bulb Machine Adjuster Name Role Phone Otis Mustafa MD Primary Care Provider Joes hughes Encounter Details Date Type Department Care Team (Late st Contact Info) Description 03/26/2017 Conversion Encounter [facility] - [address] [address] Social History Tobacco Use Types Packs/Day Years [...] on filedocumented in this encounter Care Teams Glass Bulb Machine Adjuster Relationship Specialty Start Date End Date Otis Mustafa MD PCP - General 03/20/17 11/26/22 documented as of this encounter
--- OUTSIDE RECORDS SUMMARY | 2025-03-17 08:07 | XMS_ITS | Clinical Summary ---
Author Organization [facility] Address [address] [place] [address] Care Team Providers Care Day Care Worker Name Role Phone Unavailable Primary Care Provider [...]
[2025-03-17 08:14] VITALS: BP 147/91; PULSE 109; RESP 15; O2SAT 100
--- NOTE | 2025-03-17 08:14 | AM.OFFWIN_ITS ---
Intake Vital Signs 03/17/25 08:14 03/17/25 09:00 Height 6 ft Weight 268 lb 8 oz BMI 36.4 BP 147/91 H 118/60 Blood Pressure Location Lt brachial Rt brachial Position Sitting Sitting Respiration 15 Pulse 109 H 94 Pulse Source Pulse Oximeter Pulse Oximeter Temp 98.6 F Temp Source Oral Pulse Oximetry (%) 100 97 Oxygen Delivery Method Room Air Room Air Intake Visit Reasons: EP-High BP 140 over 90 Intake Note: Pt came in to the [place] clinic c/o hypertension 140/90 x >1 week. Pt stated that he has been taking his blood pressure medication regularly. C/o headache and dizziness. Dizziness while standing and ambulating. Pt is a/o x 3 no sob/umu noted. MARTINA (Jenn) is aware. No apparent distress noted. Patient Tobacco Use Status: Never used Tobacco Intern Product Marketing Manager Required: No Allergies No Known Allergies (No Known Allergies*) Allergy (Verified 03/17/25 09:05) Medication List - Last Reconciled 03/17/25 by Ginger Marshall MD albuterol sulfate 90 mcg/actuation 2 puffs inhalation Q6H PRN amlodipine 10 mg PO DAILY cetirizine 20 mg PO DAILY PRN clobetasol 0.05% 1 appl topical BID 2 weeks cyclobenzaprine 10 mg PO TID PRN famotidine 40 mg PO BEDTIME fluticasone propion-salmeterol 232-14 mcg/actuation (AirDuo RespiClick) 1 inh inhalation BID ibuprofen 600 mg PO Q6H PRN lidocaine 5% 1 patch topical DAILY lisinopril 10 mg PO DAILY lorazepam 0.5 mg PO BID PRN miscellaneous medical supply (Blood Pressure Cuff) As directed multivitamin 1 tab PO DAILY naproxen 500 mg PO BID PRN omega-3 fatty acids-fish oil 360-1,200 mg (Fish Oil) 1 cap PO BID ondansetron 4 mg PO Q6-8H PRN pantoprazole 40 mg PO DAILY rosuvastatin 5 mg PO DAILY 90 days sucralfate (Carafate) 10 mL PO BID Do you need a note to return to daycare/school/sports/work: No HPI EP-High BP 140 over 90 HPI Details History of Present Illness The patient is a 34-year-old male presenting with fluctuating blood pressure. Fluctuating Blood Pressure: - The patient reports fluctuating blood pressure readings over the past month. - Previously, his blood pressure was sta ble for about a year, with readings typically around 120/80 mmHg. - Recent self-monitored measurements allison y significantly, with instances of 147/91 mmHg and 118/60 mmHg on the same day. - Brief spikes up to 160 mmHg have been noted, with spontaneous reductions following rest and deep breathing. - No changes in diet or significant life style alterations have been reported that could account for the fluctuations. - The patient is on medications for hype rtension management but has not seen his bulk station agent in over a year due to insurance issues. Hypertension: - History of hypertension for which the patient has been taking Amlodipine 10 mg and Lisinopril 10 mg. - Medication has helped maintain a stabl e blood pressure generally, with current spikes occurring over the past month. - No reported changes in medication dosa ge prior to fluctuations. - Patient mentions a potential associati on between asthma symptoms and spikes in blood pressure. Asthma: - history of asthma controlled with Adva ir Medical History: - Hypertension - Asthma - obesity Medications: - Amlodipine 10 mg for hypertension. - Lisinopril 10 mg for hypertension. - Flonase for allergies. - Advair for asthma. - Xolair injections every two weeks for asthma. - Cetirizine for allergies. - Cyclobenzaprine (dose not specified). - Famotidine (dose not specified). - Afrin (occasional use for nasal conges tion). 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 - No use of recreational drugs. - No alcohol consumption. - Attempting to manage weight and stay a ctive. Diagnostic Results: - Labs recently performed showed no alar anaya results, details unspecified. Problem List - Hypertension ( fluctuating with activity mostly] - Asthma - obesity Patient Instructions - Monitor blood pressure regularly at [facility]. And keep a log take it along at cardiology appointment - Consider taking an extra half dose of Lisinopril if blood pressure is elevated. - Avoid extra salt and activities that m ight spike blood pressure. - Rest and avoid staying in hot environm ents. - Wait for upcoming appointment with car diologist on April 05, 2023. Medical Decision Making The patient presents with fluctuations in blood pressure despite being on antihypertensives. It is likely that asthma-related respiratory issues may contribute to transient spikes in blood pressure. The patient's history of stable hypertension management with Amlodipine and Lisinopril suggests potential situational influences such as stress or exertion. To manage the immediate concern, I recommend increasing the Lisinopril dose with half a tablet during spikes, while awaiting further assessment by a bulk station agent to fine-tune antihypertensive therapy. The patient's asthma management continues with Advair and Xolair injections, aligned with current guidelines. The recommendation includes lifestyle adjustments to limit salt intake and reduce stressors, promoting blood pressure stability. Review of Systems - General: No fever no chills - Ear nose throat: No sore throat no hearing difficulty no ear pain - Cardiovascular: No syncope, no chest pain, no palpitations - Gastrointestinal: No nausea vomiting or diarrhea - Endocrine: No polyuria polydipsia no heat intolerance - Genitourinary: No dysuria , no blood in urine Physical Exam General: No acute distress HEENT: No acute findings Neck: Supple Respiratory system: Able to talk in full sentences, no audible wheeze, lungs are clear Cardiovascular: S1-S2 regular in rate and rhythm Gastrointestinal: No pain Extremities: No new findings MEDICAL ACCOUNTING CLERK: Alert awake oriented x3 motor sensory intact Skin: Normal turgor PFSH Medical History Palpitations Diabetes Asthma Anxiety Kidney stone Hypertension Surgical History History of esophagogastroduodenoscopy (EGD) S/P appendectomy Family History Mother Cancer Social History Housing: House Alcohol intake: never Patient Tobacco Use Status: Never used Tobacco e-Cigarette/Vaping Use: Never Used Second Hand Smoke Exposure: No service: No Current occupational status: unemployed Cognitive needs: No Hearing needs: No Vision needs: No Physical Exam Vital Signs: Last Vital Signs Temp 98.6 F 03/17/25 09:00 Pulse 94 03/17/25 09:00 Resp 15 03/17/25 08:14 BP 118/60 03/17/25 09:00 Pulse Ox 97 03/17/25 09:00 Oxygen Delivery Method Room Air 03/17/25 09:00 BMI result Body Mass Index 36.4 Assessment & Plan Assessment & Plan (1) Labile hypertension: Code(s): R09.89 - Other specified symptoms and signs involving the circulatory and respiratory systems (2) Severe persistent asthma: Code(s): J45.50 - Severe persistent asthma, uncomplicated (3) Environmental allergies: Code(s): Z91.09 - Other allergy status, other than to drugs and biological substances (4) Obesity due to excess calories: Code(s): E66.09 - Other obesity due to excess calories Qualifiers: Obesity classification: adult class 2 (BMI 35 - 39.9) Serious obesity comorbidity presence: with serious comorbidity Body mass index: BMI 36.0-36.9 Qualified Code(s): E66.812 - Obesity, class 2; E66.01 - Morbid (severe) obesity due to excess calories; Z68.36 - Body mass index [BMI] 36.0-36.9, adult Plan History of Present Illness The patient is a 34-year-old male presenting with fluctuating blood pressure. Fluctuating Blood Pressure: - The patient reports fluctuating blood pressure readings over the past month. - Previously, his blood pressure was stable for about a year, with readings typically around 120/80 mmHg. - Recent self-monitored measurements vary significantly, with instances of 147/91 mmHg and 118/60 mmHg on the same day. - Brief spikes up to 160 mmHg have been noted, with spontaneous reductions following rest and deep breathing. - No changes in diet or significant lifestyle alterations have been reported that could account for the fluctuations. - The patient is on medications for hypertension management but has not seen his bulk station agent in over a year due to insurance issues. Hypertension: - History of hypertension for which the patient has been taking Amlodipine 10 mg and Lisinopril 10 mg. - Medication has helped maintain a stable blood pressure generally, with current spikes occurring over the past month. - No reported changes in medication dosage prior to fluctuations. - Patient mentions a potential association between asthma symptoms and spikes in blood pressure. Asthma: - history of asthma controlled with Advair Medical History: - Hypertension - Asthma - obesity Medications: - Amlodipine 10 mg for hypertension. - Lisinopril 10 mg for hypertension. - Flonase for allergies. - Advair for asthma. - Xolair injections every two weeks for asthma. - Cetirizine for allergies. - Cyclobenzaprine (dose not specified). - Famotidine (dose not specified). - Afrin (occasional use for nasal congestion). 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 - No use of recreational drugs. - No alcohol consumption. - Attempting to manage weight and stay active. Diagnostic Results: - Labs recently performed showed no alarming results, details unspecified. Problem List - Hypertension ( fluctuating with activity mostly] - Asthma - obesity Patient Instructions - Monitor blood pressure regularly at home. And keep a log take it along at cardiology appointment - Consider taking an extra half dose of Lisinopril if blood pressure is elevated. - Avoid extra salt and activities that might spike blood pressure. - Rest and avoid staying in hot environments. - Wait for upcoming appointment with bulk station agent on April 05, 2023. Medical Decision Making The patient presents with fluctuations in blood pressure despite being on antihypertensives. It is likely that asthma-related respiratory issues may contribute to transient spikes in blood pressure. The patient's history of stable hypertension management with Amlodipine and Lisinopril suggests potential situational influences such as stress or exertion. To manage the immediate concern, I recommend increasing the Lisinopril dose with half a tablet during spikes, while awaiting further assessment by a bulk station agent to fine-tune antihypertensive therapy. The patient's asthma management continues with Advair and Xolair injections, aligned with current guidelines. The recommendation includes lifestyle adjustments to limit salt intake and reduce stressors, promoting blood pressure stability. Coding Level of Care Code Est Pt Level 4 (45873) Diagnoses Labile hypertension R09.89 Severe persistent asthma J45.50 Environmental allergies Z91.09 Class 2 severe obesity due to excess calories with serious comorbidity and body mass index (BMI) of 36.0 to 36.9 in adult E66.812; E66.01; Z68.36 Obesity classification: adult class 2 (BMI 35 - 39.9) Serious obesity comorbidity presence: with serious comorbidity Body mass index: BMI 36.0-36.9
[2025-03-17 09:00] VITALS: BP 118/60; PULSE 94; TEMP 37; O2SAT 97; BMI 36.4
== END 2025-03-17 09:19 | disposition home or self-care (01) ==
PROVIDERS: PCP Nurse Practitioner Family; Visit Provider Internal Medicine
DX: R09.89 Other specified symptoms and signs involving the circulatory and respiratory systems (principal); J45.50 Severe persistent asthma, uncomplicated; Z91.09 Other allergy status, other than to drugs and biological substances; E66.812 Obesity, class 2; E66.01 Morbid (severe) obesity due to excess calories; Z68.36 Body mass index [BMI] 36.0-36.9, adult

== ENCOUNTER → 2025-03-17 08:03 | Outpatient (BNVA) | payer OTHER, SELFPAY | PROVIDERS: PCP Nurse Practitioner Family; Visit Provider Internal Medicine | DX: I10 Essential (primary) hypertension (principal); R09.89 Other specified symptoms and signs involving the circulatory and respiratory systems; J45.50 Severe persistent asthma, uncomplicated; E66.812 Obesity, class 2; E66.01 Morbid (severe) obesity due to excess calories; Z68.36 Body mass index [BMI] 36.0-36.9, adult; Z91.09 Other allergy status, other than to drugs and biological substances; Z79.899 Other long term (current) drug therapy | CPT/HCPCS: 99212 ==

== ENCOUNTER 2025-04-05 08:42 | Outpatient (AMB) | payer OTHER, SELFPAY ==
[2025-04-05 09:05] VITALS: BP 120/62; PULSE 90; BMI 37.1
--- NOTE | 2025-04-05 09:05 | MHC.OFFVIS ---
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 Teacher Required: No Accompanied by: Self / Same As Patient Allergies No Known Allergies (No Known Allergies*) Allergy (Verified 03/17/25 09:05) Medication List - Last Reconciled 04/05/25 by Wiliam Holliday MD albuterol sulfate 90 mcg/actuation 2 puffs inhalation Q6H PRN amlodipine 10 mg PO DAILY cetirizine 20 mg PO DAILY PRN clobetasol 0.05% 1 appl topical BID 2 weeks fluticasone propion-salmeterol 232-14 mcg/actuation (AirDuo RespiClick) 1 inh inhalation BID ibuprofen 600 mg PO Q6H PRN lisinopril 10 mg PO DAILY lorazepam 0.5 mg PO BID PRN miscellaneous medical supply (Blood Pressure Cuff) As directed multivitamin 1 tab PO DAILY naproxen 500 mg PO BID PRN omega-3 fatty acids-fish oil 360-1,200 mg (Fish Oil) 1 cap PO BID ondansetron 4 mg PO Q6-8H PRN pantoprazole 40 mg PO DAILY rosuvastatin 5 mg PO DAILY 90 days HPI Comments Details: 34-year-old gentleman here for chest discomfort and shortness of breath. Has background history of hypertension has been hypertensive for last 10 years. He has been on medication with good blood pressure control. He was also told at that time that he may have hypertrophic cardiomyopathy but has not followed up with anyone. He also had diabetes which was managed with the exercise and weight loss and last hemoglobin A1c was 5.4. He is on Crestor and fish oil currently for elevated cholesterol. He has been experiencing shortness of breath and chest tightness for 2 months. He said he was doing 8 miles hikes before that and did not have any issues. Now he is getting out of breath with activities he went inside his house. He has some anxiety and also has been on as-needed lorazepam. No history of asthma reported by him although he has an albuterol inhaler as needed in his med list. He is saying that he gets left-sided chest tightness and sometimes sharp sensation in the chest going into the left arm. He also gets out of breath when he gets these symptoms. 12/02/2023: He returns for follow-up. He had echocardiography done which was essentially normal. He was able to exercise to 10.1 metabolic equivalents and had maximum blood pressure of 200/58. No chest discomfort but had [id number] dyspnea. No ischemic EKG changes were noted. On follow-up he is complaining of chest pains off and on which is a pressure-like feeling on the left side of the chest along with some indigestion like feeling. He does have known history of reflux and has been using pantoprazole and famotidine and follows with GI. His blood pressure is elevated. He also has mild asthma diagnosed and has been following with pulmonology. He is saying he snores at night sometimes and has daytime sleepiness/fatigue. He had a sleep study many years ago. He is denying history of anxiety. 04/05/2025: He is here for follow-up. [place] without any significant symptoms. His blood pressure in the office currently is normal and he is taking lisinopril 15 mg daily. He said he had some elevated blood pressure then went to a walk-in clinic where he was advised to increase the lisinopril to 1-1/2 tablets. He is taking amlodipine 10 mg daily. From time to time he has noticed that his blood pressure is elevated into 140s by 90s but usually it is under circumstances when he is stressed or has not been resting before checking the blood pressure. He does not have any symptoms to report otherwise. [facility] Medical History Palpitations Diabetes Asthma Anxiety Kidney stone Hypertension Surgical History History of esophagogastroduodenoscopy (EGD) S/P appendectomy Family History Mother Cancer Social History Housing: House Alcohol intake: never Patient Tobacco Use Status: Never used Tobacco e-Cigarette/Vaping Use: Never Used Second Hand Smoke Exposure: No service: No Current occupational status: unemployed Cognitive needs: No Hearing needs: No Vision needs: No Review of Systems Const Denies chills, Denies fatigue, Denies fever(s), Denies frequent falls, Denies weakness, Denies weight gain and Denies weight loss ENT Denies dizziness Card Denies chest pain, Denies leg edema, Denies lightheadedness, Denies palpitations, Denies dyspnea and Denies dyspnea on exertion Resp Denies cough, Denies dyspnea and Denies dyspnea on exertion GI Denies hematochezia Musc Denies abnormal gait, Denies muscle weakness, Denies numbness, Denies radiating pain into limb and Denies tingling Neuro Denies abnormal gait, Denies dizziness, Denies frequent falls, Denies numbness, Denies tingling and Denies weakness Endo Denies fatigue and Denies palpitations Physical Exam Vital Signs: Last Vital Signs Pulse 90 04/05/25 09:05 BP 120/62 04/05/25 09:05 BMI result Body Mass Index 37.1 GENERAL APPEARANCE: in no acute distress, pleasant. NECK: no carotid bruit, no jugular venous distention. SKIN: no suspicious lesions, warm and dry. HEART: no murmurs, regular rate and rhythm. LUNGS: clear to auscultation bilaterally. ABDOMEN: soft, nontender. EXTREMITIES: no edema. PERIPHERAL PULSES: equal. NEUROLOGIC: No gross deficits, AAO X 3 Office Procedures EKG Details: Sinus rhythm 90 beats per minute, normal axis, inferior Q-waves and can not rule out inferior infarct, QTC 418 milliseconds. [id number], Complete Assessment & Plan Assessment & Plan (1) Hypertension: Code(s): I10 - Essential (primary) hypertension Category: Medical Plan Pleasant 34 year gentleman who is here for follow-up. He has background history of hypertension and had a hypertensive response to exercise during stress test. The stress test otherwise did not have any other abnormalities. His blood pressure medications were titrated and overall his blood pressure at rest has been stable. He is reporting some elevated blood pressure readings. I have advised him to check his blood pressure at home and keep a log. I have also advised him to sit for 5-10 minutes before checking the blood pressure and making sure that he is relaxed. He has been checking blood pressure randomly and he has noticed some elevated blood pressure which could be related to physical activity or stress etcetera. Same medications for now. He has some inferior Q-waves on EKG-I do not think they are pathological though. He has not had any echocardiography for long time and I think we should check echo to make sure he does not have any wall motion or left ventricular hypertrophy. If he truly has LVH then we may need to be more aggressive with his blood pressure controlled. Thank you for allowing me to participate in the care of your patient. Please feel free to contact me if you have any questions. Orders: Orders CA echo transthorac w con Today I10 - Essential (primary) hypertension Coding Level of Care Code Est Pt Level 4 (42841) Diagnoses Hypertension I10 CPT Codes EKG - CPT: 80542-[id number], Complete ([id number])
--- OUTSIDE RECORDS SUMMARY | 2025-04-05 09:05 | XMS_ITS | Clinical Summary ---
Author Organization [facility] Address [address] [place] [address] Care Team Providers Care Single Wire Saw Operator Name Role Phone Unavailable Primary Care Provider [...]
--- OUTSIDE RECORDS SUMMARY | 2025-04-05 09:05 | XMS_ITS | Encounter Summary ---
Author Organization [facility] Address [address] [place] [address] Phone Care Team Providers Care Medical Records Supervisor Name Role Phone Otis Mustafa MD Primary Care Provider Jose hughes Encounter Details Date Type Department Care Team (Late st Contact Info) Description 03/26/2017 Conversion Encounter [facility] - [address] [address] Social History Tobacco Use Types Packs/Day Years [...] on filedocumented in this encounter Care Teams Medical Records Supervisor Relationship Specialty Start Date End Date Otis Mustafa MD PCP - General 03/20/17 11/26/22 documented as of this encounter
--- OUTSIDE RECORDS SUMMARY | 2025-04-05 09:05 | XMS_ITS | Encounter Summary ---
Author Organization [facility] Address [address] [place] [id number] Phone Care Team Providers Care Media Center Director School Name Role Phone Otis Mustafa MD Primary Care Provider Jose hughes Encounter Details Date Type Department Care Team (Late st Contact Info) Description 03/21/2011 Documentation [facility] [address] [place], [place] [id number] Family Medicine, Physician [address] [place] [address] Social History Tobacco Use Types Packs/Day Years [...] on filedocumented in this encounter Care Teams Media Center Director School Relationship Specialty Start Date End Date Otis Mustafa MD PCP - General 03/20/17 11/26/22 documented as of this encounter
--- OUTSIDE RECORDS SUMMARY | 2025-04-05 09:05 | XMS_ITS | Encounter Summary ---
Author Organization [facility] Address [address] [place] [address] Phone Care Team Providers Care Crime Analyst Name Role Phone Otis Mustafa MD Primary Care Provider Jose hughes Encounter Details Date Type Department Care Team (Late st Contact Info) Description 06/05/2014 Documentation [facility] [address] [place], [place] [id number] Family Medicine, Physician [address] [place] [address] Social History Tobacco Use Types Packs/Day Years [...] on filedocumented in this encounter Care Teams Crime Analyst Relationship Specialty Start Date End Date Otis Mustafa MD PCP - General 03/20/17 11/26/22 documented as of this encounter
--- OUTSIDE RECORDS SUMMARY | 2025-04-05 09:05 | XMS_ITS | Clinical Summary ---
Author Organization [facility] Address [address] [place] [address] Phone Care Team Providers Care Phlebotomist Medical Lab Assistant Name Role Phone Unavailable Primary Care Provider Unavailabl e Immunizations Immunization Administration Dates Next Due DTP 12/06/1993, 2,02/06/1992,1991 Hep B, ped/adol 05/06/1996,11/20/1994 Hib (PRP-T) 12/06/1993, 2,02/06/1992,1991 IPV 12/06/1993,02/06/1992,1991 MMR 05/06/1996,12/06/1993 Td (adult) (MBL), 2 Lf tetan us toxoid, PF, adsorbed 07/03/2003 Tdap 12/02/2007 Family History Relation Name Status Comments Brother 1 Alive Brother: Alive and well, Alive and well Brother 2 Alive Brother: Alive and well, Alive and well Mother Alive Mother: Alive a nd well Other Family history of Diabetes mellitus, Family history of Asthma Social History Tobacco Use Types Packs/Day Years Used Date Smoking Tobacco: Never Assessed Sex and Gender Information Value Date Recorded Sex Assigned at Not on file Legal Sex Male 4:32 PM EDT Gender Identity Not on file Sexual Orientation Not on file Last Filed Vital Signs Vital Sign Reading Time Taken Comments Blood Pressure 120/80 03/27/2010 12:00 AM EDT Pulse - - Temperature 36.5 C (97.7 F) 10/26/2010 12:00 AM EDT Respiratory Rate - - Oxygen Saturation 98% 10/26/2010 12:00 AM EDT Inhaled Oxygen Concentration - - Weight 118 kg (261 lb) 10/26/2010 12:00 AM EDT Height 183.6 cm (6' 0.3 ) 03/27/2010 12:00 AM ED T Body Mass Index 35.1 03/27/2010 12:00 AM EDT Plan of Treatment Health Maintenance Due Date Last Done Comments IPV Vaccines (4 of 4 - 4-dose series) 1995 12/06/1993, 02/06/1992, 1991 Hepatitis B Vaccines (3 of 3 - 3-dose series) 07/01/1996 05/06/1996, 11/20/1994 Varicella Vaccines (1 of 2 - 13+ 2-dose series) 2004 DTaP,Tdap,and Td Vaccines (7 - Td or Tdap) 12/01/2017 12/02/2007, 07/03/2003, 12/06/1993, Additional history exists HPV Vaccines (1 - 3-dose SCDM series) 2018 COVID-19 Vaccine (2023- season) 2024 Influenza Vaccines (#1) 2025 HIB Vaccines Completed 12/06/1993, 03/11, 02/06/1992, Additional history exists MMR Vaccines Completed 05/06/1996, 12/06/1993 Hepatitis A Vaccines Aged Out No long er eligible based on patient's age to complete this topic Men B Vaccine Aged Out No longer elig ible based on patient's age to complete this topic Meningococcal Vaccine Aged Out No ernie susan eligible based on patient's age to complete this topic Pneumococcal Vaccine Aged Out No long er eligible based on patient's age to complete this topic
== END 2025-04-05 09:36 | disposition home or self-care (01) ==
LOC: HO.HCS 08:43
PROVIDERS: PCP Nurse Practitioner Family; Visit Provider Internal Medicine Cardiovascular Disease
DX: I10 Essential (primary) hypertension (principal)
CPT/HCPCS: 93010; 99214

== ENCOUNTER → 2025-04-05 08:42 | Outpatient (BNVA) | payer OTHER, SELFPAY | PROVIDERS: PCP Nurse Practitioner Family; Visit Provider Internal Medicine Cardiovascular Disease | DX: Z71.2 Person consulting for explanation of examination or test findings (principal); I10 Essential (primary) hypertension; E11.9 Type 2 diabetes mellitus without complications | CPT/HCPCS: 93005; 99212 ==

== ENCOUNTER → 2025-05-05 09:37 | Outpatient (REF) | payer OTHER, SELFPAY ==
--- NOTE | 2025-05-05 09:40 | CA_ITS ---
Transthoracic Echocardiogram Patient (Last, First, Middle): Jarrod Albert D Gender: Male Date of : 1990 Age: 34 Procedure Date: 05/05/2025 Procedure Type: Transthoracic Echocardiogram Location: OP Height: 182.88 cm Weight: 120.2 kg BSA: 2.40 m2 Heart Rate: bpm BP: 120 / 68 mmHg Special Education Supervisor: SB Referring MD: Wiliam Holliday MD Symptoms: I10 - Essential (primary) hypertension Study Quality: Technically Difficult, contrast Conclusions: - Normal left ventricular size and systolic function. The visually estimated ejection fraction is between 55-60%. - Normal right ventricular cavity size and systolic function. Findings Procedure Information Contrast agent, definity, is being given per protocol without apparent complications. The study quality is limited by patients body habitus. Left Ventricle Normal left ventricular size and systolic function. The visually estimated ejection fraction is between 55-60%. There is no evidence of regional wall motion abnormalities. Diastolic function is normal for age. Right Ventricle Normal right ventricular cavity size and systolic function. Atria The left atrium is normal in size. The right atrium is normal in size. Aortic Valve Normal aortic valve structure and function. There is no aortic valve stenosis. There is no aortic valve regurgitation. Mitral Valve Normal mitral valve structure and function. There is no mitral valve regurgitation. There is no mitral valve stenosis. Pulmonic Valve The pulmonic valve is normal. There is no pulmonic valve regurgitation. Tricuspid Valve Normal tricuspid valve structure. There is trace tricuspid valve regurgitation. Tricuspid regurgitation envelope is inadequate for calculation of right ventricular systolic pressure. Normal right atrial pressure. Great Vessels The visualized portions of the pulmonary artery and branches are normal. Venous The inferior vena cava is normal in size and collapses greater than 50% with inspiration. Pericardium/Pleural There is no evidence of pericardial effusion. Prior Study Comparison No significant change compared to prior study dated: 09/17/2023. Measurements 2D Linear Measurements IVSd: 1.15 0.6-0.9/0.6-1.0 cm LVIDd: 4.95 3.9-5.3/4.2-5.9 cm LVIDd Index: 2.06 2.4-3.2/2.2-3.1 cm/m2 LVIDs: 3.70 2.0-3.6 cm LVPWd: 0.72 0.7-1.1 cm LV Mass: 203.18 67-162/88-224 g LV Mass Index: 84.66 43-95/49-115 g/m2 LVOT Diam: 2.60 3.0+(-)1.3 cm 2D Systolic Function EF 4C: 48.20 >55% EF 2C: 41.80 >55% EF BiP: 44.50 >55% Mitral Valve MV Pk E: 0.59 MV PK A: 0.40 MV Decel Time: 172.00 E/A: 1.50 E'Lateral: 9.14 E'Medial: 7.40 E/E' Med: 7.90 E/E' Lat: 6.40 PHT: 50.00 MVA PHT: 4.40 Decel Kane: 3.42 Aortic Valve AoV Pk Zion: 1.03 AoV Pk Grad: 4.00 LVOT LVOT Pk Zion: 1.04 LVOT Mn Zion: 0.72 LVOT VTI: 0.18 LVOT Pk Grad: 4.00 LVOT Mn Grad: 3.00 LVOT Diam: 2.60 LVOT Area: 5.31 Diastolic Function MV Pk E: 0.59 MV Pk A: 0.40 E/A: 1.50 E'Medial: 7.40 E/E' Med: 7.90 E' Laterial: 9.14 E/E' Lat: 6.40 Right Ventricle TAPSE (mm): 15.10 TVS' Zion: 11.20 Tricuspid Valve RA Press: 3.00 Great Vessels Aorta Sinus of Valsalva: 3.60 2.0-3.5 cm Ao Asc: 3.40 2.1-3.4 cm Pulmonary Valve PV Pk Zion: 0.66 Peak PV Grad: 2.00 Updated in Other Vendor System with Status of Final Wiliam Holliday MD electronically signed on 05/08/2025 8:49:43 AM with status of Final
--- OUTSIDE RECORDS SUMMARY | 2025-05-05 10:38 | XMS_ITS | Clinical Summary ---
Author Organization [facility] Address [address] [place] [address] Phone Care Team Providers Care Lens And Frames Prescription Clerk Name Role Phone Unavailable Primary Care Provider [...] Vaccines (1 - 3-dose SCDM series) 2018 Influenza Vaccines (#1) 2025 COVID-19 Vaccine ( season) 2025 HIB Vaccines Completed 12/06/1993, 03/11, 02/06/1992, [...]
--- OUTSIDE RECORDS SUMMARY | 2025-05-05 10:38 | XMS_ITS | Clinical Summary ---
Author Organization [facility] Address [address] [place] [address] Care Team Providers Care Director Talent Acquisition Name Role Phone Unavailable Primary Care Provider [...] 09/04/2023 Social Influencers of Health Screening 09/04/2023 Depression Screening 08/10/2024 COVID-19 Vaccine (2023-2 5 season) 2025 Influenza Vaccine (#1) 2025 HIB Vaccines Aged [...]
--- OUTSIDE RECORDS SUMMARY | 2025-05-05 10:38 | XMS_ITS | Encounter Summary ---
Author Organization [facility] Address [address] [place] [phone] Phone Care Team Providers Care Career Agent Name Role Phone Otis Mustafa MD Primary Care Provider Jose hughes Encounter Details Date Type Department Care Team (Late st Contact Info) Description 03/21/2011 Documentation [facility] [address] [place], [place] [phone] Family Medicine, Physician [address] [place] [address] Social History Tobacco Use Types Packs/Day Years [...] on filedocumented in this encounter Care Teams Career Agent Relationship Specialty Start Date End Date Otis Mustafa MD PCP - General 03/20/17 11/26/22 documented as of this encounter
--- OUTSIDE RECORDS SUMMARY | 2025-05-05 10:38 | XMS_ITS | Encounter Summary ---
Author Organization [facility] Address [address] [place] [address] Phone Care Team Providers Care Can Repairer Name Role Phone Otis Mustafa MD Primary Care Provider Jose hughes Encounter Details Date Type Department Care Team (Late st Contact Info) Description 03/26/2017 Conversion Encounter [facility] - [address] [address] Social History Tobacco Use Types Packs/Day Years [...] on filedocumented in this encounter Care Teams Can Repairer Relationship Specialty Start Date End Date Otis Mustafa MD PCP - General 03/20/17 11/26/22 documented as of this encounter
--- OUTSIDE RECORDS SUMMARY | 2025-05-05 10:38 | XMS_ITS | Encounter Summary ---
Author Organization [facility] Address [address] [place] [phone] Phone Care Team Providers Care Weatherization Director Name Role Phone Otis Mustafa MD Primary Care Provider Jose hughes Encounter Details Date Type Department Care Team (Late st Contact Info) Description 06/05/2014 Documentation [facility] [address] [place], [place] [phone] Family Medicine, Physician [address] [place] [address] Social History Tobacco Use Types Packs/Day Years [...] on filedocumented in this encounter Care Teams Weatherization Director Relationship Specialty Start Date End Date Otis Mustafa MD PCP - General 03/20/17 11/26/22 documented as of this encounter
== END ==
LOC: HO.CARD 09:37
PROVIDERS: PCP Nurse Practitioner Family; Visit Provider Internal Medicine Cardiovascular Disease
DX: I10 Essential (primary) hypertension (principal)
CPT/HCPCS: 93306; Q9957

== ENCOUNTER → 2025-05-05 09:40 | Outpatient (BNV) | payer OTHER, SELFPAY | PROVIDERS: PCP Nurse Practitioner Family; Visit Provider Internal Medicine Cardiovascular Disease | DX: I10 Essential (primary) hypertension (principal) | CPT/HCPCS: 93306 ==

== ENCOUNTER 2025-05-15 06:49 | Outpatient (AMB) | payer OTHER, SELFPAY ==
--- OUTSIDE RECORDS SUMMARY | 2025-05-15 07:07 | XMS_ITS | Clinical Summary ---
Author Organization [facility] Address [address] [place] [address] Care Team Providers Care Cement Block Maker Name Role Phone Unavailable Primary Care Provider [...] of 3 - 19+ 3-dose series) 2010 HPV Vaccines (1 - 3-dose SCD M series) 2018 HIV Screening 09/04/2023 Hepatitis C Screening 09/04/2023 Social Influencers of Health Screening 09/04/2023 Depression Screening 08/10/2024 COVID-19 Vaccine (1 - 2023-2 5 season) 2025 Influenza Vaccine (#1) 2025 RSV Immunization Adult Patie nts (1 - 1-dose 75+ series) 2066 HIB Vaccines Aged Out No longer eligi [...]
--- NOTE | 2025-05-15 07:20 | MHC.PC.OV ---
Intake Visit Reasons: Discuss anxiety Allergies No Known Allergies (No Known Allergies*) Allergy (Verified 05/15/25 07:22) Medication List - Last Reconciled 05/15/25 by GUILLERMO AcostaP- albuterol sulfate 90 mcg/actuation 2 puffs inhalation Q6H PRN amlodipine 10 mg PO DAILY buspirone 7.5 mg PO BID 30 days cetirizine 20 mg PO DAILY PRN clobetasol 0.05% 1 appl topical BID 2 weeks fluticasone propion-salmeterol 232-14 mcg/actuation (AirDuo RespiClick) 1 inh inhalation BID ibuprofen 600 mg PO Q6H PRN lisinopril 15 mg (1.5 x 10 mg) PO DAILY 90 days lorazepam 0.5 mg PO BID PRN miscellaneous medical supply (Blood Pressure Cuff) As directed multivitamin 1 tab PO DAILY naproxen 500 mg PO BID PRN omega-3 fatty acids-fish oil 360-1,200 mg (Fish Oil) 1 cap PO BID ondansetron 4 mg PO Q6-8H PRN pantoprazole 40 mg PO DAILY rosuvastatin 5 mg PO DAILY 90 days Tobacco use date assessed: 08/13/23 Dental Screening Dental Screen Date: 08/13/23 HPI Discuss anxiety HPI Details History of Present Illness The patient is a 34-year-old male presenting with hypertension management and anxiety evaluation. He has been prescribed buspirone 7.5 mg twice daily for anxiety but has been taking it only once daily due to concerns about interactions with other medications taken at night. His anxiety has been fairly well-controlled. The patient uses Afrin for nasal congestion but has been advised to reduce its use due to the risk of rebound congestion and headaches. He plans to decrease usage to every other day, then to three times a week, and eventually discontinue it. He sees a electronic news gathering editor for hypertension and is questioning the accuracy of his blood pressure readings due to potential white coat syndrome. He plans to obtain a larger cuff and a better machine, and if necessary, will have his blood pressure checked manually. The patient is referred to sleep medicine due to his cardiac history and obesity. He is a well-controlled diabetic with a recent A1c in the 5s, and further labs are planned (will see him in the office in the near future to look at this further) He denies recent chest pain, increased shortness of breath, abdominal pain, dizziness, and blurred vision, although he acknowledges needing an eye exam and glasses, which may contribute to headaches. The Afrin and allergies, along with sinusitis, may also contribute to his headaches. He does not currently have a sinus infection, and his cetirizine dosage is increased from 20 mg once daily to 20 mg twice daily. Review of Systems - Cardiovascular: Denies chest pain. - Respiratory: Denies increased shortness of breath. - Gastrointestinal: Denies abdominal pain. - Neurological: Denies dizziness. Reports blurred vision related to needing an eye exam and glasses. 1. Hypertension The patient is advised to verify the accuracy of his blood pressure readings by obtaining a larger cuff and a better machine, and if necessary, to have his blood pressure checked manually. 2. Anxiety The patient is instructed to take buspirone 7.5 mg twice daily as prescribed to better manage his anxiety. 3. Rebound Congestion The patient is advised to reduce the use of Afrin to every other day, then to three times a week, and eventually discontinue it to prevent rebound congestion. 4. Obesity The patient is referred to sleep medicine due to his cardiac history and obesity. 5. Diabetes Mellitus The patient is a well-controlled diabetic with a recent A1c in the 5s, and further labs are planned to monitor his condition. 6. Preventative Care The patient is referred to sleep medicine for further evaluation due to his cardiac history and obesity. Discussion Notes I discussed with the patient the importance of accurate blood pressure monitoring and suggested obtaining a larger cuff and a better machine. We also talked about the need to manage his anxiety with the prescribed dosage of buspirone. I advised him to reduce the use of Afrin to prevent rebound congestion and referred him to sleep medicine due to his cardiac history and obesity. We will conduct further labs to monitor his diabetes, which is currently well-controlled. Patient Instructions - Take buspirone 7.5 mg twice daily as prescribed. - Reduce Afrin use to every other day, then to three times a week, and eventually discontinue. - Obtain a larger cuff and a better blood pressure machine, or have blood pressure checked manually. - Follow up with sleep medicine for further evaluation. - Continue monitoring diabetes with upcoming labs. [facility], [facility] Medical History Hypertensive retinopathy Palpitations Diabetes Asthma Anxiety Kidney stone Hypertension Surgical History History of esophagogastroduodenoscopy (EGD) S/P appendectomy Family History Mother Cancer Social History Housing: House Alcohol intake: never Patient Tobacco Use Status: Never used Tobacco e-Cigarette/Vaping Use: Never Used Second Hand Smoke Exposure: No service: No Current occupational status: unemployed Cognitive needs: No Hearing needs: No Vision needs: No Questionnaire Thrive Questionnaire Date Thrive assessed: 09/03/22 AUDIT C Alcohol Use Questionnaire (AUDIT-C) 2. How many drinks containing alcohol do you have on a typical day when you are drinking?: 1 or 2 3. How often do you have six or more drinks on one occasion?: Never Total Score: 0 JOE-7 AMB Questionnaire JOE-7 Date JOE - 7 assessed: 08/13/23 Source: Developed by Drs. Star Parr, Zeynep Galarza, Yaakov Rai and colleagues, with an educational marii from [employer]. Physical exam (Primary Care) Tobacco/Smoking Status: Tobacco use Status Tobacco use date assessed 08/13/23 02/23/24 09:17 Patient Tobacco Use Status Never used Tobacco 03/17/25 08:20 e-Cigarette/Vaping Use Never Used 02/23/24 09:17 Thrive Assessment: Date of Thrive Assessment Date Thrive assessed 09/03/22 02/23/24 09:17 Telehealth Telehealth Telehealth Platform: [facility] Location of provider rendering services: practice address Location of patient: address on file Patient Identification confirmed using: Name, : Yes Telehealth method: video Patient verbally consented to treatment: Yes Patient verbally consented to billing insurance company: Yes Patient informed of any privacy concerns related to visit: Yes Minutes spent on Phone/Video with Pt.: 15 Coding Level of Care Code Tele Est Pt Level 3 (34464) Diagnoses Anxiety F41.9 Hypertension I10 Diabetes E11.9 Obesity E66.9 Headache R51.9 Assessment & Plan Assessment & Plan (1) Anxiety: Code(s): F41.9 - Anxiety disorder, unspecified Category: Medical (2) Hypertension: Code(s): I10 - Essential (primary) hypertension Category: Medical (3) Diabetes: Code(s): E11.9 - Type 2 diabetes mellitus without complications Category: Medical (4) Obesity: Code(s): E66.9 - Obesity, unspecified Category: Medical (5) Headache: Code(s): R51.9 - Headache, unspecified Category: Medical Plan . Orders: Orders TSH reflex Free T4 Today I10 - Essential (primary) hypertension UA CC w/rflx Micro + Cult Today I10 - Essential (primary) hypertension Lipid Panel Today I10 - Essential (primary) hypertension Complete Blood Count Auto Diff Today I10 - Essential (primary) hypertension Comprehensive [place]. Panel Fast Today I10 - Essential (primary) hypertension Microalbumin, Random (w Creat) Today I10 - Essential (primary) hypertension Hemoglobin A1c Today I10 - Essential (primary) hypertension Referrals Sleep Medicine Referral E66.9 - Obesity, unspecified, I10 - Essential (primary) hypertension, I42.2 - Other hypertrophic cardiomyopathy
== END 2025-05-15 10:12 | disposition home or self-care (01) ==
LOC: HO.HMCC 06:50
PROVIDERS: PCP Nurse Practitioner Family; Visit Provider Nurse Practitioner Family
DX: F41.9 Anxiety disorder, unspecified (principal); I10 Essential (primary) hypertension; E11.9 Type 2 diabetes mellitus without complications; E66.9 Obesity, unspecified; R51.9 Headache, unspecified

== ENCOUNTER 2025-05-18 07:40 | Outpatient (REF) | payer OTHER, SELFPAY ==
[2025-05-18 09:59] LABS: MANUAL DIFF FLAG NO
[2025-05-18 10:01] LABS: Hematocrit 44.1 % (42.0-52.0); Hemoglobin 15.7 g/dl (14.0-18.0); Imm Gran Abs Auto 0.02 X10*3/uL (0.00-0.03); Imm Gran Pct Auto 0.5 % (0.0-0.4); Lymphocytes Absolute Auto 1.7 X10*3/uL (1.2-4.9); Mean Corpuscular HGB Conc 35.6 g/dl (31.0-36.0); Mean Corpuscular Hemoglobin 29.5 pg (27.0-33.0); Mean Corpuscular Volume 82.7 fL (80.0-98.0); NRBC Abs Auto 0.000 X10*3/uL (0.0-0.012); NRBC Pct Auto 0.0 /100WBC (0.0-0.2); Platelet Count 176 X10*3/uL (160-400); Red Blood Count 5.33 X10*6/uL (4.60-5.80); White Blood Count 4.4 X10*3/uL (4.8-10.8)
[2025-05-18 10:09] LABS: Appearance Urine Clear; Glucose Urine UA Negative (Negative); PH 7.0 (5.0-9.0); Specific Gravity - Urine >= 1.030 (1.005-1.025)
[2025-05-18 10:32] LABS: Alanine Aminotransferase 36 U/L (0-40); Albumin Level 4.8 g/dL (3.5-5.0); Alkaline Phosphatase 45 U/L (39-117); Anion Gap 9 (12-20); Aspartate Amino Transferase 33 U/L (5-37); Blood Urea Nitrogen 18 mg/dL (9-16); Calcium 9.4 mg/dL (8.4-10.2); Carbon Dioxide 24 mmol/L (22-29); Chloride 109 mmol/L (96-108); Cholesterol 143 mg/dL (<200); Estimated Glomerular Filt Rate > 60; HDL Cholesterol 33 mg/dL (>40); Potassium 4.3 mmol/L (3.3-5.1); Sodium 138 mmol/L (135-145); Total Protein 7.4 g/dL (6.5-8.0); Triglycerides 146 mg/dL (<150)
[2025-05-18 10:44] LABS: Microalbum/Creatinine Ratio Ur 4.5 ug/mg cr (<30)
== END 2025-05-18 07:41 | disposition home or self-care (01) ==
LOC: HO.HMGCLDS 07:40
PROVIDERS: PCP Nurse Practitioner Family; Visit Provider Nurse Practitioner Family
DX: I10 Essential (primary) hypertension (principal)
CPT/HCPCS: 36415; 80053; 80061; 81003; 82043; 82570; 83036; 84443; 85025

== ENCOUNTER 2025-05-19 09:14 | Outpatient (AMB) | payer OTHER, SELFPAY ==
[2025-05-19 09:26] VITALS: BP 132/72; PULSE 85; O2SAT 98; BMI 36.9
--- NOTE | 2025-05-19 09:26 | A.OFFVIS_ITS ---
Vital Signs 05/19/25 09:26 Height 6 ft Weight 272 lb BMI 36.9 BP 132/72 Blood Pressure Location Lt brachial Position Sitting Pulse 85 Pulse Source Pulse Oximeter Pulse Oximetry (%) 98 Oxygen Delivery Method Room Air Intake Visit Reasons: Follow up Allergies No Known Allergies (No Known Allergies*) Allergy (Verified 05/19/25 09:30) HPI HPI Follow up: Details: 34-year-old gentleman, nonsmoker, with underlying history of psoriasis, celiac disease, diabetes mellitus now referred for evaluation of episodes of dyspnea on exertion, nonproductive cough, and chest tightness at night. Patient has been tried on empiric albuterol MDI with no significant response. He does also complain of multiple environmental allergies. Patient states that he has been checked for sleep apnea several years prior and no sleep apnea was noted. Patient also had recent normal cardiac workup. Patient denies family history of lung disease. After the last office visit patient continues on Xolair, AirDuo, and albuterol MDI with reasonable control of his symptoms. He denies acute exacerbations. [facility] Medical History Hypertensive retinopathy Palpitations Diabetes Asthma Anxiety Kidney stone Hypertension Surgical History History of esophagogastroduodenoscopy (EGD) S/P appendectomy Family History Mother Cancer Social History Housing: House Alcohol intake: never Patient Tobacco Use Status: Never used Tobacco e-Cigarette/Vaping Use: Never Used Second Hand Smoke Exposure: No service: No Current occupational status: unemployed Cognitive needs: No Hearing needs: No Vision needs: No Review of Systems Const Denies daytime sleepiness, Denies excessive sweating, Denies fatigue, Denies fever(s), Denies lethargy, Denies malaise, Denies night sweats, Denies snoring and Denies weight loss Eyes Denies blurry vision and Denies itchy eyes ENT Denies nasal congestion, Denies post nasal drip, Denies sinus pain, Denies sinus pressure and Denies other ( Thrush) Card Denies chest pain, Denies pedal edema, Denies dyspnea, Denies orthopnea and Denies paroxysmal nocturnal dyspnea Resp Denies cough, Denies hemoptysis, Denies excessive phlegm production, Denies dyspnea, Denies snoring and Denies wheezing GI Denies abdominal pain and Denies heartburn Musc Denies myalgias, Denies arthralgias and Denies joint swelling Skin/Breast Denies rash Neuro Denies memory loss and Denies seizure-like activity Psych Denies abnormal sleep pattern, Denies anxiety and Denies memory loss Endo Denies excessive sweating, Denies fatigue and Denies heat intolerance Pedro Luis/Lymph Denies easy bruising Aller/Immun Denies itchy eyes, Denies seasonal rhinorrhea and Denies wheezing Physical Exam Vital Signs: Last Vital Signs Pulse 85 05/19/25 09:26 BP 132/72 05/19/25 09:26 Pulse Ox 98 05/19/25 09:26 Oxygen Delivery Method Room Air 05/19/25 09:26 BMI result Body Mass Index 36.9 Const General: no acute distress and alert Nutritional Appearance: not obese Orientation/consciousness: Other orientation findings ( oriented) HEENT Head: Yes atraumatic Eyes General: appearance normal, both eyes and all related structures Sclerae: sclerae normal EOM: EOMs intact bilaterally Neck Neck: Yes supple Lymphatic: no lymphadenopathy noted Resp Effort & Inspection: normal respiratory effort and no use of accessory muscles Auscultation: clear to auscultation bilaterally Cardio Rate: regular rate Rhythm: regular rhythm Heart sounds: no gallops, no murmurs and no rubs Skin General skin exam: other ( warm) Extrem General: No clubbing, No cyanosis and No edema Assessment & Plan Assessment & Plan (1) Severe persistent asthma: Code(s): J45.50 - Severe persistent asthma, uncomplicated Category: Medical Plan: Significantly improved symptom control on Xolair, AirDuo, and albuterol MDI. Continue current regimen. (2) Environmental allergies: Code(s): Z91.09 - Other allergy status, other than to drugs and biological substances Category: Medical Plan: Well controlled on Xolair. Continue current regimen. Coding Level of Care Code Est Pt Level 4 (36726) Diagnoses Severe persistent asthma J45.50 Environmental allergies Z91.09
--- OUTSIDE RECORDS SUMMARY | 2025-05-19 09:42 | XMS_ITS | Encounter Summary ---
Author Organization [facility] Address [address] [place] [phone] Phone Care Team Providers Care Vision Therapist Name Role Phone Otis Mustafa MD Primary Care Provider Jose hughes Encounter Details Date Type Department Care Team (Late st Contact Info) Description 06/05/2014 Documentation [facility] [address] [place], [place] [phone] Family Medicine, Physician [address] [place] [address] Social History Tobacco Use Types Packs/Day Years [...] on filedocumented in this encounter Care Teams Vision Therapist Relationship Specialty Start Date End Date Otis Mustafa MD PCP - General 03/20/17 11/26/22 documented as of this encounter
--- OUTSIDE RECORDS SUMMARY | 2025-05-19 09:42 | XMS_ITS | Clinical Summary ---
Author Organization [facility] Address [address] [place] [address] Care Team Providers Care Rn Ortho Name Role Phone Unavailable Primary Care Provider [...]
--- OUTSIDE RECORDS SUMMARY | 2025-05-19 09:42 | XMS_ITS | Clinical Summary ---
Author Organization [facility] Address [address] [place] [address] Phone Care Team Providers Care Floorworker Distributor Name Role Phone Unavailable Primary Care Provider [...] Influenza Vaccines (#1) 2025 COVID-19 Vaccine ( - 2024- season) 2025 HIB Vaccines Completed 12/06/1993, 03/11, [...]
--- OUTSIDE RECORDS SUMMARY | 2025-05-19 09:42 | XMS_ITS | Encounter Summary ---
Author Organization [facility] Address [address] [place] [phone] Phone Care Team Providers Care Oracle Applications Developer Name Role Phone Otis Mustafa MD Primary Care Provider Jose hughes Encounter Details Date Type Department Care Team (Late st Contact Info) Description 03/21/2011 Documentation [facility] [address] [place], [place] [phone] Family Medicine, Physician [address] [place] [address] Social History Tobacco Use Types Packs/Day Years [...] on filedocumented in this encounter Care Teams Oracle Applications Developer Relationship Specialty Start Date End Date Otis Mustafa MD PCP - General 03/20/17 11/26/22 documented as of this encounter
--- OUTSIDE RECORDS SUMMARY | 2025-05-19 09:42 | XMS_ITS | Encounter Summary ---
Author Organization [facility] Address [address] [place] [address] Phone Care Team Providers Care Mate Fourth Name Role Phone Otis Mustafa MD Primary Care Provider Jose hughes Encounter Details Date Type Department Care Team (Late st Contact Info) Description 03/26/2017 Conversion Encounter [facility] - [address] [address] Social History Tobacco Use Types Packs/Day Years [...] on filedocumented in this encounter Care Teams Mate Fourth Relationship Specialty Start Date End Date Otis Mustafa MD PCP - General 03/20/17 11/26/22 documented as of this encounter
== END 2025-05-19 09:48 | disposition home or self-care (01) ==
LOC: HO.HPS 09:15
PROVIDERS: PCP Nurse Practitioner Family; Visit Provider Internal Medicine Pulmonary Disease
DX: J45.50 Severe persistent asthma, uncomplicated (principal); Z91.09 Other allergy status, other than to drugs and biological substances
CPT/HCPCS: 99214

== ENCOUNTER 2025-05-19 14:05 | Outpatient (REF) | payer OTHER, SELFPAY ==
--- NOTE | ~2025-05-19 | US_ITS ---
EXAMINATION: US RETROPERITONEAL LIMITED (RENAL ONLY) CLINICAL INFORMATION: Calculus of kidney. COMPARISON: 08/05/2023. Correlation made with CT abdomen and pelvis 10/12/2023. TECHNIQUE: Real-time imaging of the kidneys. FINDINGS: RIGHT KIDNEY: 12.8 x 7.2 x 6.3 cm (SAG x AP x TRV). The kidney is normal in size, contour, and echogenicity. Renal cortical thickness is normal. No calculi or focal parenchymal lesions. No hydronephrosis. LEFT KIDNEY: 12.5 x 6.5 x 5.8 cm (SAG x AP x TRV). The kidney is normal in size, contour, and echogenicity. Renal cortical thickness is normal. No calculi or focal parenchymal lesions. No hydronephrosis. US/US renal BI IMPRESSION: Normal renal ultrasound.. Electronically signed by: Rodriguez Whitaker MD 05/19/2025 03:14 PM EDT
== END 2025-05-19 14:06 | disposition home or self-care (01) ==
LOC: HO.US 14:05
PROVIDERS: Visit Provider Nurse Practitioner Family
DX: N20.0 Calculus of kidney (principal)
CPT/HCPCS: 76775

== ENCOUNTER → 2025-05-19 14:10 | Outpatient (BNV) | payer OTHER, SELFPAY | PROVIDERS: Visit Provider Radiology Diagnostic Radiology | DX: N20.0 Calculus of kidney (principal) | CPT/HCPCS: 76775 ==

== ENCOUNTER 2025-06-05 15:15 | Outpatient (AMB) | payer OTHER, SELFPAY ==
--- NOTE | 2025-06-05 15:16 | MHC.OFFVIS ---
Intake Visit Reasons: US follow up Intake Note: Patient is present for US F/U Urology Medication:NONE Antibiotic Allergy:NONE Blood Thinner:NONE Communication Spec Required: No Allergies No Known Allergies (No Known Allergies*) Allergy (Verified 06/05/25 15:37) Medication List - Last Reconciled 06/05/25 by DOMINIQUE Esquivel-PRISCILA albuterol sulfate 90 mcg/actuation 2 puffs inhalation Q6H PRN amlodipine 10 mg PO DAILY buspirone 7.5 mg PO BID 30 days cetirizine 20 mg PO DAILY PRN clobetasol 0.05% 1 appl topical BID 2 weeks fluticasone propion-salmeterol 232-14 mcg/actuation (AirDuo RespiClick) 1 inh inhalation BID ibuprofen 600 mg PO Q6H PRN lisinopril 15 mg (1.5 x 10 mg) PO DAILY 90 days lorazepam 0.5 mg PO BID PRN miscellaneous medical supply (Blood Pressure Cuff) As directed multivitamin 1 tab PO DAILY naproxen 500 mg PO BID PRN omega-3 fatty acids-fish oil 360-1,200 mg (Fish Oil) 1 cap PO BID ondansetron 4 mg PO Q6-8H PRN pantoprazole 40 mg PO DAILY rosuvastatin 5 mg PO DAILY 90 days HPI Comments Details: Jarrod is a pleasant 34-year-old male patient of Dr. Garner. He has a PMH of HTN and diabetes. He is being followed up on today via video telehealth for his history of nephrolithiasis and history of intermittent right testicular pain. Recent renal imaging results reviewed with the patient today. No hydronephrosis or renal calculi noted bilaterally. When asked he reports to be doing and feeling well. He denies having had any bothersome urinary issues or concerns. He denies having had any other episodes of right testicular pain he had been experiencing. Recent renal imaging results reviewed with the patient today. 06/03 the kidneys are normal in size, contour, and echogenicity. No calculi, lesions, and or hydronephrosis noted bilaterally. Normal renal ultrasound. However patient is enquiring question of calcifications that were discussed during examination. Calcified vessels throughout. We did discuss potential causes such as underlying high blood pressure, high cholesterol, as well as lifestyle changes in relation to this issue. He otherwise denies any bothersome urinary issues or concerns. He does report to be drinking plenty of water daily. He is happy with his current voiding parameters. Will continue with surveillance monitoring. All questions were answered. [facility] Medical History (Updated 06/05/25 @ 16:10 by Molly Marcelino [facility]) Kidney stone Hypertensive retinopathy Palpitations Diabetes Asthma Anxiety Hypertension Surgical History History of esophagogastroduodenoscopy (EGD) S/P appendectomy Family History Mother Cancer Social History Housing: House Alcohol intake: never Patient Tobacco Use Status: Never used Tobacco e-Cigarette/Vaping Use: Never Used Second Hand Smoke Exposure: No service: No Current occupational status: unemployed Cognitive needs: No Hearing needs: No Vision needs: No Review of Systems Const All systems reviewed & are unremarkable except as noted in HPI and below Physical Exam Const General: cooperative, healthy appearing, comfortable, no acute distress, well developed, alert and awake Orientation/consciousness: patient oriented x3 Resp Effort & Inspection: normal respiratory effort and able to speak in complete sentences Neuro General: patient oriented x3 Psych Appearance: grossly normal and well kempt Speech and movement: Clear speech present Affect: normal affect Attitude: cooperative Thought content: Normal thought content present Insight: Fair insight present (Psych) Judgement: Fair judgement present (Psych) Telehealth Telehealth Telehealth Platform: Telephone Location of provider rendering services: practice address Location of patient: address on file Patient Identification confirmed using: Name, : Yes Telehealth method: video Patient verbally consented to treatment: Yes Patient verbally consented to billing insurance company: Yes Patient informed of any privacy concerns related to visit: Yes Results Reviewed Results Reviewed: Date of Service: 05/19/25 Procedure(s): US renal BI FINDINGS: RIGHT KIDNEY: 12.8 x 7.2 x 6.3 cm (SAG x AP x TRV). The kidney is normal in size, contour, and echogenicity. Renal cortical thickness is normal. No calculi or focal parenchymal lesions. No hydronephrosis. LEFT KIDNEY: 12.5 x 6.5 x 5.8 cm (SAG x AP x TRV). The kidney is normal in size, contour, and echogenicity. Renal cortical thickness is normal. No calculi or focal parenchymal lesions. No hydronephrosis. IMPRESSION: Normal renal ultrasound. Assessment & Plan Assessment & Plan (1) Kidney stone: Code(s): N20.0 - Calculus of kidney Category: Medical Plan Recent renal imaging results reviewed with the patient today; as noted above. We did discuss calcified blood vessels noted on imaging. All questions were answered. We discussed lifestyle modifications to assist with calcified blood vessels noted on imaging We discussed the importance of continuing to drink plenty of water daily in relation to nephrolithiasis as well as overall health and well-being. He denies any bothersome urinary issues or concerns. He reports be happy with current voiding parameters. Will continue with surveillance monitoring. Will obtain renal ultrasound in 1 year. Follow-up in 1 year with imaging to be completed prior; or sooner with any issues, concerns, and or questions. Orders: Orders US renal BI 1 Year N20.0 - Calculus of kidney Patient Instructions: The patient had an opportunity to ask questions regarding the treatment plan. All questions were answered. Physical exam, labs, and imaging were discussed and reviewed in detail. As well as risks, benefits, and discussion of treatment choices. No major barriers to understanding were identified. The patient expressed understanding and agreement with the above treatment plan. The patient was made aware they should contact our office by phone for worsening of their current condition, the appearance of new symptoms, or with any questions or concerns. Compliance is encouraged with any medications and follow up testing that is ordered. It is a privilege to be allowed the opportunity to participate in? your urological care.? Again, if you have any questions or concerns If you have any questions or concerns please do not hesitate to contact me. The office is [phone]. This note is constructed using voice recognition software. While every effort has been made to ensure accuracy defense analyst errors may have been included. Yours sincerely, CLAIR Esquivel Coding Level of Care Code Tele Est Pt Level 3 (00730) Diagnoses Kidney stone N20.0
--- OUTSIDE RECORDS SUMMARY | 2025-06-05 18:32 | XMS_ITS | Clinical Summary ---
Author Organization [facility] Address [address] [place] [address] Phone Care Team Providers Care Jacquard Twine Polisher Operator Name Role Phone Unavailable Primary Care [...]
--- OUTSIDE RECORDS SUMMARY | 2025-06-05 18:32 | XMS_ITS | Encounter Summary ---
Author Organization [facility] Address [address] [place] [phone] Phone Care Team Providers Care Bed Laborer Name Role Phone Otis Mustafa MD Primary Care Provider Jose hughes Encounter Details Date Type Department Care Team (Late st Contact Info) Description 06/05/2014 Documentation [facility] [address] [place], [place] [phone] Family Medicine, Physician [address] [place] [address] Social History Tobacco Use Types Packs/Day Years [...] on filedocumented in this encounter Care Teams Bed Laborer Relationship Specialty Start Date End Date Otis Mustafa MD PCP - General 03/20/17 11/26/22 documented as of this encounter
--- OUTSIDE RECORDS SUMMARY | 2025-06-05 18:32 | XMS_ITS | Encounter Summary ---
Author Organization [facility] Address [address] [place] [phone] Phone Care Team Providers Care Odd Ticket Clerk Name Role Phone Otis Mustafa MD Primary Care Provider Jose hughes Encounter Details Date Type Department Care Team (Late st Contact Info) Description 03/21/2011 Documentation [facility] [address] [place], [place] [phone] Family Medicine, Physician [address] [place] [address] Social History Tobacco Use Types Packs/Day Years [...] on filedocumented in this encounter Care Teams Odd Ticket Clerk Relationship Specialty Start Date End Date Otis Mustafa MD PCP - General 03/20/17 11/26/22 documented as of this encounter
--- OUTSIDE RECORDS SUMMARY | 2025-06-05 18:32 | XMS_ITS | Clinical Summary ---
Author Organization [facility] Address [address] [place] [address] Care Team Providers Care Strip Catcher Name Role Phone Unavailable Primary Care Provider [...]
--- OUTSIDE RECORDS SUMMARY | 2025-06-05 18:32 | XMS_ITS | Encounter Summary ---
Author Organization [facility] Address [address] [place] [address] Phone Care Team Providers Care Kosher Inspector Name Role Phone Otis Mustafa MD Primary Care Provider Jose hughes Encounter Details Date Type Department Care Team (Late st Contact Info) Description 03/26/2017 Conversion Encounter [facility] - [address] [address] Social History Tobacco Use Types Packs/Day Years [...] on filedocumented in this encounter Care Teams Kosher Inspector Relationship Specialty Start Date End Date Otis Mustafa MD PCP - General 03/20/17 11/26/22 documented as of this encounter
== END 2025-06-05 16:13 | disposition home or self-care (01) ==
LOC: HO.HUSH 15:15
PROVIDERS: PCP Internal Medicine Gastroenterology; Visit Provider Nurse Practitioner Family
DX: N20.0 Calculus of kidney (principal)
CPT/HCPCS: 99213